=== PATIENT | male | born 1945 | race Caucasian/White ===

== ENCOUNTER → 2016-09-27 | Outpatient (CLI) | payer OTHER ==
[~2016-09-27] MED LIST: AMLO-114 PO; ASPI1TAB83 PO; GLC/500 PO; LOSA100T26 PO; TRAM-10 PO
--- NOTE | 2016-09-27 15:19 | DIAGNOSTIC IMAGING REPORT ---
LEG LENGTH STUDY (WHOLE LEG) CLINICAL HISTORY: LEG LENGTH DISCREPENCY,SACROILIITIS COMPARISON STUDY: No previous studies for comparison. FINDINGS: There are moderately advanced osteoarthritic changes involving both knees with marked narrowing of the medial joint compartments. There is no evidence of leg length discrepancy. Each leg as measured from the femoral head to the tibial plafond measures 934 mm. IMPRESSION: 1. No evidence of leg length discrepancy 2. Moderately advanced osteoarthritic changes involving both knees with marked narrowing of the medial joint compartments Electronically signed by: Rakan Holland M.D. 09/27/2016 3:17 PM Dictated Date/Time: 09/27/2016 3:16 PM
== END | disposition home or self-care (01) ==
LOC: C.RADBC 14:10
PROVIDERS: ATTEND Anesthesiology
DX: M21.70 Unequal limb length (acquired), unspecified site (principal); M46.1 Sacroiliitis, not elsewhere classified

== ENCOUNTER → 2017-04-26 | Outpatient (CLI) | payer OTHER ==
[2017-04-26 09:31] LABS: BASO % 0.4 %; BASO ABS # 0.02 K/uL (0-0.2); COMPLETE YES; EOS % 2.3 %; HEMATOCRIT 46.5 % (42-52); LYMPH % 38.8 %; MEAN CELL VOLUME 94.9 fL (80-100); MEAN CORPUSCULAR HEMOGLOBIN 31.4 pg (25-34); MEAN CORPUSCULAR HGB CONC 33.1 g/dl (32-36); MEAN PLATELET VOLUME 10.4 fL (7.4-10.4); MONO % 13.2 %; NEUT % 45.3 %; PLATELET COUNT 219 K/uL (130-400); WHITE BLOOD COUNT 5.15 K/uL (4.8-10.8)
[2017-04-26 09:50] LABS: ESTIMATED AVERAGE GLUCOSE 123 mg/dl; HA1C FLAG Normal (Normal)
[2017-04-26 10:07] LABS: ALT/SGPT 31 U/L (12-78); AST/SGOT 23 U/L (15-37); BLOOD UREA NITROGEN 18 mg/dl (7-18); BUN/CREATININE RATIO 22.3 (10-20); CALCIUM 8.7 mg/dl (8.5-10.1); CARBON DIOXIDE 28 mmol/L (21-32); CHLORIDE 105 mmol/L (98-107); CREATININE 0.83 mg/dl (0.60-1.40); GLUCOSE 97 mg/dl (70-99); HDL CHOLESTEROL 34 mg/dl; POTASSIUM 3.8 mmol/L (3.5-5.1); SODIUM 139 mmol/L (136-145)
[2017-04-26 10:19] LABS: ALB/GLOB RATIO 1.1 (0.9-2); ALKALINE PHOSPHATASE 105 U/L (45-117); CHOLESTEROL 180 mg/dl (0-200); CHOLESTEROL/HDL RATIO 5.3; LDL CHOLESTEROL CALCULATED 106 mg/dl; TRIGLYCERIDES 199 mg/dl (0-150); VERY LOW DENSITY LIPOPROT CALC 40 mg/dl
--- NOTE | 2017-05-05 06:47 | CODING QUERY MEDICAL NECESSITY ---
CQSUPPORTING DIAGNOSIS NEEDED A supporting diagnosis is required for the test/procedure performed on this patient in order for us to be reimbursed by the patient's insurance. Please provide a supporting diagnosis for the following test/procedure listed below next to the test name along with your signature. *If there is no additional diagnosis for this patient that would support the following test/procedure please document that below next to the test/procedure. Test(s)/Procedure(s) that require a supporting diagnosis: DOS 04/26/17 PROSTATE SPECIFIC TEST THYROID TEST LIPID TEST Provider Signature: Date: Thank you Melanie Galvan Health Information Management Once completed, please kindly fax back to [phone] For questions please call [phone]
== END | disposition home or self-care (01) ==
LOC: C.LAB 08:13
PROVIDERS: ATTEND Internal Medicine
DX: R73.09 Other abnormal glucose (principal)

== ENCOUNTER 2017-10-15 23:03 | Emergency (ER) | payer OTHER ==
[~2017-10-15] VITALS: Ht 175.3 cm; Wt 134.6 kg
[~2017-10-15 23:03] MED LIST changes: -LOSA100T26 PO; +LOSA100T33 PO
[2017-10-15 23:08] VITALS: TEMP 36.6; Ht 175.3 cm; Wt 134.6 kg
[2017-10-15 23:53] LABS: BASO % 0.3 %; BASO ABS # 0.02 K/uL (0-0.2); EOS % 0.9 %; EOS ABS # 0.06 K/uL (0-0.5); HEMATOCRIT 44.5 % (42-52); HEMOGLOBIN 15.4 g/dL (14.0-18.0); IG# 0.01 K/uL (0.00-0.02); LYMPH % 37.5 %; LYMPH ABS # 2.41 K/uL (1.2-3.4); MEAN CELL VOLUME 92.7 fL (80-100); MEAN CORPUSCULAR HEMOGLOBIN 32.1 pg (25-34); MEAN CORPUSCULAR HGB CONC 34.6 g/dl (32-36); MEAN PLATELET VOLUME 9.9 fL (7.4-10.4); MONO % 12.6 %; MONO ABS # 0.81 K/uL (0.11-0.59); NEUT % 48.5 %; NEUT ABS # 3.11 K/uL (1.4-6.5); PLATELET COUNT 198 K/uL (130-400); RED CELL DISTRIBUTION WIDTH CV 12.9 % (11.5-14.5); RED CELL DISTRIBUTION WIDTH SD 43.8 fL (36.4-46.3); WHITE BLOOD COUNT 6.42 K/uL (4.8-10.8)
[2017-10-16 00:14] LABS: ALBUMIN 3.7 gm/dl (3.4-5.0); CALCIUM 8.6 mg/dl (8.5-10.1); CREATININE 0.83 mg/dl (0.60-1.40); POTASSIUM 3.7 mmol/L (3.5-5.1)
[2017-10-16 00:19] LABS: CKMB 1.6 ng/ml (0.5-3.6); TOTAL PROTEIN 7.1 gm/dl (6.4-8.2)
--- NOTE | 2017-10-16 01:30 | EMERGENCY ROOM VISIT NOTE ---
ED Visit Note First contact with patient: 23:19 I saw this patient in conjunction with Ellen Madrid PA-C. I agree with her decision making and treatment plan.
--- NOTE | 2017-10-16 02:17 | EMERGENCY ROOM VISIT NOTE ---
History First contact with patient: 23:19 Chief Complaint: CARDIAC ASSESSMENT Stated Complaint: HIGH BLOOD PRESSURE Nursing Triage Summary: Left side chest discomfort starting at 3pm with high BP at home. No shortness of breath, pain doesn't radiate anywhere. Tender to touch. History of Present Illness The patient is a 71 year old male who presents to the Emergency Room with complaints of high blood pressure. The patient reports that he noticed a discomfort in his left side approximately 6 hours ago. He states it feels like a gas bubble in the left upper abdomen/lower chest. He noticed some nausea when lying down and some slight dizziness when standing up. He checked his blood pressure and states it was elevated at 172/102. He has been urinating more frequently than usual and was concerned about his sugar as he is a diabetic. He does not have anything at home to check his blood sugar. He states his symptoms have been constant. He denies any pain. He denies shortness of breath, vomiting or changes in bowel movements. He denies any cardiac history. He had a stress test several years ago. He does report a family history of heart disease in his father, however this did not occur until he was elderly. Review of Systems A complete 10 point review of systems was reviewed with the patient with pertinent positives and negatives as per history of present illness. All else were negative. Past Medical/Surgical History Medical Problems: (1) Chronic obstructive lung disease (2) Diabetes (3) History of - hypertension (4) Hyperlipidemia (5) Morbid obesity (6) Obstructive sleep apnea syndrome (7) Sepsis secondary to UTI Surgical Problems: (1) Colectomy Family History Cancer Diabetes mellitus Heart disease Hypertension Social History Smoking Status: Never Smoker Alcohol Use: occasionally Drug Use: none Marital Status: Housing Status: lives with significant other Occupation Status: employed Current/Historical Medications Scheduled Amlodipine (Norvasc), 10 MG PO DAILY Aspirin (Aspirin), 81 MG PO DAILY Hctz/Losartan (Hyzaar 12.5MG/100MG), 1 TAB PO DAILY Metformin Hcl (Glucophage), 500 MG PO BID Scheduled PRN Tramadol (Ultram), 100 MG PO QID PRN for Pain Physical Exam Vital Signs Date Time Temp Pulse Resp B/P (MAP) Pulse Ox O2 Delivery O2 Flow Rate FiO2 10/16/17 02:21 70 14 142/94 97 10/16/17 01:08 67 14 10/16/17 01:01 128/78 96 Room Air 10/16/17 00:08 68 22 10/16/17 00:03 65 14 10/16/17 00:01 166/109 10/15/17 23:52 148/84 10/15/17 23:41 63 10/15/17 23:08 36.6 66 18 152/91 95 Room Air Physical Exam VITALS: Vitals are noted on the nurse's note and reviewed by myself. Vital signs stable. GENERAL: This is a 71-year-old male, in no acute distress, nondiaphoretic, well- developed well-nourished. SKIN: The skin was without rashes. HEAD: Normocephalic atraumatic. EARS: External auditory canals clear, tympanic membranes pearly vasquez without erythema or effusion bilaterally. EYES: Pupils equal round and reactive to light and accommodation. MOUTH: Mucous membranes moist. Tonsils are not enlarged. Pharynx without erythema or exudate. NECK: Supple without nuchal rigidity. HEART: Regular rate and rhythm without murmurs gallops or rubs. LUNGS: Clear to auscultation bilaterally without wheezes, rales or rhonchi. No retractions or accessory muscle use. ABDOMEN: Positive bowel sounds x 4. Soft, no overt tenderness to exam although patient does report some reproduction of discomfort with palpation in the left upper quadrant. No guarding or rebound tenderness. NEURO: Patient was alert and oriented to person place and time. Medical Decision & Procedures ER Provider Diagnostic Interpretation: CHEST 1 VIEW: Cardiomegaly. No evidence of failure or pneumonia. Similar to previous Interpreted by myself Laboratory Results 10/15/17 23:41 Red Blood Count 4.80, Mean Corpuscular Volume 92.7, Mean Corpuscular Hemoglobin 32.1, Mean Corpuscular Hemoglobin Concent 34.6, Mean Platelet Volume 9.9, Neutrophils (%) (Auto) 48.5, Lymphocytes (%) (Auto) 37.5, Monocytes (%) (Auto) 12.6, Eosinophils (%) (Auto) 0.9, Basophils (%) (Auto) 0.3, Neutrophils # (Auto ) 3.11, Lymphocytes # (Auto) 2.41, Monocytes # (Auto) 0.81, Eosinophils # (Auto ) 0.06, Basophils # (Auto) 0.02 10/15/17 23:41 Test 10/15/17 23:41 10/16/17 00:41 10/16/17 01:23 White Blood Count 6.42 K/uL (4.8-10.8) Red Blood Count 4.80 M/uL (4.7-6.1) Hemoglobin 15.4 g/dL (14.0-18.0) Hematocrit 44.5 % (42-52) Mean Corpuscular Volume 92.7 fL (80-100) Mean Corpuscular Hemoglobin 32.1 pg (25-34) Mean Corpuscular Hemoglobin Concent 34.6 g/dl (32-36) Platelet Count 198 K/uL (130-400) Mean Platelet Volume 9.9 fL (7.4-10.4) Neutrophils (%) (Auto) 48.5 % Lymphocytes (%) (Auto) 37.5 % Monocytes (%) (Auto) 12.6 % Eosinophils (%) (Auto) 0.9 % Basophils (%) (Auto) 0.3 % Neutrophils # (Auto) 3.11 K/uL (1.4-6.5) Lymphocytes # (Auto) 2.41 K/uL (1.2-3.4) Monocytes # (Auto) 0.81 K/uL (0.11-0.59) Eosinophils # (Auto) 0.06 K/uL (0-0.5) Basophils # (Auto) 0.02 K/uL (0-0.2) RDW Standard Deviation 43.8 fL (36.4-46.3) RDW Coefficient of Variation 12.9 % (11.5-14.5) Immature Granulocyte % (Auto) 0.2 % Immature Granulocyte # (Auto) 0.01 K/uL (0.00-0.02) Anion Gap 7.0 mmol/L (3-11) Est Creatinine Clear Calc Drug Dose 114.4 ml/min Estimated GFR () 104.1 Estimated GFR (Non- 89.8 BUN/Creatinine Ratio 13.7 (10-20) Calcium Level 8.6 mg/dl (8.5-10.1) Total Bilirubin 0.4 mg/dl (0.2-1) Aspartate Amino Transf (AST/SGOT) 21 U/L (15-37) Alanine Aminotransferase (ALT/SGPT) 25 U/L (12-78) Alkaline Phosphatase 115 U/L (45-117) Total Creatine Kinase 147 U/L (39-308) Creatine Kinase MB 1.6 ng/ml (0.5-3.6) Creatine Kinase MB Ratio 1.1 (0-3.0) Total Protein 7.1 gm/dl (6.4-8.2) Albumin 3.7 gm/dl (3.4-5.0) Globulin 3.4 gm/dl (2.5-4.0) Albumin/Globulin Ratio 1.1 (0.9-2) Lipase 120 U/L (73-393) Urine Color YELLOW Urine Appearance CLEAR (CLEAR) Urine pH 7.0 (4.5-7.5) Urine Specific [place] 1.008 (1.000-1.030) Urine Protein NEG (NEG) Urine Glucose (UA) NEG (NEG) Urine Ketones NEG (NEG) Urine Occult Blood NEG (NEG) Urine Nitrite NEG (NEG) Urine Bilirubin NEG (NEG) Urine Urobilinogen NEG (NEG) Urine Leukocyte Esterase NEG (NEG) Bedside Troponin I < 0.030 ng/ml (0-0.045) ECG Per My Interpretation Indication: chest pain Rate (beats per minute): 65 Rhythm: normal sinus Findings: no acute ischemic change, no ectopy Change: no significant change ED Course The patient was evaluated as above. Labs were drawn and IV access was obtained. Patient was reevaluated and findings were discussed. His blood pressure has normalized. Repeat troponin was drawn and was found to be negative. Patient was informed of the results. He will be discharged home. Discharge instructions were reviewed with the patient. The patient verbalized understanding of my assessment and treatment plan and was discharged home in good condition. Medical Decision Differential diagnosis includes acute coronary syndrome, pulmonary embolism, pneumothorax, pericarditis, myocarditis, endocarditis, anxiety, musculoskeletal pain, GERD, costochondritis, pneumonia, among others. The patient is a 71-year-old male who presents today complaining of high blood pressure and left upper abdomen/chest discomfort. Labs revealed no leukocytosis , anemia, or concerning electrolyte abnormality. Urinalysis was not suggestive of infection. Troponin x2 negative. EKG was interpreted by myself and shows no ischemic changes. Chest x-ray shows nothing acute. The patient's blood pressure improved throughout his stay. Pain is likely gastrointestinal in nature. He was advised to follow up closely with his PCP this week for recheck. The patient was independently evaluated by Dr. Pickard, ED attending physician, who agreed with my assessment and treatment plan. Based on the patient's presentation and work up, I feel the patient is stable for outpatient treatment. The patient was educated to return to the emergency department for any worsening of their current condition or new/concerning symptoms. He will follow up with his PCP. Medication Reconcilliation Current Medication List: was personally reviewed by me Blood Pressure Screening Patient's blood pressure: Elevated blood pressure Blood pressure disposition: Referred to PCP Impression Primary Impression: Hypertension Departure Information Dispostion Home / Self-Care Condition GOOD Referrals Adolfo Jarrett M.D. (PCP) Patient Instructions My [facility] Additional Instructions You have been treated in the Emergency Department for high blood pressure/chest discomfort. Laboratory results and Imaging Studies have ruled out any acute cardiac or pulmonary cause of your chest pain. For pain control, you can use the following [id number] medicines (if >12 yo): - Regular strength (325mg/tab) Tylenol (acetaminophen) 2 tabs every 4-6 hours as needed. Do not exceed 12 tablets in a 24 hour period. Avoid taking more than 4 grams (4000 mg) of Tylenol per day. This includes any other sources of acetaminophen you may take on a regular basis. - Regular strength (200 mg/tab) Advil (ibuprofen) 1-2 tabs every 4-6 hours as needed. Do not exceed a dose of 3200 mg per day. You should schedule a follow-up appointment with your Primary Care Provider in 2 -3 days for further evaluation from today's Emergency Department visit. Call them tomorrow to schedule an appointment within this week. Return to the Emergency Department if your current symptoms worsen despite treatment course outlined above, or if you develop any of the following symptoms : worsening chest pain, associated jaw/arm pain, nausea, dizziness, shortness of breath, bloody cough, or fainting. Problem Qualifiers Primary Impression: Hypertension Hypertension type: unspecified Qualified Codes: I10 - Essential (primary) hypertension
[2017-10-16 02:21] VITALS: BP 142/94; PULSE 70; O2SAT 97
--- NOTE | 2017-10-16 07:03 | DIAGNOSTIC IMAGING REPORT ---
SINGLE VIEW CHEST CLINICAL HISTORY: Atypical chest pain. FINDINGS: An AP, portable, upright chest radiograph is compared to chest x-ray and chest CT dated 04/09/2016. The examination is degraded by portable technique, apical lordotic positioning, and patient rotation. The heart is enlarged and there is atherosclerotic calcification of the thoracic aorta. The pulmonary vasculature is noncongested. Chronic interstitial thickening is similar to previous. There is bibasilar atelectasis. No airspace consolidation or large pleural effusion is identified. No pneumothorax is seen. The skeletal structures are osteopenic. The bony thorax is grossly intact. IMPRESSION: Cardiomegaly with no acute cardiopulmonary abnormality. Electronically signed by: Robinson Maya M.D. 10/16/2017 7:02 AM Dictated Date/Time: 10/16/2017 7:01 AM
== END 2017-10-16 02:22 | disposition home or self-care (01) ==
LOC: C.EDB 23:04
DX: I10 Essential (primary) hypertension (principal); E11.9 Type 2 diabetes mellitus without complications; J44.9 Chronic obstructive pulmonary disease, unspecified; E78.5 Hyperlipidemia, unspecified; G47.33 Obstructive sleep apnea (adult) (pediatric); Z79.82 Long term (current) use of aspirin; Z79.84 Long term (current) use of oral hypoglycemic drugs; Z80.9 Family history of malignant neoplasm, unspecified; Z83.3 Family history of diabetes mellitus; Z82.49 Family history of ischemic heart disease and other diseases of the circulatory system

== ENCOUNTER 2022-05-06 15:30 | Inpatient (IN) ==
--- NOTE | 2022-05-06 15:32 | Emergency Department Note ---
Impression & Plan Non-ST elevation IA (NSTEMI), Weakness, Acute electrocardiogram changes, Leukocytosis ED Provider Note NAME: KAYLEE HAGEN AGE: 76 SEX: M : 1945 ARRIVES VIA: Ambulance INFORMANT: Patient, ED PROVIDER(S): Ciro Fiore MD Chief Complaint: Altered mental status HPI: History is obtained from EMS as well as colleague that took the initial medical command call. The patient reportedly had a last known well at 1357 when he fell to the ground and was reportedly unresponsive at that time. EMS did arrive to see the patient and the patient was responsive but still altered. The patient does have remote history of ICH in the past and does not reportedly take any current blood thinning medications. Vital signs were stable at the time that he was seen by EMS with a normal BSG. Upon returning from the CAT scan or the patient had complained of some right- sided chest pressure. The patient denies any shortness of breath or abdominal pain. The patient has had no associated nausea or vomiting. Family states he has not complained of any infectious symptoms. ROS: See HPI for pertinent positives and negatives. A total of 10 systems were reviewed and otherwise negative. Past medical history: See below Surgical history: See below Social history: See below Physical Exam: GENERAL: Mild distress EYE EXAM: Normal conjunctiva. PERRL, no anisocoria and EOM's grossly intact w/o pain. NECK: Supple, no nuchal rigidity, no adenopathy, non-tender. No signs of meningismus. FROM of the neck with good chin to chest and neck extension. No stridor. LUNGS: Clear to auscultation. Normal chest wall mechanics. HEART: NSR, no MRG. ABDOMEN: Abdomen soft, reducible right-sided hernia, normo-active bowel sounds, no masses, no rebound or guarding. BACK: No CVA TTP. SKIN: No rashes and no bruising. UPPER EXTREMITIES: Upper extremities are grossly normal. LOWER EXTREMITIES: Grossly normal, no edema. NEURO EXAM: A&O x3, cranial nerves II-XII grossly intact, normal speech moves all 4 extremities weakly but able to do so, no sensory deficits and no evidence of any facial droop. Differential diagnoses: Cardiac ischemia, aortic dissection, pulmonary embolism, pneumothorax, pneumonia, pericarditis, myocarditis, esophageal rupture, GERD, cholecystitis, pancreatitis, musculoskeletal, as well as other pathologies. Course: Patient was seen and evaluated the bedside. Full history physical exam was performed. EKG interpreted by me Sinus tachycardia, rate 115, normal intervals, normal axis, ST depressions in the lateral and high lateral leads, PVC noted. These are changed from comparison completed October 15, 2017. Imaging Studies: See Below Cardiac monitoring: An order was placed for continuous cardiac monitoring. The monitor shows a rate of 105 with tachycardic and regular rhythm. MDM: Patient was seen due to concern for altered mental status. The patient was made a stroke alert and upon presentation was taken immediately to CAT scan where he had CT of the head and CT angiography of the head and neck. Blood work was obtained. Telestroke consult was initiated once the patient CTs were completed. Patient's blood work shows a white count of 15 with a normal H&H and platelet count. The patient's kidney function is unremarkable with mild hyponatremia and hyponatremia. IV fluids were ordered. The patient does have mild hypomagnesemia and hypokalemia which were ordered for repletion. Troponin is slightly elevated at 28 with the EKG changes. Pending CT angiography if this negative will speak with cardiology and consider starting heparin. COVID- negative. The patient's CT head and CT angiography of the head and neck is negative. Patient CTA of the chest is somewhat motion compromise but no evidence of central PE in the main lobar or proximal segmental pulmonary arteries. Patient does have cardiomegaly. Dependent airspace opacities likely from scarring or atelectasis but could involve pneumonitis. The patient does not complain of any cough. No acute infectious or inflammatory findings in the abdomen or pelvis. The patient does have abdominal hernia but no obstruction. I did speak with the on-call seniour insight manager Dr. Johnson. The patient had already received aspirin. No nitro was ordered. He is in agreement with continuing heparin at this time. I did speak with the on-call hospitalist Dr. Patel and the patient was admitted to the medicine service. Patient was reassessed several times. The patient had been on BiPAP but was able to be transitioned off of this. The patient's VBG does not show any significant hypercarbia. pH VBG is grossly normal. Upon reassessment the patient does look and feel improved. Given the patient's white count with low-grade temperature as well as possible pneumonitis a procalcitonin was added and antibiotics were deferred to the inpatient team. Critical Care: I have personally spent 75 minutes of critical care time in direct management of this patient. This includes bedside care, interpretation of diagnostic studies, and testing, discussion with consultants, patient, and family members, and other require inpatient management activities. This 75 minutes is in excess of all separately billable procedures. Past Med/Surg History Medical History Acute flank pain Acute pyelonephritis Chronic back pain Diabetes Dyslipidemia Encephalopathy Hematuria Hypertension Nocturnal hypoxemia Sepsis secondary to UTI Type 2 diabetes mellitus Unresponsive Surgical History History of appendectomy History of colon surgery History of tonsillectomy Family History Father Myocardial infarction Heart disease Mother Hypertension Other Diabetes Denies family history of Ovarian cancer Prostate cancer Breast cancer Lung cancer Colorectal cancer Stroke Social History Smoking Status: Never smoker Second Hand Exposure: No; Hx Alcohol Use: Yes Alcohol type: hard liquor Alcohol Intake Frequency: 4 or More x per/Week Hx Substance Use: No Preferred Language: Namibian Visual Impairment: Limited Hearing Ability: Hard of Hearing marital status: Current Living Situation: Spouse current occupational status: retired How many Children do You have: 3 Feels Safe at Home: Yes Childhood Exposure to Second-Hand Smoke: No caffeine: Yes Dental Care, Regularly: No Physical Activity Frequency: 5-6 Times per Week Seatbelt Use: always Sunscreen Use: Yes Allergies Allergies Allergy/AdvReac Type Severity Reaction Status Date / Time long Allergy Severe LONG Verified 08/03/21 11:02 TREES "LUNGS TIGHTEN UP" codeine AdvReac Mild NAUSEA Verified 08/03/21 11:02 Home Meds Home Medications Medication Instructions Recorded Confirmed aspirin 81 mg tablet,delayed 81 mg PO DAILY 03/13/19 08/03/21 release (Adult Low Dose Aspirin) Previous Rx's Medication Instructions Recorded cyclobenzaprine 10 mg tablet 10 mg PO TID PRN muscle spasm #20 03/16/19 tabs carvedilol 6.25 mg tablet See Rx Instructions .Route 05/20/21 .COMPLEX #270 tabs hydrochlorothiazide 25 mg tablet See Rx Instructions .Route 05/20/21 .COMPLEX #90 tabs sulindac 200 mg tablet See Rx Instructions .Route 05/20/21 .COMPLEX #180 tabs clotrimazole-betamethasone 1 1 applic topical BID #45 grams 08/18/21 %-0.05 % topical cream metformin 500 mg tablet 500 mg PO BID #180 tabs 03/23/22 rosuvastatin 5 mg tablet 5 mg PO DAILY #90 tabs 03/23/22 amlodipine 10 mg tablet 10 mg PO DAILY #90 tabs 03/24/22 tramadol 50 mg tablet 100 mg PO Q12H PRN pain #120 tabs 03/24/22 Results & Data (ED) Vital Signs Vital Signs - 24 hr 05/06/22 15:30 05/06/22 16:03 05/06/22 16:08 Temperature 38.2 C H Temperature Source Oral Pulse Rate 110 H 118 H Pulse Rate [Left Apical] 110 H Pulse Rhythm Regular Pulse Rhythm [Left Apical] Regular Pulse Strength Normal Pulse Strength [Left Apical] Normal Respiratory Rate 20 22 18 Respiratory Effort / Characteristics Non-Labored Spontaneous Non-Labored Spontaneous Spontaneous Respiratory Depth Normal Normal Normal Respiratory Pattern Regular Blood Pressure 163/78 H Blood Pressure [Left Arm] 160/122 H Blood Pressure Mean 106 Blood Pressure Mean [Left Arm] 134 Blood Pressure Position Lying Blood Pressure Position [Left Arm] Lying Pulse Oximetry 94 95 95 Oxygen Delivery Method Room Air BiPAP Oxygen Flow Rate Fraction of Inspired Oxygen 30 Sepsis Recent Fever Within 48 Hours No Sepsis New/Unexplained Change in Mental Status Yes Sepsis Action Taken by Nursing Physician Notified 05/06/22 16:15 05/06/22 17:11 05/06/22 17:52 Temperature Temperature Source Pulse Rate Pulse Rate [Left Apical] 108 H 106 H Pulse Rhythm Pulse Rhythm [Left Apical] Regular Regular Pulse Strength Pulse Strength [Left Apical] Normal Normal Respiratory Rate 20 20 Respiratory Effort / Characteristics Non-Labored Non-Labored Spontaneous Respiratory Depth Normal Normal Respiratory Pattern Blood Pressure Blood Pressure [Left Arm] 173/104 H 161/115 H Blood Pressure Mean Blood Pressure Mean [Left Arm] 127 130 Blood Pressure Position Blood Pressure Position [Left Arm] Pulse Oximetry 93 91 Oxygen Delivery Method Nasal Cannula Nasal Cannula Oxygen Flow Rate 2 2 Fraction of Inspired Oxygen 25 Sepsis Recent Fever Within 48 Hours Sepsis New/Unexplained Change in Mental Status Sepsis Action Taken by Halfway Medications Current Medication List: was personally reviewed by me Laboratory Data Attestation: I reviewed the patient's lab results. Result diagrams: 05/06/22 15:52 05/06/22 15:52 Lab Results 05/06/22 05/06/22 05/06/22 Range/Units 15:35 15:52 15:52 WBC 15.08 H (4.8-10.8) K/ul RBC 5.17 (4.63-6.08) M/uL Hgb 16.7 (14.0-18.0) g/dl POC Hgb (14.0-18.0) g/dl Hct 48.0 (40.1-51.0) % POC Hct (42-52) % MCV 92.8 (80.0-100.0) fL MCH 32.3 (25.0-34.0) pg MCHC 34.8 (32.0-36.0) g/dL RDW Std Deviation 42.8 (36.4-46.3) fL RDW Coeff of Vipul 12.4 (11.5-14.5) % Plt Count 172 (130-400) K/uL MPV 9.9 (9.4-12.4) fL Immature Gran % (Auto) 0.6 % Neut % (Auto) 87.9 % Lymph % (Auto) 3.6 % [place] % (Auto) 7.6 % Eos % (Auto) 0.0 % Baso % (Auto) 0.3 % Neut # (Auto) 13.25 H (1.4-6.5) K/uL Lymph # (Auto) 0.55 L (1.2-3.4) K/uL [place] # (Auto) 1.14 H (0.24-0.82) K/uL Eos # (Auto) 0.00 (0-0.50) K/uL Baso # (Auto) 0.05 (0-0.2) K/uL Immature Gran # (Auto) 0.09 H (0.00-0.02) K/uL PT (9.0-12.0) Seconds INR (0.9-1.1) APTT (21.0-31.0) Seconds PTT Ratio VBG pH (7.36-7.41) VBG pCO2 (38-50) mmHg VBG pO2 mmHg VBG HCO3 mmol/L VBG O2 Saturation % VBG Base Excess mEq/L POC Sodium (135-144) mmol/L Sodium (136-145) mmol/L POC Potassium (3.3-5.0) mmol/L Potassium (3.5-5.1) mmol/L POC Chloride (101-112) mmol/L Chloride (98-107) mmol/L Carbon Dioxide (21-32) mmol/L POC Total CO2 (24-31) mmol/L Anion Gap (3-11) POC Anion Gap (16-25) mmol/L POC BUN (7-18) mg/dl BUN (6-23) mg/dl Creatinine (0.6-1.4) mg/dl POC Creatinine (0.6-1.3) mg/dl Est Cr Clr Drug Dosing ml/min Est GFR ( Amer) ml/min Est GFR (Non-Af Amer) ml/min BUN/Creatinine Ratio (10-20) Glucose (70-99(Fasting)) mg/dl POC Glucose (other) (70-99) mg/dl Lactate (0.4-2.0) mmol/L Calcium (8.5-10.1) mg/dl POC Ioniz Calcium Zita (1.12-1.32) mmol/l Magnesium (1.7-2.4) mg/dl Total Bilirubin (0.2-1.0) mg/dl AST (13-39) U/L ALT (7-52) U/L Alkaline Phosphatase (34-104) U/L Troponin I High Sens (0-20) pg/ml Total Protein (6.0-8.3) gm/dl Albumin (3.4-5.0) gm/dl Globulin (2.5-4.0) gm/dl Albumin/Globulin Ratio (0.9-2) SARS-CoV-2, RNA, NAAT NEGATIVE (NEGATIVE) Blood Type O Positive Antibody Screen NEGATIVE 05/06/22 05/06/22 05/06/22 Range/Units 15:52 15:52 15:53 WBC (4.8-10.8) K/ul RBC (4.63-6.08) M/uL Hgb (14.0-18.0) g/dl POC Hgb (14.0-18.0) g/dl Hct (40.1-51.0) % POC Hct (42-52) % MCV (80.0-100.0) fL MCH (25.0-34.0) pg MCHC (32.0-36.0) g/dL RDW Std Deviation (36.4-46.3) fL RDW Coeff of Vipul (11.5-14.5) % Plt Count (130-400) K/uL MPV (9.4-12.4) fL Immature Gran % (Auto) % Neut % (Auto) % Lymph % (Auto) % [place] % (Auto) % Eos % (Auto) % Baso % (Auto) % Neut # (Auto) (1.4-6.5) K/uL Lymph # (Auto) (1.2-3.4) K/uL [place] # (Auto) (0.24-0.82) K/uL Eos # (Auto) (0-0.50) K/uL Baso # (Auto) (0-0.2) K/uL Immature Gran # (Auto) (0.00-0.02) K/uL PT 11.5 (9.0-12.0) Seconds INR 1.1 (0.9-1.1) APTT 26.2 (21.0-31.0) Seconds PTT Ratio 1.0 VBG pH 7.46 H (7.36-7.41) VBG pCO2 41 (38-50) mmHg VBG pO2 41 mmHg VBG HCO3 29 mmol/L VBG O2 Saturation 70.4 % VBG Base Excess 4.9 mEq/L POC Sodium (135-144) mmol/L Sodium 131 L (136-145) mmol/L POC Potassium (3.3-5.0) mmol/L Potassium 3.1 L (3.5-5.1) mmol/L POC Chloride (101-112) mmol/L Chloride 97 L (98-107) mmol/L Carbon Dioxide 26 (21-32) mmol/L POC Total CO2 (24-31) mmol/L Anion Gap 8 (3-11) POC Anion Gap (16-25) mmol/L POC BUN (7-18) mg/dl BUN 16 (6-23) mg/dl Creatinine 0.82 (0.6-1.4) mg/dl POC Creatinine (0.6-1.3) mg/dl Est Cr Clr Drug Dosing 120.9 ml/min Est GFR ( Amer) 101.0 ml/min Est GFR (Non-Af Amer) 87.1 ml/min BUN/Creatinine Ratio 19.5 (10-20) Glucose 133 H (70-99(Fasting)) mg/dl POC Glucose (other) (70-99) mg/dl Lactate (0.4-2.0) mmol/L Calcium 8.8 (8.5-10.1) mg/dl POC Ioniz Calcium Zita (1.12-1.32) mmol/l Magnesium 1.3 L (1.7-2.4) mg/dl Total Bilirubin 1.1 H (0.2-1.0) mg/dl AST 23 (13-39) U/L ALT 22 (7-52) U/L Alkaline Phosphatase 84 (34-104) U/L Troponin I High Sens 28.6 H (0-20) pg/ml Total Protein 7.0 (6.0-8.3) gm/dl Albumin 4.1 (3.4-5.0) gm/dl Globulin 2.9 (2.5-4.0) gm/dl Albumin/Globulin Ratio 1.4 (0.9-2) SARS-CoV-2, RNA, NAAT (NEGATIVE) Blood Type Antibody Screen 05/06/22 05/06/22 Range/Units 15:58 16:24 WBC (4.8-10.8) K/ul RBC (4.63-6.08) M/uL Hgb (14.0-18.0) g/dl POC Hgb 17.3 (14.0-18.0) g/dl Hct (40.1-51.0) % POC Hct 51 (42-52) % MCV (80.0-100.0) fL MCH (25.0-34.0) pg MCHC (32.0-36.0) g/dL RDW Std Deviation (36.4-46.3) fL RDW Coeff of Vipul (11.5-14.5) % Plt Count (130-400) K/uL MPV (9.4-12.4) fL Immature Gran % (Auto) % Neut % (Auto) % Lymph % (Auto) % [place] % (Auto) % Eos % (Auto) % Baso % (Auto) % Neut # (Auto) (1.4-6.5) K/uL Lymph # (Auto) (1.2-3.4) K/uL [place] # (Auto) (0.24-0.82) K/uL Eos # (Auto) (0-0.50) K/uL Baso # (Auto) (0-0.2) K/uL Immature Gran # (Auto) (0.00-0.02) K/uL PT (9.0-12.0) Seconds INR (0.9-1.1) APTT (21.0-31.0) Seconds PTT Ratio VBG pH (7.36-7.41) VBG pCO2 (38-50) mmHg VBG pO2 mmHg VBG HCO3 mmol/L VBG O2 Saturation % VBG Base Excess mEq/L POC Sodium 135 (135-144) mmol/L Sodium (136-145) mmol/L POC Potassium 3.0 L (3.3-5.0) mmol/L Potassium (3.5-5.1) mmol/L POC Chloride 95 L (101-112) mmol/L Chloride (98-107) mmol/L Carbon Dioxide (21-32) mmol/L POC Total CO2 25 (24-31) mmol/L Anion Gap (3-11) POC Anion Gap 18.0 (16-25) mmol/L POC BUN 16 (7-18) mg/dl BUN (6-23) mg/dl Creatinine (0.6-1.4) mg/dl POC Creatinine 0.8 (0.6-1.3) mg/dl Est Cr Clr Drug Dosing ml/min Est GFR ( Amer) ml/min Est GFR (Non-Af Amer) ml/min BUN/Creatinine Ratio (10-20) Glucose (70-99(Fasting)) mg/dl POC Glucose (other) 130 H (70-99) mg/dl Lactate 1.7 (0.4-2.0) mmol/L Calcium (8.5-10.1) mg/dl POC Ioniz Calcium Zita 1.13 (1.12-1.32) mmol/l Magnesium (1.7-2.4) mg/dl Total Bilirubin (0.2-1.0) mg/dl AST (13-39) U/L ALT (7-52) U/L Alkaline Phosphatase (34-104) U/L Troponin I High Sens (0-20) pg/ml Total Protein (6.0-8.3) gm/dl Albumin (3.4-5.0) gm/dl Globulin (2.5-4.0) gm/dl Albumin/Globulin Ratio (0.9-2) SARS-CoV-2, RNA, NAAT (NEGATIVE) Blood Type Antibody Screen Administered Medications Magnesium Sulfate/Dextrose (Magnesium Sulfate / D5w) 1 gm in 100 mls @ 100 mls/hr IV Q1H CYNTHIA Stop: 05/06/22 19:08 Last Admin: 05/06/22 17:32 Dose: 100 mls/hr Documented By: TIMMY Potassium Chloride (K Fantasma / Wtr) 10 meq in 100 mls @ 100 mls/hr IV Q1H CYNHTIA; Protocol Stop: 05/06/22 19:14 Last Admin: 05/06/22 17:42 Dose: 100 mls/hr Documented By: TIMMY Discontinued Medications Aspirin (Aspirin Chew 324 Mg) 324 mg PO NOW STA Stop: 05/06/22 16:00 Last Admin: 05/06/22 16:59 Dose: 324 mg Documented By: TIMMY Sodium Chloride (Nss 1000ml) 1,000 mls @ 999 mls/hr IV .Q1H1M ONE Stop: 05/06/22 16:56 Last Admin: 05/06/22 16:40 Dose: 999 mls/hr Documented By: TIMMY Acetaminophen (Ofirmev) 1,000 mg in 100 mls @ 400 mls/hr IV NOW STA Stop: 05/06/22 16:10 Last Infusion: 05/06/22 16:59 Dose: 0 mls/hr Documented By: Admin: 05/06/22 16:40 Dose: 400 mls/hr Documented By: TIMMY Ioversol (Optiray 300 500ml) 110 ml IV ONCE ONE Stop: 05/06/22 15:41 Last Admin: 05/06/22 15:41 Dose: 110 ml Documented By: RASHAD Ioversol (Optiray 300 500ml) 116 ml IV ONCE ONE Stop: 05/06/22 16:40 Last Admin: 05/06/22 16:47 Dose: 116 ml Documented By: [facility] Imaging Data Radiologist's Impression: Head CT 05/06/22 14:[address] OF THE BRAIN; CT ANGIOGRAM OF THE BRAIN; CT ANGIOGRAM OF THE NECK CLINICAL HISTORY: Strokelike symptoms COMPARISON STUDY: CT of the brain dated 08/24/2014. TECHNIQUE: Unenhanced axial CT scan of the brain is performed. Subsequently, following the IV administration of 110 of Optiray 300, CT angiogram of the head and neck was performed from the aortic arch to the vertex. Images are reviewed in the axial, sagittal, and coronal planes. 3-D MIPS images are created and assessed. IV contrast was administered without complication. All measurements were calculated based on NASCET criteria. A dose lowering technique was utilized adhering to the principles of ALARA. The examinations are compromised by motion artifact. CT DOSE: 2514.70 mGy.cm FINDINGS: Brain parenchyma: There is age-related involutional change noting mild subcortical and periventricular microangiopathic disease. There is no hemorrhage, mass effect, or evidence of acute territorial ischemia by CT criteria. There is no evidence of enhancing mass lesion on the angiogram phase images. The ventricles, sulci, and cisterns are prominent secondary to involutional change. Mcdonald-white matter differentiation is preserved. No extra- axial fluid collection is seen. Thoracic aorta: Visualized portions of the thoracic aorta are normal in caliber. The aortic arch demonstrates standard 3-vessel anatomy. Right carotid arterial system: The right common carotid artery is widely patent, as are the right internal and external carotid arteries. Mild calcified plaque is noted in the carotid bulb. Left carotid arterial system: The left common carotid artery is widely patent, as are the left internal and external carotid arteries. Vertebral arteries: The vertebral arteries are widely patent bilaterally and codominant. Subclavian arteries: Widely patent bilaterally. Intracranial vasculature: There is atherosclerotic calcification of the cavernous carotid and vertebral arteries. The internal carotid arteries are patent at the skull base, as are the anterior and middle cerebral arteries bilaterally. There is a left posterior communicating artery. The vertebrobasilar system and posterior cerebral arteries are widely patent. The vertebral arteries are codominant. There is no aneurysm, high-grade stenosis, or focal vessel cut off seen throughout the intracranial circulation. Jugular veins: Patent bilaterally. Dural sinuses: Patent. Lung apices: Partially visualized upper lobe lung parenchyma appears clear. Soft tissues: The visualized pharyngeal soft tissues are normal in appearance noting angiographic phase technique. The oropharyngeal airway appears widely patent. The salivary and thyroid glands are normal in appearance. No cervical lymphadenopathy is seen. Skeletal structures: The skeletal structures are osteopenic. The calvarium appears intact. The cervical spine is maintained noting multilevel spondylosis. No lytic or blastic lesion is seen. Orbits: The bony orbits are intact. Orbital contents are normal as visualized. Sinuses and mastoids: There is moderate mucosal thickening within the maxillary antra and the left sphenoid sinus. Trace mucosal thickening is noted in the frontal and ethmoid sinuses. The mastoid air cells are well pneumatized. IMPRESSION: 1. Motion compromised examinations. 2. There is no hemorrhage, mass effect, or evidence of acute territorial ischemia by CT criteria. 3. Unremarkable CT angiogram of the brain. 4. Unremarkable CT angiogram of the neck. ACT 112: Negative or not required by law. Electronically signed by: Robinson Maya M.D. 05/06/2022 4:02 PM Head CTA 05/06/22 14:[address] OF THE BRAIN; CT ANGIOGRAM OF THE BRAIN; CT ANGIOGRAM OF THE NECK CLINICAL HISTORY: Strokelike symptoms COMPARISON STUDY: CT of the brain dated 08/24/2014. TECHNIQUE: Unenhanced axial CT scan of the brain is performed. Subsequently, following the IV administration of 110 of Optiray 300, CT angiogram of the head and neck was performed from the aortic arch to the vertex. Images are reviewed in the axial, sagittal, and coronal planes. 3-D MIPS images are created and assessed. IV contrast was administered without complication. All measurements were calculated based on NASCET criteria. A dose lowering technique was utiliz ed adhering to the principles of ALARA. The examinations are compromised by motion artifact. CT DOSE: 2514.70 mGy.cm FINDINGS: Brain parenchyma: There is age-related involutional change noting mild subcortical and periventricular microangiopathic disease. There is no hemorrhage, mass effect, or evidence of acute territorial ischemia by CT criteria. There is no evidence of enhancing mass lesion on the angiogram phase images. The ventricles, sulci, and cisterns are prominent secondary to involutional change. Mcdonald-white matter differentiation is preserved. No extra- axial fluid collection is seen. Thoracic aorta: Visualized portions of the thoracic aorta are normal in caliber. The aortic arch demonstrates standard 3-vessel anatomy. Right carotid arterial system: The right common carotid artery is widely patent, as are the right internal and external carotid arteries. Mild calcified plaque is noted in the carotid bulb. Left carotid arterial system: The left common carotid artery is widely patent, as are the left internal and external carotid arteries. Vertebral arteries: The vertebral arteries are widely patent bilaterally and codominant. Subclavian arteries: Widely patent bilaterally. Intracranial vasculature: There is atherosclerotic calcification of the cavernous carotid and vertebral arteries. The internal carotid arteries are patent at the skull base, as are the anterior and middle cerebral arteries bilaterally. There is a left posterior communicating artery. The vertebrobasilar system and posterior cerebral arteries are widely patent. The vertebral arteries are codominant. There is no aneurysm, high-grade stenosis, or focal vessel cut off seen throughout the intracranial circulation. Jugular veins: Patent bilaterally. Dural sinuses: Patent. Lung apices: Partially visualized upper lobe lung parenchyma appears clear. Soft tissues: The visualized pharyngeal soft tissues are normal in appearance noting angiographic phase technique. The oropharyngeal airway appears widely patent. The salivary and thyroid glands are normal in appearance. No cervical lymphadenopathy is seen. Skeletal structures: The skeletal structures are osteopenic. The calvarium appears intact. The cervical spine is maintained noting multilevel spondylosis. No lytic or blastic lesion is seen. Orbits: The bony orbits are intact. Orbital contents are normal as visualized. Sinuses and mastoids: There is moderate mucosal thickening within the maxillary antra and the left sphenoid sinus. Trace mucosal thickening is noted in the frontal and ethmoid sinuses. The mastoid air cells are well pneumatized. IMPRESSION: 1. Motion compromised examinations. 2. There is no hemorrhage, mass effect, or evidence of acute territorial ischemia by CT criteria. 3. Unremarkable CT angiogram of the brain. 4. Unremarkable CT angiogram of the neck. ACT 112: Negative or not required by law. Electronically signed by: Robinsno Maya M.D. 05/06/2022 4:02 PM Neck CTA 05/06/22 14:[address] OF THE BRAIN; CT ANGIOGRAM OF THE BRAIN; CT ANGIOGRAM OF THE NECK CLINICAL HISTORY: Strokelike symptoms COMPARISON STUDY: CT of the brain dated 08/24/2014. TECHNIQUE: Unenhanced axial CT scan of the brain is performed. Subsequently, following the IV administration of 110 of Optiray 300, CT angiogram of the head and neck was performed from the aortic arch to the vertex. Images are reviewed in the axial, sagittal, and coronal planes. 3-D MIPS images are created and assessed. IV contrast was administered without complication. All measurements were calculated based on NASCET criteria. A dose lowering technique was utilized adhering to the principles of ALARA. The examinations are compromised by motion artifact. CT DOSE: 2514.70 mGy.cm FINDINGS: Brain parenchyma: There is age-related involutional change noting mild subcorti abhinav and periventricular microangiopathic disease. There is no hemorrhage, mass effect, or evidence of acute territorial ischemia by CT criteria. There is no evidence of enhancing mass lesion on the angiogram phase images. The ventricles, sulci, and cisterns are prominent secondary to involutional change. Mcdonald-white matter differentiation is preserved. No extra-axial fluid collection is seen. Thoracic aorta: Visualized portions of the thoracic aorta are normal in caliber. The aortic arch demonstrates standard 3-vessel anatomy. Right carotid arterial system: The right common carotid artery is widely patent, as are the right internal and external carotid arteries. Mild calcified plaque is noted in the carotid bulb. Left carotid arterial system: The left common carotid artery is widely patent, as are the left internal and external carotid arteries. Vertebral arteries: The vertebral arteries are widely patent bilaterally and codominant. Subclavian arteries: Widely patent bilaterally. Intracranial vasculature: There is atherosclerotic calcification of the cavernous carotid and vertebral arteries. The internal carotid arteries are pa tent at the skull base, as are the anterior and middle cerebral arteries bilaterally. There is a left posterior communicating artery. The vertebrobasilar system and posterior cerebral arteries are widely patent. The vertebral arteries are codominant. There is no aneurysm, high-grade stenosis, or focal vessel cut off seen throughout the intracranial circulation. Jugular veins: Patent bilaterally. Dural sinuses: Patent. Lung apices: Partially visualized upper lobe lung parenchyma appears clear. Soft tissues: The visualized pharyngeal soft tissues are normal in appearance noting angiographic phase technique. The oropharyngeal airway appears widely patent. The salivary and thyroid glands are normal in appearance. No cervical lymphadenopathy is seen. Skeletal structures: The skeletal structures are osteopenic. The calvarium appears intact. The cervical spine is maintained noting multilevel spondylosis. No lytic or blastic lesion is seen. Orbits: The bony orbits are intact. Orbital contents are normal as visualized. Sinuses and mastoids: There is moderate mucosal thickening within the maxillary antra and the left sphenoid sinus. Trace mucosal thickening is noted in the frontal and ethmoid sinuses. The mastoid air cells are well pneumatized. IMPRESSION: 1. Motion compromised examinations. 2. There is no hemorrhage, mass effect, or evidence of acute territorial ischemia by CT criteria. 3. Unremarkable CT angiogram of the brain. 4. Unremarkable CT angiogram of the neck. ACT 112: Negative or not required by law. Electronically signed by: Robinson Maya M.D. 05/06/2022 4:02 PM Chest X-Ray 05/06/22 15:48 SINGLE VIEW CHEST CLINICAL HISTORY: Atypical chest pain. FINDINGS: An AP, portable, upright chest radiograph is compared to study dated 10/15/2017 and correlated with chest CT dated 05/06/2022. The heart is enlarged. The pulmonary vasculature is noncongested. Chronic interstitial thickening is similar to previous. Scarring/atelectasis is noted at the lung bases. The lungs and pleural spaces are otherwise clear. No pneumothorax is seen. The skeletal structures are osteopenic. The bony thorax is grossly intact. IMPRESSION: Cardiomegaly with no acute cardiopulmonary abnormality identified. ACT 112: Negative or not required by law. Electronically signed by: Robinson Maya M.D. 05/06/2022 5:39 PM Chest CTA 05/06/22 15:55 CT ANGIOGRAM OF THE CHEST; CT SCAN OF THE ABDOMEN AND PELVIS WITH IV CONTRAST CLINICAL HISTORY: Atypical chest pain. Leukocytosis. Fever. Generalized weakness. COMPARISON STUDY: Chest CT dated 04/09/2016. Abdominal CT dated 03/12/2019 TECHNIQUE: Following the IV administration of 116 of Optiray 300, CT angiogram of the chest is performed from the upper abdomen to the thoracic inlet utilizing the pulmonary embolus protocol. Images are reviewed in the axial, sagittal, coronal planes. 3-D MIPS images are created and assessed. Subsequently, CT scan of the abdomen and pelvis was performed from the lung bases to the proximal femora. Images are reviewed in the axial, sagittal, and coronal planes. IV contrast was administered without complication. A dose lowering technique was utilized adhering to the principles of ALARA. The examination are significantly degraded by motion artifact. The examination are also degraded by large body habitus, with streak artifact from the body wall abutting the CT gantry. There is also streak artifact from the arms which could not be elevated above the chest or abdomen. CT DOSE: 3292.26 mGy.cm FINDINGS: CHEST: Thyroid: Imaged portions of the thyroid gland are normal in size and attenuat ion. Thoracic aorta: There is atherosclerotic calcification of the thoracic aorta, which is normal in caliber and demonstrates standard 3-vessel arch anatomy. No dissection is seen. Pulmonary vasculature: The main pulmonary arteries are dilated indicating pulmonary artery hypertension. There is suboptimal contrast opacification of the pulmonary arteries. There are no filling defects identified in the main, lobar, or proximal segmental pulmonary arteries to indicate pulmonary embolus. The segmental and subsegmental branches are suboptimally assessed due to lack of contrast opacification and motion artifact. Heart: The heart is enlarged and without pericardial effusion. The coronary arteries are densely calcified. Lungs and pleural spaces: Evaluation of the lung parenchyma is degraded by motion artifact. The trachea and central airways are clear. Dependent airspace opacities likely represent scarring/atelectasis. No pleural effusion is identified. Mediastinum: There is no mediastinal lymphadenopathy. Ailyn: Clear. Axillae: There is no axillary lymphadenopathy. Bony thorax: The skeletal structures are osteopenic. Degenerative change is noted in the thoracic spine. No lytic or blastic lesions are identified. ABDOMEN AND PELVIS: Liver: The contrast-enhanced liver is enlarged, measuring 21 cm in length. The liver demonstrates diffusely diminished attenuation consistent with metastatic steatosis. There is no intrahepatic biliary ductal dilatation. The hepatic veins and portal veins are patent. Gallbladder: There are numerous calcified gallstones with no CT evidence of acute cholecystitis. Spleen: Normal in size and attenuation. Pancreas: Unremarkable. Adrenal glands: Unremarkable. Kidneys: The contrast enhanced kidneys demonstrate mild cortical atrophy and are without hydronephrosis. The kidneys enhance and excrete symmetrically. The renal collecting systems and ureters are filled with excreted IV contrast. Abdominal vasculature: The abdominal aorta is normal in course and caliber noting mild atherosclerotic calcification. Stomach and bowel: There is a small hiatal hernia. There is postoperative change from sigmoid colon resection with colocolic anastomosis. No bowel obstruction is seen. There is [id number] diverticulosis of the remaining colon without CT evidence of acute diverticulitis. Loops of small bowel contained within a supraumbilical hernia. The appendix is well-visualized and normal. Peritoneum: There is no intraperitoneal free air or abdominal ascites. There is evidence of previous ventral hernia repair. A large fat and bowel containing supraumbilical hernia is noted. Lymphadenopathy: None. Pelvic viscera: The prostate gland is enlarged and heterogeneous noting median lobe hypertrophy. The bladder is mildly distended and filled with excreted IV contrast. There are bilateral fat-containing inguinal hernias. Skeletal structures: The skeletal structures are osteopenic. There is moderate lumbosacral spondylosis. Degenerative change is also seen in the hips and sacroiliac joints. No lytic or blastic lesions are seen. IMPRESSION: 1. Streak and motion compromised examinations. 2. There is no evidence of central pulmonary embolus in the main, lobar, or proximal segmental pulmonary arteries. The segmental and subsegmental branches are not well evaluated. 3. Cardiomegaly with evidence of pulmonary artery hypertension. 4. Dependent airspace opacities likely represent scarring/atelectasis. Correlate clinically from the mild superimposed pneumonitis. 5. No acute infectious or inflammatory findings are identified in the abdomen or pelvis. 6. There is a large fat and bowel containing supraumbilical hernia. No obstruction is seen. 7. Hepatomegaly and hepatic steatosis. 8. Cholelithiasis. 9. Additional findings as above. ACT 112: Negative or not required by law. Electronically signed by: Robinson Maya M.D. 05/06/2022 5:01 PM Abdomen/Pelvis CT 05/06/22 16:25 CT ANGIOGRAM OF THE CHEST; CT SCAN OF THE ABDOMEN AND PELVIS WITH IV CONTRAST CLINICAL HISTORY: Atypical chest pain. Leukocytosis. Fever. Generalized weakness. COMPARISON STUDY: Chest CT dated 04/09/2016. Abdominal CT dated 03/12/2019 TECHNIQUE: Following the IV administration of 116 of Optiray 300, CT angiogram of the chest is performed from the upper abdomen to the thoracic inlet utilizing the pulmonary embolus protocol. Images are reviewed in the axial, sagittal, coronal planes. 3-D MIPS images are created and assessed. Subsequently, CT scan of the abdomen and pelvis was performed from the lung bases to the proximal femora. Images are reviewed in the axial, sagittal, and coronal planes. IV contrast was administered without complication. A dose lowering technique was utilized adhering to the principles of ALARA. The examination are significantly degraded by motion artifact. The examination are also degraded by large body habitus, with streak artifact from the body wall abutting the CT gantry. There is also streak artifact from the arms which could not be elevated above the c hest or abdomen. CT DOSE: 3292.26 mGy.cm FINDINGS: CHEST: Thyroid: Imaged portions of the thyroid gland are normal in size and attenuation. Thoracic aorta: There is atherosclerotic calcification of the thoracic aorta, which is normal in caliber and demonstrates standard 3-vessel arch anatomy. No dissection is seen. Pulmonary vasculature: The main pulmonary arteries are dilated indicating pulmonary artery hypertension. There is suboptimal contrast opacification of the pulmonary arteries. There are no filling defects identified in the main, lobar, or proximal segmental pulmonary arteries to indicate pulmonary embolus. The segmental and subsegmental branches are suboptimally assessed due to lack of contrast opacification and motion artifact. Heart: The heart is enlarged and without pericardial effusion. The coronary arteries are densely calcified. Lungs and pleural spaces: Evaluation of the lung parenchyma is degraded by motion artifact. The trachea and central airways are clear. Dependent airspace opacities likely represent scarring/atelectasis. No pleural effusion is identified. Mediastinum: There is no mediastinal lymphadenopathy. Ailyn: Clear. Axillae: There is no axillary lymphadenopathy. Bony thorax: The skeletal structures are osteopenic. Degenerative change is not ed in the thoracic spine. No lytic or blastic lesions are identified. ABDOMEN AND PELVIS: Liver: The contrast-enhanced liver is enlarged, measuring 21 cm in length. The liver demonstrates diffusely diminished attenuation consistent with metastatic steatosis. There is no intrahepatic biliary ductal dilatation. The hepatic veins and portal veins are patent. Gallbladder: There are numerous calcified gallstones with no CT evidence of acute cholecystitis. Spleen: Normal in size and attenuation. Pancreas: Unremarkable. Adrenal glands: Unremarkable. Kidneys: The contrast enhanced kidneys demonstrate mild cortical atrophy and are without hydronephrosis. The kidneys enhance and excrete symmetrically. The renal collecting systems and ureters are filled with excreted IV contrast. Abdominal vasculature: The abdominal aorta is normal in course and caliber noting mild atherosclerotic calcification. Stomach and bowel: There is a small hiatal hernia. There is postoperative change from sigmoid colon resection with colocolic anastomosis. No bowel obstruction is seen. There is [id number] diverticulosis of the remaining colon without CT evidence of acute diverticulitis. Loops of small bowel contained within a supraumbilical hernia. The appendix is well-visualized and normal. Peritoneum: There is no intraperitoneal free air or abdominal ascites. There is evidence of previous ventral hernia repair. A large fat and bowel containing supraumbilical hernia is noted. Lymphadenopathy: None. Pelvic viscera: The prostate gland is enlarged and heterogeneous noting median lobe hypertrophy. The bladder is mildly distended and filled with excreted IV contrast. There are bilateral fat-containing inguinal hernias. Skeletal structures: The skeletal structures are osteopenic. There is moderate lumbosacral spondylosis. Degenerative change is also seen in the hips and sacroiliac joints. No lytic or blastic lesions are seen. IMPRESSION: 1. Streak and motion compromised examinations. 2. There is no evidence of central pulmonary embolus in the main, lobar, or proximal segmental pulmonary arteries. The segmental and subsegmental branches are not well evaluated. 3. Cardiomegaly with evidence of pulmonary artery hypertension. 4. Dependent airspace opacities likely represent scarring/atelectasis. Correlate clinically from the mild superimposed pneumonitis. 5. No acute infectious or inflammatory findings are identified in the abdomen or pelvis. 6. There is a large fat and bowel containing supraumbilical hernia. No obstruction is seen. 7. Hepatomegaly and hepatic steatosis. 8. Cholelithiasis. 9. Additional findings as above. ACT 112: Negative or not required by law. Electronically signed by: Robinson Maya M.D. 05/06/2022 5:01 PM Discharge Plan Visit Data Chief Complaint: Stroke/CVA Symptoms Stated Complaint: STROKE SX ED Provider: Ciro Fiore Discharge Problem: Non-ST elevation IA (NSTEMI), Weakness, Acute electrocardiogram changes, Leukocytosis Patient Disposition: Admitted As Inpatient Forms Stand Alone Forms: [facility] Prescriptions Prescriptions: No Action carvedilol 6.25 mg tablet See Rx Instructions .ROUTE .COMPLEX Qty: 270 3RF Dose Instruction: TAKE 2 TABLETS BY MOUTH IN THE MORNING AND 1 TABLET AT NIGHT WITH A MEAL/FOOD Rx Instructions: TAKE 2 TABLETS BY MOUTH IN THE MORNING AND 1 TABLET AT NIGHT WITH A MEAL/FOOD hydrochlorothiazide 25 mg tablet See Rx Instructions .ROUTE .COMPLEX Qty: 90 3RF Dose Instruction: Take 1 tablet by mouth once daily Rx Instructions: Take 1 tablet by mouth once daily sulindac 200 mg tablet See Rx Instructions .ROUTE .COMPLEX Qty: 180 2RF Dose Instruction: TAKE 1 TABLET BY MOUTH TWICE DAILY FOR PAIN Rx Instructions: TAKE 1 TABLET BY MOUTH TWICE DAILY FOR PAIN clotrimazole-betamethasone 1-0.05 % cream 1 applic TOP BID Qty: 45 3RF metformin 500 mg tablet 500 mg PO BID Qty: 180 3RF rosuvastatin 5 mg tablet 5 mg PO DAILY Qty: 90 3RF amlodipine 10 mg tablet 10 mg PO DAILY Qty: 90 3RF tramadol 50 mg tablet 100 mg PO Q12H PRN (Reason: pain) Qty: 120 1RF aspirin [Adult Low Dose Aspirin] 81 mg tablet,delayed release (DR/EC) 81 mg PO DAILY cyclobenzaprine 10 mg tablet 10 mg PO TID PRN (Reason: muscle spasm) Qty: 20 0RF Referrals Referrals: Adolfo Jarrett MD [Primary Care Provider] -
[2022-05-06] MEDS ORDERED: OPTIRAY 300 500mL IV ONE ×2 (15:40→16:39)
[2022-05-06] MEDS ORDERED: SODIUM CHLORIDE 0.9% 1000ML 1,000 ML IV ONE (15:56)
[2022-05-06] MEDS ORDERED: ACETAMINOPHEN 1,000 MG/100 ML VIAL IV STA (15:56)
[2022-05-06] MEDS ORDERED: ASPIRIN CHEW 324 MG PO STA (15:59)
[2022-05-06 16:04] LABS: Basophils # (auto) 0.05 K/uL (0-0.2); Basophils % (auto) 0.3 %; Hemoglobin 16.7 g/dl (14.0-18.0); Immature Granulocytes # (auto) 0.09 K/uL (0.00-0.02); Immature Granulocytes % (auto) 0.6 %; Lymphocytes # (auto) 0.55 K/uL (1.2-3.4); Lymphocytes % (auto) 3.6 %; Mean Corpuscular Hemoglobin 32.3 pg (25.0-34.0); Mean Corpuscular Hgb Conc 34.8 g/dL (32.0-36.0); Mean Corpuscular Volume 92.8 fL (80.0-100.0); Mean Platelet Volume 9.9 fL (9.4-12.4); Monocytes # (auto) 1.14 K/uL (0.24-0.82); Monocytes % (auto) 7.6 %; Neutrophils # (auto) 13.25 K/uL (1.4-6.5); Neutrophils % (auto) 87.9 %; Platelet Count 172 K/uL (130-400); RDW Coefficient of Variation 12.4 % (11.5-14.5); RDW Standard Deviation 42.8 fL (36.4-46.3); Red Blood Count 5.17 M/uL (4.63-6.08); White Blood Count 15.08 K/ul (4.8-10.8)
--- NOTE | 2022-05-06 16:04 | CT Scan Report ---
UNENHANCED CT OF THE BRAIN; CT ANGIOGRAM OF THE BRAIN; CT ANGIOGRAM OF THE NECK CLINICAL HISTORY: Strokelike symptoms COMPARISON STUDY: CT of the brain dated 08/24/2014. TECHNIQUE: Unenhanced axial CT scan of the brain is performed. Subsequently, following the IV adminis tration of 110 of Optiray 300, CT angiogram of the head and neck was performed from the aortic arch t o the vertex. Images are reviewed in the axial, sagittal, and coronal planes. 3-D MIPS images are cre ated and assessed. IV contrast was administered without complication. All measurements were calculate d based on NASCET criteria. A dose lowering technique was utilized adhering to the principles of ALA RA. The examinations are compromised by motion artifact. CT DOSE: 2514.70 mGy.cm FINDINGS: Brain parenchyma: There is age-related involutional change noting mild subcortical and periventricula r microangiopathic disease. There is no hemorrhage, mass effect, or evidence of acute territorial isc hemia by CT criteria. There is no evidence of enhancing mass lesion on the angiogram phase images. Th e ventricles, sulci, and cisterns are prominent secondary to involutional change. Mcdonald-white matter d ifferentiation is preserved. No extra-axial fluid collection is seen. Thoracic aorta: Visualized portions of the thoracic aorta are normal in caliber. The aortic arch demo nstrates standard 3-vessel anatomy. Right carotid arterial system: The right common carotid artery is widely patent, as are the right int ernal and external carotid arteries. Mild calcified plaque is noted in the carotid bulb. Left carotid arterial system: The left common carotid artery is widely patent, as are the left corporate development intern al and external carotid arteries. Vertebral arteries: The vertebral arteries are widely patent bilaterally and codominant. Subclavian arteries: Widely patent bilaterally. Intracranial vasculature: There is atherosclerotic calcification of the cavernous carotid and vertebr al arteries. The internal carotid arteries are patent at the skull base, as are the anterior and midd le cerebral arteries bilaterally. There is a left posterior communicating artery. The vertebrobasilar system and posterior cerebral arteries are widely patent. The vertebral arteries are codominant. The re is no aneurysm, high-grade stenosis, or focal vessel cut off seen throughout the intracranial circ ulation. Jugular veins: Patent bilaterally. Dural sinuses: Patent. Lung apices: Partially visualized upper lobe lung parenchyma appears clear. Soft tissues: The visualized pharyngeal soft tissues are normal in appearance noting angiographic pha se technique. The oropharyngeal airway appears widely patent. The salivary and thyroid glands are nor mal in appearance. No cervical lymphadenopathy is seen. Skeletal structures: The skeletal structures are osteopenic. The calvarium appears intact. The cervic al spine is maintained noting multilevel spondylosis. No lytic or blastic lesion is seen. Orbits: The bony orbits are intact. Orbital contents are normal as visualized. Sinuses and mastoids: There is moderate mucosal thickening within the maxillary antra and the left sp henoid sinus. Trace mucosal thickening is noted in the frontal and ethmoid sinuses. The mastoid air c ells are well pneumatized. IMPRESSION: 1. Motion compromised examinations. 2. There is no hemorrhage, mass effect, or evidence of acute territorial ischemia by CT criteria. 3. Unremarkable CT angiogram of the brain. 4. Unremarkable CT angiogram of the neck. ACT 112: Negative or not required by law. Electronically signed by: Robinson Maya M.D. 05/06/2022 4:02 PM
[2022-05-06 16:07] LABS: Base Excess VBG 4.9 mEq/L; HCO3 VBG 29 mmol/L; Oxygen Saturation VBG 70.4 %; PCO2 VBG 41 mmHg (38-50); PO2 VBG 41 mmHg; pH VBG 7.46 (7.36-7.41)
[2022-05-06 16:11] LABS: iSTAT Creatinine 0.8 mg/dl (0.6-1.3); iSTAT Hemoglobin 17.3 g/dl (14.0-18.0); iSTAT Ionized Calcium 1.13 mmol/l (1.12-1.32)
[2022-05-06 16:18] LABS: INR 1.1 (0.9-1.1); Partial Thromboplastin Time 26.2 Seconds (21.0-31.0); Prothrombin Time 11.5 Seconds (9.0-12.0)
[2022-05-06 16:32] LABS: Albumin Globulin Ratio 1.4 (0.9-2); Albumin Level 4.1 gm/dl (3.4-5.0); BUN Creatinine Ratio 19.5 (10-20); Bilirubin,Total 1.1 mg/dl (0.2-1.0); Calcium 8.8 mg/dl (8.5-10.1); Creatinine Clr Calc Pharmacy 120.9 ml/min; Est GFR (Non-African American) 87.1 ml/min; Globulin 2.9 gm/dl (2.5-4.0); Magnesium 1.3 mg/dl (1.7-2.4); Potassium 3.1 mmol/L (3.5-5.1)
[2022-05-06 16:37] LABS: Troponin I High Sensitivity 28.6 pg/ml (0-20)
--- NOTE | 2022-05-06 17:03 | CT Scan Report ---
CT ANGIOGRAM OF THE CHEST; CT SCAN OF THE ABDOMEN AND PELVIS WITH IV CONTRAST CLINICAL HISTORY: Atypical chest pain. Leukocytosis. Fever. Generalized weakness. COMPARISON STUDY: Chest CT dated 04/09/2016. Abdominal CT dated 03/12/2019 TECHNIQUE: Following the IV administration of 116 of Optiray 300, CT angiogram of the chest is perfor med from the upper abdomen to the thoracic inlet utilizing the pulmonary embolus protocol. Images are reviewed in the axial, sagittal, coronal planes. 3-D MIPS images are created and assessed. Subsequen tly, CT scan of the abdomen and pelvis was performed from the lung bases to the proximal femora. Imag es are reviewed in the axial, sagittal, and coronal planes. IV contrast was administered without comp lication. A dose lowering technique was utilized adhering to the principles of ALARA. The examination are significantly degraded by motion artifact. The examination are also degraded by large body habit us, with streak artifact from the body wall abutting the CT gantry. There is also streak artifact fro m the arms which could not be elevated above the chest or abdomen. CT DOSE: 3292.26 mGy.cm FINDINGS: CHEST: Thyroid: Imaged portions of the thyroid gland are normal in size and attenuation. Thoracic aorta: There is atherosclerotic calcification of the thoracic aorta, which is normal in sandro kemal and demonstrates standard 3-vessel arch anatomy. No dissection is seen. Pulmonary vasculature: The main pulmonary arteries are dilated indicating pulmonary artery hypertensi on. There is suboptimal contrast opacification of the pulmonary arteries. There are no filling defect s identified in the main, lobar, or proximal segmental pulmonary arteries to indicate pulmonary embol us. The segmental and subsegmental branches are suboptimally assessed due to lack of contrast opacifi cation and motion artifact. Heart: The heart is enlarged and without pericardial effusion. The coronary arteries are densely calc ified. Lungs and pleural spaces: Evaluation of the lung parenchyma is degraded by motion artifact. The trach ea and central airways are clear. Dependent airspace opacities likely represent scarring/atelectasis. No pleural effusion is identified. Mediastinum: There is no mediastinal lymphadenopathy. Ailyn: Clear. Axillae: There is no axillary lymphadenopathy. Bony thorax: The skeletal structures are osteopenic. Degenerative change is noted in the thoracic spi ne. No lytic or blastic lesions are identified. ABDOMEN AND PELVIS: Liver: The contrast-enhanced liver is enlarged, measuring 21 cm in length. The liver demonstrates dif fusely diminished attenuation consistent with metastatic steatosis. There is no intrahepatic biliary ductal dilatation. The hepatic veins and portal veins are patent. Gallbladder: There are numerous calcified gallstones with no CT evidence of acute cholecystitis. Spleen: Normal in size and attenuation. Pancreas: Unremarkable. Adrenal glands: Unremarkable. Kidneys: The contrast enhanced kidneys demonstrate mild cortical atrophy and are without hydronephros is. The kidneys enhance and excrete symmetrically. The renal collecting systems and ureters are fille d with excreted IV contrast. Abdominal vasculature: The abdominal aorta is normal in course and caliber noting mild atheroscleroti c calcification. Stomach and bowel: There is a small hiatal hernia. There is postoperative change from sigmoid colon r esection with colocolic anastomosis. No bowel obstruction is seen. There is [id number] divertic ulosis of the remaining colon without CT evidence of acute diverticulitis. Loops of small bowel conta ined within a supraumbilical hernia. The appendix is well-visualized and normal. Peritoneum: There is no intraperitoneal free air or abdominal ascites. There is evidence of previous ventral hernia repair. A large fat and bowel containing supraumbilical hernia is noted. Lymphadenopathy: None. Pelvic viscera: The prostate gland is enlarged and heterogeneous noting median lobe hypertrophy. The bladder is mildly distended and filled with excreted IV contrast. There are bilateral fat-containing inguinal hernias. Skeletal structures: The skeletal structures are osteopenic. There is moderate lumbosacral spondylosi s. Degenerative change is also seen in the hips and sacroiliac joints. No lytic or blastic lesions ar e seen. IMPRESSION: 1. Streak and motion compromised examinations. 2. There is no evidence of central pulmonary embolus in the main, lobar, or proximal segmental pulmon tanvir arteries. The segmental and subsegmental branches are not well evaluated. 3. Cardiomegaly with evidence of pulmonary artery hypertension. 4. Dependent airspace opacities likely represent scarring/atelectasis. Correlate clinically from the mild superimposed pneumonitis. 5. No acute infectious or inflammatory findings are identified in the abdomen or pelvis. 6. There is a large fat and bowel containing supraumbilical hernia. No obstruction is seen. 7. Hepatomegaly and hepatic steatosis. 8. Cholelithiasis. 9. Additional findings as above. ACT 112: Negative or not required by law. Electronically signed by: Robinson Maya M.D. 05/06/2022 5:01 PM
[2022-05-06] MEDS ORDERED: HEPARIN SOD (PORCINE) 1000 UNIT/ML IV ONE (17:26)
--- NOTE | 2022-05-06 17:27 | History & Physical Report ---
Date of Service May 06, 2022 Assessment & Plan (1) Cellulitis: Plan: Fever and WBC suggestive of infection Erythema, warmth and swelling of right lower extremity - US venous doppler to assess for DVT Suspect this is his underlying cause of syncopal episodes and will treat with ceftriaxone 2g IV daily Follow up blood cultures (2) Chest pain, rule out acute myocardial infarction: Plan: Possible concern for NSTEMI given chest pain and EKG changes however low suspicion of this causing his syncopal event given he had a similar episode on Monday and high sensitivity troponin is only minimally elevated Will continue to trend troponin. If significant delta change then will start on IV heparin. Give nitroglycerin 0.4mg SL now then nitro paste 1 inch, if ongoing chest pain and significant troponin increase will need increase in this vs. nitroglycerin IV ASA 324mg PO given in ER Already on carvedilol - will continue this Already on rosuvastatin - will continue this TTE if significant troponin rise Consult cardiology (3) Syncope: Plan: Main reason for admission. Monitor on telemetry for cardiac arrhythmia Treat cellulitis and workup for ACS as above (4) Type 2 diabetes mellitus: Plan: Hemoglobin A1C 6.1 in July 2021, will repeat with AM labs Hold metformin Novolog: --Goal BSG Range: Low 110 mg/dL, High 140 mg/dL --Correction Factor: 45 mg/dL/unit --Carbohydrate ratio = 15 g/unit --BSGs ACHS if eating, q6h if npo (5) Obstructive sleep apnea syndrome: Plan: CPAP HS (6) Chronic obstructive lung disease: Plan: On no maintenance medications for this. Not suspected to be having an exacerbation (7) Hypertension: Plan: Continue carvedilol and nitroglycerin as above Hold his usual HCTZ and amlodipine depending on BP trend overnight (8) Psoriasis: Plan: Steroid cream PRN Plan VTE Prophylaxis - pending troponin trend Diet - heart healthy, T2DM, NPO after midnight Disposition - admit to PCU Admission and Anticipated Discharge Date Admission Date: May 06, 2022 History of Present Illness Chief Complaint: Altered mental state, chest pain Primary Care Provider: Adolfo Jarrett MD Kosta Amezcua is a 76 year old male who presents to the ER with altered mental state and syncope. The patient is unable to provide any history and history is taken from his at bedside who was not present at the event. Reportedly he was trying to get up out of bed and he was so weak the he couldn't get up and then had a full syncopal event and ended up on the floor unresponsive. The patient does not remember how he felt prior to the episode. Reportedly acting normal earlier that morning. He arrived via EMS as a stroke alert due to concerns for possible facial droop although unclear which side this occurred. He had a similar episode on Monday night at the [facility] where he possibly lost consciousness after eating food but became responsive again and was able to make it back to his house. He has not been feeling quite the same since. Family reports he has recently been complaining of dizziness since this event and Monday states he lost consciousness during dinner. In the ER he had no focal neurological deficits and history more consistent with a syncopal event therefore no tKA was administered as stroke felt to be unlikely. His main complaint was chest pain, EKG showed lateral ST depressions and initial troponin was mildly elevated therefore he was given aspirin 324mg PO for acute coronary syndrome. The chest pain resolved with nitroglycerin 0.4mg SL given in the ER. He was discussed with cardiology by the ER physician and heparin IV low dose bolus and drip was ordered. He was referred to medicine for admission and ongoing management of NSTEMI. Allergies Allergy/AdvReac Type Severity Reaction Status Date / Time long Allergy Severe LONG Verified 08/03/21 11:02 TREES "LUNGS TIGHTEN UP" codeine AdvReac Mild NAUSEA Verified 08/03/21 11:02 Home Medications Medication Instructions Recorded Confirmed Type aspirin 81 mg tablet,delayed 81 mg PO DAILY 03/13/19 05/06/22 History release (Adult Low Dose Aspirin) carvedilol 6.25 mg tablet See Rx Instructions .Route 05/20/21 05/06/22 Rx .COMPLEX #270 tabs sulindac 200 mg tablet See Rx Instructions .Route 05/20/21 05/06/22 Rx .COMPLEX #180 tabs metformin 500 mg tablet 500 mg PO BID #180 tabs 03/23/22 05/06/22 Rx rosuvastatin 5 mg tablet 5 mg PO DAILY #90 tabs 03/23/22 05/06/22 Rx amlodipine 10 mg tablet 10 mg PO DAILY #90 tabs 03/24/22 05/06/22 Rx tramadol 50 mg tablet 100 mg PO Q12H PRN pain #120 tabs 03/24/22 05/06/22 Rx clotrimazole-betamethasone 1 1 applic topical BID PRN Psoriasis 05/06/22 05/06/22 History %-0.05 % topical cream hydrochlorothiazide 25 mg tablet 25 mg PO DAILY 05/06/22 05/06/22 History Past Med/Surg History Medical History (Updated 05/07/22 @ 07:52 by Dustin Patel MD) Acute flank pain Acute pyelonephritis Chronic back pain Diabetes Dyslipidemia Encephalopathy Hematuria Hypertension Nocturnal hypoxemia Psoriasis Sepsis secondary to UTI Type 2 diabetes mellitus Unresponsive Surgical History History of appendectomy History of colon surgery History of tonsillectomy Family History Father Myocardial infarction Heart disease Mother Hypertension Other Diabetes Denies family history of Ovarian cancer Prostate cancer Breast cancer Lung cancer Colorectal cancer Stroke Social History Smoking Status: Never smoker Second Hand Exposure: No; Hx Alcohol Use: Yes Alcohol type: hard liquor Alcohol Intake Frequency: 4 or More x per/Week Hx Substance Use: No Preferred Language: Danish Visual Impairment: Limited Hearing Ability: Hard of Hearing Telephone Order Clerk Required: No Beliefs That Will Affect Care: None marital status: Current Living Situation: Spouse current occupational status: retired How many Children do You have: 3 Feels Safe at Home: Yes Safety Concerns: Feels Safe At This Time Childhood Exposure to Second-Hand Smoke: No caffeine: Yes Dental Care, Regularly: No Physical Activity Frequency: 5-6 Times per Week Seatbelt Use: always Sunscreen Use: Yes Assistive Devices: None Review of Systems Review of Systems: All systems reviewed & are unremarkable except as noted in HPI & below Physical Exam Constitutional: WD/WN, vitals as above + morbidly obese Eyes: PERRL, conjunctivae normal, anicteric sclerae ENMT: external ear and nose normal, oropharynx normal Neck: trachea midline, no thyromegaly Respiratory: normal respiratory effort; no respiratory distress Aus cultation: + crackles (bibasal); no rales, no rhonchi and no wheezes Cardiovascular: Rate/Rhythm: regular rate and regular rhythm Heart Sounds: no murmur Vessels: no JVD Extremities: normal capillary refill, + calf tenderness (right) and + pedal edema (1+ pre-tibial pitting) Gastrointestinal (Abdomen): normal bowel sounds, soft, nontender, no hepatosplenomegaly Musculoskeletal: no cyanosis or clubbing, extremities motor strength 5/5 Skin: + erythema (warmth and swelling from right knee to mid foot) Neurologic: moves all extremities, awake and + confused; no focal motor deficits Speech / Cognition: normal speech Motor/Sensory: no tremor and no pronator drift Cranial Nerves: PERRL, normal accommodation, EOM intact bilaterally, normal facial strength, tongue midline, able to rotate head bilaterally, able to elevate shoulders bilaterally, no nystagmus and symmetric palate elevation Coordination: normal [id number] test Psychiatric: A+Ox3, euthymic affect Genitourinary: no CVA tenderness Results & Data Results & Data ([facility]) Vital Signs (Past 12 Hours) Vital Signs Temp Pulse Pulse Resp BP BP Pulse Ox 05/06/22 17:11 108 H 20 173/104 H 93 05/06/22 16:15 05/06/22 16:08 118 H 18 95 05/06/22 16:03 110 H 22 160/122 H 95 05/06/22 15:30 38.2 C H 110 H 20 163/78 H 94 O2 Del Method O2 Flow Rate FiO2 05/06/22 17:11 Nasal Cannula 2 05/06/22 16:15 25 05/06/22 16:08 30 05/06/22 16:03 BiPAP 05/06/22 15:30 Room Air Laboratory Results Abnormal lab results 05/06/22 05/06/22 05/06/22 Range/Units 15:52 15:52 15:53 WBC 15.08 H (4.8-10.8) K/ul Neut # (Auto) 13.25 H (1.4-6.5) K/uL Lymph # (Auto) 0.55 L (1.2-3.4) K/uL Carroll # (Auto) 1.14 H (0.24-0.82) K/uL Immature Gran # (Auto) 0.09 H (0.00-0.02) K/uL VBG pH 7.46 H (7.36-7.41) Sodium 131 L (136-145) mmol/L POC Potassium (3.3-5.0) mmol/L Potassium 3.1 L (3.5-5.1) mmol/L POC Chloride (101-112) mmol/L Chloride 97 L (98-107) mmol/L Glucose 133 H (70-99(Fasting)) mg/dl POC Glucose (other) (70-99) mg/dl Magnesium 1.3 L (1.7-2.4) mg/dl Total Bilirubin 1.1 H (0.2-1.0) mg/dl Troponin I High Sens 28.6 H (0-20) pg/ml 05/06/22 Range/Units 15:58 WBC (4.8-10.8) K/ul Neut # (Auto) (1.4-6.5) K/uL Lymph # (Auto) (1.2-3.4) K/uL Carroll # (Auto) (0.24-0.82) K/uL Immature Gran # (Auto) (0.00-0.02) K/uL VBG pH (7.36-7.41) Sodium (136-145) mmol/L POC Potassium 3.0 L (3.3-5.0) mmol/L Potassium (3.5-5.1) mmol/L POC Chloride 95 L (101-112) mmol/L Chloride (98-107) mmol/L Glucose (70-99(Fasting)) mg/dl POC Glucose (other) 130 H (70-99) mg/dl Magnesium (1.7-2.4) mg/dl Total Bilirubin (0.2-1.0) mg/dl Troponin I High Sens (0-20) pg/ml Diagnostic Findings UNENHANCED CT OF THE BRAIN; CT ANGIOGRAM OF THE BRAIN; CT ANGIOGRAM OF THE NECK CLINICAL HISTORY: Strokelike symptoms COMPARISON STUDY: CT of the brain dated 08/24/2014. TECHNIQUE: Unenhanced axial CT scan of the brain is performed. Subsequently, following the IV administration of 110 of Optiray 300, CT angiogram of the head and neck was performed from the aortic arch to the vertex. Images are reviewed in the axial, sagittal, and coronal planes. 3-D MIPS images are created and assessed. IV contrast was administered without complication. All measurements were calculated based on NASCET criteria. A dose lowering technique was utilized adhering to the principles of ALARA. The examinations are compromised by motion artifact. CT DOSE: 2514.70 mGy.cm FINDINGS: Brain parenchyma: There is age-related involutional change noting mild subcortical and periventricular microangiopathic disease. There is no hemorrhage, mass effect, or evidence of acute territorial ischemia by CT criteria. There is no evidence of enhancing mass lesion on the angiogram phase images. The ventricles, sulci, and cisterns are prominent secondary to involutional change. Mcdonald-white matter differentiation is preserved. No extra- axial fluid collection is seen. Thoracic aorta: Visualized portions of the thoracic aorta are normal in caliber. The aortic arch demonstrates standard 3-vessel anatomy. Right carotid arterial system: The right common carotid artery is widely patent, as are the right internal and external carotid arteries. Mild calcified plaque is noted in the carotid bulb. Left carotid arterial system: The left common carotid artery is widely patent, as are the left internal and external carotid arteries. Vertebral arteries: The vertebral arteries are widely patent bilaterally and codominant. Subclavian arteries: Widely patent bilaterally. Intracranial vasculature: There is atherosclerotic calcification of the cavernous carotid and vertebral arteries. The internal carotid arteries are patent at the skull base, as are the anterior and middle cerebral arteries bilaterally. There is a left posterior communicating artery. The vertebrobasilar system and posterior cerebral arteries are widely patent. The vertebral arteries are codominant. There is no aneurysm, high-grade stenosis, or focal vessel cut off seen throughout the intracranial circulation. Jugular veins: Patent bilaterally. Dural sinuses: Patent. Lung apices: Partially visualized upper lobe lung parenchyma appears clear. Soft tissues: The visualized pharyngeal soft tissues are normal in appearance noting angiographic phase technique. The oropharyngeal airway appears widely patent. The salivary and thyroid glands are normal in appearance. No cervical lymphadenopathy is seen. Skeletal structures: The skeletal structures are osteopenic. The calvarium appears intact. The cervical spine is maintained noting multilevel spondylosis. No lytic or blastic lesion is seen. Orbits: The bony orbits are intact. Orbital contents are normal as visualized. Sinuses and mastoids: There is moderate mucosal thickening within the maxillary antra and the left sphenoid sinus. Trace mucosal thickening is noted in the frontal and ethmoid sinuses. The mastoid air cells are well pneumatized. IMPRESSION: 1. Motion compromised examinations. 2. There is no hemorrhage, mass effect, or evidence of acute territorial ischemia by CT criteria. 3. Unremarkable CT angiogram of the brain. 4. Unremarkable CT angiogram of the neck. CT ANGIOGRAM OF THE CHEST; CT SCAN OF THE ABDOMEN AND PELVIS WITH IV CONTRAST CLINICAL HISTORY: Atypical chest pain. Leukocytosis. Fever. Generalized weakness. COMPARISON STUDY: Chest CT dated 04/09/2016. Abdominal CT dated 03/12/2019 TECHNIQUE: Following the IV administration of 116 of Optiray 300, CT angiogram of the chest is performed from the upper abdomen to the thoracic inlet utilizing the pulmonary embolus protocol. Images are reviewed in the axial, sagittal, coronal planes. 3-D MIPS images are created and assessed. Subsequently, CT scan of the abdomen and pelvis was performed from the lung bases to the proximal femora. Images are reviewed in the axial, sagittal, and coronal planes. IV contrast was administered without complication. A dose lowering technique was utilized adhering to the principles of ALARA. The examination are significantly degraded by motion artifact. The examination are also degraded by large body habitus, with streak artifact from the body wall abutting the CT gantry. There is also streak artifact from the arms which could not be elevated above the ches t or abdomen. CT DOSE: 3292.26 mGy.cm FINDINGS: CHEST: Thyroid: Imaged portions of the thyroid gland are normal in size and attenuation. Thoracic aorta: There is atherosclerotic calcification of the thoracic aorta, which is normal in caliber and demonstrates standard 3-vessel arch anatomy. No dissection is seen. Pulmonary vasculature: The main pulmonary arteries are dilated indicating pulmon tanvir artery hypertension. There is suboptimal contrast opacification of the pulmonary arteries. There are no filling defects identified in the main, lobar, or proximal segmental pulmonary arteries to indicate pulmonary embolus. The segmental and subsegmental branches are suboptimally assessed due to lack of contrast opacification and motion artifact. Heart: The heart is enlarged and without pericardial effusion. The coronary arteries are densely calcified. Lungs and pleural spaces: Evaluation of the lung parenchyma is degraded by motion artifact. The trachea and central airways are clear. Dependent airspace opacities likely represent scarring/atelectasis. No pleural effusion is identified. Mediastinum: There is no mediastinal lymphadenopathy. Ailyn: Clear. Axillae: There is no axillary lymphadenopathy. Bony thorax: The skeletal structures are osteopenic. Degenerative change is noted in the thoracic spine. No lytic or blastic lesions are identified. ABDOMEN AND PELVIS: Liver: The contrast-enhanced liver is enlarged, measuring 21 cm in length. The liver demonstrates diffusely diminished attenuation consistent with metastatic steatosis. There is no intrahepatic biliary ductal dilatation. The hepatic veins and portal veins are patent. Gallbladder: There are numerous calcified gallstones with no CT evidence of acute cholecystitis. Spleen: Normal in size and attenuation. Pancreas: Unremarkable. Adrenal glands: Unremarkable. Kidneys: The contrast enhanced kidneys demonstrate mild cortical atrophy and are without hydronephrosis. The kidneys enhance and excrete symmetrically. The renal collecting systems and ureters are filled with excreted IV contrast. Abdominal vasculature: The abdominal aorta is normal in course and caliber noting mild atherosclerotic calcification. Stomach and bowel: There is a small hiatal hernia. There is postoperative change from sigmoid colon resection with colocolic anastomosis. No bowel obstruction is seen. There is [id number] diverticulosis of the remaining colon without CT evidence of acute diverticulitis. Loops of small bowel contained within a supraumbilical hernia. The appendix is well-visualized and normal. Peritoneum: There is no intraperitoneal free air or abdominal ascites. There is evidence of previous ventral hernia repair. A large fat and bowel containing supraumbilical hernia is noted. Lymphadenopathy: None. Pelvic viscera: The prostate gland is enlarged and heterogeneous noting median lobe hypertrophy. The bladder is mildly distended and filled with excreted IV contrast. There are bilateral fat-containing inguinal hernias. Skeletal structures: The skeletal structures are osteopenic. There is moderate lumbosacral spondylosis. Degenerative change is also seen in the hips and sacroiliac joints. No lytic or blastic lesions are seen. IMPRESSION: 1. Streak and motion compromised examinations. 2. There is no evidence of central pulmonary embolus in the main, lobar, or proximal segmental pulmonary arteries. The segmental and subsegmental branches are not well evaluated. 3. Cardiomegaly with evidence of pulmonary artery hypertension. 4. Dependent airspace opacities likely represent scarring/atelectasis. Correlate clinically from the mild superimposed pneumonitis. 5. No acute infectious or inflammatory findings are identified in the abdomen or pelvis. 6. There is a large fat and bowel containing supraumbilical hernia. No obstruction is seen. 7. Hepatomegaly and hepatic steatosis. 8. Cholelithiasis. 9. Additional findings as above. Medications Administered ER Medications Given: NSS 1L bolus Acetaminophen 1g IV Aspirin 324mg PO Potassium chloride 10 meq IV x2 Magnesium sulfate 1g IV x2 Heparin IV low dose bolus and drip ECG Rate (beats per minute): 115 Rhythm: sinus tachycardia Findings: + PVC and + acute ischemic change (lateral/anterior ST depression) Comparison ECG Date: from (October 15, 2017) Change: the following changes noted (acute ischemic changes above are new) Code Status & VTE Plan Code Status Full VTE Prophylaxis Plan VTE Prophylaxis will be ordered: Yes PG Care Time/CCT Total # of Minutes Spent Total Time Spent with Patient: Total time spent is greater than 50% in coordination of care (as documented) at patient's floor/unit and/or counseling patient: Coding Level of Care Code 37093 Initial Inpt Care Lvl 3 Diagnoses Cellulitis L03.90 Chest pain, rule out acute myocardial infarction R07.9 Syncope R55 Type 2 diabetes mellitus E11.9 Diabetes mellitus complication status: without complication Diabetes mellitus machine long goods helper insulin use: without mcfp use Obstructive sleep apnea syndrome G47.33 Chronic obstructive lung disease J44.9 Hypertension I10 Hypertension type: essential hypertension Psoriasis L40.9 (1) Type 2 diabetes mellitus Diabetes mellitus complication status: without complication Diabetes mellitus mcfp insulin use: without machine long goods helper use Qualified Code(s): E11.9 - Type 2 diabetes mellitus without complications (2) Hypertension Hypertension type: essential hypertension Qualified Code(s): I10 - Essential (primary) hypertension
[2022-05-06] MEDS: MAGNESIUM SULFATE / D5W 1 GM/100 ML BAG IV SCH ×2 (17:32→18:42)
[2022-05-06] MEDS ORDERED: NITROGLYCERIN SL 0.4 MG/TAB TAB SL STA (17:33)
--- NOTE | 2022-05-06 17:40 | XRay Report ---
SINGLE VIEW CHEST CLINICAL HISTORY: Atypical chest pain. FINDINGS: An AP, portable, upright chest radiograph is compared to study dated 10/15/2017 and correlat ed with chest CT dated 05/06/2022. The heart is enlarged. The pulmonary vasculature is noncongested. C hronic interstitial thickening is similar to previous. Scarring/atelectasis is noted at the lung base s. The lungs and pleural spaces are otherwise clear. No pneumothorax is seen. The skeletal structures are osteopenic. The bony thorax is grossly intact. IMPRESSION: Cardiomegaly with no acute cardiopulmonary abnormality identified. ACT 112: Negative or not required by law. Electronically signed by: Robinson Maya M.D. 05/06/2022 5:39 PM
[2022-05-06] MEDS: POTASSIUM CHLORIDE / WTR 10 MEQ/100 ML PLCT IV SCH ×2 (17:42→18:50)
[2022-05-06] MEDS ORDERED: cefTRIAXone SODIUM 2,000 MG/70 ML BAG IV STA (17:50)
[2022-05-06] MEDS ORDERED: NITROGLYCERIN 2% OINTMENT 30GM TUBE EXT STA (18:03)
[2022-05-06] MEDS: HEPARIN SODIUM/DEXTROSE 25,000 UNITS/500 ML BAG IV SCH ×2 (18:09→22:22)
[2022-05-06] MEDS: Heparin IV Adult Wt-Based Low-Dose WITH Bolus Protocol IV SCH ×3 (18:10→19:52)
[2022-05-06] MEDS ORDERED: HEPARIN SOD (PORCINE) 1000 UNIT/ML IV STA (18:58)
[2022-05-06] MEDS ORDERED: NITROGLYCERIN SL 0.4 MG/TAB TAB SL PRN (19:50)
[2022-05-06] MEDS ORDERED: ONDANSETRON INJ 2 MG/ML 2 ML VIAL IV PRN (19:50)
[2022-05-06] MEDS ORDERED: ACETAMINOPHEN 325 MG TAB PO PRN (19:50)
[2022-05-06] MEDS ORDERED: CLOTRIMAZOLE/BETAMETHASONE CR 15 GM TUBE EXT PRN (19:54)
[2022-05-06] MEDS ORDERED: GLUCAGON FOR INJ 1 MG VIAL SQ PRN (19:56)
[2022-05-06] MEDS ORDERED: DEXTROSE 50% 50 ML SYRINGE IV PRN (19:56)
[2022-05-06] MEDS ORDERED: GLUCOSE 10 TAB/TUBE PO PRN (19:56)
[2022-05-06] MEDS ORDERED: CARBOHYDRATES FOR HYPOGLYCEMIA PO PRN (19:56)
[2022-05-06] MEDS ORDERED: GLUCOSE 40% GEL 15 GM TUBE PO PRN (19:56)
[2022-05-06] MEDS ORDERED: MAGNESIUM SULFATE / D5W 1 GM/100 ML BAG IV ONE (19:58)
[2022-05-06] MEDS: NITROGLYCERIN 2% OINTMENT 30GM TUBE EXT SCH (20:32)
--- NOTE | 2022-05-06 21:03 | Ultrasound Report ---
US venous doppler LE RT CLINICAL HISTORY: r/o DVT, swollen, tender calf TECHNIQUE: Right lower extremity real-time compression venous ultrasound with Color Doppler imaging. Utilizing real-time ultrasonic imaging multiple real time high-resolution ultrasonic images with comp ression and noncompression maneuvers of the deep venous system in addition to color doppler imaging w ere performed from the common femoral vein through the proximal calf veins. COMPARISON: Comparison is made to a venous Doppler ultrasound 03/14/2010 FINDINGS: Currently there is normal compressibility of the deep venous system from the common femoral vein thro ugh the proximal calf veins. No superficial venous thrombosis is identified. Impression: No evidence of deep venous thrombus. ACT 112: Negative or not required by law. Electronically signed by: Ming Peerz M.D. 05/06/2022 9:01 PM
[2022-05-06] MEDS: INSULIN ASPART PER UNIT SC SCH (21:14)
[2022-05-06] MEDS: carvediloL 6.25 MG TAB PO SCH (22:06)
[2022-05-07] MEDS: NITROGLYCERIN 2% OINTMENT 30GM TUBE EXT SCH ×4 (00:54→17:14)
[2022-05-07 05:48] LABS: Basophils # (auto) 0.04 K/uL (0-0.2); Basophils % (auto) 0.2 %; Eosinophils # (auto) 0.02 K/uL (0-0.50); Eosinophils % (auto) 0.1 %; Hematocrit (blood only) 43.8 % (40.1-51.0); Hemoglobin 15.1 g/dl (14.0-18.0); Immature Granulocytes # (auto) 0.18 K/uL (0.00-0.02); Lymphocytes # (auto) 0.69 K/uL (1.2-3.4); Lymphocytes % (auto) 3.9 %; Mean Corpuscular Hemoglobin 31.9 pg (25.0-34.0); Mean Corpuscular Hgb Conc 34.5 g/dL (32.0-36.0); Mean Corpuscular Volume 92.4 fL (80.0-100.0); Mean Platelet Volume 10.4 fL (9.4-12.4); Monocytes # (auto) 1.34 K/uL (0.24-0.82); Monocytes % (auto) 7.6 %; Neutrophils # (auto) 15.34 K/uL (1.4-6.5); Neutrophils % (auto) 87.2 %; Platelet Count 169 K/uL (130-400); RDW Coefficient of Variation 12.6 % (11.5-14.5); RDW Standard Deviation 43.3 fL (36.4-46.3); Red Blood Count 4.74 M/uL (4.63-6.08); White Blood Count 17.61 K/ul (4.8-10.8)
[2022-05-07 06:02] LABS: Partial Thromboplastin Ratio 1.2; Partial Thromboplastin Time 33.9 Seconds (21.0-31.0)
[2022-05-07 06:23] LABS: BUN Creatinine Ratio 20.7 (10-20); Calcium 8.2 mg/dl (8.5-10.1); Creatinine Clr Calc Pharmacy 106.8 ml/min; Est GFR (African American) 94.6 ml/min; Est GFR (Non-African American) 81.6 ml/min; Potassium 3.5 mmol/L (3.5-5.1)
[2022-05-07] MEDS ORDERED: HEPARIN IV BOLUS 4,000 UNITS in SYRINGE 0 ML IV ONE (06:30)
--- NOTE | 2022-05-07 07:15 | Electrocardiogram Report ---
Test Reason : Blood Pressure : / mmHG Vent. Rate : 115 BPM Atrial Rate : 115 BPM P-R Int : 162 ms QRS Dur : 104 ms QT Int : 348 ms P-R-T Axes : 046 080 059 degrees QTc Int : 481 ms Poor data quality, interpretation may be adversely affected Sinus tachycardia with occasional Premature ventricular complexes Possible Left atrial enlargement ST segement changes consistent with ischemia Abnormal ECG Confirmed by Tony Johnson ([id number]) on 05/07/2022 7:15:06 AM Referred By: REFERRED SELF Confirmed By:Balaji Johnson
--- NOTE | 2022-05-07 07:20 | Electrocardiogram Report ---
Test Reason : Blood Pressure : / mmHG Vent. Rate : 094 BPM Atrial Rate : 094 BPM P-R Int : 158 ms QRS Dur : 108 ms QT Int : 384 ms P-R-T Axes : 052 076 057 degrees QTc Int : 480 ms Sinus rhythm with Premature atrial complexes Prolonged QT Abnormal ECG When compared with ECG of 06-MAY-2022 15:43, (unconfirmed) Premature ventricular complexes are no longer Present Premature atrial complexes are now Present ST no longer depressed in Inferior leads ST no longer depressed in Lateral leads Confirmed by Tony Johnson ([id number] on 05/07/2022 7:19:51 AM Referred By: REFERRED SELF Confirmed By:Balaji Johnson
[2022-05-07 08:05] LABS: Estimated Average Glucose 131 mg/dl; Hemoglobin A1C 6.2 % (4.5-5.6)
[2022-05-07] MEDS: carvediloL 12.5 MG TAB PO SCH (08:22)
[2022-05-07] MEDS: ASPIRIN 81 MG ECTAB PO SCH (08:22)
[2022-05-07] MEDS: INSULIN ASPART PER UNIT SC SCH ×4 (08:22→20:40)
[2022-05-07] MEDS: POTASSIUM CHLORIDE / WTR 10 MEQ/100 ML PLCT IV SCH ×2 (08:36→10:15)
[2022-05-07] MEDS ORDERED: ROSUVASTATIN CALCIUM 5 MG TAB PO SCH (09:00)
--- NOTE | 2022-05-07 09:52 | Cardiology Consultation ---
Date of Consultation May 07, 2022 Assessment & Plan (1) Non-ST elevation FL (NSTEMI): (2) Syncope: (3) Dyslipidemia: Plan 1. NSTEMI: He has elevated biomarkers consistent with an ischemic event. The mechanism is not clear. He certainly had EKG changes and described chest pain at the time of his admission. I suspect he was ischemic at that time. Unfortunately, he can provide little history. Hemodynamics appeared to be adequate around the time of his evaluation suggesting the possibility of an acute coronary syndrome. He reportedly had an NSTEMI previously. He has multiple risk factors for coronary artery disease and based on his presentation I did recommend coronary angiography. At this point he seems amenable. Will continue a daily aspirin and heparin infusion. Continue carvedilol. Will monitor him for recurrent symptoms and plan angiography electively on Monday provided there are no changes and he is still willing. 2. Syncope: Difficult to evaluate as the patient has no recollection of these events. Will continue monitoring on telemetry. Will obtain echocardiogram today. 3. Hyperlipidemia: Given his presentation I think intensifying his anti-lipid regimen will be worthwhile. We can increase his rosuvastatin 10 mg daily. History of Present Illness Reason for Consultation: NSTEMI Requesting Physician: Amanda Attending Physician: Dustin Patel MD History of Present Illness The patient is a 76-year-old gentleman with a prior history of NSTEMI who was brought to the emergency room with some mental status changes. Originally he was thought to have some focal neurologic deficits, but later was seen to have m ore generalized weakness and confusion. Unfortunately, the patient recalls very little of what occurred yesterday. Most of the history was obtained through the chart. He specifically denied symptoms of fevers or chills until after he arrived at the hospital. He did not recall feeling poorly over the past week despite reports that he passed out twice. 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 This has a physical component to it. He has not noticed any worsening exercise tolerance recently. He is limited mostly by knee discomfort and fatigue. He categorically denied exertional chest discomfort or limiting dyspnea. He denies dizziness or lightheadedness and cannot recall passing out. He did report chest pain to the emergency room physicians last evening although he does not remember this. He states that he does have some pain on occasion. This generally involves left lower quadrant pain. Also some pain around his umbilical hernia. This is often associated with some nausea. He had some of this since he was admitted. He did not report other forms of chest pain such as chest pressure or tightness. He does have untreated sleep apnea. Allergies Allergy/AdvReac Type Severity Reaction Status Date / Time duran Allergy Severe DURAN Verified 08/03/21 11:02 TREES "LUNGS TIGHTEN UP" codeine AdvReac Mild NAUSEA Verified 08/03/21 11:02 Home Medications Medication Instructions Recorded Confirmed Type aspirin 81 mg tablet,delayed 81 mg PO DAILY 03/13/19 05/06/22 History release (Adult Low Dose Aspirin) carvedilol 6.25 mg tablet See Rx Instructions .Route 05/20/21 05/06/22 Rx .COMPLEX #270 tabs sulindac 200 mg tablet See Rx Instructions .Route 05/20/21 05/06/22 Rx .COMPLEX #180 tabs metformin 500 mg tablet 500 mg PO BID #180 tabs 03/23/22 05/06/22 Rx rosuvastatin 5 mg tablet 5 mg PO DAILY #90 tabs 03/23/22 05/06/22 Rx amlodipine 10 mg tablet 10 mg PO DAILY #90 tabs 03/24/22 05/06/22 Rx tramadol 50 mg tablet 100 mg PO Q12H PRN pain #120 tabs 03/24/22 05/06/22 Rx clotrimazole-betamethasone 1 1 applic topical BID PRN Psoriasis 05/06/22 05/06/22 History %-0.05 % topical cream hydrochlorothiazide 25 mg tablet 25 mg PO DAILY 05/06/22 05/06/22 History Patient History Medical History (Updated 05/07/22 @ 07:52 by Dustin Patel MD) Acute flank pain Acute pyelonephritis Chronic back pain Diabetes Dyslipidemia Encephalopathy Hematuria Hypertension Nocturnal hypoxemia Psoriasis Sepsis secondary to UTI Type 2 diabetes mellitus Unresponsive Surgical History History of appendectomy History of colon surgery History of tonsillectomy Family History Father Myocardial infarction Heart disease Mother Hypertension Other Diabetes Denies family history of Ovarian cancer Prostate cancer Breast cancer Lung cancer Colorectal cancer Stroke Social History Smoking Status: Never smoker Second Hand Exposure: No; Hx Alcohol Use: Yes Alcohol type: hard liquor Alcohol Intake Frequency: 4 or More x per/Week Hx Substance Use: No Preferred Language: Haitian Visual Impairment: Limited Hearing Ability: Hard of Hearing [employer]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 He states that he has noticed some swelling of the right lower extremity. He has been applying a lotion and picking at scabs. Physical Exam Physical Exam: The patient is alert and oriented. Mood and affect appeared normal. He answered all questions appropriately. Obese. Lying flat HEENT: Pupils are equal and reactive to light and accommodation. Extraocular movements are intact. The sclerae are anicteric. Neuro: Cranial nerves intact Neck: Redundant neck tissue. Lungs: Clear to auscultation bilaterally. He has good air movement without use of accessory muscles. No rales wheezes or rhonchi. Cardiac: Heart demonstrates a regular rate and rhythm. Normal S1 and S2. No murmurs on examination. Abdomen: Obese. Nontender to palpation. Pulses: The patient has palpable radial pulses bilaterally that are equal in intensity Extremities: There was no evidence of hypoperfusion. There is no cyanosis or clubbing. Mild edema involving the right lower extremity. Skin: Erythema and scabs on the right lower extremity. Results & Data ([facility]) Vital Signs (Past 12 Hours) Vital Signs Temp Pulse Pulse Resp BP Pulse Ox O2 Del Method 05/07/22 08:04 37.9 C H 75 20 121/72 93 Nasal Cannula 05/07/22 07:05 77 05/07/22 03:46 38.1 C H 82 18 112/65 92 Nasal Cannula 05/06/22 23:11 36.9 C 66 18 135/80 95 Nasal Cannula 05/06/22 23:11 90 O2 Flow Rate 05/07/22 08:04 4 05/07/22 07:05 05/07/22 03:46 4 05/06/22 23:11 4 05/06/22 23:11 Laboratory Results Abnormal Lab Results 05/06/22 05/06/22 05/06/22 15:35 15:44 15:52 WBC RBC Hgb POC Hgb Hct POC Hct MCV MCH MCHC RDW Std Deviation RDW Coeff of Vipul Plt Count MPV Immature Gran % (Auto) Neut % (Auto) Lymph % (Auto) [place] % (Auto) Eos % (Auto) Baso % (Auto) Neut # (Auto) Lymph # (Auto) [place] # (Auto) Eos # (Auto) Baso # (Auto) Immature Gran # (Auto) PT INR APTT PTT Ratio VBG pH VBG pCO2 VBG pO2 VBG HCO3 VBG O2 Saturation VBG Base Excess POC Sodium Sodium POC Potassium Potassium POC Chloride Chloride Carbon Dioxide POC Total CO2 Anion Gap POC Anion Gap POC BUN BUN Creatinine POC Creatinine Est Cr Clr Drug Dosing Est GFR ( Amer) Est GFR (Non-Af Amer) BUN/Creatinine Ratio Glucose POC Glucose POC Glucose (other) Estimat Average Glucose Hemoglobin A1c Lactate Calcium POC Ioniz Calcium Zita Magnesium Total Bilirubin AST ALT Alkaline Phosphatase Troponin I High Sens Total Protein Albumin Globulin Albumin/Globulin Ratio Procalcitonin 1.29 H SARS-CoV-2, RNA, NAAT NEGATIVE Blood Type O Positive Antibody Screen NEGATIVE 05/06/22 05/06/22 05/06/22 15:52 15:52 15:52 WBC 15.08 H RBC 5.17 Hgb 16.7 POC Hgb Hct 48.0 POC Hct MCV 92.8 MCH 32.3 MCHC 34.8 RDW Std Deviation 42.8 RDW Coeff of Vipul 12.4 Plt Count 172 MPV 9.9 Immature Gran % (Auto) 0.6 Neut % (Auto) 87.9 Lymph % (Auto) 3.6 [place] % (Auto) 7.6 Eos % (Auto) 0.0 Baso % (Auto) 0.3 Neut # (Auto) 13.25 H Lymph # (Auto) 0.55 L [place] # (Auto) 1.14 H Eos # (Auto) 0.00 Baso # (Auto) 0.05 Immature Gran # (Auto) 0.09 H PT 11.5 INR 1.1 APTT 26.2 PTT Ratio 1.0 VBG pH VBG pCO2 VBG pO2 VBG HCO3 VBG O2 Saturation VBG Base Excess POC Sodium Sodium 131 L POC Potassium Potassium 3.1 L POC Chloride Chloride 97 L Carbon Dioxide 26 POC Total CO2 Anion Gap 8 POC Anion Gap POC BUN BUN 16 Creatinine 0.82 POC Creatinine Est Cr Clr Drug Dosing 120.9 Est GFR ( Amer) 101.0 Est GFR (Non-Af Amer) 87.1 BUN/Creatinine Ratio 19.5 Glucose 133 H POC Glucose POC Glucose (other) Estimat Average Glucose Hemoglobin A1c Lactate Calcium 8.8 POC Ioniz Calcium Zita Magnesium 1.3 L Total Bilirubin 1.1 H AST 23 ALT 22 Alkaline Phosphatase 84 Troponin I High Sens 28.6 H Total Protein 7.0 Albumin 4.1 Globulin 2.9 Albumin/Globulin Ratio 1.4 Procalcitonin SARS-CoV-2, RNA, NAAT Blood Type Antibody Screen 05/06/22 05/06/22 05/06/22 15:53 15:58 16:24 WBC RBC Hgb POC Hgb 17.3 Hct POC Hct 51 MCV MCH MCHC RDW Std Deviation RDW Coeff of Vipul Plt Count MPV Immature Gran % (Auto) Neut % (Auto) Lymph % (Auto) [place] % (Auto) Eos % (Auto) Baso % (Auto) Neut # (Auto) Lymph # (Auto) [place] # (Auto) Eos # (Auto) Baso # (Auto) Immature Gran # (Auto) PT INR APTT PTT Ratio VBG pH 7.46 H VBG pCO2 41 VBG pO2 41 VBG HCO3 29 VBG O2 Saturation 70.4 VBG Base Excess 4.9 POC Sodium 135 Sodium POC Potassium 3.0 L Potassium POC Chloride 95 L Chloride Carbon Dioxide POC Total CO2 25 Anion Gap POC Anion Gap 18.0 POC BUN 16 BUN Creatinine POC Creatinine 0.8 Est Cr Clr Drug Dosing Est GFR ( Amer) Est GFR (Non-Af Amer) BUN/Creatinine Ratio Glucose POC Glucose POC Glucose (other) 130 H Estimat Average Glucose Hemoglobin A1c Lactate 1.7 Calcium POC Ioniz Calcium Zita 1.13 Magnesium Total Bilirubin AST ALT Alkaline Phosphatase Troponin I High Sens Total Protein Albumin Globulin Albumin/Globulin Ratio Procalcitonin SARS-CoV-2, RNA, NAAT Blood Type Antibody Screen 05/06/22 05/06/22 05/07/22 18:20 20:19 00:11 WBC RBC Hgb POC Hgb Hct POC Hct MCV MCH MCHC RDW Std Deviation RDW Coeff of Vipul Plt Count MPV Immature Gran % (Auto) Neut % (Auto) Lymph % (Auto) [place] % (Auto) Eos % (Auto) Baso % (Auto) Neut # (Auto) Lymph # (Auto) [place] # (Auto) Eos # (Auto) Baso # (Auto) Immature Gran # (Auto) PT INR APTT PTT Ratio VBG pH VBG pCO2 VBG pO2 VBG HCO3 VBG O2 Saturation VBG Base Excess POC Sodium Sodium POC Potassium Potassium POC Chloride Chloride Carbon Dioxide POC Total CO2 Anion Gap POC Anion Gap POC BUN BUN Creatinine POC Creatinine Est Cr Clr Drug Dosing Est GFR ( Amer) Est GFR (Non-Af Amer) BUN/Creatinine Ratio Glucose POC Glucose 126 H POC Glucose (other) Estimat Average Glucose Hemoglobin A1c Lactate Calcium POC Ioniz Calcium Zita Magnesium Total Bilirubin AST ALT Alkaline Phosphatase Troponin I High Sens 67.6 H* D 1300.1 H* D Total Protein Albumin Globulin Albumin/Globulin Ratio Procalcitonin SARS-CoV-2, RNA, NAAT Blood Type Antibody Screen 05/07/22 05/07/22 05/07/22 05:13 05:13 05:13 WBC 17.61 H RBC 4.74 Hgb 15.1 POC Hgb Hct 43.8 POC Hct MCV 92.4 MCH 31.9 MCHC 34.5 RDW Std Deviation 43.3 RDW Coeff of Vipul 12.6 Plt Count 169 MPV 10.4 Immature Gran % (Auto) 1.0 Neut % (Auto) 87.2 Lymph % (Auto) 3.9 [place] % (Auto) 7.6 Eos % (Auto) 0.1 Baso % (Auto) 0.2 Neut # (Auto) 15.34 H Lymph # (Auto) 0.69 L [place] # (Auto) 1.34 H Eos # (Auto) 0.02 Baso # (Auto) 0.04 Immature Gran # (Auto) 0.18 H PT INR APTT 33.9 H PTT Ratio 1.2 VBG pH VBG pCO2 VBG pO2 VBG HCO3 VBG O2 Saturation VBG Base Excess POC Sodium Sodium 131 L POC Potassium Potassium 3.5 POC Chloride Chloride 97 L Carbon Dioxide 26 POC Total CO2 Anion Gap 8 POC Anion Gap POC BUN BUN 19 Creatinine 0.92 POC Creatinine Est Cr Clr Drug Dosing 106.8 Est GFR ( Amer) 94.6 Est GFR (Non-Af Amer) 81.6 BUN/Creatinine Ratio 20.7 H Glucose 134 H POC Glucose POC Glucose (other) Estimat Average Glucose Hemoglobin A1c Lactate Calcium 8.2 L POC Ioniz Calcium Zita Magnesium Total Bilirubin AST ALT Alkaline Phosphatase Troponin I High Sens Total Protein Albumin Globulin Albumin/Globulin Ratio Procalcitonin SARS-CoV-2, RNA, NAAT Blood Type Antibody Screen 05/07/22 05/07/22 05/07/22 05:13 05:13 07:45 WBC RBC Hgb POC Hgb Hct POC Hct MCV MCH MCHC RDW Std Deviation RDW Coeff of Vipul Plt Count MPV Immature Gran % (Auto) Neut % (Auto) Lymph % (Auto) [place] % (Auto) Eos % (Auto) Baso % (Auto) Neut # (Auto) Lymph # (Auto) [place] # (Auto) Eos # (Auto) Baso # (Auto) Immature Gran # (Auto) PT INR APTT PTT Ratio VBG pH VBG pCO2 VBG pO2 VBG HCO3 VBG O2 Saturation VBG Base Excess POC Sodium Sodium POC Potassium Potassium POC Chloride Chloride Carbon Dioxide POC Total CO2 Anion Gap POC Anion Gap POC BUN BUN Creatinine POC Creatinine Est Cr Clr Drug Dosing Est GFR ( Amer) Est GFR (Non-Af Amer) BUN/Creatinine Ratio Glucose POC Glucose 131 H POC Glucose (other) Estimat Average Glucose 131 Hemoglobin A1c 6.2 H Lactate Calcium POC Ioniz Calcium Zita Magnesium 1.8 Total Bilirubin AST ALT Alkaline Phosphatase Troponin I High Sens Total Protein Albumin Globulin Albumin/Globulin Ratio Procalcitonin SARS-CoV-2, RNA, NAAT Blood Type Antibody Screen Diagnostic Findings Chest CTA did not reveal any evidence of pulmonary embolus. Notable periumbilical hernia. No other acute findings. Chest x-ray revealed cardiomegaly without other acute cardiopulmonary findings Lower extremity ultrasound did not reveal any evidence of DVT ECG Additional Comments: Time admission revealed sinus rhythm with PVCs and ST segment changes concerning for ischemia. Repeat evaluation revealed resolution of the ST segment changes. PG Care Time/CCT Total # of Minutes Spent Total Time Spent with Patient: Total time spent is greater than 50% in coordination of care (as documented) at patient's floor/unit and/or counseling patient: Coding Level of Care Code 97392 Initial Inpt Care Lvl 3 Diagnoses Non-ST elevation FL (NSTEMI) I21.4 Syncope R55 Dyslipidemia E78.5
[2022-05-07] MEDS ORDERED: MAGNESIUM SULFATE / D5W 1 GM/100 ML BAG IV ONE (10:07)
[2022-05-07 11:14] LABS: Partial Thromboplastin Ratio 1.3; Partial Thromboplastin Time 35.9 Seconds (21.0-31.0)
[2022-05-07] MEDS ORDERED: HEPARIN SOD (PORCINE) 1000 UNIT/ML IV ONE (12:30)
--- NOTE | 2022-05-07 12:53 | Hospitalist Progress Note ---
Date of Service May 07, 2022 Assessment & Plan (1) Cellulitis: Plan: Fever and WBC suggestive of infection Erythema, warmth and swelling of right lower extremity - US venous doppler negative for DVT. Findings not definitive of cellulitis but no infection found elsewhere on CT C/A/P. UA pending Continue ceftriaxone 2g IV daily Follow up blood cultures (2) Non-ST elevation [place] (NSTEMI): Plan: Concern for NSTEMI-ACS, although also possible just demand-ischemia. Troponin not yet peaked however, will continue to trend will peak. ASA 324mg PO given in ER, continue 81mg PO daily Already on carvedilol - will continue this Already on rosuvastatin - increased to 10mg by cardiology, lipid panel with AM labs Continue IV heparin low dose bolus and drip until cardiac cath HbA1C 6.2 - will consider metformin on discharge pending on cardiac cath finsing TTE unremarkable Consult cardiology - planning on cardiac cath on Monday. (3) Syncope: Plan: Main reason for admission. Monitor on telemetry for cardiac arrhythmia. Treat cellulitis and workup for ACS as above (4) Type 2 diabetes mellitus: Plan: Hemoglobin A1C 6.2 Hold metformin Novolog: --Goal BSG Range: Low 110 mg/dL, High 140 mg/dL --Correction Factor: 45 mg/dL/unit --Carbohydrate ratio = 15 g/unit --BSGs ACHS if eating, q6h if npo (5) Obstructive sleep apnea syndrome: Plan: CPAP HS (6) Chronic obstructive lung disease: Plan: On no maintenance medications for this. Not suspected to be having an exacerbation (7) Hypertension: Plan: Continue carvedilol and nitroglycerin as above Continue to hold HCTZ and amlodipine (8) Psoriasis: Plan: Steroid cream PRN Plan VTE Prophylaxis - IV heparin Diet - heart healthy, T2DM, NPO after midnight on Monday Disposition - continued admission to PCU Admission and Anticipated Discharge Date Admission Date: May 06, 2022 Subjective Patient not particularly communicative. He feels he is more alert today than yesterday. He denies any chest pain. No change in erythema of his right leg. The patient is unsure about this but thinks it may be chronic however his has never noticed this before. Ongoing fever with 38.1 degrees celsius overnight. No urinary or upper respiratory symptoms. No change in erythema of right leg. Review of Systems Review of Systems: All systems reviewed & are unremarkable except as noted in Subjective Physical Exam Constitutional: WD/WN, vitals as above + morbidly obese ENMT: external ear and nose normal, oropharynx normal Neck: trachea midline, no thyromegaly Respiratory: normal respiratory effort; no respiratory distress Auscultation: + crackles (bibasal); no rales, no rhonchi and no wheezes Cardiovascular: Rate/Rhythm: regular rate and regular rhythm Heart Sounds: no murmur Vessels: no JVD Extremities: normal capillary refill, + calf tenderness (right) and + pedal edema (1+ pre-tibial pitting) Gastrointestinal (Abdomen): normal bowel sounds, soft, nontender, no hepatosplenomegaly Musculoskeletal: no cyanosis or clubbing, extremities motor strength 5/5 Skin: + erythema (mild erythema, warmth and swelling from right knee to mid foot) Neurologic: moves all extremities and awake; no focal motor deficits and not confused Speech / Cognition: normal speech Motor/Sensory: no tremor and no pronator drift Psychiatric: A+Ox3, euthymic affect Genitourinary: no CVA tenderness Results & Data Results & Data ([facility]) Vital Signs (Past 12 Hours) Vital Signs Temp Pulse Pulse Resp BP BP Pulse Ox 05/07/22 11:15 37.3 C 71 16 124/69 93 05/07/22 10:16 05/07/22 08:04 37.9 C H 75 20 121/72 93 05/07/22 07:05 77 05/07/22 03:46 38.1 C H 82 18 112/65 92 O2 Del Method O2 Flow Rate 05/07/22 11:15 Nasal Cannula 4 05/07/22 10:16 Nasal Cannula 4 05/07/22 08:04 Nasal Cannula 4 05/07/22 07:05 05/07/22 03:46 Nasal Cannula 4 PG Care Time/CCT Total # of Minutes Spent Total Time Spent with Patient: Total time spent is greater than 50% in coordination of care (as documented) at patient's floor/unit and/or counseling patient: Coding Level of Care Code 94338 Subseq Hosp Care Lvl 3 Diagnoses Cellulitis L03.90 Non-ST elevation [place] (NSTEMI) I21.4 Syncope R55 Type 2 diabetes mellitus E11.9 Diabetes mellitus complication status: without complication Diabetes mellitus senior living insulin use: without press tender long goods use Obstructive sleep apnea syndrome G47.33 Chronic obstructive lung disease J44.9 Hypertension I10 Hypertension type: essential hypertension Psoriasis L40.9 (1) Type 2 diabetes mellitus Diabetes mellitus complication status: without complication Diabetes mellitus senior living insulin use: without press tender long goods use Qualified Code(s): E11.9 - Type 2 diabetes mellitus without complications (2) Hypertension Hypertension type: essential hypertension Qualified Code(s): I10 - Essential (primary) hypertension
--- NOTE | 2022-05-07 12:55 | XCELERA ---
[id number]
--- NOTE | 2022-05-07 13:04 | Electrocardiogram Report ---
Test Reason : Blood Pressure : / mmHG Vent. Rate : 077 BPM Atrial Rate : 077 BPM P-R Int : 158 ms QRS Dur : 110 ms QT Int : 408 ms P-R-T Axes : 008 083 064 degrees QTc Int : 461 ms Normal sinus rhythm Normal ECG When compared with ECG of 06-MAY-2022 21:36, Premature atrial complexes are no longer Present Confirmed by Tony Johnson ([id number] on 05/07/2022 1:03:54 PM Referred By: REFERRED SELF Confirmed By:Balaji Johnson
[2022-05-07 16:28] LABS: Appearance Urine Clear (Clear); Blood Urine Negative (Negative); Color Urine Dark Yellow; Epithelial Cell Urine Auto 20-30 /lpf (0-5); Glucose Urine UA Negative (Negative); Ketones Urine Trace (Negative); Leukocyte Esterase Urine Negative (Negative); Nitrite Urine Negative (Negative); Protein Urine 1+ (Negative); RBC Urine Automated 0-4 /hpf (0-4); Specific Gravity Urine 1.043 (1.000-1.030); Urobilinogen Urine Negative (Negative); pH Urine 5.5 (4.5-7.5)
[2022-05-07 16:47] LABS: Bilirubin Urine 1+ (Negative)
[2022-05-07 17:01] LABS: Bacteria Urine Automated 2+ (Negative); Mucus Urine Present (None Prsent)
[2022-05-07] MEDS: cefTRIAXone SODIUM 2,000 MG in DEXTROSE 5% 50 ML IV SCH (17:13)
[2022-05-07] MEDS: HEPARIN SODIUM/DEXTROSE 25,000 UNITS/500 ML BAG IV SCH (17:19)
[2022-05-07] MEDS: carvediloL 6.25 MG TAB PO SCH (20:52)
[2022-05-08] MEDS: NITROGLYCERIN 2% OINTMENT 30GM TUBE EXT SCH ×4 (00:25→21:27)
[2022-05-08 05:49] LABS: Hematocrit (blood only) 41.8 % (40.1-51.0); Hemoglobin 14.2 g/dl (14.0-18.0); Mean Corpuscular Hemoglobin 32.1 pg (25.0-34.0); Mean Corpuscular Volume 94.4 fL (80.0-100.0); Mean Platelet Volume 10.1 fL (9.4-12.4); Platelet Count 133 K/uL (130-400); RDW Standard Deviation 45.1 fL (36.4-46.3); Red Blood Count 4.43 M/uL (4.63-6.08)
[2022-05-08 05:58] LABS: Basophils # (auto) 0.03 K/uL (0-0.2); Basophils % (auto) 0.3 %; Eosinophils # (auto) 0.02 K/uL (0-0.50); Eosinophils % (auto) 0.2 %; Immature Granulocytes # (auto) 0.06 K/uL (0.00-0.02); Immature Granulocytes % (auto) 0.5 %; Lymphocytes # (auto) 1.13 K/uL (1.2-3.4); Lymphocytes % (auto) 9.4 %; Monocytes # (auto) 1.74 K/uL (0.24-0.82); Monocytes % (auto) 14.5 %; Neutrophils # (auto) 9.02 K/uL (1.4-6.5); Neutrophils % (auto) 75.1 %
[2022-05-08 06:01] LABS: BUN Creatinine Ratio 23.2 (10-20); Calcium 8.3 mg/dl (8.5-10.1); Chol HDL Ratio 4.3 (0-5); Creatinine Clr Calc Pharmacy 93.7 ml/min; Est GFR (African American) 86.6 ml/min; Est GFR (Non-African American) 74.7 ml/min; Potassium 3.4 mmol/L (3.5-5.1)
[2022-05-08 06:41] LABS: Partial Thromboplastin Time 55.6 Seconds (21.0-31.0)
[2022-05-08] MEDS: ASPIRIN 81 MG ECTAB PO SCH (07:35)
[2022-05-08] MEDS: ROSUVASTATIN CALCIUM 10 MG TAB PO SCH (07:35)
[2022-05-08] MEDS: INSULIN ASPART PER UNIT SC SCH ×4 (08:11→21:28)
[2022-05-08] MEDS: carvediloL 12.5 MG TAB PO SCH (08:17)
[2022-05-08] MEDS ORDERED: POTASSIUM CHLORIDE CRTAB 20 MEQ TABCR PO STA (08:34)
[2022-05-08 09:21] LABS: C Reactive Protein 26.13 mg/dl (0-0.5); Magnesium 2.2 mg/dl (1.7-2.4)
--- NOTE | 2022-05-08 10:06 | Cardiology Progress Note ---
Date of Service May 08, 2022 Assessment & Plan (1) Non-ST elevation IL (NSTEMI): (2) Syncope: (3) Dyslipidemia: Plan 1. NSTEMI: Possibly ACS. He has a history of prior NSTEMI. Echocardiogram normal. Will continue heparin for a total of 48 hours. Continue aspirin and carvedilol. I discussed a cardiac cath with the patient including the indications and risks. Will plan on proceeding tomorrow. 2. Syncope: Difficult to evaluate as the patient has no recollection of these events. No arrhythmias on telemetry. Will continue monitoring on telemetry. Will obtain echocardiogram today. 3. Hyperlipidemia: Rosuvastatin increased to 10mg daily Admission and Anticipated Discharge Date Admission Date: May 06, 2022 Subjective This morning he was worried about his memory. He reports having difficulty remembering numbers and recent events. No recurrent chest pain. No dyspnea. No abdominal pain. Minimal ambulation Review of Systems Review of Systems: Per HPI Physical Exam Physical Exam: The patient is alert and oriented. Mood and affect appeared normal. He answered all questions appropriately. Obese. Lying flat HEENT: Pupils are equal and reactive to light and accommodation. Extraocular movements are intact. The sclerae are anicteric. Neuro: Cranial nerves intact Neck: Redundant neck tissue. Lungs: Clear to auscultation bilaterally. He has good air movement without use of accessory muscles. No rales wheezes or rhonchi. Cardiac: Heart demonstrates a regular rate and rhythm. Normal S1 and S2. No murmurs on examination. Abdomen: Obese. Nontender to palpation. Pulses: The patient has palpable radial pulses bilaterally that are equal in intensity Extremities: There was no evidence of hypoperfusion. There is no cyanosis or clubbing. Mild edema involving the right lower extremity. Skin: Erythema and scabs on the right lower extremity. Results & Data ([facility]) Vital Signs (Past 12 Hours) Vital Signs Temp Pulse Pulse Resp BP BP Pulse Ox 05/08/22 09:30 05/08/22 08:04 59 L 05/08/22 07:59 37.0 C 74 16 143/80 H 96 05/08/22 02:52 36.9 C 59 L 18 114/61 97 05/08/22 00:24 113/63 05/07/22 23:53 36.7 C 57 L 18 90/55 L 97 05/07/22 22:49 61 O2 Del Method O2 Flow Rate 05/08/22 09:30 Nasal Cannula 2 05/08/22 08:04 05/08/22 07:59 Nasal Cannula 2 05/08/22 02:52 Nasal Cannula 4 05/08/22 00:24 05/07/22 23:53 Nasal Cannula 4 05/07/22 22:49 Laboratory Results Abnormal Lab Results 05/07/22 05/07/22 05/07/22 05:13 10:48 11:10 WBC RBC Hgb Hct MCV MCH MCHC RDW Std Deviation RDW Coeff of Vipul Plt Count MPV Immature Gran % (Auto) Neut % (Auto) Lymph % (Auto) Banks % (Auto) Eos % (Auto) Baso % (Auto) Neut # (Auto) Lymph # (Auto) Banks # (Auto) Eos # (Auto) Baso # (Auto) Immature Gran # (Auto) ESR APTT 35.9 H PTT Ratio 1.3 Sodium Potassium Chloride Carbon Dioxide Anion Gap BUN Creatinine Est Cr Clr Drug Dosing Est GFR ( Amer) Est GFR (Non-Af Amer) BUN/Creatinine Ratio Glucose POC Glucose 112 H Calcium Magnesium Troponin I High Sens 2065.5 H* D C-Reactive Protein Triglycerides Cholesterol LDL Cholesterol, Calc VLDL Cholesterol, Calc HDL Cholesterol Cholesterol/HDL Ratio Prostate Specific Ag Procalcitonin Urine Color Urine Appearance Urine pH Ur Specific [place] Urine Protein Urine Glucose (UA) Urine Ketones Urine Blood Urine Nitrite Urine Bilirubin Urine Urobilinogen Ur Leukocyte Esterase Urine WBC (Auto) Urine RBC (Auto) U Hyaline Cast (Auto) U Epithel Cells (Auto) Urine Bacteria (Auto) Urine Mucus 05/07/22 05/07/22 05/07/22 12:16 15:52 16:44 WBC RBC Hgb Hct MCV MCH MCHC RDW Std Deviation RDW Coeff of Vipul Plt Count MPV Immature Gran % (Auto) Neut % (Auto) Lymph % (Auto) Banks % (Auto) Eos % (Auto) Baso % (Auto) Neut # (Auto) Lymph # (Auto) Banks # (Auto) Eos # (Auto) Baso # (Auto) Immature Gran # (Auto) ESR APTT PTT Ratio Sodium Potassium Chloride Carbon Dioxide Anion Gap BUN Creatinine Est Cr Clr Drug Dosing Est GFR ( Amer) Est GFR (Non-Af Amer) BUN/Creatinine Ratio Glucose POC Glucose 189 H Calcium Magnesium Troponin I High Sens 3108.0 H* D C-Reactive Protein Triglycerides Cholesterol LDL Cholesterol, Calc VLDL Cholesterol, Calc HDL Cholesterol Cholesterol/HDL Ratio Prostate Specific Ag Procalcitonin Urine Color Dark Yellow Urine Appearance Clear Urine pH 5.5 Ur Specific [place] 1.043 H Urine Protein 1+ H Urine Glucose (UA) Negative Urine Ketones Trace H Urine Blood Negative Urine Nitrite Negative Urine Bilirubin 1+ H Urine Urobilinogen Negative Ur Leukocyte Esterase Negative Urine WBC (Auto) 1-5 Urine RBC (Auto) 0-4 U Hyaline Cast (Auto) 5-10 H U Epithel Cells (Auto) 20-30 H Urine Bacteria (Auto) 2+ H Urine Mucus Present A 05/07/22 05/07/22 05/07/22 18:04 18:31 20:13 WBC RBC Hgb Hct MCV MCH MCHC RDW Std Deviation RDW Coeff of Vipul Plt Count MPV Immature Gran % (Auto) Neut % (Auto) Lymph % (Auto) Banks % (Auto) Eos % (Auto) Baso % (Auto) Neut # (Auto) Lymph # (Auto) Banks # (Auto) Eos # (Auto) Baso # (Auto) Immature Gran # (Auto) ESR APTT 55.0 H* PTT Ratio 2.0 Sodium Potassium Chloride Carbon Dioxide Anion Gap BUN Creatinine Est Cr Clr Drug Dosing Est GFR ( Amer) Est GFR (Non-Af Amer) BUN/Creatinine Ratio Glucose POC Glucose 174 H Calcium Magnesium Troponin I High Sens 2452.7 H* D C-Reactive Protein Triglycerides Cholesterol LDL Cholesterol, Calc VLDL Cholesterol, Calc HDL Cholesterol Cholesterol/HDL Ratio Prostate Specific Ag Procalcitonin Urine Color Urine Appearance Urine pH Ur Specific [place] Urine Protein Urine Glucose (UA) Urine Ketones Urine Blood Urine Nitrite Urine Bilirubin Urine Urobilinogen Ur Leukocyte Esterase Urine WBC (Auto) Urine RBC (Auto) U Hyaline Cast (Auto) U Epithel Cells (Auto) Urine Bacteria (Auto) Urine Mucus 05/08/22 05/08/22 05/08/22 05:19 05:19 05:19 WBC 12.00 H RBC 4.43 L Hgb 14.2 Hct 41.8 MCV 94.4 MCH 32.1 MCHC 34.0 RDW Std Deviation 45.1 RDW Coeff of Vipul 13.0 Plt Count 133 MPV 10.1 Immature Gran % (Auto) 0.5 Neut % (Auto) 75.1 Lymph % (Auto) 9.4 Banks % (Auto) 14.5 Eos % (Auto) 0.2 Baso % (Auto) 0.3 Neut # (Auto) 9.02 H Lymph # (Auto) 1.13 L Banks # (Auto) 1.74 H Eos # (Auto) 0.02 Baso # (Auto) 0.03 Immature Gran # (Auto) 0.06 H ESR APTT 55.6 H* PTT Ratio 2.0 Sodium 133 L Potassium 3.4 L Chloride 99 Carbon Dioxide 27 Anion Gap 7 BUN 23 Creatinine 0.99 Est Cr Clr Drug Dosing 93.7 Est GFR ( Amer) 86.6 Est GFR (Non-Af Amer) 74.7 BUN/Creatinine Ratio 23.2 H Glucose 125 H POC Glucose Calcium 8.3 L Magnesium Troponin I High Sens 1264.0 H* D C-Reactive Protein Triglycerides 171 H Cholesterol 139 LDL Cholesterol, Calc 73 VLDL Cholesterol, Calc 34 H HDL Cholesterol 32 Cholesterol/HDL Ratio 4.3 Prostate Specific Ag Procalcitonin Urine Color Urine Appearance Urine pH Ur Specific [place] Urine Protein Urine Glucose (UA) Urine Ketones Urine Blood Urine Nitrite Urine Bilirubin Urine Urobilinogen Ur Leukocyte Esterase Urine WBC (Auto) Urine RBC (Auto) U Hyaline Cast (Auto) U Epithel Cells (Auto) Urine Bacteria (Auto) Urine Mucus 05/08/22 05/08/22 05/08/22 05:19 05:19 05:19 WBC RBC Hgb Hct MCV MCH MCHC RDW Std Deviation RDW Coeff of Vipul Plt Count MPV Immature Gran % (Auto) Neut % (Auto) Lymph % (Auto) Banks % (Auto) Eos % (Auto) Baso % (Auto) Neut # (Auto) Lymph # (Auto) Banks # (Auto) Eos # (Auto) Baso # (Auto) Immature Gran # (Auto) ESR 39 H APTT PTT Ratio Sodium Potassium Chloride Carbon Dioxide Anion Gap BUN Creatinine Est Cr Clr Drug Dosing Est GFR ( Amer) Est GFR (Non-Af Amer) BUN/Creatinine Ratio Glucose POC Glucose Calcium Magnesium 2.2 Troponin I High Sens C-Reactive Protein 26.13 H Triglycerides Cholesterol LDL Cholesterol, Calc VLDL Cholesterol, Calc HDL Cholesterol Cholesterol/HDL Ratio Prostate Specific Ag Procalcitonin 8.71 H Urine Color Urine Appearance Urine pH Ur Specific [place] Urine Protein Urine Glucose (UA) Urine Ketones Urine Blood Urine Nitrite Urine Bilirubin Urine Urobilinogen Ur Leukocyte Esterase Urine WBC (Auto) Urine RBC (Auto) U Hyaline Cast (Auto) U Epithel Cells (Auto) Urine Bacteria (Auto) Urine Mucus 05/08/22 05/08/22 05:19 07:49 WBC RBC Hgb Hct MCV MCH MCHC RDW Std Deviation RDW Coeff of Vipul Plt Count MPV Immature Gran % (Auto) Neut % (Auto) Lymph % (Auto) Banks % (Auto) Eos % (Auto) Baso % (Auto) Neut # (Auto) Lymph # (Auto) Banks # (Auto) Eos # (Auto) Baso # (Auto) Immature Gran # (Auto) ESR APTT PTT Ratio Sodium Potassium Chloride Carbon Dioxide Anion Gap BUN Creatinine Est Cr Clr Drug Dosing Est GFR ( Amer) Est GFR (Non-Af Amer) BUN/Creatinine Ratio Glucose POC Glucose 127 H Calcium Magnesium Troponin I High Sens C-Reactive Protein Triglycerides Cholesterol LDL Cholesterol, Calc VLDL Cholesterol, Calc HDL Cholesterol Cholesterol/HDL Ratio Prostate Specific Ag 1.587 Procalcitonin Urine Color Urine Appearance Urine pH Ur Specific [place] Urine Protein Urine Glucose (UA) Urine Ketones Urine Blood Urine Nitrite Urine Bilirubin Urine Urobilinogen Ur Leukocyte Esterase Urine WBC (Auto) Urine RBC (Auto) U Hyaline Cast (Auto) U Epithel Cells (Auto) Urine Bacteria (Auto) Urine Mucus Diagnostic Findings Echocardiogram 05/07/2022: Normal LV systolic function and wall motion. Mild LAE. aortic valve sclerosis. PG Care Time/CCT Total # of Minutes Spent Total Time Spent with Patient: Total time spent is greater than 50% in coordination of care (as documented) at patient's floor/unit and/or counseling patient: Coding Level of Care Code 76988 Subseq Hosp Care Lvl 2 Diagnoses Non-ST elevation IL (NSTEMI) I21.4 Syncope R55 Dyslipidemia E78.5
[2022-05-08] MEDS: LANTUS PER UNIT CHARGE SQ SCH (10:58)
[2022-05-08] MEDS: HEPARIN SODIUM/DEXTROSE 25,000 UNITS/500 ML BAG IV SCH (11:12)
[2022-05-08] MEDS: cefTRIAXone SODIUM 2,000 MG in DEXTROSE 5% 50 ML IV SCH (17:41)
--- NOTE | 2022-05-08 19:29 | Hospitalist Progress Note ---
Date of Service May 08, 2022 Assessment & Plan (1) Cellulitis: Plan: Fever and WBC suggestive of infection. WBC now improving and patient less confused with ceftriaxone although procalcitonin increased this is the only marker going the wrong direction but not an indication to broaden antibiotics. No significant change to erythema of right leg. Will continue to trend inflammatory markers and procalcitonin. Prostatitis was considered however given negative urine culture and normal PSA essentially rules this out. US venous doppler negative for DVT. Exam not definitive of cellulitis but no infection found elsewhere on CT C/A/P. Continue ceftriaxone 2g IV daily Blood cultures negative at 48 hours (2) Non-ST elevation ID (NSTEMI): Plan: Concern for NSTEMI-ACS, although also possible just demand-ischemia. Troponin peaked 3108 pg/ml [05/07] ASA 324mg PO given in ER, continue 81mg PO daily Already on carvedilol - will continue this Already on rosuvastatin - increased to 10mg by cardiology, LDL 73 Continue IV heparin low dose bolus and drip until cardiac cath HbA1C 6.2 TTE unremarkable Consult cardiology - planning on cardiac cath on tomorrow NPO after midnight (3) Syncope: Plan: Main reason for admission. Monitor on telemetry for cardiac arrhythmia. Treat cellulitis and workup for ACS as above. (4) Type 2 diabetes mellitus: Plan: Hemoglobin A1C 6.2 Hold metformin Add Lantus 10 units daily Novolog: --Goal BSG Range: Low 110 mg/dL, High 140 mg/dL --Correction Factor: 45 mg/dL/unit --Carbohydrate ratio = 15 g/unit --BSGs ACHS if eating, q6h if npo (5) Obstructive sleep apnea syndrome: Plan: CPAP HS (6) Chronic obstructive lung disease: Plan: On no maintenance medications for this. Not suspected to be having an exacerbation (7) Hypertension: Plan: Continue carvedilol and nitroglycerin as above Continue to hold HCTZ and amlodipine (8) Psoriasis: Plan: Steroid cream PRN Plan VTE Prophylaxis - IV heparin Diet - heart healthy, T2DM, NPO after midnight Disposition - continued admission to PCU Admission and Anticipated Discharge Date Admission Date: May 06, 2022 Subjective Patient appears cognitively much better. His feels his erythema on his right leg has improved. Many questions regarding cardiac cath answered and communicated with Dr Johnson regarding timing of procedure tomorrow. No fever or chills. He reports less pain in his right calf. Troponin peaked 3108 pg/ml 05/07 Review of Systems Review of Systems: All systems reviewed & are unremarkable except as noted in Subjective Physical Exam Constitutional: WD/WN, vitals as above + morbidly obese; no acute distress Eyes: + anicteric sclerae; normal pupil size ENMT: external ear and nose normal, oropharynx normal Neck: trachea midline, no thyromegaly Respiratory: normal respiratory effort, lungs clear to auscultation Cardiovascular: Rate/Rhythm: regular rate and regular rhythm Extremities: normal capillary refill, + calf tenderness (right) and + pedal edema (1+ b/l pre-tibial) Gastrointestinal (Abdomen): normal bowel sounds, soft, nontender, no hepatosplenomegaly Skin: + erythema (no significant change to warmth and swelling) Neurologic: moves all extremities and awake; not confused Psychiatric: A+Ox3, euthymic affect Results & Data Results & Data ([facility]) Vital Signs (Past 12 Hours) Vital Signs Temp Pulse Pulse Resp BP BP Pulse Ox 05/08/22 19:00 36.7 C 72 20 158/69 H 91 05/08/22 17:55 65 05/08/22 15:24 37.1 C 68 16 129/65 93 05/08/22 11:06 36.7 C 62 16 158/73 H 97 05/08/22 09:30 05/08/22 08:04 59 L 05/08/22 07:59 37.0 C 74 16 143/80 H 96 O2 Del Method O2 Flow Rate 05/08/22 19:00 Room Air 05/08/22 17:55 05/08/22 15:24 Room Air 05/08/22 11:06 Nasal Cannula 2 05/08/22 09:30 Nasal Cannula 2 05/08/22 08:04 05/08/22 07:59 Nasal Cannula 2 PG Care Time/CCT Total # of Minutes Spent Total Time Spent with Patient: Total time spent is greater than 50% in coordination of care (as documented) at patient's floor/unit and/or counseling patient: Prolonged Care Time Prolonged Care Time: Yes Total Prolonged Care Time: 40 Coding Level of Care Code 00343 Subseq Hosp Care Lvl 3 Diagnoses Cellulitis L03.90 Non-ST elevation ID (NSTEMI) I21.4 Syncope R55 Type 2 diabetes mellitus E11.9 Diabetes mellitus mcc insulin use: without terminal carman use Diabetes mellitus complication status: without complication Obstructive sleep apnea syndrome G47.33 Chronic obstructive lung disease J44.9 Hypertension I10 Hypertension type: essential hypertension Psoriasis L40.9 Additional Codes Prolonged Care Time - Prolonged Care Time: Yes ([id number]) (1) Type 2 diabetes mellitus Diabetes mellitus mcc insulin use: without mcc use Diabetes mellitus complication status: without complication Qualified Code(s): E11.9 - Type 2 diabetes mellitus without complications (2) Hypertension Hypertension type: essential hypertension Qualified Code(s): I10 - Essential (primary) hypertension
[2022-05-08] MEDS: CLOTRIMAZOLE/BETAMETHASONE CR 15 GM TUBE EXT SCH (21:28)
[2022-05-08] MEDS: carvediloL 6.25 MG TAB PO SCH (21:28)
[2022-05-09] MEDS: NITROGLYCERIN 2% OINTMENT 30GM TUBE EXT SCH ×4 (01:56→19:57)
[2022-05-09] MEDS: HEPARIN SODIUM/DEXTROSE 25,000 UNITS/500 ML BAG IV SCH (04:26)
[2022-05-09 06:45] LABS: Basophils # (auto) 0.02 K/uL (0-0.2); Basophils % (auto) 0.2 %; Eosinophils # (auto) 0.06 K/uL (0-0.50); Eosinophils % (auto) 0.7 %; Hematocrit (blood only) 41.4 % (40.1-51.0); Hemoglobin 13.9 g/dl (14.0-18.0); Immature Granulocytes # (auto) 0.02 K/uL (0.00-0.02); Immature Granulocytes % (auto) 0.2 %; Lymphocytes # (auto) 1.23 K/uL (1.2-3.4); Lymphocytes % (auto) 14.9 %; Mean Corpuscular Hemoglobin 31.7 pg (25.0-34.0); Mean Corpuscular Hgb Conc 33.6 g/dL (32.0-36.0); Mean Corpuscular Volume 94.3 fL (80.0-100.0); Mean Platelet Volume 10.8 fL (9.4-12.4); Monocytes # (auto) 1.67 K/uL (0.24-0.82); Monocytes % (auto) 20.2 %; Neutrophils # (auto) 5.26 K/uL (1.4-6.5); Neutrophils % (auto) 63.8 %; Platelet Count 145 K/uL (130-400); RDW Coefficient of Variation 12.8 % (11.5-14.5); RDW Standard Deviation 44.5 fL (36.4-46.3); Red Blood Count 4.39 M/uL (4.63-6.08); White Blood Count 8.26 K/ul (4.8-10.8)
[2022-05-09 07:19] LABS: BUN Creatinine Ratio 20.8 (10-20); Calcium 8.3 mg/dl (8.5-10.1); Creatinine Clr Calc Pharmacy 120.9 ml/min; Est GFR (African American) 103.6 ml/min; Est GFR (Non-African American) 89.4 ml/min; Potassium 3.5 mmol/L (3.5-5.1)
[2022-05-09 07:26] LABS: Partial Thromboplastin Ratio 1.4; Partial Thromboplastin Time 39.6 Seconds (21.0-31.0)
[2022-05-09] MEDS: INSULIN ASPART PER UNIT SC SCH ×3 (08:04→17:19)
[2022-05-09] MEDS: ASPIRIN 81 MG ECTAB PO SCH (08:12)
[2022-05-09] MEDS: carvediloL 12.5 MG TAB PO SCH (08:12)
[2022-05-09] MEDS: ROSUVASTATIN CALCIUM 10 MG TAB PO SCH (08:12)
[2022-05-09] MEDS: CLOTRIMAZOLE/BETAMETHASONE CR 15 GM TUBE EXT SCH (08:13)
[2022-05-09] MEDS: LANTUS PER UNIT CHARGE SQ SCH (08:20)
[2022-05-09] MEDS ORDERED: niCARdipine HCL INJ 2.5 MG/ML 10 ML AMP ONE (10:27)
[2022-05-09] MEDS ORDERED: MIDAZOLAM HCL 1 MG/ML 2ML VIAL ONE (10:27)
[2022-05-09] MEDS ORDERED: fentaNYL citrate 100 MCG/2 ML VIAL ONE (10:27)
[2022-05-09] MEDS ORDERED: HEPARIN (PORCINE) 1000 UNIT/ML 10 ML (CATH LAB USE ONLY) ONE (10:27)
[2022-05-09] MEDS ORDERED: NITROGLYCERIN/D5W 100MCG/ML 20ML SYR ONE (10:28)
--- NOTE | 2022-05-09 10:31 | Pre Anesthesia Assessment ---
Date of Service May 09, 2022 Pre Sedation Assessment Vital Signs Temp Pulse Pulse Resp BP BP Pulse Ox 05/09/22 09:43 05/09/22 07:58 36.8 C 57 L 20 162/85 H 92 05/09/22 08:12 67 05/09/22 07:17 80 05/09/22 03:00 36.7 C 93 H 18 130/85 96 05/08/22 23:08 67 05/08/22 23:00 36.9 C 70 20 142/75 H 93 05/08/22 19:00 36.7 C 72 20 158/69 H 91 05/08/22 17:55 65 05/08/22 15:24 37.1 C 68 16 129/65 93 05/08/22 11:06 36.7 C 62 16 158/73 H 97 O2 Del Method O2 Flow Rate 05/09/22 09:43 Room Air 05/09/22 07:58 Room Air 05/09/22 08:12 05/09/22 07:17 05/09/22 03:00 Room Air 05/08/22 23:08 05/08/22 23:00 Room Air 05/08/22 19:00 Room Air 05/08/22 17:55 05/08/22 15:24 Room Air 05/08/22 11:06 Nasal Cannula 2 Cardiovascular + regular rate and + regular rhythm Respiratory + respiratory effort normal Pre-Sedation Airway Assessment Smoking Status: Never smoker Hx Sleep Apnea: No Hx Difficult Intubation: No Short, Thick Neck: No Thyromental Distance: > or= 3.5 Finger Breadths Oral Cavity: + WNL Mallampati Class: IV ASA: ASA3 NPO Status Date of Last Intake of Fluids: 05/09/22 Time of Last Intake of Fluids: 08:00 Date of Last Intake of Solid Food: 05/08/22 Time of Last Intake of Solid Foods: 18:00 Procedure Planning Contraindications for Sedation: none Current Medications Reviewed: Yes Notes The planned sedation has been discussed with the patient. Informed Consent was obtained. I have identified the patient, determined the appropriateness of sedation and have assessed the patient immediately prior to the procedure. All medicine(s) and interventions are by my order.
--- NOTE | 2022-05-09 11:50 | Cardiac Catheterization ---
[facility] Data: Color Paste Mixer Cardiac Status Clinical evaluation leading to the procedure CAD Presenation: Non STEMI Diagnostic Physicians Name: Tony Johnson MD Closure Device Recommendations: CABG Cardiac Cath Procedure Full Procedure Date May 09, 2022 Pre-Procedure Diagnosis Pre-Procedure Diagnosis: Non STEMI AUC Score AUC Score: 8 Post-Procedure Diagnosis Post-Procedure Diagnosis: Severe CAD and Normal Intracardiac Pressures Procedure(s) Performed Procedure(s) Performed: Coronary Angiography and Left Heart Cath Heavy Equipment Diesel Mechanic Tony Johnson MD Excavating Supervisor(s) none Estimated Blood Loss Estimated Blood Loss: 5cc Medication(s) Medication(s): Fentanyl, Heparin, Lidocaine 1%, Nicardipine, Nitroglycerin and Versed Summary of Findings Procedure performed: Coronary angiography, left heart catheterization Staff pricing analyst: Tony Johnson MD Indication: The patient is a 76-year-old gentleman who presented to the emergency room after suffering a syncopal episode. During his emergency room evaluation he noted the onset of chest discomfort which was associated with some EKG changes and elevated cardiac biomarkers. He was admitted and treated for NSTEMI. He was advised to undergo coronary angiography for additional evaluation. Procedure in detail: The patient was informed of the risks benefits and alternatives to the intended procedure, he understood such and wished to proceed. He was taken to the cardiac catheterization suite in a fasting state. Conscious sedation was administered per protocol and the patient was monitored electrocardiographically throughout today's procedure. The right wrist area was prepped and draped in usual sterile fashion. This area was anesthetized using subcutaneous administration of a lidocaine solution. The right radial artery was then accessed using Seldinger technique, and a arterial sheath was placed at this site over a guidewire. The sheath was used to facilitate passage of the cardiac catheter for coronary angiography and left heart catheterization. Coronary angiogram was then obtained in multiple orthogonal views prior to removal of the catheter. At the conclusion of the procedure the sheath was removed and hemostasis was achieved at the access site using manual pressure. The patient tolerated procedure well, there were no immediate complications. Equipment used: 5 Belgian tiger 4, 5 Belgian JL4 Findings: Coronary angiography Left main: Left main was normal in size and caliber. It was calcified and had luminal regularities but that did not appear to be any discrete stenosis. Left anterior descending: Left anterior descending appeared to be occluded in its proximal portion and filled via [id number] collaterals in a retrograde fashion. There was involvement of a high 1st diagonal branch as well. The left anterior descending appear to produce another small 2nd diagonal branch. Left circumflex: Left circumflex was a nondominant vessel. It had approximately a 50-60% ostial stenosis at the takeoff from the left main. It produced a large branching 1st OM system and a medium-sized ongoing AV groove vessel. There were no additional obstructive lesions in this distribution. Left to left collaterals were noted filling the distal portion of the LAD. Right coronary: The right coronary was a large dominant vessel. There were luminal regularities in its proximal portion leading up to a near-total 99% mid RCA occlusion. There is a large acute marginal branch in the remainder of the vessel bifurcated normally into a PDA and PLB branch. The remainder of the vessel was free of significant obstructive disease. Impression: Chronic occlusion of the proximal LAD which fills via left to left collaterals Severe stenosis involving the mid RCA Normal left ventricular filling pressures Hemodynamics Rest Ao:: 140/81 mm of mercury Final Ao: 169/96 mm of mercury LV: 158/10 mm of mercury Left ventricular end-diastolic pressure 14 mm of mercury Recommendations Recommendations: CABG Specimens Specimens: None Radiation Exposure (mGy) n Contrast (mls) 40 Procedural Complication(s) None Disposition Color Paste Mixer Holding/Recovery I attest to the content of the Intraoperative Record and any orders documented therein. Any exceptions are noted below. [facility] Card Cath Procedure Codes Cardiac Catheterization Procedure 1: Cardiovascular Cath Procedures: 03742 Coronaries and LHC (+/-LV) Moderate Sedation Procedure 1: Sedation/Anesthesia: 04771 Mod Sedation by the same physician;Init15 Min Betsey fisher Age 5 & Up Procedure 2: Sedation/Anesthesia: 97763 Mod Sedation by the same physician; Ea [id number] Minutes PG Care Time/CCT Total # of Minutes Spent Total Time Spent with Patient: Total time spent is greater than 50% in coordination of care (as documented) at patient's floor/unit and/or counseling patient:
--- NOTE | 2022-05-09 11:50 | Post Anesthesia Assessment ---
Date of Service May 09, 2022 Post Sedation Assessment Vital Signs Temp Pulse Pulse Resp BP BP Pulse Ox 05/09/22 11:35 63 18 158/89 H 96 05/09/22 09:43 05/09/22 07:58 36.8 C 57 L 20 162/85 H 92 05/09/22 08:12 67 05/09/22 07:17 80 05/09/22 03:00 36.7 C 93 H 18 130/85 96 05/08/22 23:08 67 05/08/22 23:00 36.9 C 70 20 142/75 H 93 05/08/22 19:00 36.7 C 72 20 158/69 H 91 05/08/22 17:55 65 05/08/22 15:24 37.1 C 68 16 129/65 93 O2 Del Method 05/09/22 11:35 Room Air 05/09/22 09:43 Room Air 05/09/22 07:58 Room Air 05/09/22 08:12 05/09/22 07:17 05/09/22 03:00 Room Air 05/08/22 23:08 05/08/22 23:00 Room Air 05/08/22 19:00 Room Air 05/08/22 17:55 05/08/22 15:24 Room Air Recovery Score Activity: Moves 4 extremities Respiration: Deep Breath/Cough Circulation: +/-20% PreAnes Value Consciousness: Fully Awake Oxygen Saturation: > 92% On Room Air Post Anesthesia Score: 10 Discharge Sedation Level of Care: Fast Track Phase II Post Sedation Plan On clinical assessment, the patient appears to have tolerated the sedation without complications. Patient is recovering as anticipated. Patient will continue to be monitored by nursing and may be discharged when sedation discharge criteria are met per below protocol. Upon Completions of procedure up to 15 minutes continue every 5 minute vital signs and the P.A.R. score; then discharge to a Phase I or Fast Track to Phase II per the following guidelines: * Discharge Patient to appropriate Phase II area if PAR is 8 or greater or return to pre- procedure baseline. The post - procedure orders will be as directed. * If PAR score is less than 8 or not return to pre-procedure baseline then patient will follow Phase I monitoring till PAR is reached for Phase II. The Phase I may be done in procedure room or may call to secure a Phase I area. * If naloxone or flumazenil are used for reversal, hold in Phase I for continued monitoring from when last reversal dose was given for a minimum of 60 minutes or longer pending the nurse and/or physician discretion of patient condition before discharge to Phase II. Please call the Sedation Physician to re-evaluate and complete post-note for discharge to Phase II area. Do NOT discharge from procedure sedation or Phase 1 until post- sedation evaluation note is complete by procedure /sedation MD Sedation Discharge Instructions to be given to the patient at discharge to home.
--- NOTE | 2022-05-09 17:37 | Cardiology Progress Note ---
Date of Service May 09, 2022 Assessment & Plan (1) Non-ST elevation TN (NSTEMI): (2) Syncope: (3) Dyslipidemia: Plan 1. NSTEMI: Angiography revealed significant multivessel disease. This included a chronic total occlusion of the proximal LAD and diagonal with retrograde filling via [id number] collaterals. Also what appears to have been a culprit lesion involving the mid right coronary. He was felt to be best served by surgical revascularization. Will continue aspirin, rosuvastatin and carvedilol. 2. Syncope: Unclear this was related to any ischemia. Overall LV systolic function appears normal. Possibly related to his presenting infection. Unfortunately patient has no significant recollection of these events. 3. Hyperlipidemia: Rosuvastatin increased to 10mg daily 4. Cellulitis: Improving Plan is for transfer to [facility] in [place] to be evaluated for surgical revascularization. Admission and Anticipated Discharge Date Admission Date: May 06, 2022 Subjective This afternoon the patient claims to be feeling well. He reports feeling back to my usual self. No recurrent chest pain. No breathing difficulty. No symptoms at the right radial access site. Review of Systems Review of Systems: Per HPI Physical Exam Physical Exam: The patient is alert and oriented. Mood and affect appeared normal. He answered all questions appropriately. Obese. Lying flat HEENT: Pupils are equal and reactive to light and accommodation. Extraocular movements are intact. The sclerae are anicteric. Neuro: Cranial nerves intact Lungs: Clear to auscultation bilaterally. He has good air movement without use of accessory muscles. No rales wheezes or rhonchi. Cardiac: Heart demonstrates a regular rate and rhythm. Normal S1 and S2. No murmurs on examination. Pulses: Right hand well perfused. No hematoma the right radial access site. Skin: Erythema and scabs on the right lower extremity. Erythema improved. ENMT: Mallampati Class: IV Respiratory: normal respiratory effort Cardiovascular: Rate/Rhythm: regular rate and regular rhythm Results & Data ([facility]) Vital Signs (Past 12 Hours) Vital Signs Temp Pulse Pulse Resp BP BP Pulse Ox 05/09/22 17:03 69 20 159/97 H 91 05/09/22 16:03 70 20 131/72 92 05/09/22 15:33 36.8 C 70 20 131/72 92 05/09/22 15:03 71 20 130/72 91 05/09/22 14:57 65 05/09/22 14:03 65 20 165/93 H 93 05/09/22 13:06 61 05/09/22 12:55 36.8 C 62 22 153/93 H 92 05/09/22 12:33 62 166/90 H 92 05/09/22 12:03 62 166/82 H 92 05/09/22 11:48 63 20 183/94 H 92 05/09/22 11:50 66 18 155/94 H 96 05/09/22 11:35 63 18 158/89 H 96 05/09/22 09:43 05/09/22 07:58 36.8 C 57 L 20 162/85 H 92 05/09/22 08:12 67 05/09/22 07:17 80 O2 Del Method 05/09/22 17:03 Room Air 05/09/22 16:03 Room Air 05/09/22 15:33 Room Air 05/09/22 15:03 Room Air 05/09/22 14:57 05/09/22 14:03 Room Air 05/09/22 13:06 05/09/22 12:55 Room Air 05/09/22 12:33 05/09/22 12:03 05/09/22 11:48 Room Air 05/09/22 11:50 Room Air 05/09/22 11:35 Room Air 05/09/22 09:43 Room Air 05/09/22 07:58 Room Air 05/09/22 08:12 05/09/22 07:17 Laboratory Results Abnormal Lab Results 05/08/22 05/09/22 05/09/22 20:05 05:52 05:52 WBC RBC Hgb Hct MCV MCH MCHC RDW Std Deviation RDW Coeff of Vipul Plt Count MPV Immature Gran % (Auto) Neut % (Auto) Lymph % (Auto) Larue % (Auto) Eos % (Auto) Baso % (Auto) Neut # (Auto) Lymph # (Auto) Larue # (Auto) Eos # (Auto) Baso # (Auto) Immature Gran # (Auto) APTT 39.6 H PTT Ratio 1.4 Sodium 135 L Potassium 3.5 Chloride 101 Carbon Dioxide 28 Anion Gap 6 BUN 16 Creatinine 0.77 Est Cr Clr Drug Dosing 120.9 Est GFR ( Amer) 103.6 Est GFR (Non-Af Amer) 89.4 BUN/Creatinine Ratio 20.8 H Glucose 116 H POC Glucose 123 H Calcium 8.3 L Magnesium 2.0 Procalcitonin 05/09/22 05/09/22 05/09/22 05:52 05:54 12:11 WBC 8.26 RBC 4.39 L Hgb 13.9 L Hct 41.4 MCV 94.3 MCH 31.7 MCHC 33.6 RDW Std Deviation 44.5 RDW Coeff of Vipul 12.8 Plt Count 145 MPV 10.8 Immature Gran % (Auto) 0.2 Neut % (Auto) 63.8 Lymph % (Auto) 14.9 Larue % (Auto) 20.2 Eos % (Auto) 0.7 Baso % (Auto) 0.2 Neut # (Auto) 5.26 Lymph # (Auto) 1.23 Larue # (Auto) 1.67 H Eos # (Auto) 0.06 Baso # (Auto) 0.02 Immature Gran # (Auto) 0.02 APTT PTT Ratio Sodium Potassium Chloride Carbon Dioxide Anion Gap BUN Creatinine Est Cr Clr Drug Dosing Est GFR ( Amer) Est GFR (Non-Af Amer) BUN/Creatinine Ratio Glucose POC Glucose 108 H 105 H Calcium Magnesium Procalcitonin 05/09/22 05/09/22 14:19 16:23 WBC RBC Hgb Hct MCV MCH MCHC RDW Std Deviation RDW Coeff of Vipul Plt Count MPV Immature Gran % (Auto) Neut % (Auto) Lymph % (Auto) Larue % (Auto) Eos % (Auto) Baso % (Auto) Neut # (Auto) Lymph # (Auto) Larue # (Auto) Eos # (Auto) Baso # (Auto) Immature Gran # (Auto) APTT PTT Ratio Sodium Potassium Chloride Carbon Dioxide Anion Gap BUN Creatinine Est Cr Clr Drug Dosing Est GFR ( Amer) Est GFR (Non-Af Amer) BUN/Creatinine Ratio Glucose POC Glucose 97 Calcium Magnesium Procalcitonin 3.78 H PG Care Time/CCT Total # of Minutes Spent Total Time Spent with Patient: Total time spent is greater than 50% in coordination of care (as documented) at patient's floor/unit and/or counseling patient: Coding Level of Care Code 35219 Subseq Hosp Care Lvl 2 Diagnoses Non-ST elevation TN (NSTEMI) I21.4 Syncope R55 Dyslipidemia E78.5
[2022-05-09] MEDS: cefTRIAXone SODIUM 2,000 MG in DEXTROSE 5% 50 ML IV SCH (18:00)
--- NOTE | 2022-05-09 18:13 | Discharge Summary ---
Date of Service May 09, 2022 Admission HPI Per Admitting Provider Kosta Amezcua is a 76 year old male who presents to the ER with altered mental state and syncope. The patient is unable to provide any history and history is taken from his at bedside who was not present at the event. Reportedly he was trying to get up out of bed and he was so weak the he couldn't get up and then had a full syncopal event and ended up on the floor unresponsive. The patient does not remember how he felt prior to the episode. Reportedly acting normal earlier that morning. He arrived via EMS as a stroke alert due to concerns for possible facial droop although unclear which side this occurred. He had a similar episode on Monday night at the [employer] where he possibly lost consciousness after eating food but became responsive again and was able to make it back to his house. He has not been feeling quite the same since. Family reports he has recently been complaining of dizziness since this event and Monday states he lost consciousness during dinner. In the ER he had no focal neurological deficits and history more consistent with a syncopal event therefore no tKA was administered as stroke felt to be unlikely. His main complaint was chest pain, EKG showed lateral ST depressions and initial troponin was mildly elevated therefore he was given aspirin 324mg PO for acute coronary syndrome. The chest pain resolved with nitroglycerin 0.4mg SL given in the ER. He was discussed with cardiology by the ER physician and heparin IV low dose bolus and drip was ordered. He was referred to medicine for admission and ongoing management of NSTEMI. Principal Diagnosis Non-ST elevation myocardial infarction (severe coronary artery disease) Right lower extremity cellulitis Syncope due to above Discharge Exam Constitutional WD/WN, vitals as above + morbidly obese; no acute distress Eyes + anicteric sclerae; normal pupil size Respiratory normal respiratory effort, lungs clear to auscultation Auscultation: no crackles, no rales, no rhonchi and no wheezes Cardiovascular Rate/Rhythm: regular rate and regular rhythm Heart Sounds: no murmur Vessels: no JVD Extremities: normal capillary refill, + calf tenderness (right) and + pedal edema (1+ b/l pre-tibial) Gastrointestinal (Abdomen) normal bowel sounds, soft, nontender, no hepatosplenomegaly Musculoskeletal no cyanosis or clubbing, extremities motor strength 5/5 Skin + erythema (improving warmth and swelling) Neurologic moves all extremities and awake; no focal motor deficits and not confused Speech / Cognition: normal speech Psychiatric A+Ox3, euthymic affect Genitourinary no CVA tenderness Discharge Data Allergies Allergy/AdvReac Type Severity Reaction Status Date / Time long Allergy Severe LONG Verified 08/03/21 11:02 TREES "LUNGS TIGHTEN UP" codeine AdvReac Mild NAUSEA Verified 08/03/21 11:02 Consultations 05/06/22 17:14 ED Decision to Admit Stat 05/06/22 19:52 Consult Cardiology Routine Procedures Performed Operation Date: 05/09/22 09:30 Actual Procedures p Cineradiography w/Routine Exam - Tony Johnson MD p Cath, Left with Cors and Vent - Tony Johnson MD Chronic occlusion of the proximal LAD which fills via left to left collaterals Severe stenosis involving the mid RCA Normal left ventricular filling pressures Ordered Studies 05/06/22 14:46 CT angio head w con Stat CT angio neck with con Stat CT head/brain wo con Stat IMPRESSION: 1. Motion compromised examinations. 2. There is no hemorrhage, mass effect, or evidence of acute territorial ischemia by CT criteria. 3. Unremarkable CT angiogram of the brain. 4. Unremarkable CT angiogram of the neck. 05/06/22 15:55 CT angio chest PE protocol Stat CT abd pelvis IV con only Stat IMPRESSION: 1. Streak and motion compromised examinations. 2. There is no evidence of central pulmonary embolus in the main, lobar, or proximal segmental pulmonary arteries. The segmental and subsegmental branches are not well evaluated. 3. Cardiomegaly with evidence of pulmonary artery hypertension. 4. Dependent airspace opacities likely represent scarring/atelectasis. Correlate clinically from the mild superimposed pneumonitis. 5. No acute infectious or inflammatory findings are identified in the abdomen or pelvis. 6. There is a large fat and bowel containing supraumbilical hernia. No obstruction is seen. 7. Hepatomegaly and hepatic steatosis. 8. Cholelithiasis. 9. Additional findings as above. 05/06/22 18:01 US venous doppler LE RT Urgent Impression: No evidence of deep venous thrombus. 05/09/22 06:42 CL Cath Imgs for PACS use only Stat Hospital Course (1) Cellulitis: Kosta Amezcua is a 76 year old male admitted to [facility] from May 06 to May 09, 2022 due to altered mental state and syncope. He was also complaining of chest pain on admission with high sensitivity troponin peak to 3108 pg/ml and anterior lateral ST depressions on initial EKG. He was treated as an NSTEMI with aspirin, intravenous heparin, topical nitroglycerin 2% 1 inch and increasing his rosuvastatin to 10mg. He was continued on his usual carvedilol. He underwent non-emergent cardiac catheterization on May 09 showing chronic occlusion of the proximal LAD which fills via left to left collaterals and severe stenosis involving the mid RCA. His case was discussed with Dr Vigil at [facility] in [place] and he is accepted for transfer for coronary artery bypass. He was also diagnosed with cellulitis of his right leg which likely lead to his syncopal event and altered mental state in the setting of NSTEMI. Blood cultures negative at 48 hours. Clinically his mentation improved, erythema on right lower extremity, WBC and procalcitonin improving on ceftriaxone 2g IV daily. Suspect he will need 10 days total of antibiotics for this (initial day of antibiotics May 06). Likely caused by break in skin from his psoriasis. No DVT was seen on US venous doppler of the right lower extremity. His usual hydrochlorothiazide and amlodipine were discontinued in favor of nitroglycerin. Of note medication list below is his outpatient medications. Please see inpatient scanned list or his inpatient medications. (2) Non-ST elevation AL (NSTEMI): Stop heparin IV drip HbA1C 6.2 TTE unremarkable (3) Syncope: (4) Type 2 diabetes mellitus: Hemoglobin A1C 6.2 Hold metformin Add Lantus 10 units daily Novolog: --Goal BSG Range: Low 110 mg/dL, High 140 mg/dL --Correction Factor: 45 mg/dL/unit --Carbohydrate ratio = 15 g/unit --BSGs ACHS if eating, q6h if npo (5) Obstructive sleep apnea syndrome: CPAP HS (6) Chronic obstructive lung disease: On no maintenance medications for this. Not suspected to be having an exacerbation (7) Hypertension: Continue carvedilol and nitroglycerin as above Continue to hold HCTZ and amlodipine (8) Psoriasis: Continue his usual steroid cream BID Plan VTE Prophylaxis - IV heparin Diet - heart healthy, T2DM Disposition - transfer to [facility] Total Time Total Time Spent Total Time Spent (In Minutes): 65 Discharge Plan Discharge Items Patient Disposition: Transfer Acute Care Hospital Reason For Visit: SYNCOPE, CELLULITIS, CHEST PAIN RULE OUT NSTEMI Discharge Diagnosis: Syncope, cellulitis, NSTEMI Activity: Per Instructions section Non-emergency contact: Primary Care Provider Call non-emergency contact if: you have any medication questions and your symptoms worsen Follow-up/Referrals: Adolfo Jarrett MD [Primary Care Provider] - Diet: Heart Healthy Addtl Attending Provider Instructions: You were admitted to [facility] from May 06 to May 09, 2022 due to altered mental state and syncope. You were also complaining of chest pain on admission with high sensitivity troponin peak to 3108 pg/ml with anterior lateral ST depressions on initial EKG. He was treated with aspirin, intravenous heparin, topical nitroglycerin and increasing his rosuvastatin. He underwent non-emergent cardiac catheterization on May 09 chronic occlusion of the proximal LAD which fills via left to left collaterals and severe stenosis involving the mid RCA. His case was discussed with Dr Vigil at [facility] in [place] and he is accepted for transfer for coronary artery bypass. He was also diagnosed with cellulitis of his right leg which likely lead to his syncopal event and altered mental state. Blood cultures negative at 48 hours. Clinically mentation improved, cellulitis improving, WBC and procalcitonin improving on ceftriaxone 2g IV daily. Suspect he will need 10 days total of antibiotics for this. Likely came from break in skin from his psoriasis. No DVT was seen on US venous doppler of the right lower extremity. His usual hydrochlorothiazide and amlodipine were discontinued in favor of nitroglycerin. Of note medication list below is his outpatient medications. Please see inpatient scanned list or his inpatient medications. Pending Studies at Discharge: No Stand-Alone Forms: [facility] Skilled Items Patient informed of condition?: Yes DNR: No Discharge Level of Care: Other Communicable Disease: No Discharge Prognosis: Stable Lines: Peripheral IV Urinary Catheter: No Medications and DC Order Prescriptions: Continued carvedilol 6.25 mg tablet See Rx Instructions .ROUTE .COMPLEX Qty: 270 3RF Dose Instruction: TAKE 2 TABLETS BY MOUTH IN THE MORNING AND 1 TABLET AT NIGHT WITH A MEAL/FOOD Rx Instructions: TAKE 2 TABLETS BY MOUTH IN THE MORNING AND 1 TABLET AT NIGHT WITH A MEAL/FOOD sulindac 200 mg tablet See Rx Instructions .ROUTE .COMPLEX Qty: 180 2RF Dose Instruction: TAKE 1 TABLET BY MOUTH TWICE DAILY FOR PAIN Rx Instructions: TAKE 1 TABLET BY MOUTH TWICE DAILY FOR PAIN metformin 500 mg tablet 500 mg PO BID Qty: 180 3RF rosuvastatin 5 mg tablet 5 mg PO DAILY Qty: 90 3RF amlodipine 10 mg tablet 10 mg PO DAILY Qty: 90 3RF tramadol 50 mg tablet 100 mg PO Q12H PRN (Reason: pain) Qty: 120 1RF aspirin [Adult Low Dose Aspirin] 81 mg tablet,delayed release (DR/EC) 81 mg PO DAILY clotrimazole-betamethasone 1-0.05 % cream 1 applic TOP BID PRN (Reason: Psoriasis) hydrochlorothiazide 25 mg tablet 25 mg PO DAILY Discharge Orders: Discharge Order (Routine); Ordered 05/09/22 Ordered By: Dustin Aleman/Other Patient Handouts: Managing Type 2 Diabetes Admission Data Admit Date/Time: 05/06/22 18:04 Attending Provider: Dustin Patel Admit Provider: Dustin Patel Primary Care Provider: Adolfo Jarrett Other Providers: Dustin Patel ; Tony Johnson Other Interventions: Discharge Summary Assessment (RN) Last Done: 05/09/22 18:58 Coding Level of Care Code D/C DAY MANAGEMENT >30 MINS Diagnoses Cellulitis L03.90 Non-ST elevation AL (NSTEMI) I21.4 Syncope R55 Type 2 diabetes mellitus E11.9 Diabetes mellitus complication status: without complication Diabetes mellitus supervisor intermediates insulin use: without fci use Obstructive sleep apnea syndrome G47.33 Chronic obstructive lung disease J44.9 Hypertension I10 Hypertension type: essential hypertension Psoriasis L40.9
== END 2022-05-09 20:07 | disposition short-term general hospital (02) | DRG 281 ==
LOC: ED 15:30 → 2S 18:04

== ENCOUNTER 2022-05-21 14:14 | Inpatient (IN) ==
--- NOTE | 2022-05-21 14:43 | Emergency Department Note ---
Impression & Plan Dyspnea on exertion, Congestive heart failure, Fluid overload ED Provider Note Name: KAYLEE HAGEN Age: 76 Sex: M Arrives Via: Walk-In Informant: Patient, Family ED Provider: Kevin Santillan MD Chief Complaint: Shortness of breath and weakness Impression: As per impressions above Medical Decision Makin-year-old gentleman with a history of hypertension, MARICEL, CAD, diabetes, dyslipidemia who 1 month ago was admitted for an NSTEMI and then transferred to [place] where he had double bypass a week ago. Discharged from [facility] yesterday. Worsening shortness of breath on exertion all dyspnea over the last 24 hours. Essentially unable to sleep due to the shortness of breath with lying flat. Patient arrives dyspneic with diffuse crackles and distant lung sounds. He is not significantly hypoxic but is breathless. Chest x-ray reveals some congestive findings bilaterally though no overt pulmonary edema. EKG with some subtle st elevation findings not consistent with STEMI and in setting of ongoing SOB, no current chest pain and normal trop, i do not feel this is consistent with acute coronary syndrome, though may require repeat troponin and EKGs. I discussed the case with on-call cardiac surgery at [place] who agree with diuresis and advise hobs for monitoring as well as obtaining echo or CT of the chest. Patient is comfortable with this plan. In the setting of his symptoms I do think it is reasonable to bring him in for observation and further work- up/management. Patient is anticoagulated on Coumadin and thus we will hold off on CT angio of the chest at this time. Prior Medical Record and Triage/Nursing Notes reviewed by Me Additional history obtained from chart Differentials:Reactive airway disease, pneumonia, pneumothorax, COPD, CHF, infections, cardiac ischemia, pulmonary embolism, musculoskeletal, gastrointestinal, as well as other pathologies. Vital Signs: reviewed and remarkable for no significant abnormalities Interventions: lasix 40mg iv Labs:Reviewed and remarkable for no significant abnormalities Imaging:Moderate congestive findings on chest x-ray no pulmonary edema or effusions appreciated. EKG: Per My Interpretation: Indication shortness of breath. Normal sinus rhythm at 69 bpm and a QTC of 469. There are very mild inferior/lateral ST elevations without reciprocal changes. When compared to EKG of May 07, 2022 these are slightly new. There is no ectopy. Cardiac/Tele Monitoring: Cardiac Monitoring: An Order was placed for continuous cardiac monitoring. The monitor shows a rate of 700 with a normal sinus rhythm. Consults:Cardiac [place] [facility] [place] Oz[place]ART[place] Hospitalist Plan: Disposition:Hospitalization. Condition: Good History of Present Illness:76-year-old male arrives for evaluation of shortness of breath. Patient with STEMI 1 month ago which resulted in him having double bypass 1 week ago. He was discharged from the hospital yesterday. He notes he is feeling very short of breath. Its worse with lying flat. Notes some swelling in his right leg which is chronic due to cellulitis. He states any exertion makes worse any laying down makes worse but sitting up and not moving he feels fine. He denies any chest pain, syncope, nausea, vomiting, fevers, chills, abdominal pain or any other signs or symptoms. He states he was having some issues with his oxygen while he was in the hospital and it was felt better on oxygen. His oxygen was good though so they discharged him yesterday without oxygen. He has been on Lasix and Coumadin since the surgery. He denies any history of blood clots or DVTs. Medication prior to arrival other than his prescribed meds. He used some tramadol for some chest discomfort at the site of the surgery but denies needing anything right now and did not take any medicine this morning for it. ROS: See above HPI for pertinent positives & negatives. A total of 10 systems reviewed and were otherwise negative. Past Medical History:See Below Past Surgical History:See Below Family History:See Below Social History:See Below Home Medications:See Below Allergies:codeine Vitals:Blood Pressure: 110/75, Pulse 69, RR 18, T 36.8C, O2 94% on RA Physical Exam: GENERAL: Patient is tired appearing and in minimal distress. EYES: No scleral icterus, unremarkable pupils. ENT: Mucous membranes moist, no nasal congestion. NECK: No masses appreciated, nomeningismus, trachea is midline. RESPIRATORY: Mild dyspnea with decreased breath sounds throughout. Some crackles noted anterior upper airway but difficult to auscultate posterior. CHEST: Large healing sternotomy scar no evidence of infection nor fluctuance. CARDIOVASCULAR: Regular rate and rhythm.No murmurs, rubs, gallops appreciated. GASTROINTESTINAL: Large abdomen without TTP, distant bowel sounds and no masses. No peritonitis. BACK: pitting edema low back, no TTP EXTREMITIES: Normal motion all extremities, no cyanosis, bilateral leg edema right worse than left. NEUROLOGIC: Alert and oriented, no acute motor or sensory deficits, no focal weakness, cranial nerves grossly intact. SKIN: Bruising over abdomen, healing incision and tube/port scars. No rash, no jaundice, no diaphoresis. PSYCH: Appropriate GCS: 15 ED Course: Times/Reassessments: Stable does feel better when he is just sitting without moving around Kevin Santillan MD Past Med/Surg History Medical History (Updated 05/21/22 @ 16:33 by Kevin Santillan MD) Acute flank pain Acute pyelonephritis Chronic back pain Diabetes Dyslipidemia Encephalopathy Hematuria Hypertension Nocturnal hypoxemia Psoriasis Sepsis secondary to UTI Type 2 diabetes mellitus Unresponsive Surgical History History of appendectomy History of colon surgery History of tonsillectomy Family History Father Myocardial infarction Heart disease Mother Hypertension Other Diabetes Denies family history of Ovarian cancer Prostate cancer Breast cancer Lung cancer Colorectal cancer Stroke Social History Smoking Status: Never smoker Second Hand Exposure: No; Hx Alcohol Use: Yes Alcohol type: hard liquor Alcohol Intake Frequency: 4 or More x per/Week Hx Substance Use: No Preferred Language: Czech Communication Ability: Effective Visual Impairment: Limited Hearing Ability: Hard of Hearing Compliance Paralegal Required: No Beliefs That Will Affect Care: None marital status: Current Living Situation: Spouse current occupational status: retired How many Children do You have: 3 Feels Safe at Home: Yes Childhood Exposure to Second-Hand Smoke: No caffeine: Yes Dental Care, Regularly: No Physical Activity Frequency: 5-6 Times per Week Seatbelt Use: always Sunscreen Use: Yes Assistive Devices: Cane Allergies Allergies Allergy/AdvReac Type Severity Reaction Status Date / Time long Allergy Severe LONG Verified 08/03/21 11:02 TREES "LUNGS TIGHTEN UP" codeine AdvReac Mild NAUSEA Verified 08/03/21 11:02 Home Meds Home Medications Medication Instructions Recorded Confirmed aspirin 81 mg tablet,delayed 81 mg PO DAILY 03/13/19 05/06/22 release (Adult Low Dose Aspirin) clotrimazole-betamethasone 1 1 applic topical BID PRN Psoriasis 05/06/22 05/06/22 %-0.05 % topical cream hydrochlorothiazide 25 mg tablet 25 mg PO DAILY 05/06/22 05/06/22 Previous Rx's Medication Instructions Recorded carvedilol 6.25 mg tablet See Rx Instructions .Route 05/20/21 .COMPLEX #270 tabs sulindac 200 mg tablet See Rx Instructions .Route 05/20/21 .COMPLEX #180 tabs metformin 500 mg tablet 500 mg PO BID #180 tabs 03/23/22 rosuvastatin 5 mg tablet 5 mg PO DAILY #90 tabs 03/23/22 amlodipine 10 mg tablet 10 mg PO DAILY #90 tabs 03/24/22 tramadol 50 mg tablet 100 mg PO Q12H PRN pain #120 tabs 03/24/22 Results & Data (ED) Vital Signs Vital Signs - 24 hr 05/21/22 14:26 05/21/22 14:26 05/21/22 14:26 Temperature 36.8 C Temperature Source Temporal Artery Scan Pulse Rate 69 Pulse Rate [Apical] Pulse Rate from SpO2 Sensor Respiratory Rate 18 Respiratory Effort / Characteristics Non-Labored SOB on Exertion Non-Labored Spontaneous Respiratory Depth Normal Respiratory Pattern Regular Blood Pressure 110/75 Blood Pressure [Right Arm] Blood Pressure Mean 86 Blood Pressure Mean [Right Arm] Pulse Oximetry 94 Oxygen Delivery Method Room Air Room Air Room Air Sepsis Recent Fever Within 48 Hours No Sepsis New/Unexplained Change in Mental Status No Sepsis Action Taken by Nursing No Action Required 05/21/22 14:40 05/21/22 15:02 05/21/22 15:30 Temperature Temperature Source Pulse Rate 69 Pulse Rate [Apical] 62 Pulse Rate from SpO2 Sensor 69 Respiratory Rate 20 17 Respiratory Effort / Characteristics Non-Labored Respiratory Depth Normal Respiratory Pattern Blood Pressure 116/78 133/83 Blood Pressure [Right Arm] 100/71 Blood Pressure Mean 90 99 Blood Pressure Mean [Right Arm] 80 Pulse Oximetry 96 95 Oxygen Delivery Method Room Air Room Air Sepsis Recent Fever Within 48 Hours Sepsis New/Unexplained Change in Mental Status Sepsis Action Taken by Nursing 05/21/22 15:30 05/21/22 16:00 05/21/22 16:00 Temperature Temperature Source Pulse Rate 66 68 Pulse Rate [Apical] Pulse Rate from SpO2 Sensor 67 67 Respiratory Rate 16 18 Respiratory Effort / Characteristics Respiratory Depth Respiratory Pattern Blood Pressure 127/84 Blood Pressure [Right Arm] Blood Pressure Mean 98 Blood Pressure Mean [Right Arm] Pulse Oximetry 99 96 Oxygen Delivery Method Room Air Room Air Sepsis Recent Fever Within 48 Hours Sepsis New/Unexplained Change in Mental Status Sepsis Action Taken by Nursing 05/21/22 16:30 05/21/22 16:30 Temperature Temperature Source Pulse Rate 68 Pulse Rate [Apical] Pulse Rate from SpO2 Sensor 67 Respiratory Rate 19 Respiratory Effort / Characteristics Respiratory Depth Respiratory Pattern Blood Pressure 130/79 Blood Pressure [Right Arm] Blood Pressure Mean 96 Blood Pressure Mean [Right Arm] Pulse Oximetry 100 Oxygen Delivery Method Room Air Sepsis Recent Fever Within 48 Hours Sepsis New/Unexplained Change in Mental Status Sepsis Action Taken by Nursing Laboratory Data Result diagrams: 05/21/22 14:40 05/21/22 14:40 Lab Results 05/21/22 05/21/22 05/21/22 Range/Units 14:40 14:40 14:40 WBC 7.78 (4.8-10.8) K/ul RBC 4.42 L (4.63-6.08) M/uL Hgb 13.9 L (14.0-18.0) g/dl Hct 41.6 (40.1-51.0) % MCV 94.1 (80.0-100.0) fL MCH 31.4 (25.0-34.0) pg MCHC 33.4 (32.0-36.0) g/dL RDW Std Deviation 44.4 (36.4-46.3) fL RDW Coeff of Vipul 12.8 (11.5-14.5) % Plt Count 395 (130-400) K/uL MPV 10.1 (9.4-12.4) fL Immature Gran % (Auto) 0.8 % Neut % (Auto) 53.0 % Lymph % (Auto) 23.1 % [place] % (Auto) 17.1 % Eos % (Auto) 4.8 % Baso % (Auto) 1.2 % Neut # (Auto) 4.13 (1.4-6.5) K/uL Lymph # (Auto) 1.80 (1.2-3.4) K/uL [place] # (Auto) 1.33 H (0.24-0.82) K/uL Eos # (Auto) 0.37 (0-0.50) K/uL Baso # (Auto) 0.09 (0-0.2) K/uL Immature Gran # (Auto) 0.06 H (0.00-0.02) K/uL PT 23.0 H (9.0-12.0) Seconds INR 2.3 H (0.9-1.1) Sodium (136-145) mmol/L Potassium (3.5-5.1) mmol/L Chloride (98-107) mmol/L Carbon Dioxide (21-32) mmol/L Anion Gap (3-11) BUN (6-23) mg/dl Creatinine (0.6-1.4) mg/dl Est Cr Clr Drug Dosing Est GFR ( Amer) ml/min Est GFR (Non-Af Amer) ml/min BUN/Creatinine Ratio (10-20) Glucose (70-99(Fasting)) mg/dl Calcium (8.5-10.1) mg/dl Magnesium (1.7-2.4) mg/dl Total Bilirubin (0.2-1.0) mg/dl Direct Bilirubin (0-0.2) mg/dl AST (13-39) U/L ALT (7-52) U/L Alkaline Phosphatase (34-104) U/L Troponin I High Sens (0-20) pg/ml B-Natriuretic Peptide 186 H (0-100) pg/ml Total Protein (6.0-8.3) gm/dl Albumin (3.4-5.0) gm/dl 05/21/22 Range/Units 14:40 WBC (4.8-10.8) K/ul RBC (4.63-6.08) M/uL Hgb (14.0-18.0) g/dl Hct (40.1-51.0) % MCV (80.0-100.0) fL MCH (25.0-34.0) pg MCHC (32.0-36.0) g/dL RDW Std Deviation (36.4-46.3) fL RDW Coeff of Vipul (11.5-14.5) % Plt Count (130-400) K/uL MPV (9.4-12.4) fL Immature Gran % (Auto) % Neut % (Auto) % Lymph % (Auto) % [place] % (Auto) % Eos % (Auto) % Baso % (Auto) % Neut # (Auto) (1.4-6.5) K/uL Lymph # (Auto) (1.2-3.4) K/uL [place] # (Auto) (0.24-0.82) K/uL Eos # (Auto) (0-0.50) K/uL Baso # (Auto) (0-0.2) K/uL Immature Gran # (Auto) (0.00-0.02) K/uL PT (9.0-12.0) Seconds INR (0.9-1.1) Sodium 134 L (136-145) mmol/L Potassium 4.1 (3.5-5.1) mmol/L Chloride 97 L (98-107) mmol/L Carbon Dioxide 31 (21-32) mmol/L Anion Gap 6 (3-11) BUN 30 H (6-23) mg/dl Creatinine 1.24 (0.6-1.4) mg/dl Est Cr Clr Drug Dosing Not Reportable Est GFR ( Amer) 66.0 ml/min Est GFR (Non-Af Amer) 56.9 ml/min BUN/Creatinine Ratio 24.2 H (10-20) Glucose 104 H (70-99(Fasting)) mg/dl Calcium 9.1 (8.5-10.1) mg/dl Magnesium 1.8 (1.7-2.4) mg/dl Total Bilirubin 0.7 (0.2-1.0) mg/dl Direct Bilirubin 0.2 (0-0.2) mg/dl AST 31 (13-39) U/L ALT 27 (7-52) U/L Alkaline Phosphatase 92 (34-104) U/L Troponin I High Sens 12.3 D (0-20) pg/ml B-Natriuretic Peptide (0-100) pg/ml Total Protein 7.4 (6.0-8.3) gm/dl Albumin 3.6 (3.4-5.0) gm/dl Administered Medications Discontinued Medications Furosemide (Furosemide 40 Mg/4 Ml Vial) 40 mg IV ONE ONE Stop: 05/21/22 16:30 Last Admin: 05/21/22 16:37 Dose: 40 mg Documented By: CLIFF Imaging Data Radiologist's Impression: Chest X-Ray 05/21/22 14:39 XR chest 1V portable HISTORY: Shortness of breath. COMPARISON: Chest 05/06/2022. FINDINGS: No pneumothorax. No pleural effusions. The cardiac silhouette is mildly enlarged. There is perihilar interstitial/vascular thickening consistent with mild congestive change. There is a left basilar density noted. IMPRESSION: 1. Cardiomegaly with mild central pulmonary vascular congestion without overt edema. 2. Left basilar density. This may represent atelectasis or a developing pneumonia. ACT 112: Negative or not required by law. Electronically signed by: José Caldwell M.D. 05/21/2022 3:51 PM Discharge Plan Visit Data Chief Complaint: Shortness of Breath/Dyspnea Stated Complaint: OPEN HEART SURGERY FRI, SHORTNESS OF BREATH ED Provider: Kevin Santillan Discharge Problem: Dyspnea on exertion, Congestive heart failure, Fluid overload Forms Stand Alone Forms: My [facility] Prescriptions Prescriptions: No Action carvedilol 6.25 mg tablet See Rx Instructions .ROUTE .COMPLEX Qty: 270 3RF Dose Instruction: TAKE 2 TABLETS BY MOUTH IN THE MORNING AND 1 TABLET AT NIGHT WITH A MEAL/FOOD Rx Instructions: TAKE 2 TABLETS BY MOUTH IN THE MORNING AND 1 TABLET AT NIGHT WITH A MEAL/FOOD sulindac 200 mg tablet See Rx Instructions .ROUTE .COMPLEX Qty: 180 2RF Dose Instruction: TAKE 1 TABLET BY MOUTH TWICE DAILY FOR PAIN Rx Instructions: TAKE 1 TABLET BY MOUTH TWICE DAILY FOR PAIN metformin 500 mg tablet 500 mg PO BID Qty: 180 3RF rosuvastatin 5 mg tablet 5 mg PO DAILY Qty: 90 3RF amlodipine 10 mg tablet 10 mg PO DAILY Qty: 90 3RF tramadol 50 mg tablet 100 mg PO Q12H PRN (Reason: pain) Qty: 120 1RF aspirin [Adult Low Dose Aspirin] 81 mg tablet,delayed release (DR/EC) 81 mg PO DAILY clotrimazole-betamethasone 1-0.05 % cream 1 applic TOP BID PRN (Reason: Psoriasis) hydrochlorothiazide 25 mg tablet 25 mg PO DAILY Referrals Referrals: Adolfo Jarrett MD [Primary Care Provider] - : Congestive heart failure Qualifiers: Heart failure type: other Qualified Code(s): I50.9 - Heart failure, unspecified Fluid overload Qualifiers: Hypervolemia type: other Qualified Code(s): E87.79 - Other fluid overload
[2022-05-21 14:59] LABS: Basophils # (auto) 0.09 K/uL (0-0.2); Basophils % (auto) 1.2 %; Eosinophils # (auto) 0.37 K/uL (0-0.50); Eosinophils % (auto) 4.8 %; Hematocrit (blood only) 41.6 % (40.1-51.0); Hemoglobin 13.9 g/dl (14.0-18.0); Immature Granulocytes # (auto) 0.06 K/uL (0.00-0.02); Immature Granulocytes % (auto) 0.8 %; Lymphocytes % (auto) 23.1 %; Mean Corpuscular Hemoglobin 31.4 pg (25.0-34.0); Mean Corpuscular Hgb Conc 33.4 g/dL (32.0-36.0); Mean Corpuscular Volume 94.1 fL (80.0-100.0); Mean Platelet Volume 10.1 fL (9.4-12.4); Monocytes # (auto) 1.33 K/uL (0.24-0.82); Monocytes % (auto) 17.1 %; Neutrophils # (auto) 4.13 K/uL (1.4-6.5); Platelet Count 395 K/uL (130-400); RDW Coefficient of Variation 12.8 % (11.5-14.5); RDW Standard Deviation 44.4 fL (36.4-46.3); Red Blood Count 4.42 M/uL (4.63-6.08); White Blood Count 7.78 K/ul (4.8-10.8)
[2022-05-21 15:11] LABS: INR 2.3 (0.9-1.1)
--- NOTE | 2022-05-21 15:16 | Electrocardiogram Report ---
Test Reason : Blood Pressure : / mmHG Vent. Rate : 069 BPM Atrial Rate : 069 BPM P-R Int : 172 ms QRS Dur : 102 ms QT Int : 438 ms P-R-T Axes : 027 066 060 degrees QTc Int : 469 ms Normal sinus rhythm Minor ST elevation, consider early repolarization, pericarditis, or injury Abnormal ECG When compared with ECG of 07-MAY-2022 08:16, Minor ST elevation in inferior and anterolateral leads now present Confirmed by Jose Manuel Ahumada ([id number]) on 05/21/2022 3:16:30 PM Referred By: Confirmed By:Jose Manuel Ahumada
[2022-05-21 15:23] LABS: Alanine Aminotransferase 27 U/L (7-52); Albumin Level 3.6 gm/dl (3.4-5.0); Alkaline Phosphatase 92 U/L (34-104); Anion Gap 6 (3-11); Aspartate Aminotransferase 31 U/L (13-39); BUN Creatinine Ratio 24.2 (10-20); Bilirubin Direct 0.2 mg/dl (0-0.2); Bilirubin,Total 0.7 mg/dl (0.2-1.0); Blood Urea Nitrogen 30 mg/dl (6-23); Calcium 9.1 mg/dl (8.5-10.1); Carbon Dioxide 31 mmol/L (21-32); Chloride 97 mmol/L (98-107); Est GFR (Non-African American) 56.9 ml/min; Glucose 104 mg/dl (70-99(Fasting)); Magnesium 1.8 mg/dl (1.7-2.4); Potassium 4.1 mmol/L (3.5-5.1); Sodium 134 mmol/L (136-145); Total Protein 7.4 gm/dl (6.0-8.3)
[2022-05-21 15:26] LABS: Troponin I High Sensitivity 12.3 pg/ml (0-20)
--- NOTE | 2022-05-21 15:53 | XRay Report ---
XR chest 1V portable HISTORY: Shortness of breath. COMPARISON: Chest 05/06/2022. FINDINGS: No pneumothorax. No pleural effusions. The cardiac silhouette is mildly enlarged. There is perihilar interstitial/vascular thickening consistent with mild congestive change. There is a left ba silar density noted. IMPRESSION: 1. Cardiomegaly with mild central pulmonary vascular congestion without overt edema. 2. Left basilar density. This may represent atelectasis or a developing pneumonia. ACT 112: Negative or not required by law. Electronically signed by: José Caldwell M.D. 05/21/2022 3:51 PM
[2022-05-21] MEDS ORDERED: FUROSEMIDE 40 MG/4 ML VIAL IV ONE (16:29)
--- NOTE | 2022-05-21 16:39 | History & Physical Report ---
Date of Service May 21, 2022 Assessment & Plan (1) Non-ST elevation [place] (NSTEMI): Plan: Shortness of breath/orthopnea with history of CAD, NSTEMI s/p double bypass 1 week prior to admission. Suspect acute CHF, echo pending On 05/13/2022 [place] [facility] [place], LIMALAD and reverse saphenous to right coronary artery. Was with postop A. fib which was converted and patient was placed on amiodarone and warfarin Medication list reviewed: Amiodarone 200 mg twice daily, Lasix 40 mg 2 tablets in the morning for 80 mg total, metformin 500 mg twice daily, metoprolol 100 mg tartrate twice daily, potassium 20 M EQ daily, rosuvastatin 5 mg daily, tramadol 100 mg twice daily as needed for severe pain, warfarin 2.5 mg daily. 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 Asa dropped 2/2 anticoagulation, attempting to clarify JEFFERSON/ARB deferrence. No longer on amlodipine/hydrochlorothiazide Continue metoprolol, rosuvastatin, amiodarone. Lasix converted to IV High-sensitivity troponin 12.3, trended BNP mildly elevated CXR: Pulmonary vascular congestion without overt edema, left basilar density? Atelectasis versus developing pneumonia Procalcitonin pending On warfarin, levels therapeutic EKG: Borderline ST elevation in 2/3/aVF. 05/14/2022 EKG from [facility] obtained and compared, ST borderline elevations are unchanged from EKG at that time. High sensitive troponin normal as above Echo pending Lasix 40 mg IV daily Right lower extremity cellulitis Treated with 4 days of Rocephin at [facility]. Improving, but still asymmetrically red On review of DC summary was recommended for 10-day course of antibiotics, appears to only have completed 4 days We will complete 7d course of cellulitis treatment with 3 additional days of Rocephin, may convert to cefdinir at discharge Clinically improving Type 2 diabetes mellitus Lantus 10 units twice daily, SSI goal [id number], CF 45, ratio 15 Glucose checks AC at bedtime Hold home metformin MARICEL CPAP nightly COPD No maintenance medications at home No wheezing, will treat volume above and follow Hypertension Continue carvedilol Continue nitro HCTZ/amlodipine? 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 Symptoms do improve with rest. He has not had any chest pain, lightheadedness, dizziness, presyncope, syncope, nausea, vomiting, fever, chills, sweats. Patient called his outpatient stone repairer who recommended he go to the ER for additional eval uation and repeat echo. Came home from [facility] [place] after bip[place]. [place] like he was having to urinate more frequently, but laying back was making him more short of breath. Ate oatmeal and toast. Had some salted eggs, but no large salty foods or soup. No chest pain, no exertional chest pain. Feels somewhat short of breath at baseline, but reprots exertion does not change this or make him worse. Laying flat seems to be the worst thing for his breathing. Sitting up and rest helps. Reports since arriving home yesterday he did take his morning medications as prescribed including metoprolol, Lasix, and amiodarone. Reports he had right lower extremity cellulitis which was treated with an antibiotic, remains chronically slightly darker in color but currently is not warm, tender. He has not had any fever/chills/sweats. No lightheadedness/dizziness Medication list reviewed: Amiodarone 200 mg twice daily, Lasix 40 mg 2 tablets in the morning for 80 mg total, metformin 500 mg twice daily, metoprolol 100 mg tartrate twice daily, potassium 20 M EQ daily, rosuvastatin 5 mg daily, tramadol 100 mg twice daily as needed for severe pain, warfarin 2.5 mg daily. Patient is not on an aspirin, JEFFERSON, or ARB. No longer on amlodipine/hydrochlorothiazide or Sulnac. DC summary: Treated for right leg cellulitis with AMS and a syncopal event. Blood cultures were negative. Received Rocephin 2 g IV daily for 4 days. Was recommended for 10-day course, on review does not appear antibiotics were prescribed on discharge. Notes that patient was found to have a cath on May 09, chronic occlusion of proximal LAD filling via left to left collaterals, severe stenosis of mid RCA. Underwent coronary bypass with DAY to LAD and reverse saphenous to RCA on 05/13. Had postop A. fib, was cardioverted and put on warfarin and amiodarone. Medical History: Reviewed Medications: Reviewed Surgical History: Reviewed Allergies: Reviewed Social History: No tobacco use. Rare social alcohol use, none recently. Code Status: Surrogate DM [phone] Allergies Allergy/AdvReac Type Severity Reaction Status Date / Time long Allergy Severe LONG Verified 08/03/21 11:02 TREES "LUNGS TIGHTEN UP" codeine AdvReac Mild NAUSEA Verified 08/03/21 11:02 Home Medications Medication Instructions Recorded Confirmed Type aspirin 81 mg tablet,delayed 81 mg PO DAILY 03/13/19 05/06/22 History release (Adult Low Dose Aspirin) carvedilol 6.25 mg tablet See Rx Instructions .Route 05/20/21 05/06/22 Rx .COMPLEX #270 tabs sulindac 200 mg tablet See Rx Instructions .Route 05/20/21 05/06/22 Rx .COMPLEX #180 tabs metformin 500 mg tablet 500 mg PO BID #180 tabs 03/23/22 05/06/22 Rx rosuvastatin 5 mg tablet 5 mg PO DAILY #90 tabs 03/23/22 05/06/22 Rx amlodipine 10 mg tablet 10 mg PO DAILY #90 tabs 03/24/22 05/06/22 Rx tramadol 50 mg tablet 100 mg PO Q12H PRN pain #120 tabs 03/24/22 05/06/22 Rx clotrimazole-betamethasone 1 1 applic topical BID PRN Psoriasis 05/06/22 05/06/22 History %-0.05 % topical cream hydrochlorothiazide 25 mg tablet 25 mg PO DAILY 05/06/22 05/06/22 History Past Med/Surg History Medical History Acute flank pain Acute pyelonephritis Chronic back pain Diabetes Dyslipidemia Encephalopathy Hematuria Hypertension Nocturnal hypoxemia Psoriasis Sepsis secondary to UTI Type 2 diabetes mellitus Unresponsive Surgical History History of appendectomy History of colon surgery History of tonsillectomy Family History Father Myocardial infarction Heart disease Mother Hypertension Other Diabetes Denies family history of Ovarian cancer Prostate cancer Breast cancer Lung cancer Colorectal cancer Stroke Social History Smoking Status: Never smoker Second Hand Exposure: No; Hx Alcohol Use: Yes Alcohol type: hard liquor Alcohol Intake Frequency: 4 or More x per/Week Hx Substance Use: No Preferred Language: Romanian Communication Ability: Effective Visual Impairment: Limited Hearing Ability: Hard of Hearing Block Mason Required: No Beliefs That Will Affect Care: None marital status: Current Living Situation: Spouse current occupational status: retired How many Children do You have: 3 Feels Safe at Home: Yes Childhood Exposure to Second-Hand Smoke: No caffeine: Yes Dental Care, Regularly: No Physical Activity Frequency: 5-6 Times per Week Seatbelt Use: always Sunscreen Use: Yes Assistive Devices: Cane Review of Systems Review of Systems: All systems reviewed & are unremarkable except as noted in Subjective Physical Exam Physical Exam: General: A&Ox3. NAD. Cooperative. HEENT: Atraumatic, normocephalic. Pulm: Bibasilar crackles. No wheezes. Symmetrical chest rise. No increase in work of breathing. No respiratory distress. Cardiac: RRR, -mrg. Radial pulses intact and symmetrical. Midline sternotomy incision is present, well-healing without discharge. To lower port sites healing to secondary intention but without purulence/discharge or dehiscence. Abdominal: Nontender, nondistended, soft. BS present. Extremities: Bilateral lower extremity pitting edema. Right leg is asymmetrically red and slightly warm but nontender. Results & Data Results & Data ([facility]) Vital Signs (Past 12 Hours) Vital Signs Temp Pulse Pulse Resp BP BP Pulse Ox 05/21/22 16:00 68 18 96 05/21/22 16:00 127/84 05/21/22 15:30 66 16 99 05/21/22 15:30 133/83 05/21/22 15:02 69 17 116/78 95 05/21/22 14:40 62 20 100/71 96 05/21/22 14:26 05/21/22 14:26 36.8 C 69 18 110/75 94 05/21/22 14:26 O2 Del Method 05/21/22 16:00 Room Air 05/21/22 16:00 05/21/22 15:30 Room Air 05/21/22 15:30 05/21/22 15:02 Room Air 05/21/22 14:40 Room Air 05/21/22 14:26 Room Air 05/21/22 14:26 Room Air 05/21/22 14:26 Room Air PG Care Time/CCT Total # of Minutes Spent Total Time Spent with Patient: Total time spent is greater than 50% in coordination of care (as documented) at patient's floor/unit and/or counseling patient: Coding Level of Care Code 16270 Initial Inpt Care Lvl 3 Diagnoses Non-ST elevation MS (NSTEMI) I21.4 CAD (coronary artery disease) I25.10 Coronary Disease-Associated Artery/Lesion type: [place] artery [place] vs. transplanted heart: [place] heart Associated angina: without angina Obstructive sleep apnea syndrome G47.33 Dyslipidemia E78.5 Type 2 diabetes mellitus E11.9 Diabetes mellitus halfway insulin use: without medical terminologist use Diabetes mellitus complication status: without complication Congestive heart failure I50.9 Heart failure type: other Fluid overload E87.79 Hypervolemia type: other (1) CAD (coronary artery disease) Coronary Disease-Associated Artery/Lesion type: [place] artery [place] vs. transplanted heart: [place] heart Associated angina: without angina Qualified Code(s): I25.10 - Atherosclerotic heart disease of [place] coronary artery without angina pectoris (2) Type 2 diabetes mellitus Diabetes mellitus halfway insulin use: without medical terminologist use Diabetes mellitus complication status: without complication Qualified Code(s): E11.9 - Type 2 diabetes mellitus without complications (3) Congestive heart failure Heart failure type: other Qualified Code(s): I50.9 - Heart failure, unspecified (4) Fluid overload Hypervolemia type: other Qualified Code(s): E87.79 - Other fluid overload
[2022-05-21 17:23] LABS: Appearance Urine Clear (Clear); Bilirubin Urine Negative (Negative); Blood Urine Negative (Negative); Color Urine Yellow; Glucose Urine UA Negative (Negative); Ketones Urine Negative (Negative); Leukocyte Esterase Urine Negative (Negative); Nitrite Urine Negative (Negative); Protein Urine Negative (Negative); Specific Gravity Urine 1.012 (1.000-1.030); Urobilinogen Urine Negative (Negative); pH Urine 5.5 (4.5-7.5)
[2022-05-21] MEDS ORDERED: CARBOHYDRATES FOR HYPOGLYCEMIA PO PRN (18:39)
[2022-05-21] MEDS ORDERED: GLUCOSE 40% GEL 15 GM TUBE PO PRN (18:39)
[2022-05-21] MEDS ORDERED: DEXTROSE 50% 50 ML SYRINGE IV PRN (18:39)
[2022-05-21] MEDS ORDERED: GLUCOSE 10 TAB/TUBE PO PRN (18:39)
[2022-05-21] MEDS ORDERED: ACETAMINOPHEN 325 MG TAB PO PRN (18:39)
[2022-05-21] MEDS ORDERED: traMADol HCL 50 MG TABLET PO PRN (18:39)
[2022-05-21] MEDS ORDERED: GLUCAGON FOR INJ 1 MG VIAL SQ PRN (18:39)
[2022-05-21] MEDS: METOPROLOL TARTRATE 100 MG TAB PO SCH (19:19)
[2022-05-21] MEDS: cefTRIAXone SODIUM 2,000 MG in DEXTROSE 5% 50 ML IV SCH (19:19)
[2022-05-21] MEDS: LANTUS PER UNIT CHARGE SQ SCH (21:02)
[2022-05-21] MEDS: INSULIN ASPART PER UNIT SC SCH (21:02)
[2022-05-22 07:37] LABS: Basophils # (auto) 0.09 K/uL (0-0.2); Basophils % (auto) 1.2 %; Eosinophils # (auto) 0.43 K/uL (0-0.50); Eosinophils % (auto) 5.6 %; Hematocrit (blood only) 39.9 % (40.1-51.0); Hemoglobin 13.2 g/dl (14.0-18.0); Immature Granulocytes # (auto) 0.06 K/uL (0.00-0.02); Immature Granulocytes % (auto) 0.8 %; Lymphocytes # (auto) 1.35 K/uL (1.2-3.4); Lymphocytes % (auto) 17.6 %; Mean Corpuscular Hemoglobin 31.3 pg (25.0-34.0); Mean Corpuscular Hgb Conc 33.1 g/dL (32.0-36.0); Mean Corpuscular Volume 94.5 fL (80.0-100.0); Mean Platelet Volume 10.2 fL (9.4-12.4); Monocytes # (auto) 1.17 K/uL (0.24-0.82); Monocytes % (auto) 15.3 %; Neutrophils # (auto) 4.56 K/uL (1.4-6.5); Neutrophils % (auto) 59.5 %; Platelet Count 376 K/uL (130-400); RDW Coefficient of Variation 12.9 % (11.5-14.5); RDW Standard Deviation 44.3 fL (36.4-46.3); Red Blood Count 4.22 M/uL (4.63-6.08); White Blood Count 7.66 K/ul (4.8-10.8)
[2022-05-22 07:53] LABS: INR 2.5 (0.9-1.1); Prothrombin Time 25.7 Seconds (9.0-12.0)
[2022-05-22 07:55] LABS: BUN Creatinine Ratio 25.2 (10-20); C Reactive Protein 5.87 mg/dl (0-0.5); Calcium 8.9 mg/dl (8.5-10.1); Creatinine Clr Calc Pharmacy 83.5 ml/min; Est GFR (African American) 72.3 ml/min; Est GFR (Non-African American) 62.3 ml/min; Potassium 4.3 mmol/L (3.5-5.1)
[2022-05-22] MEDS: FUROSEMIDE 40 MG/4 ML VIAL IV SCH (08:28)
[2022-05-22] MEDS: ROSUVASTATIN CALCIUM 5 MG TAB PO SCH (08:28)
[2022-05-22] MEDS: AMIODARONE 200 MG TAB PO SCH ×2 (08:28→17:24)
[2022-05-22] MEDS: cefTRIAXone SODIUM 2,000 MG in DEXTROSE 5% 50 ML IV SCH (08:28)
[2022-05-22] MEDS: METOPROLOL TARTRATE 100 MG TAB PO SCH ×2 (08:28→20:42)
[2022-05-22] MEDS: INSULIN ASPART PER UNIT SC SCH ×4 (08:30→20:29)
[2022-05-22] MEDS: LANTUS PER UNIT CHARGE SQ SCH ×2 (08:32→21:02)
--- NOTE | 2022-05-22 11:26 | XCELERA ---
[id number]
--- NOTE | 2022-05-22 11:49 | Hospitalist Progress Note ---
Date of Service May 22, 2022 Assessment & Plan (1) Acute systolic CHF (congestive heart failure): Plan: repeat echo today with low-normal EF of 50-55% and mild right-sided CHF as well. decompensated, but improved symptoms overnight with lasix yesterday and lasix t his am. will give another dose of lasix at 5pm this evening. appreciate cardiology consult by Dr Ahumada. cont metoprolol. ideally should be on low-dose JEFFERSON or ARB given his CHF and DM. salt restriction, fluid restriction, daily weights. wean O2 as tolerated. (2) Fatigue: Plan: deconditioning from [id number] hospital stays (here for NSTEMI, followed by transfer to [facility] for CABG), possible hypoxia, #1, etc. check TSH in am check ammonia and VBG now check COVID/Flu/RSV PCR likely has severe MARICEL -- not on CPAP chronically; would benefit highly from such (3) S/P CABG x 2: Plan: [facility] [place] just d/c from [facility] yesterday am (4) CAD (coronary artery disease): Plan: severe, s/p 2-vessel CABG cont BB cont statin is not on aspirin due to coumadin use?? (5) Obstructive sleep apnea syndrome: Plan: not on CPAP would perform an overnight oximetry study prior to d/c to at least qualify him for nocturnal O2 (6) Dyslipidemia: Plan: cont statin LDL 73 earlier this month (7) Type 2 diabetes mellitus: Plan: Hba1c 6.2% on 05/07/22 cont lantus BID cont novolog (8) Cellulitis: Plan: right leg - by report the leg had been Rx for cellulitis last admission at [facility] uncertain if he received abx at [facility] at this point the leg looks more so due to venous insufficiency with chronic stasis changes he was placed on rocephin yesterday continue rocephin today; re-examine tomorrow for downgrade to po abx (9) Non-ST elevation [place] (NSTEMI): Plan: during previous hospitalization at [facility] which led to heart cath showing severe CAD and ultimate Tx to [facility] for CABG no evidence of ACS here no evidence of post-op pericarditis (10) Hypertension: Plan: controlled cont BB (11) Chronic obstructive lung disease: Plan: no flare at this time (12) Morbid obesity: Plan: BMI about 40 (13) Postoperative atrial fibrillation: Plan: by report had post-op jhonatan at [facility] following his CABG cardioverted back to NSR remains on amiodarone, coumadin, and metoprolol tartrate BID tele - NSR since admission (14) DVT prophylaxis: Plan: coumadin daily INR INR today therapeutic Plan updated by phone today PT/OT tim requested Admission and Anticipated Discharge Date Admission Date: May 21, 2022 Subjective patient feeling better today he attributes his improvement to "getting this oxygen" he states that when he left [facility] yesterday he was on O2 up until discharge, then it was removed interestingly he initially said he was NOT dyspneic at any point during his hospital stay for CABG, but then changed his story and said he was short of breath when he left [facility] denies cough has a "nagging pain" over his sternal incision mild pleuritic pain over the central chest/sternal incision he reports when he got home he was "falling asleep" - again he attributes this to "not having oxygen" he has a known dx of MARICEL but states he has never used CPAP - I "can't wear that mask" he was not on CPAP at any time at [facility] patient reports he "hurts all over and is achy" but he had this following his surgery at [facility] denies fevers ate fair breakfast this am tele overnight wnl / NSR Review of Systems Review of Systems: gen - no fevers/chills, severe fatigue cv - orthopnea, incisional chest pain pulm - dyspnea; no cough GI - no abd pain, no nausea or emesis Physical Exam Physical Exam: gen - sitting in chair, obese, NAD mouth - MMM neck - no JVD sitting at 90 degrees chest - central vertical sternal incision clean/dry - no drainage or erythema heart - RRR, s1 s2, no murmur lungs - b/l basilar rales, no wheeze, no increased work of breathing abd - soft NT BS+; mildly distended ext - 2+ pitting edema on right, 1-2+ edema on left, pulses 2+ b/l in feet skin - mild pink erythema right carballo and right foot - scantly warm; looks more like chronic stasis changes Results & Data Results & Data ([facility]) Vital Signs (Past 12 Hours) Vital Signs Temp Pulse Resp BP BP Pulse Ox O2 Del Method 05/22/22 08:00 Nasal Cannula 05/22/22 08:25 36.6 C 67 16 133/80 98 Nasal Cannula 05/22/22 03:00 36.8 C 69 16 144/77 H 90 Nasal Cannula O2 Flow Rate 05/22/22 08:00 2 05/22/22 08:25 2 05/22/22 03:00 2 Laboratory Results Laboratory Results - last 24 hr 05/21/22 05/21/22 05/21/22 14:40 14:40 14:40 WBC 7.78 RBC 4.42 L Hgb 13.9 L Hct 41.6 MCV 94.1 MCH 31.4 MCHC 33.4 RDW Std Deviation 44.4 RDW Coeff of Vipul 12.8 Plt Count 395 MPV 10.1 Immature Gran % (Auto) 0.8 Neut % (Auto) 53.0 Lymph % (Auto) 23.1 [place] % (Auto) 17.1 Eos % (Auto) 4.8 Baso % (Auto) 1.2 Neut # (Auto) 4.13 Lymph # (Auto) 1.80 [place] # (Auto) 1.33 H Eos # (Auto) 0.37 Baso # (Auto) 0.09 Immature Gran # (Auto) 0.06 H PT 23.0 H INR 2.3 H Sodium Potassium Chloride Carbon Dioxide Anion Gap BUN Creatinine Est Cr Clr Drug Dosing Est GFR ( Amer) Est GFR (Non-Af Amer) BUN/Creatinine Ratio Glucose POC Glucose Calcium Magnesium Total Bilirubin Direct Bilirubin AST ALT Alkaline Phosphatase Troponin I High Sens C-Reactive Protein B-Natriuretic Peptide 186 H Total Protein Albumin Procalcitonin Urine Color Urine Appearance Urine pH Ur Specific [place] Urine Protein Urine Glucose (UA) Urine Ketones Urine Blood Urine Nitrite Urine Bilirubin Urine Urobilinogen Ur Leukocyte Esterase SARS-CoV-2, RNA, NAAT 05/21/22 05/21/22 05/21/22 14:40 14:40 16:29 WBC RBC Hgb Hct MCV MCH MCHC RDW Std Deviation RDW Coeff of Vipul Plt Count MPV Immature Gran % (Auto) Neut % (Auto) Lymph % (Auto) [place] % (Auto) Eos % (Auto) Baso % (Auto) Neut # (Auto) Lymph # (Auto) [place] # (Auto) Eos # (Auto) Baso # (Auto) Immature Gran # (Auto) PT INR Sodium 134 L Potassium 4.1 Chloride 97 L Carbon Dioxide 31 Anion Gap 6 BUN 30 H Creatinine 1.24 Est Cr Clr Drug Dosing Not Reportable Est GFR ( Amer) 66.0 Est GFR (Non-Af Amer) 56.9 BUN/Creatinine Ratio 24.2 H Glucose 104 H POC Glucose Calcium 9.1 Magnesium 1.8 Total Bilirubin 0.7 Direct Bilirubin 0.2 AST 31 ALT 27 Alkaline Phosphatase 92 Troponin I High Sens 12.3 D C-Reactive Protein 6.78 H B-Natriuretic Peptide Total Protein 7.4 Albumin 3.6 Procalcitonin Urine Color Urine Appearance Urine pH Ur Specific [place] Urine Protein Urine Glucose (UA) Urine Ketones Urine Blood Urine Nitrite Urine Bilirubin Urine Urobilinogen Ur Leukocyte Esterase SARS-CoV-2, RNA, NAAT NEGATIVE 05/21/22 05/21/22 05/21/22 17:13 19:41 20:47 WBC RBC Hgb Hct MCV MCH MCHC RDW Std Deviation RDW Coeff of Vipul Plt Count MPV Immature Gran % (Auto) Neut % (Auto) Lymph % (Auto) [place] % (Auto) Eos % (Auto) Baso % (Auto) Neut # (Auto) Lymph # (Auto) [place] # (Auto) Eos # (Auto) Baso # (Auto) Immature Gran # (Auto) PT INR Sodium Potassium Chloride Carbon Dioxide Anion Gap BUN Creatinine Est Cr Clr Drug Dosing Est GFR ( Amer) Est GFR (Non-Af Amer) BUN/Creatinine Ratio Glucose POC Glucose 93 Calcium Magnesium Total Bilirubin Direct Bilirubin AST ALT Alkaline Phosphatase Troponin I High Sens 14.0 C-Reactive Protein B-Natriuretic Peptide Total Protein Albumin Procalcitonin Urine Color Yellow Urine Appearance Clear Urine pH 5.5 Ur Specific [place] 1.012 Urine Protein Negative Urine Glucose (UA) Negative Urine Ketones Negative Urine Blood Negative Urine Nitrite Negative Urine Bilirubin Negative Urine Urobilinogen Negative Ur Leukocyte Esterase Negative SARS-CoV-2, RNA, NAAT 05/22/22 05/22/22 05/22/22 01:21 07:09 07:19 WBC 7.66 RBC 4.22 L Hgb 13.2 L Hct 39.9 L MCV 94.5 MCH 31.3 MCHC 33.1 RDW Std Deviation 44.3 RDW Coeff of Vipul 12.9 Plt Count 376 MPV 10.2 Immature Gran % (Auto) 0.8 Neut % (Auto) 59.5 Lymph % (Auto) 17.6 [place] % (Auto) 15.3 Eos % (Auto) 5.6 Baso % (Auto) 1.2 Neut # (Auto) 4.56 Lymph # (Auto) 1.35 [place] # (Auto) 1.17 H Eos # (Auto) 0.43 Baso # (Auto) 0.09 Immature Gran # (Auto) 0.06 H PT INR Sodium Potassium Chloride Carbon Dioxide Anion Gap BUN Creatinine Est Cr Clr Drug Dosing Est GFR ( Amer) Est GFR (Non-Af Amer) BUN/Creatinine Ratio Glucose POC Glucose 100 H Calcium Magnesium Total Bilirubin Direct Bilirubin AST ALT Alkaline Phosphatase Troponin I High Sens 9.7 D C-Reactive Protein B-Natriuretic Peptide Total Protein Albumin Procalcitonin Urine Color Urine Appearance Urine pH Ur Specific [place] Urine Protein Urine Glucose (UA) Urine Ketones Urine Blood Urine Nitrite Urine Bilirubin Urine Urobilinogen Ur Leukocyte Esterase SARS-CoV-2, RNA, NAAT 05/22/22 05/22/22 05/22/22 07:19 07:19 07:19 WBC RBC Hgb Hct MCV MCH MCHC RDW Std Deviation RDW Coeff of Vipul Plt Count MPV Immature Gran % (Auto) Neut % (Auto) Lymph % (Auto) [place] % (Auto) Eos % (Auto) Baso % (Auto) Neut # (Auto) Lymph # (Auto) [place] # (Auto) Eos # (Auto) Baso # (Auto) Immature Gran # (Auto) PT 25.7 H INR 2.5 H Sodium 135 L Potassium 4.3 Chloride 98 Carbon Dioxide 31 Anion Gap 6 BUN 29 H Creatinine 1.15 Est Cr Clr Drug Dosing 83.5 Est GFR ( Amer) 72.3 Est GFR (Non-Af Amer) 62.3 BUN/Creatinine Ratio 25.2 H Glucose 97 POC Glucose Calcium 8.9 Magnesium Total Bilirubin Direct Bilirubin AST ALT Alkaline Phosphatase Troponin I High Sens C-Reactive Protein 5.87 H B-Natriuretic Peptide Total Protein Albumin Procalcitonin < 0.05 Urine Color Urine Appearance Urine pH Ur Specific [place] Urine Protein Urine Glucose (UA) Urine Ketones Urine Blood Urine Nitrite Urine Bilirubin Urine Urobilinogen Ur Leukocyte Esterase SARS-CoV-2, RNA, NAAT 05/22/22 05/22/22 07:19 11:35 WBC RBC Hgb Hct MCV MCH MCHC RDW Std Deviation RDW Coeff of Vipul Plt Count MPV Immature Gran % (Auto) Neut % (Auto) Lymph % (Auto) [place] % (Auto) Eos % (Auto) Baso % (Auto) Neut # (Auto) Lymph # (Auto) [place] # (Auto) Eos # (Auto) Baso # (Auto) Immature Gran # (Auto) PT INR Sodium Potassium Chloride Carbon Dioxide Anion Gap BUN Creatinine Est Cr Clr Drug Dosing Est GFR ( Amer) Est GFR (Non-Af Amer) BUN/Creatinine Ratio Glucose POC Glucose 102 H Calcium Magnesium Total Bilirubin Direct Bilirubin AST ALT Alkaline Phosphatase Troponin I High Sens 8.3 C-Reactive Protein B-Natriuretic Peptide Total Protein Albumin Procalcitonin Urine Color Urine Appearance Urine pH Ur Specific [place] Urine Protein Urine Glucose (UA) Urine Ketones Urine Blood Urine Nitrite Urine Bilirubin Urine Urobilinogen Ur Leukocyte Esterase SARS-CoV-2, RNA, NAAT PG Care Time/CCT Total # of Minutes Spent Total Time Spent with Patient: Total time spent is greater than 50% in coordination of care (as documented) at patient's floor/unit and/or counseling patient: Coding Level of Care Code 31797 Subseq Hosp Care Lvl 3 Diagnoses Acute systolic CHF (congestive heart failure) I50.21 Fatigue R53.83 S/P CABG x 2 Z95.1 CAD (coronary artery disease) I25.10 Associated angina: without angina Coronary Disease-Associated Artery/Lesion type: [place] artery [place] vs. 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 transplanted heart: [place] heart Qualified Code(s): I25.10 - Atherosclerotic heart disease of [place] coronary artery without angina pectoris (3) Hypertension Hypertension type: essential hypertension Qualified Code(s): I10 - Essential (primary) hypertension
[2022-05-22 12:45] LABS: Base Excess VBG 5.9 mEq/L; HCO3 VBG 30 mmol/L; PCO2 VBG 39 mmHg (38-50); PO2 VBG 58 mmHg; pH VBG 7.49 (7.36-7.41)
[2022-05-22 12:47] LABS: Influenza A virus by PCR Negative (Neg); Influenza B virus by PCR Negative (Neg); RSV by PCR Negative (Neg); SARS CoV2 RNA(COVID-19) InHosp NEGATIVE (Negative)
--- NOTE | 2022-05-22 14:27 | Cardiology Consultation ---
Date of Consultation May 22, 2022 Assessment & Plan (1) Dyspnea on exertion: (2) Heart failure with mid-range ejection fraction: (3) S/P CABG x 2: (4) CAD (coronary artery disease): (5) Chronic obstructive lung disease: (6) Obstructive sleep apnea syndrome: (7) Hypertension: (8) Type 2 diabetes mellitus: Plan 76 old man with recent cardiac catheterization by Dr. Johnson showing occluded/collateralized LAD and severe RCA stenosis for which he underwent DAY to LAD and SVG to RCA CABG x2 at [facility] last week. He was home for only 1 day and noted dyspnea on exertion, chest x-ray and exam suggested volume overload, therefore he received furosemide 40 mg IV with good d iuresis and marked improvement in symptoms. He denies any anginal type chest pain and his cardiac enzymes were unremarkable, suspect his mild ST elevation in multiple leads is a mild post CABG pericar ditis. He is on amiodarone for post CABG A. fib, his rhythm is sinus and he is therapeutic on warfarin (INR 2.5). Suspect mild volume overload post major cardiac surgery, he is responding well to IV diuresis, would continue with furosemide 40 mg IV while monitoring weight, clinical status, and renal function. Echocardiogram shows low normal systolic function with no new wall motion normalities and no pericardial effusion. He does have a history of sleep apnea and should be on CPAP, but apparently he is resistant to this. Overall, he seems to be improving but given his readmission status after major surgery would continue to observe for another day or so. He is followed by Dr. Johnson, I will inform him of the patient's current hospital status. History of Present Illness Reason for Consultation: Dyspnea/CHF post recent CABG Requesting Physician: Dustin Rojas Attending Physician: Dustin Rojas History of Present Illness 76-year-old man with recently diagnosed coronary artery disease for which he underwent CABG at [facility] on 05/13/2022 (DAY to LAD and SVG to RCA), postoperative atrial fibrillation (amiodarone/warfarin), right leg cellulitis (on antibiotics), who was admitted 05/20/2016 a day after returning home from his CABG hospitalization, complaining of progressive dyspnea and orthopnea. Aside from his incisional discomfort he denied any chest pain and he noted no palpitations, presyncope, or syncope. No GI symptoms or diaphoresis. After receiving IV diuretic upon admission he had a good diuresis and his breathing feels much better today. No complaints at rest. Allergies Allergy/AdvReac Type Severity Reaction Status Date / Time long Allergy Severe LONG Verified 05/21/22 17:35 TREES "LUNGS TIGHTEN UP" codeine AdvReac Mild NAUSEA Verified 05/21/22 17:35 Home Medications Medication Instructions Recorded Confirmed Type metformin 500 mg tablet 500 mg PO BID #180 tabs 03/23/22 05/21/22 Rx rosuvastatin 5 mg tablet 5 mg PO DAILY #90 tabs 03/23/22 05/21/22 Rx tramadol 50 mg tablet 100 mg PO Q12H PRN pain #120 tabs 03/24/22 05/21/22 Rx clotrimazole-betamethasone 1 1 applic topical BID PRN Psoriasis 05/06/22 05/21/22 History %-0.05 % topical cream acetaminophen 325 mg tablet 650 mg PO TID PRN Pain 05/21/22 05/21/22 History (Tylenol) amiodarone 200 mg tablet 200 mg PO BID 05/21/22 05/21/22 History furosemide 40 mg tablet 80 mg PO QAM 05/21/22 05/21/22 History metoprolol tartrate 100 mg tablet 100 mg PO BID 05/21/22 05/21/22 History potassium chloride 20 mEq 20 meq PO QAM 05/21/22 05/21/22 History tablet,extended release(part/cryst) sulindac 200 mg tablet 200 mg PO BID 05/21/22 05/21/22 History warfarin 2.5 mg tablet 2.5 mg PO DAILY 05/21/22 05/21/22 History Patient History Medical History (Updated 05/22/22 @ 14:17 by Jose Manuel Ahumada MD) Acute flank pain Acute pyelonephritis Chronic back pain Diabetes Dyslipidemia Encephalopathy Hematuria Hypertension Morbid obesity Nocturnal hypoxemia Psoriasis Sepsis secondary to UTI Type 2 diabetes mellitus Unresponsive Surgical History (Updated 05/22/22 @ 14:17 by Jose Manuel Ahumada MD) History of appendectomy History of colon surgery History of tonsillectomy Family History Father Myocardial infarction Heart disease Mother Hypertension Other Diabetes Denies family history of Ovarian cancer Prostate cancer Breast cancer Lung cancer Colorectal cancer Stroke Social History Smoking Status: Never smoker Second Hand Exposure: No; Hx Alcohol Use: No Hx Substance Use: No Preferred Language: Uzbek Communication Ability: Effective Visual Impairment: Limited Hearing Ability: Hard of Hearing Unloading Checker Required: No Beliefs That Will Affect Care: None marital status: Current Living Situation: Spouse current occupational status: retired How many Children do You have: 3 Other Information That Helps Us Care for You: No Feels Safe at Home: Yes Safety Concerns: Feels Safe At This Time Childhood Exposure to Second-Hand Smoke: No caffeine: Yes Dental Care, Regularly: No Physical Activity Frequency: 5-6 Times per Week Seatbelt Use: always Sunscreen Use: Yes Assistive Devices: Cane and CPAP Physical Exam Physical Exam: Morbidly obese elderly white male in no distress. Afebrile. Normotensive. Pulse 68 bpm and regular. Skin: no ecchymoses or generalized lesions. HEENT: unremarkable. Neck: Jugular venous pulse just above the clavicle at 90 degrees, no carotid bruits. Lungs: Mildly decreased breath sounds with decreased excursion but generally clear. No obvious wheezing, crackles, and no accessory muscle use. Cardiac: regular rhythm, pain but audible heart tones, no obvious murmur or gallop. Abdomen: benign. Extremities: Marked rubor and chronic stasis changes with 2+ edema right leg, left leg with 1+ edema without discoloration. Neurologic: Mildly somnolent affect but appropriate conversation, nonfocal. Results & Data ([facility]) Vital Signs (Past 12 Hours) Vital Signs Temp Pulse Resp BP BP Pulse Ox O2 Del Method 05/22/22 12:00 98.2 F 68 125/82 96 Nasal Cannula 05/22/22 08:00 Nasal Cannula 05/22/22 08:25 97.9 F 67 16 133/80 98 Nasal Cannula 05/22/22 03:00 98.2 F 69 16 144/77 H 90 Nasal Cannula O2 Flow Rate 05/22/22 12:00 2 05/22/22 08:00 2 05/22/22 08:25 2 05/22/22 03:00 2 Laboratory Results INR 2.5. BNP 186. Hemoglobin 13.2. Sodium 135, potassium 4.3, BUN 29, creatinine 1.15. High-sensitivity troponin 12, 14, 9, 8, and 7. Diagnostic Findings ECG showed sinus rhythm at [address] elevation in the inferior and anterolateral leads, possible mild pericarditis. Minor ST elevation is new compared with 05/07/2022 ECG. Echocardiogram today showed EF 50 to 55% with borderline global hypokinesis, mildly dilated RV with mildly reduced systolic function, mildly dilated inferior vena cava, no pericardial effusion. Compared with 05/07/2022 study (done prior to CABG), current study shows minimal decline in LV systolic function right ventricle is slightly more dilated with mildly reduced systolic function, also IVC now dilated. Chest x-ray showed cardiomegaly with mild central pulmonary vascular congestion and left basilar density. PG Care Time/CCT Total # of Minutes Spent Total Time Spent with Patient: Total time spent is greater than 50% in coordination of care (as documented) at patient's floor/unit and/or counseling patient: Coding Level of Care Code 50485 Inpt Consult Level 4 Diagnoses Dyspnea on exertion R06.09 Heart failure with mid-range ejection fraction I50.22 S/P CABG x 2 Z95.1 CAD (coronary artery disease) I25.10 Coronary Disease-Associated Artery/Lesion type: [place] artery [place] vs. 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
[2022-05-22] MEDS: WARFARIN SOD 2.5 MG TAB PO SCH (17:24)
[2022-05-22] MEDS ORDERED: FUROSEMIDE INJ 20 MG/2 ML VIAL IV ONE (17:26)
[2022-05-23 07:00] LABS: INR 2.6 (0.9-1.1); Prothrombin Time 26.2 Seconds (9.0-12.0)
[2022-05-23 07:12] LABS: BUN Creatinine Ratio 23.3 (10-20); Creatinine Clr Calc Pharmacy 80.1 ml/min; Est GFR (African American) 68.6 ml/min; Est GFR (Non-African American) 59.2 ml/min; Magnesium 1.8 mg/dl (1.7-2.4); Potassium 4.3 mmol/L (3.5-5.1)
[2022-05-23] MEDS: METOPROLOL TARTRATE 100 MG TAB PO SCH (08:11)
[2022-05-23] MEDS: ROSUVASTATIN CALCIUM 5 MG TAB PO SCH (08:11)
[2022-05-23] MEDS: cefTRIAXone SODIUM 2,000 MG in DEXTROSE 5% 50 ML IV SCH (08:11)
[2022-05-23] MEDS: AMIODARONE 200 MG TAB PO SCH ×2 (08:11→17:08)
[2022-05-23] MEDS: INSULIN ASPART PER UNIT SC SCH ×3 (08:11→17:07)
[2022-05-23] MEDS: FUROSEMIDE 40 MG/4 ML VIAL IV SCH (08:11)
[2022-05-23] MEDS: LANTUS PER UNIT CHARGE SQ SCH (08:13)
--- NOTE | 2022-05-23 11:10 | Cardiology Progress Note ---
Date of Service May 23, 2022 Assessment & Plan (1) Heart failure with mid-range ejection fraction: (2) Paroxysmal A-fib: (3) S/P CABG x 2: (4) Hypertension: Plan 76-year-old man 1 week status post CABG who was admitted with transient congestive heart failure. Echo showed low normal systolic function. Good diuresis with Lasix, he appears euvolemic currently. BP normotensive. Okay for discharge from a cardiac standpoint, ideally he would be on sliding scale diuretic regimen, but he does not have a scale at home to monitor his weight. Would discharge on furosemide 40 mg every other day to help prevent fluid retention but decrease risk of overdiuresis. Recommend follow-up in heart failure clinic, did recommend that he obtain a scale for longer-term management of his volume status. Recommend low-sodium/salt intake. Telemetry shows sinus rhythm (he had postoperative A. fib and is on amiodarone). Blunted heart rate response, his amiodarone could be reduced from 200 mg twice daily to 200 mg daily to allow more physiologic heart rate response to activity. Admission and Anticipated Discharge Date Admission Date: May 21, 2022 Subjective He is doing well, ambulated hallways with a walker on supplemental oxygen and had no difficulties. Hemodynamics and oxygenation remained favorable. He denies any dyspnea at rest or with activity. Denies any chest pain at any time. Telemetry showed sinus rhythm in the 65-70 bpm range. No dysrhythmias. Physical Exam Physical Exam: No distress. BP normotensive. Pulse 64 bpm and regular. Skin: no ecchymoses or generalized lesions. HEENT: unremarkable. Neck: Jugular venous pulse at the clavicle at 90 degrees, no carotid bruits. Lungs: Mildly decreased breath sounds with decreased excursion but generally clear. No obvious wheezing, crackles, and no accessory muscle use. Cardiac: regular rhythm, pain but audible heart tones, no obvious murmur or gallop. Abdomen: benign. Extremities: Marked rubor and chronic stasis changes with 2+ edema right leg, left leg with 1+ edema without discoloration. Neurologic: Normal affect and appropriate conversation, nonfocal. Results & Data ([facility]) Vital Signs (Past 12 Hours) Vital Signs Temp Pulse Resp BP BP Pulse Ox O2 Del Method 05/23/22 08:00 Room Air 05/23/22 07:28 97.9 F 65 19 132/83 98 Nasal Cannula 05/23/22 02:58 97.7 F 65 18 129/83 96 Room Air O2 Flow Rate 05/23/22 08:00 2 05/23/22 07:28 2 05/23/22 02:58 Laboratory Results Normal electrolytes, BUN 28, creatinine 1.2. PG Care Time/CCT Total # of Minutes Spent Total Time Spent with Patient: Total time spent is greater than 50% in coordination of care (as documented) at patient's floor/unit and/or counseling patient: Coding Level of Care Code 09862 Subseq Hosp Care Lvl 3 Diagnoses Heart failure with mid-range ejection fraction I50.22 Paroxysmal A-fib I48.0 S/P CABG x 2 Z95.1 Hypertension I10 Hypertension type: essential hypertension (1) Hypertension Hypertension type: essential hypertension Qualified Code(s): I10 - Essential (primary) hypertension
--- NOTE | 2022-05-23 16:03 | Discharge Summary ---
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 Symptoms do improve with rest. He has not had any chest pain, lightheadedness, dizziness, presyncope, syncope, nausea, vomiting, fever, chills, sweats. 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 Came home from [facility] yesterday after CABG. [place]ell like he was having to urinate more frequently, but laying back was making him more short of breath. Ate oatmeal and toast. Had some salted eggs, but no large salty foods or soup. No chest pain, no exertional chest pain. Feels somewhat short of breath at baseline, but reprots exertion does not change this or make him worse. Laying flat seems to be the worst thing for his breathing. Sitting up and rest helps. Reports since arriving home yesterday he did take his morning medications as prescribed including metoprolol, Lasix, and amiodarone. Reports he had right lower extremity cellulitis which was treated with an antibiotic, remains chronically slightly darker in color but currently is not warm, tender. He has not had any fever/chills/sweats. No lightheadedness/dizziness Medication list reviewed: Amiodarone 200 mg twice daily, Lasix 40 mg 2 tablets in the morning for 80 mg total, metformin 500 mg twice daily, metoprolol 100 mg tartrate twice daily, potassium 20 M EQ daily, rosuvastatin 5 mg daily, tramadol 100 mg twice daily as needed for severe pain, warfarin 2.5 mg daily. Patient is not on an aspirin, JEFFERSON, or ARB. No longer on amlodipine/hydrochlorothiazide or Sulnac. DC summary: Treated for right leg cellulitis with AMS and a syncopal event. Blood cultures were negative. Received Rocephin 2 g IV daily for 4 days. Was recommended for 10-day course, on review does not appear antibiotics were prescribed on discharge. Notes that patient was found to have a cath on May 09, chronic occlusion of proximal LAD filling via left to left collaterals, severe stenosis of mid RCA. Underwent coronary bypass with DAY to LAD and reverse saphenous to RCA on 05/13. Had postop A. fib, was cardioverted and put on warfarin and amiodarone. Principal Diagnosis acute systolic CHF CAD s/p recent 2-vessel CABG fatigue Discharge Exam gen - sitting in chair, obese, NAD mouth - MMM neck - no JVD sitting at 90 degrees chest - central vertical sternal incision clean/dry - no drainage or erythema heart - RRR, s1 s2, no murmur lungs - CTA b/l; no wheeze, no increased work of breathing abd - soft NT BS+ ND ext - <1+ edema b/l; pulses 2+ b/l in feet skin - mild pink erythema right carballo and right foot - chronic stasis changes Discharge Data Allergies Allergy/AdvReac Type Severity Reaction Status Date / Time long Allergy Severe LONG Verified 05/30/22 11:26 TREES "LUNGS TIGHTEN UP" codeine AdvReac Mild NAUSEA Verified 05/30/22 11:26 Consultations [facility] Card[facility] PT, OT Procedures Performed Echocardiogram: * EF 50-55% * mild global hypokinesis of LV * mild RV dysfunction * dilated IVC Ordered Studies Chest X-Ray 05/21/22 14:39 XR chest 1V portable HISTORY: Shortness of breath. COMPARISON: Chest 05/06/2022. FINDINGS: No pneumothorax. No pleural effusions. The cardiac silhouette is mildly enlarged. There is perihilar interstitial/vascular thickening consistent with mild congestive change. There is a left basilar density noted. IMPRESSION: 1. Cardiomegaly with mild central pulmonary vascular congestion without overt edema. 2. Left basilar density. This may represent atelectasis or a developing pneumonia. ACT 112: Negative or not required by law. Electronically signed by: José Caldwell M.D. 05/21/2022 3:51 PM Hospital Course (1) Acute systolic CHF (congestive heart failure): Patient presented with evidence of pulmonary edema/volume overload in the setting of his recent NSTEMI followed by CABG at [facility]. He received IV diuresis with excellent response. Repeat echo this admission with low-normal EF of 50-55% and mild right-sided CHF as well. The echo was largely unchanged from his prior echo done earlier this month. He was seen by [facility] cardiology Dr Julian Ahumada who provided moran recommendations for his cardiac care. Dr Ahumada recommended every other day usage of lasix 40mg along with K supplementation. He will continue metoprolol 100mg BID. Ideally should be on low-dose JEFFERSON or ARB given his CHF and DM but defer this to the outpatient setting. He was counseled on the importance of salt restriction, fluid restriction, and checking daily weights at home. Prior to discharge O2 was weaned off and his O2 sats with walking were well over 90%. (2) Fatigue: Deconditioning from [id number] hospital stays (here for NSTEMI at [facility], followed by transfer to [facility] for CABG), decompensated CHF, etc all to blame. He was cleared, however, to return home with his . He will receive home PT/OT services. TSH, ammonia level, VBG, and COVID/Flu/RSV PCR were all negative or normal. The patient was diagnosed with severe MARICEL in the past but is NOT on CPAP chronically; would benefit highly from such. I recommended that he speak with his PCP about obtaining a repeat sleep study in the future. (3) S/P CABG x 2: performed at [facility] (4) CAD (coronary artery disease): severe, s/p 2-vessel CABG at [facility] cont BB cont statin is not on aspirin due to coumadin use?? (5) Obstructive sleep apnea syndrome: not on CPAP see above (6) Dyslipidemia: cont statin LDL 73 earlier this month (7) Type 2 diabetes mellitus: Hba1c 6.2% on 05/07/22 received insulin during the stay but this was not continued upon transition home he can HOLD his metformin for now (8) Cellulitis: right leg - by report the leg had been treated for cellulitis last admission at [facility] uncertain if he received abx at [facility] at this point the leg skin changes look more so due to venous insufficiency with chronic stasis changes rather than infection no antibiotics were prescribed at discharge (9) Non-ST elevation NH (NSTEMI): during previous hospitalization at [facility] which led to heart cath showing severe CAD and ultimate Tx to [facility] for CABG no evidence of ACS here no evidence of post-op pericarditis either (10) Hypertension: controlled cont BB (11) Chronic obstructive lung disease: no flare at this time (12) Morbid obesity: BMI about 40 (13) Postoperative atrial fibrillation: by report had post-op jhonatan at [facility] following his CABG cardioverted back to NSR was started on amiodarone, coumadin, and metoprolol tartrate BID while at [facility] tele - NSR since admission he can reduce his amiodarone to 200mg once daily upon return home discharge INR was 2.6 he will need f/u INR within a few days of discharge to ensure stability his PCP apparently will be following his INRs Plan cleared by PT/OT for home he will f/u with [facility] Cardiology within 1 week of discharge for recheck Home Health Attestation I certify that this patient is under my care and that I, or a physicians certified registered dental assistant working with me, had a face to-face encounter that meets the home health [id number] encounter requirements with this patient. The encounter with the patient was in whole, or in part, for the following medical condition, which is the primary reason for home health care (list medical condition): CHF I certify that, based on my findings, the following services are medically necessary home health services: My clinical findings support the need for the above services because: OT Assess ADL Status and Restore Function w ADLs PT Assessment for Endurance / Balance / Strength PT Eval for Safety and Mobility PT Eval for Safety, Gait Training, Assistive Devices PT Gait and Balance Training, Strengthening and Safety Skilled Nsg Assessment Skilled Nsg Assessment Surgical Incision / Wound Skilled Nsg Assess Pt Illness, Disease and Sx Monitoring Further, I certify that my clinical findings support that this patient is homebound (i.e. absences from home require considerable and taxing effort and are for medical reasons or presybeterian services or infrequently or of short duration when for other reasons) because: Supportive Aid - Walker Transportation Assistance/Unable to Leave Home Unassisted Certification for Home Health Services: Based on the above findings, I certify that this patient is confined to the home and needs intermittent shelter care, physical therapy and/or speech therapy or continues to need occupational therapy. The patient is under my care, and I have initiated the establishment of the plan of care. This patient will be followed by a physician who will periodically review the plan of care. Total Time Total Time Spent Total Time Spent (In Minutes): 45 Discharge Plan Discharge Items Patient Disposition: Home - Home Health Services Reason For Visit: Difficulty breathing, fatigue Discharge Diagnosis: 1. Difficulty breathing - due to fluid build-up in the lungs, also known as Congestive Heart Failure - fluid resolved 2. Recent CABG (open heart) surgery at [facility] Activity: As commented below Activity Comment: Please follow any instructions given by your surgeon at [facility] Driving/Machine Use: Please follow any driving restrictions laid out by your surgeon @ [facility] Non-emergency contact: Primary Care Provider, Surgeon and Quail Farmer Call non-emergency contact if: you have any medication questions, your symptoms worsen, you have a fever, your wound has increased redness, your wound has increased drainage and your wound pain has increased Follow-up/Referrals: Adolfo Jarrett MD [Primary Care Provider] - (1-2 weeks ) Minh Rivera MD, PhD [Physician] - 05/30/22 1:00 pm (You will see Dr Rivera on May 30 @ 1pm. We have also cancelled your appt on Jun 14 since you will be seeing Dr Rivera on the .) Tony Johnson MD [Family Provider] - (1 week ) Diet: Carb Consistent or DM2 and Heart Healthy Fluids: 1800ml (7 cups) Addtl Attending Provider Instructions: Mr Amezcua, You were hospitalized due to difficulty breathing and fatigue. Your chest x-ray showed fluid build-up/water build-up in the lungs as a result of your recent heart troubles. Technically speaking fluid in the lungs is due to congestive heart failure. We remove the fluid in the lungs by using medications called "diuretics." You received several doses of IV furosemide and your breathing was much better. We were able to wean you off your oxygen as the fluid build-up exited the lungs. We performed 2 COVID tests and these were both negative. Flu test was negative. We did not see evidence of pneumonia or urinary infection. We did not see evidence of heart attack during this stay. The [facility] Cardiology team saw you during the stay. They will continue to see you in the cardiology clinic after discharge. Recommendations: 1. water pill - FUROSEMIDE - take 40mg EVERY OTHER DAY starting tomorrow. This is to keep fluid out of your lungs. 2. take potassium pill ONLY ON THE DAYS WHEN YOU TAKE FUROSEMIDE. Thus, you will take this tomorrow since it will be a furosemide day. Of note - the doctors at [facility] already prescribed for you the FUROSEMIDE water pill and POTASSIUM supplement. I can see by your pharmacy records that these have already been sent in to [facility]. 3. LOWER your amiodarone dose to 200mg once daily. Again - your surgeon at [facility] already sent this in to your pharmacy for you. 4. Your blood thinner number for your coumadin/warfarin medication is 2.6 today. Please have home health draw your INR in 3-4 days to ensure it is stable (the number should be between 2 and 3). 5. OK to stop the metformin diabetes medication. 6. Please STOP sulindac which is a pill for arthritis. 7. Sleep apnea - please talk to Dr Jarrett about going back to see the sleep doctor for your sleep apnea. You might be a candidate for "nasal pillows" which is a CPAP device that ONLY goes in your nose. Untreated sleep apnea can cause congestive heart failure, fatigue, and a host of other problems. Follow-up: see separate section Return to [facility] if - * you have fevers over 100 degrees * you have worsening shortness of breath * you have chest pains * you are concerned about your incision over your breastbone * you are concerned about fluid retention and you feel short of breath * any other concerns Please continue to feel better! Dr Crystal Emerytl Dog Warden Provider Instructions: CONGESTIVE HEART FAILURE INSTRUCTIONS: Call 911 and go to the Emergency Room if: * You have tightness or pain in your chest that does not go away with rest or Nitroglycerin * You are very short of breath even with rest Call your doctor if any of the following symptoms or problems start or get worse: * Shortness of breath or difficulty breathing * Wake up at night short of breath * Chest pain * Cough * Swelling of your hands, fee, or legs * More fatigued or tired with your normal activity * Palpitations - sudden fast heart beats WEIGHT * Weigh yourself every morning after using the bathroom. * Use the same scale. * Wear the same amount of clothing. * Write your weight down on your chart. * Call your heart doctor right away if you gain more than 2-3 pounds in 1-2 days. This is typically one of the first signs of fluid retention from heart problems. MEDICATIONS * Use this discharge instruction sheet for instructions. * Take your medications at the time your doctor ordered. * Do not skip a dose of your medicines. * If you miss a dose of medicine, take as soon as possible, but DO NOT DOUBLE A DOSE. * Read your medicine information when you get home. * Know all of the side effects of your medicine. * Call your doctor's office if you have any side effects. * Be sure all of your doctors know what medicine and herbs you take (including cold, flu, and herbal medicine). * Pain Medicine: If you do not get relief from your pain, please call your doctor for help. Take the following with you to your follow-up doctor appointments: * Weight Chart * Medication List * List of questions Do not drink excessive alcohol, beer or wine. Pending Studies at Discharge: No Stand-Alone Forms: My [facility] [place], Smoking Cessation Medications and DC Order Prescriptions: Continued rosuvastatin 5 mg tablet 5 mg PO DAILY Qty: 90 3RF tramadol 50 mg tablet 100 mg PO Q12H PRN (Reason: pain) Qty: 120 1RF clotrimazole-betamethasone 1-0.05 % cream 1 applic TOP BID PRN (Reason: Psoriasis) metoprolol tartrate 100 mg tablet 100 mg PO BID warfarin 2.5 mg tablet 2.5 mg PO DAILY acetaminophen [Tylenol] 325 mg Tablet 650 mg PO TID PRN (Reason: Pain) Changed amiodarone 200 mg tablet 200 mg PO DAILY Qty: 30 0RF Discontinued metformin 500 mg tablet 500 mg PO BID Qty: 180 3RF potassium chloride 20 mEq tablet,ER particles/crystals 20 meq PO QAM furosemide 40 mg tablet 80 mg PO QAM sulindac 200 mg tablet 200 mg PO BID Rx Instructions: TAKE ONE TAB TWICE DAILY FOR PAIN No Action furosemide 40 mg tablet 60 mg PO DAILY Qty: 30 2RF potassium chloride 20 mEq tablet,ER particles/crystals 20 meq PO UD Rx Instructions: take only on the days when you take furosemide water pills Discharge Orders: Discharge Order (Routine); Ordered 05/23/22 Ordered By: Dustin Aleman/Other Patient Handouts: DASH Plan Eat Heart Healthy Food, CAD, Eating Heart-Healthy Foods Admission Data Admit Date/Time: 05/21/22 17:13 Attending Provider: Dustin Rojas Admit Provider: Adolfo Preciado Primary Care Provider: Adolfo Jarrett Other Providers: Adolfo Preciado ; Jose Manuel Ahumada ; [place] Other Interventions: Discharge Summary Assessment (RN) Last Done: 05/23/22 16:12 Coding Level of Care Code D/C DAY MANAGEMENT >30 MINS Diagnoses Acute systolic CHF (congestive heart failure) I50.21 Fatigue R53.83 S/P CABG x 2 Z95.1 CAD (coronary artery disease) I25.10 Associated angina: without angina Coronary Disease-Associated Artery/Lesion type: [place] artery [place] vs. 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
[2022-05-23] MEDS: WARFARIN SOD 2.5 MG TAB PO SCH (17:07)
== END 2022-05-23 18:31 | disposition home health service (06) | DRG 280 ==
LOC: ED 14:14 → SUATTDRO 17:13 → 2S 17:13
DX: I87.8 Other specified disorders of veins; I48.0 Paroxysmal atrial fibrillation; Z88.5 Allergy status to narcotic agent; E11.9 Type 2 diabetes mellitus without complications; E66.01 Morbid (severe) obesity due to excess calories; Z91.018 Allergy to other foods; E78.5 Hyperlipidemia, unspecified; Z95.1 Presence of aortocoronary bypass graft; R53.83 Other fatigue; L03.115 Cellulitis of right lower limb; I25.10 Atherosclerotic heart disease of native coronary artery without angina pectoris; Z68.41 Body mass index [BMI] 40.0-44.9, adult; G47.33 Obstructive sleep apnea (adult) (pediatric); Z79.01 Long term (current) use of anticoagulants; J44.9 Chronic obstructive pulmonary disease, unspecified; Z79.899 Other long term (current) drug therapy; I21.4 Non-ST elevation (NSTEMI) myocardial infarction; Z79.84 Long term (current) use of oral hypoglycemic drugs; I11.0 Hypertensive heart disease with heart failure; I50.21 Acute systolic (congestive) heart failure; I25.2 Old myocardial infarction

== ENCOUNTER 2024-01-22 01:20 | Inpatient (IN) ==
[2024-01-22 02:00] LABS: Basophils # (auto) 0.04 K/uL (0.00-0.20); Basophils % (auto) 0.4 %; Eosinophils # (auto) 0.04 K/uL (0.00-0.50); Eosinophils % (auto) 0.4 %; Hemoglobin 17.1 g/dl (14.0-18.0); Immature Granulocytes # (auto) 0.04 K/uL (0.01-0.20); Immature Granulocytes % (auto) 0.4 %; Lymphocytes # (auto) 1.58 K/uL (1.20-3.40); Lymphocytes % (auto) 16.4 %; Mean Corpuscular Hemoglobin 31.4 pg (25.0-34.0); Mean Corpuscular Hgb Conc 33.5 g/dL (32.0-36.0); Mean Corpuscular Volume 93.6 fL (80.0-100.0); Mean Platelet Volume 9.7 fL (9.4-12.4); Monocytes # (auto) 0.96 K/uL (0.11-0.59); Neutrophils # (auto) 6.97 K/uL (1.40-6.50); Neutrophils % (auto) 72.4 %; Platelet Count 213 K/uL (130-400); RDW Coefficient of Variation 13.2 % (11.5-14.5); RDW Standard Deviation 44.2 fL (36.4-46.3); Red Blood Count 5.45 M/uL (4.70-6.10); White Blood Count 9.63 K/ul (4.8-10.8)
[2024-01-22 02:16] LABS: Albumin Globulin Ratio 1.3 (0.9-2); Albumin Level 4.3 gm/dl (3.4-5.0); BUN Creatinine Ratio 12.8 (10-20); Bilirubin,Total 1.2 mg/dl (0.2-1.0); Calcium 10.2 mg/dl (8.6-10.3); Creatinine Clr Calc Pharmacy 76.5 ml/min; Est GFR (African American) 69.8 ml/min; Est GFR (Non-African American) 60.2 ml/min; Globulin 3.4 gm/dl (2.5-4.0); Total Protein 7.7 gm/dl (6.0-8.3)
[2024-01-22 02:21] LABS: Troponin I High Sensitivity 6.4 pg/ml (0-20)
[2024-01-22 02:41] LABS: Adenovirus PCR Not Detected (NotDetected); Bordetella parapertussis PCR Not Detected (NotDetected); Bordetella pertussis PCR Not Detected (NotDetected); Chlamydia pneumoniae PCR Not Detected (NotDetected); Coronavirus 229E PCR Not Detected (NotDetected); Coronavirus CoV-2 (COVID19)PCR Not Detected (NotDetected); Coronavirus HKU1 PCR Not Detected (NotDetected); Coronavirus NL63 PCR Not Detected (NotDetected); Coronavirus OC43PCR Not Detected (NotDetected); Human Metapneumovirus PCR Not Detected (NotDetected); Influenza A PCR Not Detected (NotDetected); Influenza B PCR Not Detected (NotDetected); Mycoplasma pneumoniae PCR Not Detected (NotDetected); Parainfluenza Virus 1 PCR Not Detected (NotDetected); Parainfluenza Virus 2 PCR Not Detected (NotDetected); Parainfluenza Virus 3 PCR Not Detected (NotDetected); Parainfluenza Virus 4 PCR Not Detected (NotDetected); Respiratory Syncytial VirusPCR Not Detected (NotDetected); Rhinovirus/Enterovirus PCR Not Detected (NotDetected)
[2024-01-22] MEDS: OPTIRAY 320 125ml IV ONE (03:10)
[2024-01-22] MEDS: FAMOTIDINE 20MG IV PUSH 20 MG/5 ML SYR IV STA (03:41)
[2024-01-22] MEDS: PROCHLORPERAZINE 1 ML IV ONE (03:41)
--- NOTE | 2024-01-22 04:40 | CT Scan Report ---
Exam(s): CT ABDOMEN + PELVIS With Contrast IV Amt: 116ml optiray 320 EXAM: CT Abdomen and Pelvis With Intravenous Contrast CLINICAL HISTORY: Reason for exam: abdominal pain; N/V. TECHNIQUE: Axial computed tomography images of the abdomen and pelvis with intravenous contrast. CTDI is 34.91 mGy and DLP is 1790.48 mGy-cm. Automated exposure control was utilized for the study. A dose lowering technique was utilized adhering to the principles of ALARA. CONTRAST: Patient received 116ml optiray 320 of IV contrast COMPARISON: No relevant prior studies available. FINDINGS: Lung bases: Unremarkable. No mass. No consolidation. ABDOMEN: Liver: Unremarkable. No mass. Gallbladder and bile ducts: Cholelithiasis. No ductal dilation. Pancreas: Unremarkable. No mass. No ductal dilation. Spleen: Unremarkable. No splenomegaly. Adrenals: Unremarkable. No mass. Kidneys and ureters: Unremarkable. No hydronephrosis or delayed nephrogram. Stomach and bowel: Ventral abdominal wall hernia which contains multiple small bowel loops, contributing to small bowel obstruction. The dilated bowel measures up to 3.6 cm. Surgical evaluation recommended. No mucosal thickening. PELVIS: Appendix: No findings to suggest acute appendicitis. Bladder: Unremarkable. No mass. Reproductive: Unremarkable as visualized. ABDOMEN and PELVIS: Intraperitoneal space: Unremarkable. No free air. No significant fluid collection. Bones/joints: Degenerative changes of the spine. No acute fracture. No dislocation. Soft tissues: Failed hernia mesh in the anterior abdomen. Vasculature: Atherosclerotic changes of the aorta. No abdominal aortic aneurysm. Lymph nodes: Unremarkable. No enlarged lymph nodes. IMPRESSION: Small bowel obstruction secondary to ventral abdominal wall hernia, which has occurred in the setting of failed anterior hernia mesh. Surgical evaluation recommended. Electronically signed by: Jason Dubose MD 01/22/24 04:39 AM
--- NOTE | 2024-01-22 04:56 | Emergency Department Note ---
Impression & Plan Abdominal pain, Nausea & vomiting, Small bowel obstruction, Ventral hernia ED Provider Note ED Provider Note NAME: KAYLEE HAGEN AGE:78 SEX: Male : 1945 ARRIVES VIA: Private vehicle INFORMANT: Patient ED PROVIDER(s): Bessy Becker DO CHIEF COMPLAINT: Nausea and vomiting, abdominal pain HPI: This is a 78-year-old male presents emerged from due to concern for nausea, vomiting, and abdominal pain that began yesterday evening around 5 PM after he ate watermelon. Patient concern for possible food poisoning however no one else in the family who ate the watermelon had any symptoms additionally. at bedside concerned that the watermelon interacted with some of his medications. He states no recent change in medication or new medications. He states he vomited approximately 10 times, he did not note any hematemesis. No diarrhea or any recent change in stools. Patient states he has central generalized abdominal pain. He states he has had prior significant abdominal surgery, and does have a chronic hernia. He has not noticed any change in the size of this hernia recently. He denies any fevers or chills. PAST MEDICAL HISTORY:See Below PAST SURGICAL HISTORY:See Below FAMILY HISTORY:See Below SOCIAL HISTORY:See Below HOME MEDICATIONS:See Below ALLERGIES:See Below VITALS:See Below PHYSICAL EXAMINATION: GENERAL: alert, uncomfortable appearing, well nourished, no distress, non-toxic EYE EXAM: normal conjunctiva, PERRL and EOM's grossly intact OROPHARYNX: no exudate, no erythema, lips, buccal mucosa, and tongue normal and mucous membranes are moist NECK: supple, no nuchal rigidity, no adenopathy, non-tender LUNGS: Clear to auscultation. Normal chest wall mechanics, no w/r/r HEART: no murmurs, S1 normal and S2 normal ABDOMEN: abdomen soft, well-healed incision noted to midline with ventral hernia additionally that is soft and easily reduced, patient wears abdominal binder chronically, decreased bowel sounds, no masses, no rebound or guarding. Dull to percussion. SKIN: no rashes, petechiae, orbruising UPPER EXTREMITIES: upper extremities are grossly normal. FROM, nml pulses b/l. LOWER EXTREMITIES: 1+ b/l pitting edema. FROM, nml pulses b/l. NEURO EXAM: Normal sensorium, cranial nerves II-XII grossly intact, normal speech, no facial droop,nogross weakness of arms, no gross weakness of legs. Gross sensation intact. No ataxia. Vital Signs: reviewed and remarkable Differential Diagnosis: Foodborne illness, viral syndrome, perforation, GI bleed, bowel obstruction, mesenteric ischemia, diverticulitis, AAA, dissection, as well as others were considered MEDICAL DECISION MAKING: This is a 78-year-old male presents emergency department with abrupt onset of abdominal pain, nausea and vomiting that began around 5 PM after eating watermelon. Patient was afebrile vital signs stable. Labs drawn and sent, IV established, EKG performed at bedside interpreted by me and patient monitored on telemetry. He was given IV fluids, IV Pepcid, and IV Compazine with improvement. He was sent for CT of the abdomen and pelvis additionally. CT revealed small bowel obstruction. Lactic acid initially elevated however downtrending. Patient did report feeling markedly improved following medications here. He and at bedside updated on results and need for additional evaluation and management. Case discussed with KRISTA covering for general surgery as well as with [facility] team for additional evaluation and management. Consultation(s): 0502: Discussed with Don Krishnamurthy PA-C, with gen surg. 0530: Discussed with Dr. Villegas, [facility] team, for additional evaluation and management. ER Treatment Provided: See below Diagnostics Interpreted By Me: -ECG: Sinus bradycardia at 53, normal axis, normal QRS, prolonged QT, nonspecific ST/T wave changes -Cardiac Monitoring: An order was placed for continuous cardiac monitoring. The monitor shows a rate of 57 with sinus bradycardia rhythm. -Laboratory studies: As stated above and show below. -Imaging studies: ct a/p: sbo, no perf Triage Nursing Note Reviewed Prior/Outside Records Reviewed -prior discharge summary from May 2022 reviewed Past Med/Surg History Problem List Ventral hernia (Acute) Small bowel obstruction (Acute) Nausea & vomiting (Acute) Abdominal pain (Acute) On amiodarone therapy MARICEL (obstructive sleep apnea) DJD (degenerative joint disease) of knee Knee pain Lightheadedness Diabetes (Unknown) Acute on chronic diastolic heart failure Syncope Chronic diastolic heart failure Lower extremity edema Paroxysmal A-fib DVT prophylaxis Postoperative atrial fibrillation Morbid obesity Fatigue Acute systolic CHF (congestive heart failure) 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) Dyspnea on exertion (Acute) Congestive heart failure (Acute) Fluid overload (Acute) Psoriasis Syncope Cellulitis Non-ST elevation ND (NSTEMI) (Acute) Weakness (Acute) Acute electrocardiogram changes (Acute) Leukocytosis (Acute) Colon polyps Nocturnal hypoxemia Dyslipidemia Type 2 diabetes mellitus (Chronic) Chronic back pain (Chronic) CAD (coronary artery disease) (Chronic) Chronic obstructive lung disease (Chronic) Obstructive sleep apnea syndrome (Chronic) Hypertension (Chronic) Medical History Warfarin anticoagulation Unresponsive Sepsis secondary to UTI Hematuria Encephalopathy Surgical History History of tonsillectomy History of appendectomy History of colon surgery Family History Father Myocardial infarction Heart disease Mother Hypertension Other Diabetes Denies family history of Ovarian cancer Prostate cancer Breast cancer Lung cancer Colorectal cancer Stroke Social History Smoking Status: Never smoker Second Hand Exposure: No; Do You Dip or Chew Tobacco: No; Tobacco Cessation Education Requested by Patient: No Hx Alcohol Use: Yes Alcohol type: hard liquor Alcohol Intake Frequency: 2-4 x/Month Hx Substance Use: No Preferred Language: Lebanese Communication Ability: Effective Visual Impairment: Limited Hearing Ability: Hard of Hearing [employer] Required: No Beliefs That Will Affect Care: None marital status: Current Living Situation: Family current occupational status: retired current occupation: Retired How many Children do You have: 3 Other Information That Helps Us Care for You: No Feels Safe at Home: Yes Safety Concerns: Feels Safe At This Time Childhood Exposure to Second-Hand Smoke: No Diet: regular caffeine: Yes Dental Care, Regularly: No Physical Activity Frequency: 5-6 Times per Week Seatbelt Use: always Sunscreen Use: No Assistive Devices: Cane and Glasses Allergies Allergies Allergy/AdvReac Type Severity Reaction Status Date / Time long Allergy Severe LONG Verified 12/26/23 07:45 TREES "LUNGS TIGHTEN UP" codeine AdvReac Mild NAUSEA Verified 12/26/23 07:45 Home Meds Home Medications Medication Instructions Recorded Confirmed metoprolol tartrate 100 mg tablet 50 mg PO BID 06/07/23 12/26/23 diclofenac sodium 1 % topical gel 4 g topical QID PRN 12/26/23 12/26/23 (Voltaren Arthritis Pain) Previous Rx's Medication Instructions Recorded aspirin 81 mg tablet,delayed 81 mg PO DAILY #90 tabs 07/15/22 release losartan 100 mg tablet 100 mg PO DAILY #90 tabs 05/23/23 clotrimazole-betamethasone 1 1 applic topical BID PRN Psoriasis 10/02/23 %-0.05 % topical cream #45 grams amiodarone 200 mg tablet 200 mg PO DAILY #90 tabs 10/13/23 atorvastatin 10 mg tablet 10 mg PO Q OTHER DAY #30 tabs 12/26/23 apixaban 5 mg tablet (Eliquis) 5 mg PO BID #180 tabs 01/09/24 tramadol 50 mg tablet 100 mg (2 x 50 mg) PO Q12H PRN 01/10/24 pain #120 tabs furosemide 20 mg tablet 20 mg PO BID #180 tabs 01/12/24 Results & Data (ED) Vital Signs Vital Signs - 24 hr 01/22/24 01:21 01/22/24 01:30 01/22/24 01:35 Temperature 37 C Temperature Source Temporal Artery Scan Pulse Rate 57 L 59 L Pulse Rate [Apical] Pulse Rate from SpO2 Sensor Pulse Rhythm Regular Pulse Rhythm [Apical] Pulse Strength Normal Pulse Strength [Apical] Respiratory Rate 20 Respiratory Effort / Characteristics Non-Labored Spontaneous Respiratory Depth Normal Respiratory Pattern Regular Blood Pressure 197/97 H Blood Pressure [Right Arm] Blood Pressure Mean 130 Blood Pressure Mean [Right Arm] Blood Pressure Position Sitting Blood Pressure Position [Right Arm] Pulse Oximetry 95 95 Oxygen Delivery Method Room Air Room Air Sepsis Recent Fever Within 48 Hours No Sepsis New/Unexplained Change in Mental Status N/A Sepsis Action Taken by Nursing No Action Required 01/22/24 03:30 01/22/24 03:33 01/22/24 05:00 Temperature Temperature Source Pulse Rate 60 58 L Pulse Rate [Apical] 54 L Pulse Rate from SpO2 Sensor 57 L Pulse Rhythm Pulse Rhythm [Apical] Regular Pulse Strength Pulse Strength [Apical] Normal Respiratory Rate 20 17 13 Respiratory Effort / Characteristics Non-Labored Spontaneous Respiratory Depth Normal Respiratory Pattern Regular Blood Pressure 186/113 H 213/111 H Blood Pressure [Right Arm] 186/113 H Blood Pressure Mean 137 145 Blood Pressure Mean [Right Arm] 137 Blood Pressure Position Blood Pressure Position [Right Arm] Sitting Pulse Oximetry 90 98 99 Oxygen Delivery Method Room Air Sepsis Recent Fever Within 48 Hours Sepsis New/Unexplained Change in Mental Status Sepsis Action Taken by Nursing 01/22/24 05:24 01/22/24 06:00 01/22/24 06:00 Temperature Temperature Source Pulse Rate 58 L 56 L Pulse Rate [Apical] 56 L Pulse Rate from SpO2 Sensor Pulse Rhythm Pulse Rhythm [Apical] Regular Pulse Strength Pulse Strength [Apical] Normal Respiratory Rate 22 13 Respiratory Effort / Characteristics Non-Labored Spontaneous Respiratory Depth Normal Respiratory Pattern Regular Blood Pressure 187/101 H Blood Pressure [Right Arm] 187/101 H Blood Pressure Mean 129 Blood Pressure Mean [Right Arm] 129 Blood Pressure Position Blood Pressure Position [Right Arm] Sitting Pulse Oximetry 96 97 Oxygen Delivery Method Room Air Sepsis Recent Fever Within 48 Hours Sepsis New/Unexplained Change in Mental Status Sepsis Action Taken by Nursing Laboratory Data 01/22/24 01:35 01/22/24 01:35 Lab Results 01/22/24 01/22/24 Range/Units 01:25 01:35 WBC 9.63 (4.8-10.8) K/ul RBC 5.45 (4.70-6.10) M/uL Hgb 17.1 (14.0-18.0) g/dl Hct 51.0 (42.0-52.0) % MCV 93.6 (80.0-100.0) fL MCH 31.4 (25.0-34.0) pg MCHC 33.5 (32.0-36.0) g/dL RDW Std Deviation 44.2 (36.4-46.3) fL RDW Coeff of Vipul 13.2 (11.5-14.5) % Plt Count 213 (130-400) K/uL MPV 9.7 (9.4-12.4) fL Immature Gran % (Auto) 0.4 % Neut % (Auto) 72.4 % Lymph % (Auto) 16.4 % Briscoe % (Auto) 10.0 % Eos % (Auto) 0.4 % Baso % (Auto) 0.4 % Neut # (Auto) 6.97 H (1.40-6.50) K/uL Lymph # (Auto) 1.58 (1.20-3.40) K/uL [place]iscoe # (Auto) 0.96 H (0.11-0.59) K/uL Eos # (Auto) 0.04 (0.00-0.50) K/uL Baso # (Auto) 0.04 (0.00-0.20) K/uL Immature Gran # (Auto) 0.04 (0.01-0.20) K/uL PT 11.0 (9.0-12.0) Seconds INR 1.0 (0.9-1.1) APTT 28 (21-31) Seconds PTT Ratio 1.0 Sodium 140 (136-145) mmol/L Potassium 4.0 (3.5-5.1) mmol/L Chloride 102 (98-107) mmol/L Carbon Dioxide 27 (21-32) mmol/L Anion Gap 11 (3-11) BUN 15 (6-23) mg/dl Creatinine 1.17 (0.6-1.4) mg/dl Est Cr Clr Drug Dosing 76.5 ml/min Est GFR ( Amer) 69.8 ml/min Est GFR (Non-Af Amer) 60.2 ml/min BUN/Creatinine Ratio 12.8 (10-20) Glucose 175 H (70-99(Fasting)) mg/dl Lactate 2.9 H* (0.4-2.0) mmol/L Calcium 10.2 (8.6-10.3) mg/dl Magnesium 2.0 (1.7-2.4) mg/dl Total Bilirubin 1.2 H (0.2-1.0) mg/dl AST 31 (13-39) U/L ALT 26 (7-52) U/L Alkaline Phosphatase 128 H (34-104) U/L Troponin I High Sens 6.4 (0-20) pg/ml Total Protein 7.7 (6.0-8.3) gm/dl Albumin 4.3 (3.4-5.0) gm/dl Globulin 3.4 (2.5-4.0) gm/dl Albumin/Globulin Ratio 1.3 (0.9-2) Lipase 8 L (11-82) U/L Nasal Influ A H1 2009 PCR FOREPART RASPER Adenovirus (PCR) Not Detected (NotDetected) B. pertussis DNA (PCR) Not Detected (NotDetected) B.parapertussis DNA PCR Not Detected (NotDetected) C. pneumoniae DNA (PCR) Not Detected (NotDetected) Coronavirus OC43 (PCR) Not Detected (NotDetected) Coronavirus HKU1 (PCR) Not Detected (NotDetected) Coronavirus 229E (PCR) Not Detected (NotDetected) SARS-CoV-2 (PCR) Not Detected (NotDetected) Coronavirus NL63 (PCR) Not Detected (NotDetected) Human Metapneumovir PCR Not Detected (NotDetected) Influenza A (H1) PCR FOREPART RASPER Influenza A (H3) PCR FOREPART [facility] Influenza Type A (PCR) Not Detected (NotDetected) Influenza A Untype (PCR) FOREPART RASPER Influenza Type B (PCR) Not Detected (NotDetected) M. pneumoniae (PCR) Not Detected (NotDetected) Parainfluenza 1 (PCR) Not Detected (NotDetected) Parainfluenza 2 (PCR) Not Detected (NotDetected) Parainfluenza 3 (PCR) Not Detected (NotDetected) Parainfluenza 4 (PCR) Not Detected (NotDetected) RSV (PCR) Not Detected (NotDetected) Entero/Rhino (PCR) Not Detected (NotDetected) Administered Medications Potassium Chloride/Sodium Chloride (Normal Saline W/20 Meq Kcl) 20 meq in 1,000 mls @ 100 mls/hr IV .Q10H CYNTHIA; Protocol Stop: 02/21/24 06:29 Last Admin: 01/22/24 07:33 Dose: 100 mls/hr Documented By: ASHISH Insulin Aspart (Insulin Aspart Per Unit Charge) 0 units SC Q6 CYNTHIA Stop: 02/21/24 05:59 Last Admin: 01/22/24 07:16 Dose: Not Given Documented By: ASHISH Co-signed By: CLEVE Discontinued Medications Heparin Sodium/Dextrose (Heparin 37548 Unit/500 Ml D5w) Confirm Administered Dose 25,000 units IV .STK-MED ONE Stop: 01/22/24 07:31 Last Admin: 01/22/24 07:35 Dose: Not Given Documented By: ASHISH Hydralazine HCl (Hydralazine Hcl 20 Mg/Ml Vial) 5 mg IV NOW ONE Stop: 01/22/24 04:56 Last Admin: 01/22/24 05:18 Dose: 5 mg Documented By: JAYJAY Hydralazine HCl (Hydralazine Hcl 20 Mg/Ml Vial) 10 mg IV NOW STA Stop: 01/22/24 06:06 Last Admin: 01/22/24 06:10 Dose: 10 mg Documented By: JAYJAY Famotidine (Pepcid 20mg Iv Push) 20 mg in 5 mls @ 2.5 mls/min IV NOW STA Stop: 01/22/24 03:31 Last Admin: 01/22/24 03:41 Dose: 2.5 mls/min Documented By: JAYJAY Prochlorperazine (Compazine) 1 mls @ 1 mls/min IV ONE ONE Stop: 01/22/24 03:31 Last Admin: 01/22/24 03:41 Dose: 1 mls/min Documented By: JAYJAY Sodium Chloride (Nss) 500 mls @ 80 mls/hr IV .Q6H15M CYNTHIA Stop: 02/21/24 04:59 Last Infusion: 01/22/24 06:29 Dose: Infused Documented By: Admin: 01/22/24 05:19 Dose: 80 mls/hr Documented By: JAYJAY Piperacillin Sod/Tazobactam Sod (Zosyn) 4.5 gm in 100 mls @ 200 mls/hr IV NOW ONE Stop: 01/22/24 06:02 Last Infusion: 01/22/24 06:45 Dose: Infused Documented By: Admin: 01/22/24 06:10 Dose: 200 mls/hr Documented By: JAYJAY Ioversol (Optiray 320 125ml) 125 ml IV ONCE ONE Stop: 01/22/24 03:11 Last Admin: 01/22/24 03:10 Dose: 116 ml Documented By: JESSI Imaging Data Radiologist's Impression: Abdomen/Pelvis CT 01/22/24 01:26 Exam(s): CT ABDOMEN + PELVIS With Contrast IV Amt: 116ml optiray 320 EXAM: CT Abdomen and Pelvis With Intravenous Contrast CLINICAL HISTORY: Reason for exam: abdominal pain; N/V. TECHNIQUE: Axial computed tomography images of the abdomen and pelvis with intravenous contrast. CTDI is 34.91 mGy and DLP is 1790.48 mGy-cm. Automated exposure control was utilized for the study. A dose lowering technique was utilized adhering to the principles of ALARA. CONTRAST: Patient received 116ml optiray 320 of IV contrast COMPARISON: No relevant prior studies available. FINDINGS: Lung bases: Unremarkable. No mass. No consolidation. ABDOMEN: Liver: Unremarkable. No mass. Gallbladder and bile ducts: Cholelithiasis. No ductal dilation. Pancreas: Unremarkable. No mass. No ductal dilation. Spleen: Unremarkable. No splenomegaly. Adrenals: Unremarkable. No mass. Kidneys and ureters: Unremarkable. No hydronephrosis or delayed nephrogram. Stomach and bowel: Ventral abdominal wall hernia which contains multiple small bowel loops, contributing to small bowel obstruction. The dilated bowel measures up to 3.6 cm. Surgical evaluation recommended. No mucosal thickening. PELVIS: Appendix: No findings to suggest acute appendicitis. Bladder: Unremarkable. No mass. Reproductive: Unremarkable as visualized. ABDOMEN and PELVIS: Intraperitoneal space: Unremarkable. No free air. No significant fluid collection. Bones/joints: Degenerative changes of the spine. No acute fracture. No dislocation. Soft tissues: Failed hernia mesh in the anterior abdomen. Vasculature: Atherosclerotic changes of the aorta. No abdominal aortic aneurysm. Lymph nodes: Unremarkable. No enlarged lymph nodes. IMPRESSION: Small bowel obstruction secondary to ventral abdominal wall hernia, which has occurred in the setting of failed anterior hernia mesh. Surgical evaluation recommended. Electronically signed by: Jason Dubose MD 01/22/24 04:39 AM Discharge Plan Visit Data Chief Complaint: Illness ED Provider: Bessy Becker Discharge Problem: Abdominal pain, Nausea & vomiting, Small bowel obstruction, Ventral hernia Patient Disposition: Admitted As Inpatient Discharge Instructions Interventions: ED Discharge Assessment Last Done: 01/22/24 06:20
[2024-01-22] MEDS: hydrALAZINE HCL 20 MG/ML VIAL IV ONE (05:18)
[2024-01-22] MEDS: SODIUM CHLORIDE 0.9% 500 ML IV SCH (05:19)
--- NOTE | 2024-01-22 05:21 | Surgery Consultation ---
Date of Consultation January 22, 2024 Assessment & Plan (1) Small bowel obstruction: I discussed with the treating emergency room physician and the patient is being admitted on the hospitalist service. From surgery perspective we recommend proceeding as follows: Implement n.p.o. status Provide IV fluid for hydration It appears that the patient's small bowel obstruction is secondary to a ventral hernia. I was unable to reduce this at bedside. Will place an NG tube to low continuous suction. Once the patient's stomach is decompressed we will see if this will help facilitate additional attempts at reduction of the hernia Would recommend holding the patient's Eliquis until it is ascertained whether or not the patient will require any procedural or surgical intervention Will repeat a lactic acid level in approximate 2 hours from the time his initial lactic acid level was performed to see if hydration measures have helped improve this parameter Additional recommendations be forthcoming based on his clinical course above and the plan as outlined above as above. already feeling somewhat better. no pain while at rest. mild discomfort to palpation of hernia. he / both say hernia appears unchanged from baseline. will keep ngt. ok to start heparin. repeat KUB tomorrow. History of Present Illness Reason for Consultation: Small bowel obstruction History of Present Illness This is a 78-year-old male who presented to the emergency department secondary to nausea and vomiting that occurred after eating watermelon at approximate 5:00 PM on 01/21/2024. The patient says he has a known ventral hernia and because of his nausea and vomiting presented to the emergency department. He also notes some pain over the hernia site which is nonradiating without modifying factors. He notes his most recent bowel movement was yesterday. Since his nausea and vomiting began he has not had any further bowel movements and is not passing any flatus. He also notes that he takes Eliquis for history of atrial fibrillation and he took his most recent dose the evening of 01/21/2024. Patient notes that he has had prior abdominal surgeries. Patient says he has had an appendectomy. He also notes that he had a history of diverticulitis requiring a partial colectomy in 1989. Following his diverticulitis surgery he did develop a ventral hernia and he did have this repaired utilizing mesh also approximately 20 years ago. Patient notes that he has a significant cardiac history of atrial fibrillation as well as coronary artery disease. He said he had coronary artery bypass surgery approximately 2 years ago and since he has had the surgery he does not have any chest pain or shortness of breath Since arrival to the hospital the patient has had labs and imaging which I independent reviewed. CT scan of the abdomen pelvis showed the patient had a ventral abdominal wall hernia. There appeared to be some failed anterior hernia mesh. This hernia appears to contain small bowel resulting in small bowel obstruction. Labs included CBC were white blood cell count, hemoglobin, hematocrit, platelet count were normal. Coagulation studies were normal. Chemistry profile showed sodium and potassium along with the BUN and creatinine were normal. Lactic acid was noted to be elevated at 2.9. There is no elevation of patient's lipase. The patient did have a respiratory bio fire and all substances tested for were negative. An EKG showed sinus bradycardia without changes indicative of acute ischemia. At the time of my interview the patient was resting comfortably in bed he was no distress Allergies Allergy/AdvReac Type Severity Reaction Status Date / Time duran Allergy Severe DURAN Verified 12/26/23 07:45 TREES "LUNGS TIGHTEN UP" codeine AdvReac Mild NAUSEA Verified 12/26/23 07:45 Home Medications Medication Instructions Recorded Confirmed Type aspirin 81 mg tablet,delayed 81 mg PO DAILY #90 tabs 07/15/22 12/26/23 Rx release losartan 100 mg tablet 100 mg PO DAILY #90 tabs 05/23/23 12/26/23 Rx metoprolol tartrate 100 mg tablet 50 mg PO BID 06/07/23 12/26/23 History clotrimazole-betamethasone 1 1 applic topical BID PRN Psoriasis 10/02/23 12/26/23 Rx %-0.05 % topical cream #45 grams amiodarone 200 mg tablet 200 mg PO DAILY #90 tabs 10/13/23 12/26/23 Rx atorvastatin 10 mg tablet 10 mg PO Q OTHER DAY #30 tabs 12/26/23 12/26/23 Rx diclofenac sodium 1 % topical gel 4 g topical QID PRN 12/26/23 12/26/23 History (Voltaren Arthritis Pain) apixaban 5 mg tablet (Eliquis) 5 mg PO BID #180 tabs 01/09/24 Rx tramadol 50 mg tablet 100 mg (2 x 50 mg) PO Q12H PRN 01/10/24 Rx pain #120 tabs furosemide 20 mg tablet 20 mg PO BID #180 tabs 01/12/24 Rx Patient History Medical History Warfarin anticoagulation Unresponsive Sepsis secondary to UTI Hematuria Encephalopathy Surgical History History of tonsillectomy History of appendectomy History of colon surgery Family History Father Myocardial infarction Heart disease Mother Hypertension Other Diabetes Denies family history of Ovarian cancer Prostate cancer Breast cancer Lung cancer Colorectal cancer Stroke Social History Smoking Status: Never smoker Second Hand Exposure: No; Do You Dip or Chew Tobacco: No; Tobacco Cessation Education Requested by Patient: No Hx Alcohol Use: Yes Alcohol type: hard liquor Alcohol Intake Frequency: 2-4 x/Month Hx Substance Use: No Preferred Language: Niuean Communication Ability: Effective Visual Impairment: Limited Hearing Ability: Hard of Hearing Rail Bender Required: No Beliefs That Will Affect Care: None marital status: Current Living Situation: Family current occupational status: retired current occupation: Retired How many Children do You have: 3 Other Information That Helps Us Care for You: No Feels Safe at Home: Yes Safety Concerns: Feels Safe At This Time Childhood Exposure to Second-Hand Smoke: No Diet: regular caffeine: Yes Dental Care, Regularly: No Physical Activity Frequency: 5-6 Times per Week Seatbelt Use: always Sunscreen Use: No Assistive Devices: Cane and Glasses Review of Systems Constitutional: no fever and no chills Ear, Nose, Mouth, Throat: no hearing loss Respiratory: no cough and no dyspnea Cardiovascular: no chest pain Gastrointestinal: as per Subjective / HPI Genitourinary: no dysuria Musculoskeletal: no back pain Integumentary: no rash Neurologic: no localized weakness Physical Exam Constitutional: WD/WN, vitals as above Eyes: no conjunctival abnormality ENMT: Ears: no hearing impairment and no external ear abnormality Mouth: no oropharynx abnormality Neck: trachea midline Respiratory: normal respiratory effort; no respiratory distress and no labored breathing Cardiovascular: Rate/Rhythm: regular rate and regular rhythm Gastrointestinal (Abdomen): Abdomen is rotund with slight distention. It is nonrigid. The patient did have a noted ventral hernia which is nonreducible. There is no overlying skin changes. The area is slightly tender to palpation Musculoskeletal: No calf tenderness Skin: no rashes Neurologic: moves all extremities Psychiatric: A+Ox3, euthymic affect Results & Data Vital Signs (Past 12 Hours) Vital Signs Temp Pulse Pulse Resp BP BP Pulse Ox 01/22/24 03:30 54 L 20 186/113 H 90 01/22/24 01:35 95 01/22/24 01:30 59 L 01/22/24 01:21 37 C 57 L 20 197/97 H 95 O2 Del Method 01/22/24 03:30 Room Air 01/22/24 01:35 Room Air 01/22/24 01:30 01/22/24 01:21 Room Air PG Care Time/CCT Total # of Minutes Spent Total Time Spent with Patient: Total time spent is greater than 50% in coordination of care (as documented) at patient's floor/unit and/or counseling patient: Coding Level of Care Code 90223 OFFICE CONSULT LVL M Diagnoses Small bowel obstruction K56.609
[2024-01-22] MEDS ORDERED: METOPROLOL TARTRATE 1 MG/ML VIAL IV PRN ×2 (06:06→13:06)
[2024-01-22] MEDS: PIPERACILLIN/TAZOBACTAM 4.5 GM/100 ML BAG IV ONE (06:10)
[2024-01-22] MEDS: hydrALAZINE HCL 20 MG/ML VIAL IV STA (06:10)
--- NOTE | 2024-01-22 06:10 | History & Physical Report ---
Date of Service January 22, 2024 Assessment & Plan (1) Small bowel obstruction: (2) Ventral hernia: (3) Nausea & vomiting: (4) Abdominal pain: (5) On amiodarone therapy: (6) MARICEL (obstructive sleep apnea): (7) Diabetes: (8) Chronic diastolic heart failure: (9) Lower extremity edema: (10) Paroxysmal A-fib: (11) Type 2 diabetes mellitus: (12) CAD (coronary artery disease): (13) Chronic obstructive lung disease: (14) Obstructive sleep apnea syndrome: Plan Small bowel obstruction secondary to ventral abdominal hernia/in setting of failed anterior hernia mesh- NPO NG tube to low intermittent suction Status post 500 mL normal saline in the ED NSS at 80 mL/h Pantoprazole 40 mg IV daily Zosyn 4.5 g IV every 8 hours Zofran 4 mg IV every 6 hours as needed Acetaminophen 1 g IV every 8 hours as needed for mild pain or fever PAF/chronic diastolic CHF/hypertension- NPO Holding amiodarone, apixaban, aspirin furosemide, losartan, and metoprolol tartrate Heparin drip low-dose without bolus Giving hydralazine 10 mg IV now Lopressor 5 mg IV every 4 hours as needed for heart rate greater than 110 As amiodarone and metoprolol tartrate are held, if his heart rate is consistently 70 or above, should change Lopressor to standing order History of Present Illness Chief Complaint: The patient presents to the emergency department with nausea, vomiting and abdominal pain that began around 5:00 yesterday afternoon, after he ate watermelon. 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 Patient underwent hernia repair surgery with mesh in 1970s, however, reports he has had intermittent mild symptoms over the past 10 years. He has had problems with watermelon in the past, but symptoms have resolved relatively quickly and not nearly as intense as on. Patient underwent a CT scan abdomen and pelvis in the emergency department showed a small bowel obstruction secondary to a ventral abdominal wall hernia in the setting of failed anterior hernia mesh. Allergies Allergy/AdvReac Type Severity Reaction Status Date / Time long Allergy Severe LONG Verified 12/26/23 07:45 TREES "LUNGS TIGHTEN UP" codeine AdvReac Mild NAUSEA Verified 12/26/23 07:45 Home Medications Medication Instructions Recorded Confirmed Type aspirin 81 mg tablet,delayed 81 mg PO DAILY #90 tabs 07/15/22 12/26/23 Rx release losartan 100 mg tablet 100 mg PO DAILY #90 tabs 05/23/23 12/26/23 Rx metoprolol tartrate 100 mg tablet 50 mg PO BID 06/07/23 12/26/23 History clotrimazole-betamethasone 1 1 applic topical BID PRN Psoriasis 10/02/23 12/26/23 Rx %-0.05 % topical cream #45 grams amiodarone 200 mg tablet 200 mg PO DAILY #90 tabs 10/13/23 12/26/23 Rx atorvastatin 10 mg tablet 10 mg PO Q OTHER DAY #30 tabs 12/26/23 12/26/23 Rx diclofenac sodium 1 % topical gel 4 g topical QID PRN 12/26/23 12/26/23 History (Voltaren Arthritis Pain) apixaban 5 mg tablet (Eliquis) 5 mg PO BID #180 tabs 01/09/24 Rx tramadol 50 mg tablet 100 mg (2 x 50 mg) PO Q12H PRN 01/10/24 Rx pain #120 tabs furosemide 20 mg tablet 20 mg PO BID #180 tabs 01/12/24 Rx Past Med/Surg History Problem List Ventral hernia (Acute) Small bowel obstruction (Acute) Nausea & vomiting (Acute) Abdominal pain (Acute) On amiodarone therapy MARICEL (obstructive sleep apnea) DJD (degenerative joint disease) of knee Knee pain Lightheadedness Diabetes (Unknown) Acute on chronic diastolic heart failure Syncope Chronic diastolic heart failure Lower extremity edema Paroxysmal A-fib DVT prophylaxis Postoperative atrial fibrillation Morbid obesity Fatigue Acute systolic CHF (congestive heart failure) 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) Dyspnea on exertion (Acute) Congestive heart failure (Acute) Fluid overload (Acute) Psoriasis Syncope Cellulitis Non-ST elevation VA (NSTEMI) (Acute) Weakness (Acute) Acute electrocardiogram changes (Acute) Leukocytosis (Acute) Colon polyps Nocturnal hypoxemia Dyslipidemia Type 2 diabetes mellitus (Chronic) Chronic back pain (Chronic) CAD (coronary artery disease) (Chronic) Chronic obstructive lung disease (Chronic) Obstructive sleep apnea syndrome (Chronic) Hypertension (Chronic) Medical History Warfarin anticoagulation Unresponsive Sepsis secondary to UTI Hematuria Encephalopathy Surgical History History of tonsillectomy History of appendectomy History of colon surgery Family History Father Myocardial infarction Heart disease Mother Hypertension Other Diabetes Denies family history of Ovarian cancer Prostate cancer Breast cancer Lung cancer Colorectal cancer Stroke Social History Smoking Status: Never smoker Second Hand Exposure: No; Do You Dip or Chew Tobacco: No; Hx Alcohol Use: Yes Alcohol type: hard liquor Alcohol Intake Frequency: 2-4 x/Month Hx Substance Use: No Preferred Language: Upper Sorbian Communication Ability: Effective Visual Impairment: Limited Hearing Ability: Hard of Hearing Direct Marketing Specialist Required: No Beliefs That Will Affect Care: None marital status: Current Living Situation: Family current occupational status: retired current occupation: Retired How many Children do You have: 3 Feels Safe at Home: Yes Childhood Exposure to Second-Hand Smoke: No Diet: regular caffeine: Yes Dental Care, Regularly: No Physical Activity Frequency: 5-6 Times per Week Seatbelt Use: always Sunscreen Use: No Assistive Devices: Glasses Review of Systems Review of Systems: The patient denies chest pain, palpitations, shortness of breath, dyspnea on exertion, cough, sore throat, fevers, chills, sweats, nausea, vomiting, diarrhea , constipation, abdominal pain, pelvic pain, blood in urine or stool, dysuria, urinary frequency or urgency, lightheadedness, dizziness, headache, memory loss, loss of consciousness, rash, abnormal bruising or bleeding, imbalance, focal or generalized weakness, numbness or tingling in arms or legs, generalized arthralgias or myalgias, back or neck pain, or night sweats. The review of systems is otherwise negative other than for that already noted above, and at least 10 systems have been reviewed. Physical Exam Physical Exam: The patient is awake, alert and oriented 3, well developed and well nourished, normocephalic and atraumatic, sitting upright in bed after just having had NG tube placed HEENT--PERRL, EOMI, mucous membranes and oropharynx dry. Neck--supple. No JVD. No bruits. Thyroid normal, trachea midline, no adenopathy. Heart--normal S1 and S2. No murmurs, rubs or gallops. Lungs--clear bilaterally, no respiratory distress, no accessory muscle use. Abdomen--decreased bowel sounds. Obese. Distended. Generalized tenderness. Extremities--1+ bilateral pretibial pitting edema, left greater than right Dermatologic--normal skin turgor, normal color, no abnormal lymph nodes, no rash. Neurologic--cranial nerves II through XII grossly intact. Rheumatologic--limited exam due to body habitus Psychiatric--normal affect. Results & Data Results & Data Vital Signs (Past 12 Hours) Vital Signs Temp Pulse Pulse Resp BP BP Pulse Ox 01/22/24 05:24 58 L 01/22/24 03:30 54 L 20 186/113 H 90 01/22/24 01:35 95 01/22/24 01:30 59 L 01/22/24 01:21 37 C 57 L 20 197/97 H 95 O2 Del Method 01/22/24 05:24 01/22/24 03:30 Room Air 01/22/24 01:35 Room Air 01/22/24 01:30 01/22/24 01:21 Room Air Laboratory Results Laboratory Results WBC 9.63 K/ul (4.8-10.8) 01/22/24 01:35 RBC 5.45 M/uL (4.70-6.10) 01/22/24 01:35 Hgb 17.1 g/dl (14.0-18.0) 01/22/24 01:35 Hct 51.0 % (42.0-52.0) 01/22/24 01:35 MCV 93.6 fL (80.0-100.0) 01/22/24 01:35 MCH 31.4 pg (25.0-34.0) 01/22/24 01:35 MCHC 33.5 g/dL (32.0-36.0) 01/22/24 01:35 RDW Std Deviation 44.2 fL (36.4-46.3) 01/22/24 01:35 RDW Coeff of Vipul 13.2 % (11.5-14.5) 01/22/24 01:35 Plt Count 213 K/uL (130-400) 01/22/24 01:35 MPV 9.7 fL (9.4-12.4) 01/22/24 01:35 Immature Gran % (Auto) 0.4 % 01/22/24 01:35 Neut % (Auto) 72.4 % 01/22/24 01:35 Lymph % (Auto) 16.4 % 01/22/24 01:35 Slope % (Auto) 10.0 % 01/22/24 01:35 Eos % (Auto) 0.4 % 01/22/24 01:35 Baso % (Auto) 0.4 % 01/22/24 01:35 Neut # (Auto) 6.97 K/uL (1.40-6.50) H 01/22/24 01:35 Lymph # (Auto) 1.58 K/uL (1.20-3.40) 01/22/24 01:35 Slope # (Auto) 0.96 K/uL (0.11-0.59) H 01/22/24 01:35 Eos # (Auto) 0.04 K/uL (0.00-0.50) 01/22/24 01:35 Baso # (Auto) 0.04 K/uL (0.00-0.20) 01/22/24 01:35 Immature Gran # (Auto) 0.04 K/uL (0.01-0.20) 01/22/24 01:35 PT 11.0 Seconds (9.0-12.0) 01/22/24 01:35 INR 1.0 (0.9-1.1) 01/22/24 01:35 Sodium 140 mmol/L (136-145) 01/22/24 01:35 Potassium 4.0 mmol/L (3.5-5.1) 01/22/24 01:35 Chloride 102 mmol/L (98-107) 01/22/24 01:35 Carbon Dioxide 27 mmol/L (21-32) 01/22/24 01:35 Anion Gap 11 (3-11) 01/22/24 01:35 BUN 15 mg/dl (6-23) 01/22/24 01:35 Creatinine 1.17 mg/dl (0.6-1.4) 01/22/24 01:35 Est Cr Clr Drug Dosing 76.5 ml/min 01/22/24 01:35 Est GFR ( Amer) 69.8 ml/min 01/22/24 01:35 Est GFR (Non-Af Amer) 60.2 ml/min 01/22/24 01:35 BUN/Creatinine Ratio 12.8 (10-20) 01/22/24 01:35 Glucose 175 mg/dl (70-99(Fasting)) H 01/22/24 01:35 Lactate 2.9 mmol/L (0.4-2.0) H* 01/22/24 01:35 Calcium 10.2 mg/dl (8.6-10.3) 01/22/24 01:35 Magnesium 2.0 mg/dl (1.7-2.4) 01/22/24 01:35 Total Bilirubin 1.2 mg/dl (0.2-1.0) H 01/22/24 01:35 AST 31 U/L (13-39) 01/22/24 01:35 ALT 26 U/L (7-52) 01/22/24 01:35 Alkaline Phosphatase 128 U/L (34-104) H 01/22/24 01:35 Troponin I High Sens 6.4 pg/ml (0-20) 01/22/24 01:35 Total Protein 7.7 gm/dl (6.0-8.3) 01/22/24 01:35 Albumin 4.3 gm/dl (3.4-5.0) 01/22/24 01:35 Globulin 3.4 gm/dl (2.5-4.0) 01/22/24 01:35 Albumin/Globulin Ratio 1.3 (0.9-2) 01/22/24 01:35 Lipase 8 U/L (11-82) L 01/22/24 01:35 Nasal Influ A H1 2009 PCR TEAROOM HOSTESS 01/22/24 01:35 Adenovirus (PCR) Not Detected (NotDetected) 01/22/24 01:25 B. pertussis DNA (PCR) Not Detected (NotDetected) 01/22/24 01:25 B.parapertussis DNA PCR Not Detected (NotDetected) 01/22/24 01:25 C. pneumoniae DNA (PCR) Not Detected (NotDetected) 01/22/24 01:25 Coronavirus OC43 (PCR) Not Detected (NotDetected) 01/22/24 01:25 Coronavirus HKU1 (PCR) Not Detected (NotDetected) 01/22/24 01:25 Coronavirus 229E (PCR) Not Detected (NotDetected) 01/22/24 01:25 SARS-CoV-2 (PCR) Not Detected (NotDetected) 01/22/24 01:25 Coronavirus NL63 (PCR) Not Detected (NotDetected) 01/22/24 01:25 Human Metapneumovir PCR Not Detected (NotDetected) 01/22/24 01:25 Influenza A (H1) PCR TEAROOM HOSTESS 01/22/24 01:35 Influenza A (H3) PCR TEAROOM HOSTESS 01/22/24 01:35 Influenza Type A (PCR) Not Detected (NotDetected) 01/22/24 01:25 Influenza A Untype (PCR) TEAROOM HOSTESS 01/22/24 01:35 Influenza Type B (PCR) Not Detected (NotDetected) 01/22/24 01:25 M. pneumoniae (PCR) Not Detected (NotDetected) 01/22/24 01:25 Parainfluenza 1 (PCR) Not Detected (NotDetected) 01/22/24 01:25 Parainfluenza 2 (PCR) Not Detected (NotDetected) 01/22/24 01:25 Parainfluenza 3 (PCR) Not Detected (NotDetected) 01/22/24 01:25 Parainfluenza 4 (PCR) Not Detected (NotDetected) 01/22/24 01:25 RSV (PCR) Not Detected (NotDetected) 01/22/24 01:25 Entero/Rhino (PCR) Not Detected (NotDetected) 01/22/24 01:25 Impressions Abdomen/Pelvis CT 01/22/24 01:26 Exam(s): CT ABDOMEN + PELVIS With Contrast IV Amt: 116ml optiray 320 EXAM: CT Abdomen and Pelvis With Intravenous Contrast CLINICAL HISTORY: Reason for exam: abdominal pain; N/V. TECHNIQUE: Axial computed tomography images of the abdomen and pelvis with intravenous contrast. CTDI is 34.91 mGy and DLP is 1790.48 mGy-cm. Automated exposure control was utilized for the study. A dose lowering technique was utilized adhering to the principles of ALARA. CONTRAST: Patient received 116ml optiray 320 of IV contrast COMPARISON: No relevant prior studies available. FINDINGS: Lung bases: Unremarkable. No mass. No consolidation. ABDOMEN: Liver: Unremarkable. No mass. Gallbladder and bile ducts: Cholelithiasis. No ductal dilation. Pancreas: Unremarkable. No mass. No ductal dilation. Spleen: Unremarkable. No splenomegaly. Adrenals: Unremarkable. No mass. Kidneys and ureters: Unremarkable. No hydronephrosis or delayed nephrogram. Stomach and bowel: Ventral abdominal wall hernia which contains multiple small bowel loops, contributing to small bowel obstruction. The dilated bowel measures up to 3.6 cm. Surgical evaluation recommended. No mucosal thickening. PELVIS: Appendix: No findings to suggest acute appendicitis. Bladder: Unremarkable. No mass. Reproductive: Unremarkable as visualized. ABDOMEN and PELVIS: Intraperitoneal space: Unremarkable. No free air. No significant fluid collection. Bones/joints: Degenerative changes of the spine. No acute fracture. No dislocation. Soft tissues: Failed hernia mesh in the anterior abdomen. Vasculature: Atherosclerotic changes of the aorta. No abdominal aortic aneurysm. Lymph nodes: Unremarkable. No enlarged lymph nodes. IMPRESSION: Small bowel obstruction secondary to ventral abdominal wall hernia, which has occurred in the setting of failed anterior hernia mesh. Surgical evaluation recommended. Electronically signed by: Jason Dubose MD 01/22/24 04:39 AM Code Status & VTE Plan Code Status Full code VTE Prophylaxis Plan VTE Prophylaxis will be ordered: Yes PG Care Time/CCT Total # of Minutes Spent Total Time Spent with Patient: Total time spent is greater than 50% in coordination of care (as documented) at patient's floor/unit and/or counseling patient: Coding Level of Care Code 53915 INT INP/OBS CARE 3/75MIN Diagnoses Small bowel obstruction K56.609 Ventral hernia K43.9 Nausea & vomiting R11.2 Abdominal pain R10.9 On amiodarone therapy Z79.899 MARICEL (obstructive sleep apnea) G47.33 Diabetes E11.9 Chronic diastolic heart failure I50.32 Lower extremity edema R60.0 Paroxysmal A-fib I48.0 Type 2 diabetes mellitus without complication, without long-term current use of insulin E11.9 Diabetes mellitus intermediate card tender insulin use: without [facility] use Diabetes mellitus complication status: without complication Coronary artery disease involving huslia coronary artery of [place] heart without angina pectoris I25.10 Coronary Disease-Associated Artery/Lesion type: huslia artery [place] vs. transplanted heart: hus[place] heart Associated angina: without angina Chronic obstructive lung disease J44.9 (11) Type 2 diabetes mellitus Diabetes mellitus [facility] insulin use: without [facility] use Diabetes mellitus complication status: without complication Qualified Code(s): E11.9 - Type 2 diabetes mellitus without complications (12) CAD (coronary artery disease) Coronary Disease-Associated Artery/Lesion type: [place] artery [place] vs. transplanted heart: hus[place] heart Associated angina: without angina Qualified Code(s): I25.10 - Atherosclerotic heart disease of [place] coronary artery without angina pectoris
[2024-01-22] MEDS ORDERED: GLUCOSE 10 TAB/TUBE PO PRN (06:19)
[2024-01-22] MEDS ORDERED: ALBUT/IPRATROP 3MG/0.5MG NEB 3 ML VIAL NEB PRN (06:19)
[2024-01-22] MEDS ORDERED: DEXTROSE 50% 50 ML SYRINGE IV PRN (06:19)
[2024-01-22] MEDS ORDERED: ACETAMINOPHEN 1000 MG/100 ML IV IV PRN (06:19)
[2024-01-22] MEDS ORDERED: GLUCAGON FOR INJ 1 MG VIAL SQ PRN (06:19)
[2024-01-22] MEDS ORDERED: CARBOHYDRATES FOR HYPOGLYCEMIA PO PRN (06:19)
[2024-01-22] MEDS ORDERED: GLUCOSE 40% GEL 15 GM TUBE PO PRN (06:19)
[2024-01-22] MEDS: INSULIN ASPART PER UNIT CHARGE SC SCH (07:16)
[2024-01-22] MEDS: NSS + 20MEQ KCL 20 MEQ/1,000 ML BAG IV SCH (07:33)
[2024-01-22] MEDS: HEPARIN 25000 UNIT/500 ML D5W IV ONE (07:35)
[2024-01-22 07:51] LABS: Partial Thromboplastin Time 28 Seconds (21-31)
[2024-01-22 08:20] LABS: Appearance Urine Clear (Clear); Bacteria Urine Automated None Seen (None Seen); Bilirubin Urine Negative (Negative); Blood Urine Negative (Negative); Cast Urine Automated 0-2 /lpf (0-2); Color Urine Yellow; Epithelial Cell Urine Auto 0-2 /hpf (0-2); Glucose Urine UA Negative (Negative); Ketones Urine 1+ (Negative); Leukocyte Esterase Urine Negative (Negative); Mucus Urine Present (None Prsent); Nitrite Urine Negative (Negative); Protein Urine 1+ (Negative); RBC Urine Automated 0-2 /hpf (0-2); Specific Gravity Urine > 1.045 (1.000-1.030); Urobilinogen Urine Negative (Negative); WBC Urine Automated 0-5 /hpf (0-5); pH Urine 7.5 (4.5-7.5)
[2024-01-22] MEDS: HEPARIN SODIUM/DEXTROSE 25,000 UNITS/500 ML BAG IV SCH (09:05)
[2024-01-22] MEDS: Heparin IV Adult Wt-Based Low-Dose *NO* INITIAL Bolus Protocol IV STA (09:05)
[2024-01-22] MEDS: ONDANSETRON INJ 2 MG/ML 2 ML VIAL IV PRN (09:06)
[2024-01-22] MEDS: PANTOprazole 40 MG in SYRINGE 0 ML IV SCH (11:54)
[2024-01-22] MEDS: CHLORASEPTIC (PHENOL) 1.4% SOLN 180 ML BTL MT PRN (11:54)
[2024-01-22] MEDS: PIPERACILLIN/TAZOBACTAM 4.5 GM in DEXTROSE 5% MINI-B 100 ML IV SCH (12:57)
--- NOTE | 2024-01-22 13:19 | History & Physical Bridge Note ---
Date of Service January 22, 2024 History & Physical Bridge Note I have examined the patient, reviewed the History & Physical and in the interval since the performance of the History & Physical I have noted the following changes of clinical significance: no changes noted Seen in ER, C3 Since NGT placed, significant improvement in abdominal pain. Plan to continue NGT at present time and plan for KUB in AM with outpatient follow up with surgery for hernia repair however will monitor for any worsening. Discussed lactic added by surgery MARTINE this morning when initially trending down but up to 3.1. Patient again, feeling better, and discussed will plan to repeat for eval/also notified surgery. Initially planned to make lopressor scheduled for HR controlled but was 54bpm when I was in room and will continue q4h prn as needed and monitor for need to increase to scheduled if HR>70 consistently Resume home meds as able but remains NPO at present time, IVF as outlined and Zosyn IV Repeat labs for this afternoon. Abdomen soft/no significant tenderness. Prior scar noted from CABG. No CP reported. Remains on heparin gtt for now/resume home eliquis in AM if KUB w/resolution in symptoms. Monitor f/u labs/electrolyte replacement as needed and consider small IVF bolus if needed/lactic further elevated on repeat but holding off for now given hx CHF but remains 96% on RA at present time. Of note, TB 1.2/ALp elevation, imaging noting GB filled w/ stones but no acute tucker and no RUQ discomfort on exam but will need to monitor. Again, on Zosyn IV at present time. Questions/concerns addressed at this time, to alert nursing of any worsened abdominal pain/fever/CP/SOB.
[2024-01-22] MEDS: METOPROLOL TARTRATE 1 MG/ML VIAL IV SCH (13:38)
--- NOTE | 2024-01-22 13:59 | XRay Report ---
SINGLE VIEW CHEST CLINICAL HISTORY: Enteric tube placement FINDINGS: 2 AP, portable, upright chest radiographs are compared to study dated 01/04/2024. The patien t is status post midline sternotomy. The enteric tube has been placed. The tip projects below the flakita phragm over the proximal stomach. The heart is enlarged noting atherosclerotic calcification of the t horacic aorta. The pulmonary vasculature is noncongested. Chronic interstitial thickening similar to previous. Scarring/atelectasis is noted at the lung bases. No airspace consolidation or large pleural effusion is identified. No pneumothorax is seen. The skeletal structures are osteopenic. The bony th orax is grossly intact. Arthritic change is seen in the shoulders. IMPRESSION: 1. Cardiomegaly with no acute cardiopulmonary abnormality identified. 2. An enteric tube has been placed as above. ACT 112: Negative or not required by law. Electronically signed by: Robinson Maya M.D. 01/22/2024 1:57 PM
[2024-01-22 15:33] LABS: Albumin Level 3.7 gm/dl (3.4-5.0); Bilirubin,Total 1.1 mg/dl (0.2-1.0); Potassium 3.8 mmol/L (3.5-5.1)
[2024-01-22 15:36] LABS: Basophils # (auto) 0.03 K/uL (0.00-0.20); Basophils % (auto) 0.3 %; Eosinophils # (auto) 0.02 K/uL (0.00-0.50); Eosinophils % (auto) 0.2 %; Hematocrit (blood only) 48.1 % (42.0-52.0); Hemoglobin 15.6 g/dl (14.0-18.0); Immature Granulocytes # (auto) 0.03 K/uL (0.01-0.20); Immature Granulocytes % (auto) 0.3 %; Lymphocytes # (auto) 1.31 K/uL (1.20-3.40); Mean Corpuscular Hgb Conc 32.4 g/dL (32.0-36.0); Mean Corpuscular Volume 95.6 fL (80.0-100.0); Mean Platelet Volume 10.1 fL (9.4-12.4); Monocytes # (auto) 1.48 K/uL (0.11-0.59); Monocytes % (auto) 16.9 %; Neutrophils # (auto) 5.88 K/uL (1.40-6.50); Neutrophils % (auto) 67.3 %; Platelet Count 183 K/uL (130-400); RDW Coefficient of Variation 13.3 % (11.5-14.5); RDW Standard Deviation 46.9 fL (36.4-46.3); Red Blood Count 5.03 M/uL (4.70-6.10); White Blood Count 8.75 K/ul (4.8-10.8)
[2024-01-22 15:39] LABS: Albumin Globulin Ratio 1.3 (0.9-2); BUN Creatinine Ratio 15.3 (10-20); Creatinine Clr Calc Pharmacy 91.3 ml/min; Est GFR (African American) 86.5 ml/min; Est GFR (Non-African American) 74.6 ml/min; Globulin 2.9 gm/dl (2.5-4.0); Total Protein 6.6 gm/dl (6.0-8.3)
[2024-01-22 16:01] LABS: ANTI-Xa, UFH(UnfractionatedHep 0.77 IU/ml (0.3-0.7)
--- NOTE | 2024-01-22 17:09 | Electrocardiogram Report ---
Test Reason : Blood Pressure : / mmHG Vent. Rate : 053 BPM Atrial Rate : 053 BPM P-R Int : 168 ms QRS Dur : 104 ms QT Int : 532 ms P-R-T Axes : 024 071 073 degrees QTc Int : 499 ms Sinus bradycardia Prolonged QT Abnormal ECG When compared with ECG of 04-JAN-2024 04:46, No significant change was found Confirmed by Guevara Mabry ([id number]) on 01/22/2024 5:09:19 PM Referred By: REFERRED SELF Confirmed By:Guevara Mabry
[2024-01-22] MEDS: METOPROLOL TARTRATE 50 MG TAB PO STA (17:59)
[2024-01-22 23:39] LABS: ANTI-Xa, UFH(UnfractionatedHep 0.64 IU/ml (0.3-0.7)
[2024-01-23 06:08] LABS: Basophils # (auto) 0.04 K/uL (0.00-0.20); Basophils % (auto) 0.6 %; Eosinophils # (auto) 0.05 K/uL (0.00-0.50); Eosinophils % (auto) 0.8 %; Hematocrit (blood only) 44.8 % (42.0-52.0); Hemoglobin 14.5 g/dl (14.0-18.0); Immature Granulocytes # (auto) 0.02 K/uL (0.01-0.20); Immature Granulocytes % (auto) 0.3 %; Lymphocytes % (auto) 14.1 %; Mean Corpuscular Hemoglobin 31.4 pg (25.0-34.0); Mean Corpuscular Hgb Conc 32.4 g/dL (32.0-36.0); Mean Platelet Volume 9.8 fL (9.4-12.4); Monocytes # (auto) 1.13 K/uL (0.11-0.59); Monocytes % (auto) 17.7 %; Neutrophils # (auto) 4.26 K/uL (1.40-6.50); Neutrophils % (auto) 66.5 %; Platelet Count 166 K/uL (130-400); RDW Coefficient of Variation 13.4 % (11.5-14.5); RDW Standard Deviation 47.6 fL (36.4-46.3); Red Blood Count 4.62 M/uL (4.70-6.10)
[2024-01-23 06:16] LABS: Albumin Globulin Ratio 1.3 (0.9-2); Albumin Level 3.5 gm/dl (3.4-5.0); BUN Creatinine Ratio 14.7 (10-20); Bilirubin,Total 1.1 mg/dl (0.2-1.0); Calcium 8.6 mg/dl (8.6-10.3); Creatinine Clr Calc Pharmacy 86.5 ml/min; Est GFR (African American) 82.4 ml/min; Est GFR (Non-African American) 71.1 ml/min; Globulin 2.6 gm/dl (2.5-4.0); Potassium 3.9 mmol/L (3.5-5.1); Total Protein 6.1 gm/dl (6.0-8.3)
[2024-01-23 06:23] LABS: ANTI-Xa, UFH(UnfractionatedHep 0.53 IU/ml (0.3-0.7)
[2024-01-23] MEDS: hydrALAZINE HCL 20 MG/ML VIAL IV PRN (06:29)
[2024-01-23 07:11] LABS: Estimated Average Glucose 126 mg/dl
--- NOTE | 2024-01-23 07:43 | Surgery Progress Note ---
Date of Service January 23, 2024 Assessment & Plan (1) Ventral hernia: (2) Small bowel obstruction: Plan: ventral hernia TTP, large defect felt within abd wall, no erythema noted Since NGT displacement no n/v , abd pain, tolerating sips and chips, Denies CP, SOB Has had 5-6 BMs since admission Pt wears abd binder at home, will get one for here VSS bradycardiac 58 no wbc elevation, lactate repeat yesterday 1.4 Will poss. start clears after KUB this AM Admission and Anticipated Discharge Date Admission Date: January 22, 2024 Supervising Physician Co-Signing Physician Notes Patient states no N/V, is passing flatus. Hernia itself is sore to palpation but has no abdominal pain otherwise. May start on clears, no carbonated beverages Had a long discussion with the patient regarding his weight and the implications of this on a formal hernia repair. He states his hernia recurred very shortly after it was repaired and admits he will not stop lifting heavy things. He is encouraged t0 loose weight in order to achieve a BMI of under 40 as close to 35 as possible. He will need to come down to 260-270 pounds at least to be a better candidate for hernia repair. He will use the abdominal binder he has been given and not perform activities that will cause him to tighten his abdominal muscles. He is also educated on how to reduce his hernia should he develop pain while intra-abdominal contents are protruding. We will follow up in the am Subjective Patient resting in bed denies abd pain, SOB, CP NGT was accidently removed last night, No n/v since displacement has had 5-6 BM's since yesterday Tolerating sips and chips Review of Systems Constitutional: no fever and no chills Respiratory: no dyspnea Cardiovascular: no chest pain Gastrointestinal: no abdominal pain, no nausea and no vomiting Physical Exam Physical Exam: alert oriented Constitutional: cooperative and comfortable; no acute distress Respiratory: normal respiratory effort and able to speak in complete sentences; no respiratory distress Cardiovascular: Rate/Rhythm: + bradycardic (58) Gastrointestinal (Abdomen): Inspection/Auscultation: + abdominal surgical scar Percussion/Palpation: + abdomen tender (ventral hernia TTP, large defect felt within abd wall, no erythema noted ) and abdomen soft Results & Data Vital Signs (Past 12 Hours) Vital Signs Temp Pulse Pulse Resp BP Pulse Ox O2 Del Method 06/18/24 07:36 99.0 F 58 L 18 170/82 H 91 Room Air 01/23/24 06:48 57 L 171/80 H 01/23/24 06:23 54 L 190/97 H 01/23/24 02:10 97.3 F L 60 18 173/89 H 94 Room Air 01/23/24 00:11 57 L 18 184/84 H 01/22/24 23:28 175/79 H 01/22/24 22:53 97.9 F 65 18 95 Room Air 01/22/24 22:05 63 63 18 159/83 H 94 Room Air 01/22/24 21:40 Room Air Results CBC w Diff Results: RBC 4.62 M/uL (4.70-6.10) L 01/23/24 WBC 6.40 K/ul (4.8-10.8) 01/23/24 Hgb 14.5 g/dl (14.0-18.0) 01/23/24 Hct 44.8 % (42.0-52.0) 01/23/24 MCV 97.0 fL (80.0-100.0) 01/23/24 MCH 31.4 pg (25.0-34.0) 01/23/24 MCHC 32.4 g/dL (32.0-36.0) 01/23/24 RDW Standard Deviation 47.6 fL (36.4-46.3) H 01/23/24 RDW Coefficient of Variation 13.4 % (11.5-14.5) 01/23/24 Plt Count 166 K/uL (130-400) 01/23/24 MPV 9.8 fL (9.4-12.4) 01/23/24 Neutrophils (%) (Auto) 66.5 % 01/23/24 Lymphocytes (%) (Auto) 14.1 % 01/23/24 Monocytes # (Auto) 1.13 K/uL (0.11-0.59) H 01/23/24 Eosinophils # (Auto) 0.05 K/uL (0.00-0.50) 01/23/24 Immature Granulocyte % (Auto) 0.3 % 01/23/24 Neutrophils # (Auto) 4.26 K/uL (1.40-6.50) 01/23/24 Lymphocytes # (Auto) 0.90 K/uL (1.20-3.40) L 01/23/24 Monocytes # (Auto) 1.13 K/uL (0.11-0.59) H 01/23/24 Eosinophils # (Auto) 0.05 K/uL (0.00-0.50) 01/23/24 Basophils # (Auto) 0.04 K/uL (0.00-0.20) 01/23/24 Immature Granulocyte # (Auto) 0.02 K/uL (0.01-0.20) 4 Results CMP Results: Na 142 mmol/L (136-145) 01/23/24 K 3.9 mmol/L (3.5-5.1) 01/23/24 Cl 108 mmol/L (98-107) H 01/23/24 CO2 29 mmol/L (21-32) 01/23/24 Anion Gap 5 (3-11) 01/23/24 BUN 15 mg/dl (6-23) 01/23/24 Creatinine 1.02 mg/dl (0.6-1.4) 01/23/24 Estimated GFR ( Amer) 82.4 ml/min 01/23/24 Estimated GFR (Non-Af Amer) 71.1 ml/min 01/23/24 BUN/Creatinine Ratio 14.7 (10-20) 01/23/24 Glu 124 mg/dl (70-99(Fasting)) H 01/23/24 Ca 8.6 mg/dl (8.6-10.3) 01/23/24 Total Bilirubin 1.1 mg/dl (0.2-1.0) H 01/23/24 Direct Bilirubin 0.2 mg/dl (0-0.2) 05/21/22 AST 19 U/L (13-39) 01/23/24 ALT 16 U/L (7-52) 01/23/24 Alkaline Phosphatase 90 U/L (34-104) 01/23/24 TP 6.1 gm/dl (6.0-8.3) 01/23/24 Albumin 3.5 gm/dl (3.4-5.0) 01/23/24 Globulin 2.6 gm/dl (2.5-4.0) 01/23/24 Albumin/Globulin Ratio 1.3 (0.9-2) 01/23/24 PG Care Time/CCT Total # of Minutes Spent Total Time Spent with Patient: Total time spent is greater than 50% in coordination of care (as documented) at patient's floor/unit and/or counseling patient: Coding Level of Care Code 70199 SUB INP/OBS CARE 08/31MIN Diagnoses Ventral hernia K43.9 Small bowel obstruction K56.609
[2024-01-23] MEDS: ACETAMINOPHEN 1,000 MG/100 ML VIAL IV PRN (08:36)
--- NOTE | 2024-01-23 08:48 | XRay Report ---
KUB HISTORY: Acute abdominal pain with reported obstruction SBO COMPARISON: 01/22/2024 FINDINGS: Progressive small bowel dilation compatible with obstruction. Dilated air-filled loops left abdomen measure up to 5.3 cm transversely. Numerous scattered surgical clips with herniorrhaphy coil s. Air is also noted within the large bowel. Contrast in the urinary bladder lumen. No renal calculi . No ureteral calculi. No pneumoperitoneum or pneumatosis. Changes of the spine, pelvis and hips. No fracture. IMPRESSION: Persistent obstruction with progressive small bowel dilation. ACT 112: Negative or not required by law. The above report was generated using voice recognition software. It may contain grammatical, syntax o r spelling errors. Electronically signed by: Collin Cook M.D. 01/23/2024 8:45 AM
--- NOTE | 2024-01-23 12:51 | Electrocardiogram Report ---
Test Reason : Blood Pressure : / mmHG Vent. Rate : 054 BPM Atrial Rate : 054 BPM P-R Int : 170 ms QRS Dur : 110 ms QT Int : 482 ms P-R-T Axes : 017 072 067 degrees QTc Int : 457 ms Sinus bradycardia Otherwise normal ECG When compared with ECG of 22-JAN-2024 01:30, No significant change was found Confirmed by Guevara Mabry ([id number]) on 01/23/2024 12:50:58 PM Referred By: REFERRED SELF Confirmed By:Guevara Mabry
[2024-01-23] MEDS: LOSARTAN POTASSIUM 50 MG TAB PO SCH (16:08)
--- NOTE | 2024-01-23 18:01 | Hospitalist Progress Note ---
Date of Service January 23, 2024 Assessment & Plan (1) Small bowel obstruction: Plan: secondary to ventral abdominal hernia/failed anterior hernia mesh (had hernia surgery many years ago) SBO clinically improving; passing flatus/stool, no N/V since NG tube removal appreciate gen surg assistance no plans for surgical intervention at this time diet advancement per surgery (2) Ventral hernia: Plan: reading surgical note today no plans for re-do of his ventral hernia repair unless he has significant weight loss in the future see #1 above (3) Abdominal pain: Plan: 2nd to #1 - resolved (4) On amiodarone therapy: Plan: can resume 200mg daily starting tomorrow am (5) MARICEL (obstructive sleep apnea): (6) Diabetes: Plan: a1c 6% loose sliding scale with novolog (7) Chronic diastolic heart failure: Plan: likely resume lasix tomorrow resume metoprolol albeit at lower dose today (8) Paroxysmal A-fib: Plan: Eliquis on hold cont heparin drip - but can likely transition back to Eliquis if #1 continue to improve over next 1-2 days resume amiodarone tomorrow resume metoprolol today (9) CAD (coronary artery disease): (10) Chronic obstructive lung disease: Plan: no exacerbation at this time (11) Chills (without fever): Plan: Resp BioFire neg at admission u/a not suspicious for UTI CXR w/o pneumonia check anaplasmosis and babesia smears; check Lyme screen start empiric doxy he is already on zosyn - for #1/#2?? 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: (15) Hypertension: Plan: resume losartan 100mg daily due to low-normal HRs will resume metoprolol albeit at lower dose; titrate back up as tolerated hydralazine IV prn Plan son/ updated at bedside needs PT/OT tim Admission and Anticipated Discharge Date Admission Date: January 22, 2024 Subjective had NG tube in place until last pm - was inadvertently removed passing flatus, multiple BMs no N/V tolerating clears, but has little appetite /son at bedside they express concern he has been having shaking chills since hospital admission he has been very tired since admission 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 [place] - perform numerous tasks and outdoor work no obvious tick bites no recent travel Review of Systems Review of Systems: gen - fatigue, weak, shaking chills/cold sweats, no appetite cv - no cp HENT - no URI symptoms muscular - positive for myalgias skin - no rash although scrotal region has been red pulm - no cough Physical Exam Physical Exam: gen - morbidly obese, lying flat in bed, looks sickly, darkly tanned/flushed in face mouth - MMM neck - no JVD heart - RRR, s1 s2 lungs - CTA b/l abd - distended, midline scar, BS+, NT, abd binder in place - scrotal erythema but no cellulitis; malodor present; no rash in skin folds; testicles not tender ext - no edema, pulses 2+ b/l musculo - no synovitis skin - no generalized rash (just mild erythema of scrotal region) Results & Data Results & Data Vital Signs (Past 12 Hours) Vital Signs Temp Pulse Resp BP Pulse Ox O2 Del Method 01/23/24 17:58 161/81 H 01/23/24 15:58 176/82 H 01/23/24 15:14 36.7 C 55 L 18 202/111 H 95 Room Air 01/23/24 11:50 36.5 C 61 18 198/79 H 94 Room Air 01/23/24 07:36 37.2 C 58 L 18 170/82 H 91 Room Air 01/23/24 06:48 57 L 171/80 H 01/23/24 06:23 54 L 190/97 H Laboratory Results Laboratory Results - last 24 hr 01/22/24 01/23/24 01/23/24 22:38 00:07 05:35 WBC 6.40 RBC 4.62 L Hgb 14.5 Hct 44.8 MCV 97.0 MCH 31.4 MCHC 32.4 RDW Std Deviation 47.6 H RDW Coeff of Vipul 13.4 Plt Count 166 MPV 9.8 Immature Gran % (Auto) 0.3 Neut % (Auto) 66.5 Lymph % (Auto) 14.1 [place] % (Auto) 17.7 Eos % (Auto) 0.8 Baso % (Auto) 0.6 Neut # (Auto) 4.26 Lymph # (Auto) 0.90 L [place] # (Auto) 1.13 H Eos # (Auto) 0.05 Baso # (Auto) 0.04 Immature Gran # (Auto) 0.02 Heparin Anti-Xa, Unfract 0.64 0.53 Sodium 142 Potassium 3.9 Chloride 108 H Carbon Dioxide 29 Anion Gap 5 BUN 15 Creatinine 1.02 Est Cr Clr Drug Dosing 86.5 Est GFR ( Amer) 82.4 Est GFR (Non-Af Amer) 71.1 BUN/Creatinine Ratio 14.7 Glucose 124 H POC Glucose 114 H Estimat Average Glucose 126 Hemoglobin A1c 6.0 H Calcium 8.6 Magnesium 2.0 Total Bilirubin 1.1 H AST 19 ALT 16 Alkaline Phosphatase 90 Total Protein 6.1 Albumin 3.5 Globulin 2.6 Albumin/Globulin Ratio 1.3 01/23/24 01/23/24 01/23/24 06:04 11:58 16:18 WBC RBC Hgb Hct MCV MCH MCHC RDW Std Deviation RDW Coeff of Vipul Plt Count MPV Immature Gran % (Auto) Neut % (Auto) Lymph % (Auto) [place] % (Auto) Eos % (Auto) Baso % (Auto) Neut # (Auto) Lymph # (Auto) [place] # (Auto) Eos # (Auto) Baso # (Auto) Immature Gran # (Auto) Heparin Anti-Xa, Unfract Sodium Potassium Chloride Carbon Dioxide Anion Gap BUN Creatinine Est Cr Clr Drug Dosing Est GFR ( Amer) Est GFR (Non-Af Amer) BUN/Creatinine Ratio Glucose POC Glucose 95 95 98 Estimat Average Glucose Hemoglobin A1c Calcium Magnesium Total Bilirubin AST ALT Alkaline Phosphatase Total Protein Albumin Globulin Albumin/Globulin Ratio PG Care Time/CCT Total # of Minutes Spent Total Time Spent with Patient: Total time spent is greater than 50% in coordination of care (as documented) at patient's floor/unit and/or counseling patient: Coding Level of Care Code 91173 SUB INP/OBS CARE 3/50MIN Diagnoses Small bowel obstruction K56.609 Ventral hernia K43.9 Abdominal pain R10.9 On amiodarone therapy Z79.899 MARICEL (obstructive sleep apnea) G47.33 Diabetes E11.9 Chronic diastolic heart failure I50.32 Paroxysmal A-fib I48.0 Coronary artery disease involving [place] coronary artery of [place] heart without angina pectoris I25.10 Associated angina: without angina Coronary Disease-Associated Artery/Lesion type: [place] artery Hoh vs. transplanted heart: [place] heart Chronic obstructive lung disease J44.9 Chills (without fever) R68.83 Chronic narcotic dependence F11.20 Morbid obesity E66.01 S/P CABG x 2 Z95.1 Essential hypertension I10 Hypertension type: essential hypertension (9) CAD (coronary artery disease) Associated angina: without angina Coronary Disease-Associated Artery/Lesion type: [place] artery Hoh vs. transplanted heart: [place] heart Qualified Code(s): I25.10 - Atherosclerotic heart disease of [place] coronary artery without angina pectoris (15) Hypertension Hypertension type: essential hypertension Qualified Code(s): I10 - Essential (primary) hypertension
[2024-01-23] MEDS: DOXYCYCLINE HYCLATE 100 MG CAP PO STA (18:40)
[2024-01-23] MEDS: traMADol HCL 50 MG TABLET PO STA (18:43)
[2024-01-23 19:49] LABS: Procalcitonin 0.06 ng/ml (0-0.5)
[2024-01-23 20:14] LABS: Lyme Screen Rflx Confirmation Negative (Negative)
[2024-01-23] MEDS: METOPROLOL TARTRATE 25 MG TAB PO SCH (21:56)
[2024-01-23] MEDS: NYSTATIN POWDER 15GM BTL EXT SCH (21:57)
[2024-01-24] MEDS: PROCHLORPERAZINE 10 MG in SYRINGE 8 ML IV ONE (00:09)
[2024-01-24] MEDS ORDERED: Nursing to Pharmacy Communication SCH ×2 (00:15)
[2024-01-24 06:39] LABS: BUN Creatinine Ratio 13.6 (10-20); Calcium 8.5 mg/dl (8.6-10.3); Creatinine Clr Calc Pharmacy 101.1 ml/min; Est GFR (African American) 96.7 ml/min; Est GFR (Non-African American) 83.4 ml/min
[2024-01-24 07:16] LABS: ANTI-Xa, UFH(UnfractionatedHep 0.26 IU/ml (0.3-0.7)
--- NOTE | 2024-01-24 07:59 | Surgery Progress Note ---
<Statement entered by Edward Barrett DO - 01/24/24 17:36> I have seen and examined this patient this a.m. He is not currently obstructed at the area of the ventral hernia which is readily reducible. Believes this episode of nausea vomiting was from taking in too much too quickly. Of note KUB revealed the appearance of slightly more distended small bowel loops today. The patient has absolutely no abdominal pain and is not tender to palpation. He continues to pass flatus. May continue with clear liquids at this time. Follow-up KUB in the a.m. Date of Service January 24, 2024 Assessment & Plan (1) Ventral hernia: Plan: Pt reports feeling nauseated and asking nurse for medication States he threw up his lunch yesterday still passing flatus Denies CP, SOB , abd pain made NPO ventral hernia feels reduced at present time with patient supine, kerlix ball placed over defect and abd binder securely around abdomen Will order KUB for this AM VSS (2) Small bowel obstruction: Admission and Anticipated Discharge Date Admission Date: January 22, 2024 Subjective Pt reports feeling nauseated and asking nurse for medication States he threw up his lunch yesterday still passing flatus Denies CP, SOB , abd pain Review of Systems Constitutional: no fever and no chills Respiratory: no dyspnea Cardiovascular: no chest pain Gastrointestinal: + nausea; no abdominal pain Physical Exam Physical Exam: resting in bed Constitutional: cooperative and comfortable; no acute distress Respiratory: normal respiratory effort and able to speak in complete sentences; no respiratory distress Cardiovascular: Rate/Rhythm: regular rate Gastrointestinal (Abdomen): Inspection/Auscultation: + visible herniation (feels reduced and able to feel large defect ) Percussion/Palpation: + abdomen tender (at hernia ), abdomen soft and + hernia Results & Data Vital Signs (Past 12 Hours) Vital Signs Temp Pulse Pulse Resp BP Pulse Ox O2 Del Method 01/24/24 07:47 97.9 F 64 20 175/86 H 90 Room Air 01/24/24 03:19 98.1 F 60 19 175/75 H 92 Room Air 01/24/24 00:00 67 01/23/24 23:19 99.0 F 61 20 153/74 H 94 Room Air 01/23/24 21:55 66 158/77 H 06/18/24 20:38 61 165/71 H 06/18/24 20:04 Room Air PG Care Time/CCT Total # of Minutes Spent Total Time Spent with Patient: Total time spent is greater than 50% in coordination of care (as documented) at patient's floor/unit and/or counseling patient: Coding Level of Care Code 73440 SUB INP/OBS CARE 08/31MIN Diagnoses Ventral hernia K43.9 Small bowel obstruction K56.609
[2024-01-24] MEDS: INSULIN ASPART PER UNIT CHARGE SC SCH (08:11)
--- NOTE | 2024-01-24 08:44 | XRay Report ---
KUB CLINICAL HISTORY: Small bowel obstruction. FINDINGS: 4 AP, portable, supine abdominal radiographs are compared to study dated 01/23/2024 and heide elated with abdominal CT dated 01/22/2024. Mesh material projects over the abdomen. There is evidence of persistent small bowel obstruction. Distended and gas-filled loops of small bowel measure up to 5. 7 cm. No evidence of intraperitoneal free air is seen on these supine images. There are no abnormal a bdominal calcifications. Small phleboliths are seen in the pelvis. The skeletal structures are osteop enic and appear intact. There is moderate lumbosacral spondylosis. IMPRESSION: Persistent small bowel obstruction. Electronically signed by: Robinson Maya M.D. 01/24/2024 8:43 AM
[2024-01-24] MEDS: DOXYCYCLINE HYCLATE 100 MG CAP PO SCH (08:48)
[2024-01-24] MEDS: traMADol HCL 50 MG TABLET PO SCH (08:53)
[2024-01-24] MEDS: AMIODARONE 200 MG TAB PO ONE (11:50)
[2024-01-24] MEDS: METOPROLOL TARTRATE 25 MG TAB PO ONE (11:50)
[2024-01-24 15:17] LABS: ANTI-Xa, UFH(UnfractionatedHep 0.38 IU/ml (0.3-0.7)
--- NOTE | 2024-01-24 16:12 | Electrocardiogram Report ---
Test Reason : Blood Pressure : / mmHG Vent. Rate : 059 BPM Atrial Rate : 059 BPM P-R Int : 172 ms QRS Dur : 114 ms QT Int : 488 ms P-R-T Axes : 055 074 061 degrees QTc Int : 483 ms Sinus bradycardia Prolonged QT Abnormal ECG When compared with ECG of 23-JAN-2024 06:11, No significant change was found Confirmed by Guevara Mabry ([id number]) on 01/24/2024 4:12:26 PM Referred By: REFERRED SELF Confirmed By:Guevara Mabry
[2024-01-24] MEDS: METOPROLOL TARTRATE 50 MG TAB PO SCH (20:08)
--- NOTE | 2024-01-24 21:26 | Hospitalist Progress Note ---
Date of Service January 24, 2024 Assessment & Plan (1) Small bowel obstruction: Plan: secondary to ventral abdominal hernia/failed anterior hernia mesh (had hernia surgery many years ago) passing flatus but no stools today and KUB x-ray with persistent SBO findings fortunately still no N/V despite absence of NG tube appreciate gen surg assistance no plans for surgical intervention at this time remains on clears; no advancement today KUB xray ordered for tomorrow am cont gentle IV fluids recheck labs am (2) Ventral hernia: Plan: with resulting SBO no plans for re-do of his ventral hernia repair unless he has significant weight loss in the future see #1 above (3) Abdominal pain: Plan: 2nd to #1 - resolved just has bloating at this time (4) MARICEL (obstructive sleep apnea): (5) Diabetes: Plan: a1c 6% loose sliding scale with novolog controlled (6) Chronic diastolic heart failure: Plan: compensated cont metoprolol - try to titrate back to usual home doses lowered the "hold" HR threshold to 55 lasix is still on hold - resume in near-future (7) Paroxysmal A-fib: Plan: Eliquis on hold cont heparin drip - but can likely transition back to Eliquis if #1 continue to improve over next 1-2 days resumed amiodarone cont metoprolol (8) CAD (coronary artery disease): Plan: no ischemic sx's at this time (9) Chronic obstructive lung disease: Plan: no exacerbation at this time (10) Chills (without fever): Plan: Resp BioFire neg at admission u/a not suspicious for UTI CXR w/o pneumonia checked anaplasmosis and babesia smears & Lyme screen -- all negative sent anaplasmosis DNA cont empiric doxy - day #2 of such blood cx's remain negative chills resolved no fevers cont to monitor carefully (11) Chronic narcotic dependence: Plan: on tramadol 100mg BID prn, but per family he takes it regularly every am and pm resumed (12) Morbid obesity: Plan: BMI 49 (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 (14) Hypertension: Plan: still uncontrolled despite adding back losartan & metoprolol if he needs additional BP control add amlodipine 5mg daily Plan son/ updated at bedside once again today PT/OT Admission and Anticipated Discharge Date Admission Date: January 22, 2024 Subjective overall feels better today the cold chills he had been having are resolved denies "shakes" no fevers no nausea/emesis tolerating clears passing flatus but no stools today still distended/bloated /son at bedside Review of Systems Review of Systems: gen - no fevers cv - no orthopnea, no chest pain pulm - no dyspnea GI - no pain, just bloated; using abd binder and he likes the feel of this Physical Exam Physical Exam: gen - morbidly obese, lying flat in bed, looks better today mouth - MMM neck - no JVD heart - RRR, s1 s2, no murmur lungs - CTA b/l abd - distension unchanged; abd binder in place; BS+; NT - scrotal erythema much improved; no cellulitis; malodor improved ext - no edema, pulses 2+ b/l psych - awake/alert/oriented Results & Data Results & Data Vital Signs (Past 12 Hours) Vital Signs Temp Pulse Pulse Pulse Resp BP BP 01/24/24 19:10 36.8 C 51 L 20 180/91 H 01/24/24 15:36 36.7 C 52 L 18 125/67 01/24/24 11:44 66 01/24/24 11:27 36.7 C 52 L 20 180/79 H Pulse Ox O2 Del Method 01/24/24 19:10 96 Room Air 01/24/24 15:36 93 Room Air 01/24/24 11:44 01/24/24 11:27 90 Room Air Laboratory Results Laboratory Results - last 24 hr 01/24/24 01/24/24 01/24/24 00:03 05:57 07:14 Heparin Anti-Xa, Unfract 0.26 L Sodium 140 Potassium 4.0 Chloride 108 H Carbon Dioxide 27 Anion Gap 5 BUN 12 Creatinine 0.88 Est Cr Clr Drug Dosing 101.1 Est GFR ( Amer) 96.7 Est GFR (Non-Af Amer) 83.4 BUN/Creatinine Ratio 13.6 Glucose 118 H POC Glucose 93 108 H Calcium 8.5 L A. phagocytophilum DNA Pending 01/24/24 01/24/24 01/24/24 11:23 14:33 16:20 Heparin Anti-Xa, Unfract 0.38 Sodium Potassium Chloride Carbon Dioxide Anion Gap BUN Creatinine Est Cr Clr Drug Dosing Est GFR ( Amer) Est GFR (Non-Af Amer) BUN/Creatinine Ratio Glucose POC Glucose 96 98 Calcium A. phagocytophilum DNA 01/24/24 19:58 Heparin Anti-Xa, Unfract Sodium Potassium Chloride Carbon Dioxide Anion Gap BUN Creatinine Est Cr Clr Drug Dosing Est GFR ( Amer) Est GFR (Non-Af Amer) BUN/Creatinine Ratio Glucose POC Glucose 89 Calcium A. phagocytophilum DNA PG Care Time/CCT Total # of Minutes Spent Total Time Spent with Patient: Total time spent is greater than 50% in coordination of care (as documented) at patient's floor/unit and/or counseling patient: Coding Level of Care Code 78804 SUB INP/OBS CARE 2/35MIN Diagnoses Small bowel obstruction K56.609 Ventral hernia K43.9 Abdominal pain R10.9 MARICEL (obstructive sleep apnea) G47.33 Diabetes E11.9 Chronic diastolic heart failure I50.32 Paroxysmal A-fib I48.0 Coronary artery disease involving [place] coronary artery of [place] heart without angina pectoris I25.10 Associated angina: without angina Coronary Disease-Associated Artery/Lesion type: [place] artery [place] vs. transplanted heart: [place] heart Chronic obstructive lung disease J44.9 Chills (without fever) R68.83 Chronic narcotic dependence F11.20 Morbid obesity E66.01 S/P CABG x 2 Z95.1 Essential hypertension I10 Hypertension type: essential hypertension (8) CAD (coronary artery disease) Associated angina: without angina Coronary Disease-Associated Artery/Lesion type: [place] artery [place] vs. transplanted heart: [place] heart Qualified Code(s): I25.10 - Atherosclerotic heart disease of [place] coronary artery without angina pectoris (14) Hypertension Hypertension type: essential hypertension Qualified Code(s): I10 - Essential (primary) hypertension
[2024-01-25 07:42] LABS: BUN Creatinine Ratio 11.7 (10-20); Calcium 8.4 mg/dl (8.6-10.3); Creatinine Clr Calc Pharmacy 115.7 ml/min; Est GFR (African American) 102.2 ml/min; Est GFR (Non-African American) 88.1 ml/min; Magnesium 1.7 mg/dl (1.7-2.4)
[2024-01-25 07:48] LABS: ANTI-Xa, UFH(UnfractionatedHep 0.24 IU/ml (0.3-0.7)
--- NOTE | 2024-01-25 07:56 | Surgery Progress Note ---
<Statement entered by Edward Barrett DO - 01/25/24 10:48> I have seen and examined this patient with the surgical team this a.m. Will advance the patient to a low fiber diet. The patient must remember to eat small and frequent meals if he continues to tolerate will prepare for discharge. Date of Service January 25, 2024 Assessment & Plan (1) Small bowel obstruction: Plan: Pt here with concern for SBO He is tolerating clears currently without further n/v or worsening pain + flatus and BM's documented He is sitting up in bed eating his bfast, will return to exam abdomen KUB this AM is pending, if improvement can likely continue to adv diet as tolerates Admission and Anticipated Discharge Date Admission Date: January 22, 2024 Subjective Patient reports feeling well. Denies abdominal pain, nausea/vomiting. States he is passing some gas and had another BM overnight. Is staying away from the soup broth as it is too salty. Physical Exam Physical Exam: awake/alert, no distress. sitting up eating bfast Gastrointestinal (Abdomen): abdominal binder in place Results & Data Vital Signs (Past 12 Hours) Vital Signs Temp Pulse Pulse Resp BP Pulse Ox O2 Del Method 01/25/24 07:50 98.1 F 51 L 16 175/78 H 92 Room Air 01/25/24 03:09 98.1 F 54 L 18 177/84 H 94 Room Air 01/24/24 23:00 98.6 F 53 L 20 179/82 H 94 Room Air 01/24/24 22:00 61 01/24/24 20:15 Room Air PG Care Time/CCT Total # of Minutes Spent Total Time Spent with Patient: Total time spent is greater than 50% in coordination of care (as documented) at patient's floor/unit and/or counseling patient: Coding Level of Care Code 63483 SUB INP/OBS CARE 08/31MIN Diagnoses Small bowel obstruction K56.609
[2024-01-25] MEDS: amLODIPine BESYLATE 5 MG TAB PO SCH (08:58)
[2024-01-25] MEDS: AMIODARONE 200 MG TAB PO SCH (08:58)
[2024-01-25] MEDS: METOPROLOL TARTRATE 25 MG TAB PO SCH (08:59)
--- NOTE | 2024-01-25 10:46 | XRay Report ---
XR KUB/Abdomen 1 view CLINICAL HISTORY: eval bowel/gas pattern TECHNIQUE: 1 view of the abdomen was obtained. Comparison: Comparison is made to abdomen radiograph 01/24/2024 FINDINGS: Lung bases are unremarkable. Degenerative changes are seen in the visualized skeleton. Multiple gas-d istended loops of small bowel are seen. Small stool burden is seen. IMPRESSION: Redemonstration of multiple gas-distended loops of small bowel compatible with small bowel obstructio n. ACT 112: Negative or not required by law. Electronically signed by: Ming Perez M.D. 01/25/2024 10:44 AM
[2024-01-25] MEDS: hydrALAZINE HCL 20 MG/ML VIAL IV PRN (15:38)
[2024-01-25 15:48] LABS: ANTI-Xa, UFH(UnfractionatedHep 0.21 IU/ml (0.3-0.7)
--- NOTE | 2024-01-25 20:10 | Hospitalist Progress Note ---
Date of Service January 25, 2024 Assessment & Plan (1) Small bowel obstruction: Plan: secondary to ventral abdominal hernia/failed anterior hernia mesh (had hernia surgery many years ago) passing flatus but no stools today last stool PM of 01/23 KUB x-ray today with persistent SBO findings diet was advanced today but had significant nausea following dinner this evening I downgraded him back to clear liquids appreciate gen surg assistance no plans for surgical intervention at this time cont gentle IV fluids but lower the rate to 50cc/hr recheck labs am (2) Ventral hernia: Plan: with resulting SBO no plans for re-do of his ventral hernia repair unless he has significant weight loss in the future see #1 above (3) Abdominal pain: Plan: 2nd to #1 - resolved just has bloating/distension at this time (4) MARICEL (obstructive sleep apnea): (5) Diabetes: Plan: a1c 6% loose sliding scale with novolog controlled (6) Chronic diastolic heart failure: Plan: compensated cont metoprolol - increase to 75mg BID lasix is still on hold (7) Paroxysmal A-fib: Plan: Eliquis on hold cont heparin drip cont amiodarone daily cont metoprolol BID (8) CAD (coronary artery disease): Plan: no ischemic sx's at this time (9) Chronic obstructive lung disease: Plan: no exacerbation at this time (10) Chills (without fever): Plan: Resp BioFire neg at admission u/a not suspicious for UTI CXR w/o pneumonia checked anaplasmosis and babesia smears & Lyme screen -- all negative sent anaplasmosis DNA cont empiric doxy - day #3 of such blood cx's remain negative chills resolved no fevers cont to monitor carefully (11) Chronic narcotic dependence: Plan: on tramadol 100mg BID prn, but per family he takes it regularly every am and pm resumed at BID dosing (12) Morbid obesity: Plan: BMI 49 (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 (14) Hypertension: Plan: still uncontrolled despite adding back losartan & metoprolol add amlodipine 5mg daily hydralazine prn IV Plan son/ updated at bedside yesterday cont PT/OT Admission and Anticipated Discharge Date Admission Date: January 22, 2024 Subjective tele overnight wnl today was going ok passing flatus no abd pain diet was advanced to low fiber since eating dinner this evening he has had severe nausea in fact when I entered his room he was holding an emesis bag he did not have any stools today last stool was yesterday pm - "2 small logs" he described it as abdomen continues to be very bloated denies dyspnea or chest pain Review of Systems Review of Systems: gen - no further chills; no fevers cv - no chest pain pulm - no cough GI - no vomiting but severe nausea Physical Exam Physical Exam: gen - morbidly obese, lying flat in bed, looks uncomfortable, holding an emesis bag mouth - MMM neck - no JVD heart - RRR, s1 s2, no murmur lungs - CTA b/l abd - distension unchanged; abd binder in place; BS+; NT - scrotal erythema - mild; no cellulitis; malodor improved; hydroceles b/l? ext - no edema, pulses 2+ b/l psych - awake/alert/oriented Results & Data Results & Data Vital Signs (Past 12 Hours) Vital Signs Temp Pulse Resp BP BP Pulse Ox O2 Del Method 01/25/24 19:03 36.9 C 53 L 18 146/77 H 91 Room Air 01/25/24 15:00 55 L 185/83 H 01/25/24 15:00 54 L 194/80 H 01/25/24 15:00 55 L 197/89 H 01/25/24 14:44 36.5 C 56 L 18 183/101 H 97 Room Air 01/25/24 11:35 36.7 C 57 L 16 154/80 H 92 Room Air 01/25/24 08:54 52 L Laboratory Results Laboratory Results - last 24 hr 01/24/24 01/25/24 01/25/24 19:58 06:31 07:21 Heparin Anti-Xa, Unfract 0.24 L Sodium 136 Potassium 4.0 Chloride 106 Carbon Dioxide 26 Anion Gap 4 BUN 9 Creatinine 0.77 Est Cr Clr Drug Dosing 115.7 Est GFR ( Amer) 102.2 Est GFR (Non-Af Amer) 88.1 BUN/Creatinine Ratio 11.7 Glucose 103 H POC Glucose 89 104 H Calcium 8.4 L Magnesium 1.7 01/25/24 01/25/24 01/25/24 11:13 14:59 16:13 Heparin Anti-Xa, Unfract 0.21 L Sodium Potassium Chloride Carbon Dioxide Anion Gap BUN Creatinine Est Cr Clr Drug Dosing Est GFR ( Amer) Est GFR (Non-Af Amer) BUN/Creatinine Ratio Glucose POC Glucose 91 77 Calcium Magnesium Diagnostic Findings KUB X-Ray 01/25/24 06:00 XR KUB/Abdomen 1 view CLINICAL HISTORY: eval bowel/gas pattern TECHNIQUE: 1 view of the abdomen was obtained. Comparison: Comparison is made to abdomen radiograph 01/24/2024 FINDINGS: Lung bases are unremarkable. Degenerative changes are seen in the visualized skeleton. Multiple gas-distended loops of small bowel are seen. Small stool burden is seen. IMPRESSION: Redemonstration of multiple gas-distended loops of small bowel compatible with small bowel obstruction. ACT 112: Negative or not required by law. Electronically signed by: Ming Perez M.D. 01/25/2024 10:44 AM PG Care Time/CCT Total # of Minutes Spent Total Time Spent with Patient: Total time spent is greater than 50% in coordination of care (as documented) at patient's floor/unit and/or counseling patient: Coding Level of Care Code 71882 SUB INP/OBS CARE 2/35MIN Diagnoses Small bowel obstruction K56.609 Ventral hernia K43.9 Abdominal pain R10.9 MARICEL (obstructive sleep apnea) G47.33 Diabetes E11.9 Chronic diastolic heart failure I50.32 Paroxysmal A-fib I48.0 Coronary artery disease involving [place] coronary artery of [place] heart without angina pectoris I25.10 Associated angina: without angina Coronary Disease-Associated Artery/Lesion type: [place] artery [place] vs. transplanted heart: [place] heart Chronic obstructive lung disease J44.9 Chills (without fever) R68.83 Chronic narcotic dependence F11.20 Morbid obesity E66.01 S/P CABG x 2 Z95.1 Essential hypertension I10 Hypertension type: essential hypertension (8) CAD (coronary artery disease) Associated angina: without angina Coronary Disease-Associated Artery/Lesion type: [place] artery [place] vs. transplanted heart: [place] heart Qualified Code(s): I25.10 - Atherosclerotic heart disease of [place] coronary artery without angina pectoris (14) Hypertension Hypertension type: essential hypertension Qualified Code(s): I10 - Essential (primary) hypertension
[2024-01-25 23:58] LABS: ANTI-Xa, UFH(UnfractionatedHep 0.51 IU/ml (0.3-0.7)
[2024-01-26 07:16] LABS: ANTI-Xa, UFH(UnfractionatedHep 0.23 IU/ml (0.3-0.7)
[2024-01-26 08:20] LABS: Hematocrit (blood only) 43.7 % (42.0-52.0); Mean Corpuscular Volume 96.7 fL (80.0-100.0); Mean Platelet Volume 10.2 fL (9.4-12.4); Platelet Count 161 K/uL (130-400); RDW Standard Deviation 46.3 fL (36.4-46.3); Red Blood Count 4.52 M/uL (4.70-6.10); White Blood Count 5.76 K/ul (4.8-10.8)
[2024-01-26 08:41] LABS: BUN Creatinine Ratio 10.9 (10-20); Calcium 8.7 mg/dl (8.6-10.3); Creatinine Clr Calc Pharmacy 141.7 ml/min; Est GFR (African American) 110.2 ml/min; Est GFR (Non-African American) 95.1 ml/min; Potassium 4.1 mmol/L (3.5-5.1)
[2024-01-26] MEDS: FUROSEMIDE 20 MG TAB PO SCH (09:25)
--- NOTE | 2024-01-26 12:21 | Surgery Progress Note ---
Date of Service January 26, 2024 Assessment & Plan (1) Ventral hernia: (2) Small bowel obstruction: Plan From an abdominal standpoint, the patient is ready for discharge. He is to resume and attempt to lose weight. His target weight is 250lbs which would bring him to a BMI of 38. Less than that would be even more ideal. Until he reaches this weight range, he is not a candidate for hernia repair unless he develops a non-reducible obstructing hernia and requires urgent surge ry. K[place] has had this hernia repaired twice so far. A mesh was used at his last repair which recurred shortly after the procedure as per the patient. He may follow up in the office once his goal weight is reached. Admission and Anticipated Discharge Date Admission Date: January 22, 2024 Subjective I have seen and examined this patient this a.m. He is sitting up on the edge of the bed stating he feels as though he has been run over by a truck secondary to the development of SOB overnight and noting swelling of his upper and lower extremities. Patient states he had not been on his diuretic pill and has developed excess fluid. He states he has no abdominal complaints and continues to tolerate oral intake with bowel function Physical Exam Constitutional: + morbidly obese; not in distress and no t diaphoretic Respiratory: normal respiratory effort (NC in place 2L); no respiratory distress, no labored breathing and does not use accessory muscles Gastrointestinal (Abdomen): abdomen benign, unchanged. Binder in place Results & Data Vital Signs (Past 12 Hours) Vital Signs Temp Pulse Pulse Resp BP BP Pulse Ox 01/26/24 10:47 36.7 C 57 L 18 184/91 H 96 01/26/24 08:53 189/94 H 01/26/24 08:50 52 L 01/26/24 08:11 160/89 H 01/26/24 07:38 36.8 C 53 L 18 202/97 H 97 01/26/24 07:00 01/26/24 07:00 57 L 01/26/24 03:59 36.7 C 58 L 20 190/94 H 93 O2 Del Method O2 Flow Rate 01/26/24 10:47 Nasal Cannula 2 01/26/24 08:53 01/26/24 08:50 01/26/24 08:11 01/26/24 07:38 Nasal Cannula 2 01/26/24 07:00 Nasal Cannula 2 01/26/24 07:00 01/26/24 03:59 Room Air PG Care Time/CCT Total # of Minutes Spent Total Time Spent with Patient: Total time spent is greater than 50% in coordination of care (as documented) at patient's floor/unit and/or counseling patient: Coding Level of Care Code 03048 SUB INP/OBS CARE 25MIN Diagnoses Ventral hernia K43.9 Small bowel obstruction K56.609
[2024-01-26] MEDS: hydrALAZINE HCL 20 MG/ML VIAL IV SCH (15:37)
[2024-01-26 16:12] LABS: ANTI-Xa, UFH(UnfractionatedHep 0.48 IU/ml (0.3-0.7)
--- NOTE | 2024-01-26 18:46 | Hospitalist Progress Note ---
Date of Service January 26, 2024 Assessment & Plan (1) Small bowel obstruction: Plan: resolving secondary to ventral abdominal hernia/failed anterior hernia mesh (had hernia surgery many years ago) passing flatus +stools tolerating full liquids IV fluids stopped IV heparin to be stopped appreciate gen surg assistance no plans for surgical intervention at this time cont abdominal binder if doing well tomorrow can likely advance to low fiber diet (2) Ventral hernia: Plan: with resulting SBO no plans for re-do of his ventral hernia repair unless he has significant weight loss in the future see #1 above (3) Abdominal pain: Plan: 2nd to #1 - resolved (4) MARICEL (obstructive sleep apnea): Plan: does not use any CPAP/BIPAP or NC O2 at home (5) Diabetes: Plan: a1c 6% loose sliding scale with novolog controlled (6) Chronic diastolic heart failure: Plan: decompensated lasix was resumed today, but likely would benefit from IV lasix will likely give IV lasix in am tomorrow obtain echo - last was 2021 (LV & RV function mildly reduced then) follows with [facility] cont BB cont losartan (7) Paroxysmal A-fib: Plan: stop heparin drip; resume Eliquis tonight cont amiodarone daily cont metoprolol BID (8) CAD (coronary artery disease): Plan: no ischemic sx's at this time (9) Chronic obstructive lung disease: Plan: no exacerbation at this time (10) Chills (without fever): Plan: Resp BioFire neg at admission u/a not suspicious for UTI CXR w/o pneumonia checked anaplasmosis and babesia smears & Lyme screen -- all negative sent anaplasmosis DNA cont empiric doxy - day #4 of such blood cx's remain negative chills resolved no fevers cont to monitor carefully (11) Chronic narcotic dependence: Plan: cont tramadol 100mg BID (12) Morbid obesity: Plan: BMI 49 (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 (14) Hypertension: Plan: still uncontrolled despite adding back losartan & metoprolol no response to amlodipine 5mg daily stop amlodipine start flomax 0.4mg HS hydralazine 10mg IV q8h scheduled lasix added back today Plan son/ updated at bedside again today cont PT/OT Admission and Anticipated Discharge Date Admission Date: January 22, 2024 Subjective tele overnight wnl he is feeling better overall staff have noted some mild, intermittent confusion keeping full liquids down but does not have a big appetite passing copious flatus did have at least 1, if not 2, small soft stools today no abd pain no further N/V c/o edema in arms/legs and did have dyspnea this am Review of Systems Review of Systems: gen - no fevers or chills; weak pulm - dyspnea, SHETTY GI - no further N/V/pain; bloating improved - severe nocturia/frequency Physical Exam Physical Exam: gen - morbidly obese, looks better today mouth - MMM neck - no JVD but very difficult to assess for such due to neck size heart - RRR, s1 s2, no murmur lungs - CTA b/l but decreased BS bases abd - abd binder in place; this was removed; ventral hernia midline present - reducible; distension MUCH improved; BS+; NT - scrotal erythema - minimal today ext - 1+ edema all extremities, pulses 2+ b/l Results & Data Results & Data Vital Signs (Past 12 Hours) Vital Signs Temp Pulse Pulse Resp BP BP Pulse Ox 01/26/24 15:33 36.8 C 56 L 20 192/93 H 97 01/26/24 10:47 36.7 C 57 L 18 184/91 H 96 01/26/24 08:53 189/94 H 01/26/24 08:50 52 L 01/26/24 08:11 160/89 H 01/26/24 07:38 36.8 C 53 L 18 202/97 H 97 01/26/24 07:00 01/26/24 07:00 57 L O2 Del Method O2 Flow Rate 01/26/24 15:33 Room Air 01/26/24 10:47 Nasal Cannula 2 01/26/24 08:53 01/26/24 08:50 01/26/24 08:11 01/26/24 07:38 Nasal Cannula 2 01/26/24 07:00 Nasal Cannula 2 01/26/24 07:00 Laboratory Results Laboratory Results - last 48 hr 01/25/24 01/25/24 01/25/24 11:13 14:59 16:13 WBC RBC Hgb Hct MCV MCH MCHC RDW Std Deviation RDW Coeff of Viupl Plt Count MPV Heparin Anti-Xa, Unfract 0.21 L Sodium Potassium Chloride Carbon Dioxide Anion Gap BUN Creatinine Est Cr Clr Drug Dosing Est GFR ( Amer) Est GFR (Non-Af Amer) BUN/Creatinine Ratio Glucose POC Glucose 91 77 Calcium 01/25/24 01/25/24 01/26/24 20:32 23:17 06:29 WBC RBC Hgb Hct MCV MCH MCHC RDW Std Deviation RDW Coeff of Vipul Plt Count MPV Heparin Anti-Xa, Unfract 0.51 0.23 L Sodium Potassium Chloride Carbon Dioxide Anion Gap BUN Creatinine Est Cr Clr Drug Dosing Est GFR ( Amer) Est GFR (Non-Af Amer) BUN/Creatinine Ratio Glucose POC Glucose 90 Calcium 01/26/24 01/26/24 01/26/24 07:06 07:49 11:20 WBC 5.76 RBC 4.52 L Hgb 14.0 Hct 43.7 MCV 96.7 MCH 31.0 MCHC 32.0 RDW Std Deviation 46.3 RDW Coeff of Vipul 13.0 Plt Count 161 MPV 10.2 Heparin Anti-Xa, Unfract Sodium 133 L Potassium 4.1 Chloride 104 Carbon Dioxide 25 Anion Gap 4 BUN 7 Creatinine 0.64 Est Cr Clr Drug Dosing 141.7 Est GFR ( Amer) 110.2 Est GFR (Non-Af Amer) 95.1 BUN/Creatinine Ratio 10.9 Glucose 120 H POC Glucose 94 97 Calcium 8.7 PG Care Time/CCT Total # of Minutes Spent Total Time Spent with Patient: Total time spent is greater than 50% in coordination of care (as documented) at patient's floor/unit and/or counseling patient: Coding Level of Care Code 90768 SUB INP/OBS CARE 3/50MIN Diagnoses Small bowel obstruction K56.609 Ventral hernia K43.9 Abdominal pain R10.9 MARICEL (obstructive sleep apnea) G47.33 Diabetes E11.9 Chronic diastolic heart failure I50.32 Paroxysmal A-fib I48.0 Coronary artery disease involving [place] coronary artery of [place] heart without angina pectoris I25.10 Associated angina: without angina Coronary Disease-Associated Artery/Lesion type: [place] artery [place] vs. transplanted heart: [place] heart Chronic obstructive lung disease J44.9 Chills (without fever) R68.83 Chronic narcotic dependence F11.20 Morbid obesity E66.01 S/P CABG x 2 Z95.1 Essential hypertension I10 Hypertension type: essential hypertension (8) CAD (coronary artery disease) Associated angina: without angina Coronary Disease-Associated Artery/Lesion type: [place] artery [place] vs. transplanted heart: [place] heart Qualified Code(s): I25.10 - Atherosclerotic heart disease of [place] coronary artery without angina pectoris (14) Hypertension Hypertension type: essential hypertension Qualified Code(s): I10 - Essential (primary) hypertension
[2024-01-26] MEDS: APIXABAN 5 MG TABLET PO SCH (20:08)
[2024-01-26] MEDS: TAMSULOSIN HCL 0.4 MG CAP PO SCH (20:21)
[2024-01-27 08:36] LABS: BUN Creatinine Ratio 11.3 (10-20); Blood Urea Nitrogen 9 mg/dl (6-23); Calcium 8.9 mg/dl (8.6-10.3); Carbon Dioxide 29 mmol/L (21-32); Chloride 99 mmol/L (98-107); Est GFR (African American) 100.6 ml/min; Est GFR (Non-African American) 86.8 ml/min; Glucose 122 mg/dl (70-99(Fasting))
[2024-01-27] MEDS: FUROSEMIDE 40 MG/4 ML VIAL IV ONE (08:49)
--- NOTE | 2024-01-27 08:55 | Surgery Progress Note ---
Date of Service January 27, 2024 Assessment & Plan (1) Small bowel obstruction: Plan: pt here with concern for SBO He is tolerating fulls without worsening abdominal pain/n/v + flatus and says he had a BM yesterday Abdomen appears soft and non tender Will advance to low fiber, if goes well may be discharged to home from our standpoint Recommend weight loss prior to consideration of repeat ventral hernia repair in the future We will follow peripherally, but call if any questions/concerns Admission and Anticipated Discharge Date Admission Date: January 22, 2024 Supervising Physician Co-Signing Physician Notes pnt S&E this AM, agree with above. resolving sbo, passing flatus, hungry, tolerated clears. afvss, abd soft, nt, nd, reducible recurrent incisional hernia. Advance to low fiber, okay for d/c from our standpoint if tolerates. weight loss prior to any intervention on hernia, may need tertiary center. We will follow peripherally Subjective Patient reports feeling fine. + flatus. Said he had a BM yesterday AM. Denies n/v. No abd pain. Tolerating fulls. Physical Exam Physical Exam: awake/alert, no distress Gastrointestinal (Abdomen): Percussion/Palpation: abdomen soft; abdomen nontender Results & Data Vital Signs (Past 12 Hours) Vital Signs Temp Pulse Pulse Resp BP BP Pulse Ox 01/27/24 07:38 98.2 F 54 L 20 149/62 H 97 01/27/24 03:12 98.6 F 59 L 19 149/63 H 91 01/26/24 23:21 98.8 F 58 L 19 145/82 H 90 01/26/24 21:55 62 O2 Del Method O2 Flow Rate 01/27/24 07:38 Nasal Cannula 2.0 01/27/24 03:12 Room Air 01/26/24 23:21 Room Air 01/26/24 21:55 PG Care Time/CCT Total # of Minutes Spent Total Time Spent with Patient: Total time spent is greater than 50% in coordination of care (as documented) at patient's floor/unit and/or counseling patient: Coding Level of Care Code 02720 SUB INP/OBS CARE 1/25MIN Diagnoses Small bowel obstruction K56.609
[2024-01-27 09:29] LABS: Potassium 3.8 mmol/L (3.5-5.1)
--- NOTE | 2024-01-27 13:39 | XCELERA ---
[id number]
--- NOTE | 2024-01-27 20:04 | Hospitalist Progress Note ---
Date of Service January 27, 2024 Assessment & Plan (1) Small bowel obstruction: Plan: resolving was secondary to ventral abdominal hernia/failed anterior hernia mesh (had hernia surgery many years ago) passing flatus +stools tolerating full liquids; diet advanced to low fiber this am by gen surg appreciate gen surg assistance no plans for surgical intervention at this time; patient needs weight loss then surgery will consider elective repair in the future cont abdominal binder (2) Ventral hernia: Plan: with resulting SBO no plans for re-do of his ventral hernia repair unless he has significant weight loss in the future see #1 above (3) Abdominal pain: Plan: 2nd to #1 - resolved (4) MARICEL (obstructive sleep apnea): Plan: does not use any CPAP/BIPAP or NC O2 at home consider overnight oximetry study the day before discharge (5) Diabetes: Plan: a1c 6% loose sliding scale with novolog controlled (6) Chronic diastolic heart failure: Plan: decompensated lasix 40mg IV x 1 this am with good UOP follows with [facility] cont BB cont losartan echo today - preserved RV & LV function (7) Paroxysmal A-fib: Plan: cont Eliquis BID cont amiodarone daily cont metoprolol BID NSR on exam/telemetry (8) CAD (coronary artery disease): Plan: no ischemic sx's at this time (9) Chronic obstructive lung disease: Plan: no exacerbation at this time (10) Chills (without fever): Plan: uncertain etiology but resolved & has not recurred Resp BioFire neg at admission u/a not suspicious for UTI CXR w/o pneumonia checked anaplasmosis and babesia smears & Lyme screen -- all negative sent anaplasmosis DNA cont empiric doxy - day #5 of such blood cx's remain negative cont to monitor carefully (11) Chronic narcotic dependence: Plan: cont tramadol 100mg BID (12) Morbid obesity: Plan: BMI 49 (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 (14) Hypertension: Plan: still uncontrolled despite adding back losartan & metoprolol no response to amlodipine 5mg daily stopped amlodipine started flomax 0.4mg HS hydralazine 10mg IV q8h scheduled but plan to d/c tomorrow am IV lasix Plan updated at bedside again today cont PT/OT home when compensated from volume standpoint, consistently eating well, and able to ambulate normally Admission and Anticipated Discharge Date Admission Date: January 22, 2024 Subjective diet advanced to low fiber this am by surgery he is tolerating this w/o nausea/emesis no abd pain cont to use abd binder passing copious flatus 1 stool today - formed breathing is improved edema improved at bedside only getting out of bed to walk to bathroom Review of Systems Review of Systems: gen - no fevers cv - no chest pain; no orthopnea pulm - no dyspnea or SHETTY today GI - no vomiting Physical Exam Physical Exam: gen - morbidly obese, NAD, looks well today mouth - MMM neck - no JVD heart - RRR, s1 s2, no murmur lungs - CTA b/l; improved airation in bases; no obvious rales abd - abd binder in place; this was removed; ventral hernia midline present - reducible like yesterday; distension resolved; BS+; NT - scrotal erythema resolved; scrotal edema improving ext - <1+ edema shins/feet, pulses 2+ b/l Results & Data Results & Data Vital Signs (Past 12 Hours) Vital Signs Temp Pulse Pulse Pulse Resp BP Pulse Ox 01/27/24 19:13 36.7 C 61 18 150/81 H 97 01/27/24 16:00 55 L 01/27/24 16:00 36.4 C L 53 L 18 120/74 96 01/27/24 14:02 53 L 01/27/24 11:45 36.8 C 63 18 145/84 H 94 O2 Del Method O2 Flow Rate 01/27/24 19:13 Nasal Cannula 2 01/27/24 16:00 01/27/24 16:00 Room Air 01/27/24 14:02 01/27/24 11:45 Room Air Laboratory Results Laboratory Results - last 24 hr 01/26/24 01/27/24 01/27/24 21:01 07:39 07:54 Sodium TNP Potassium TNP Chloride 99 Carbon Dioxide 29 Anion Gap TNP BUN 9 Creatinine 0.80 Est Cr Clr Drug Dosing 112.0 Est GFR ( Amer) 100.6 Est GFR (Non-Af Amer) 86.8 BUN/Creatinine Ratio 11.3 Glucose 122 H POC Glucose 100 H 97 Calcium 8.9 01/27/24 01/27/24 01/27/24 08:46 11:19 16:00 Sodium 131 L Potassium 3.8 Chloride Carbon Dioxide Anion Gap BUN Creatinine Est Cr Clr Drug Dosing Est GFR ( Amer) Est GFR (Non-Af Amer) BUN/Creatinine Ratio Glucose POC Glucose 99 109 H Calcium PG Care Time/CCT Total # of Minutes Spent Total Time Spent with Patient: Total time spent is greater than 50% in coordination of care (as documented) at patient's floor/unit and/or counseling patient: Coding Level of Care Code 13253 SUB INP/OBS CARE 2/35MIN Diagnoses Small bowel obstruction K56.609 Ventral hernia K43.9 Abdominal pain R10.9 MARICEL (obstructive sleep apnea) G47.33 Diabetes E11.9 Chronic diastolic heart failure I50.32 Paroxysmal A-fib I48.0 Coronary artery disease involving [place] coronary artery of [place] heart without angina pectoris I25.10 Associated angina: without angina Coronary Disease-Associated Artery/Lesion type: [place] artery [place] vs. transplanted heart: [place] heart Chronic obstructive lung disease J44.9 Chills (without fever) R68.83 Chronic narcotic dependence F11.20 Morbid obesity E66.01 S/P CABG x 2 Z95.1 Essential hypertension I10 Hypertension type: essential hypertension (8) CAD (coronary artery disease) Associated angina: without angina Coronary Disease-Associated Artery/Lesion type: [place] artery [place] vs. transplanted heart: [place] heart Qualified Code(s): I25.10 - Atherosclerotic heart disease of [place] coronary artery without angina pectoris (14) Hypertension Hypertension type: essential hypertension Qualified Code(s): I10 - Essential (primary) hypertension
[2024-01-28 07:44] LABS: BUN Creatinine Ratio 14.3 (10-20); Calcium 8.7 mg/dl (8.6-10.3); Creatinine Clr Calc Pharmacy 106.3 ml/min; Est GFR (African American) 98.6 ml/min; Est GFR (Non-African American) 85.1 ml/min; Magnesium 1.7 mg/dl (1.7-2.4); Potassium 3.9 mmol/L (3.5-5.1)
[2024-01-28] MEDS: FUROSEMIDE 40 MG/4 ML VIAL IV ONE (10:22)
[2024-01-28] MEDS: MAGNESIUM SULFATE / D5W 1 GM/100 ML BAG IV ONE (10:22)
--- NOTE | 2024-01-28 12:29 | Hospitalist Progress Note ---
Date of Service January 28, 2024 Assessment & Plan (1) Small bowel obstruction: Plan: resolved was secondary to ventral abdominal hernia/failed anterior hernia mesh (had hernia surgery many years ago) passing flatus +stools tolerating low fiber diet appreciate gen surg assistance no plans for surgical intervention at this time; patient needs weight loss then surgery will consider elective repair in the future cont abdominal binder (2) Ventral hernia: Plan: with resulting SBO no plans for re-do of his ventral hernia repair unless he has significant weight loss in the future see #1 above (3) Abdominal pain: Plan: 2nd to #1 - resolved (4) MARICEL (obstructive sleep apnea): Plan: does not use any CPAP/BIPAP or NC O2 at home consider overnight oximetry study the day before discharge (5) Diabetes: Plan: a1c 6% loose sliding scale with novolog controlled (6) Chronic diastolic heart failure: Plan: decompensated lasix 40mg IV x 1 again this am then another dose of lasix (PO) later in the afternoon follows with [facility] cont BB cont losartan echo this admission with preserved RV & LV function (7) Paroxysmal A-fib: Plan: cont Eliquis BID cont amiodarone daily cont metoprolol BID remains in NSR (8) CAD (coronary artery disease): Plan: no ischemic sx's at this time (9) Chronic obstructive lung disease: Plan: no exacerbation at this time (10) Chills (without fever): Plan: uncertain etiology but resolved & has not recurred Resp BioFire neg at admission u/a not suspicious for UTI CXR w/o pneumonia checked anaplasmosis and babesia smears & Lyme screen -- all negative sent anaplasmosis DNA cont empiric doxy - day #6 of such blood cx's remain negative (11) Chronic narcotic dependence: Plan: cont tramadol 100mg BID (12) Morbid obesity: Plan: BMI 49 (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 (14) Hypertension: Plan: cont losartan 100mg daily cont meto tartrate 75mg BID cont flomax 0.4mg HS d/c scheduled hydralazine 10mg IV q8h IV and PO lasix follow BPs Plan updated at bedside again today son updated at bedside cont PT/OT encouraged OOB to chair as much as possible encouraged more walking home when compensated from volume standpoint, consistently eating well, and able to ambulate normally Admission and Anticipated Discharge Date Admission Date: January 22, 2024 Subjective passing copious flatus no stool today but had stool yesterday asks for laxative tolerating solids without nausea/emesis but does get full easily no abd pain having frequency of urination is walking to bathroom with assistance apparently was sitting on the toilet for prolonged period of time for about 1-2 seconds felt lightheaded but he didn't pass out no history of syncope he reports he will not go to rehab post-discharge Review of Systems Review of Systems: cv - no chest pain, no orthopnea; peripheral edema improved pulm - no cough GI - no vomiting Physical Exam Physical Exam: gen - morbidly obese, NAD, looks well; lying in bed comfortably mouth - MMM neck - no JVD heart - RRR, s1 s2, no murmur lungs - CTA b/l abd - abd binder in place; ventral hernia midline present - reducible; no distension; BS+; NT ext - trace edema shins/feet b/l, pulses 2+ b/l; upper extremity edema improved Results & Data Results & Data Vital Signs (Past 12 Hours) Vital Signs Temp Pulse Pulse Resp BP Pulse Ox O2 Del Method 01/28/24 11:23 36.7 C 64 20 153/75 H 95 Room Air 01/28/24 08:00 55 L 01/28/24 07:23 36.7 C 56 L 18 166/85 H 96 Nasal Cannula 01/28/24 07:15 Room Air 01/28/24 03:42 36.8 C 58 L 18 176/90 H 93 Nasal Cannula O2 Flow Rate 01/28/24 11:23 01/28/24 08:00 01/28/24 07:23 2.0 01/28/24 07:15 01/28/24 03:42 2 Laboratory Results Laboratory Results - last 24 hr 01/27/24 01/27/24 01/28/24 16:00 19:59 06:59 Sodium 132 L Potassium 3.9 Chloride 98 Carbon Dioxide 31 Anion Gap 3 BUN 12 Creatinine 0.84 Est Cr Clr Drug Dosing 106.3 Est GFR ( Amer) 98.6 Est GFR (Non-Af Amer) 85.1 BUN/Creatinine Ratio 14.3 Glucose 109 H POC Glucose 109 H 109 H Calcium 8.7 Magnesium 1.7 01/28/24 01/28/24 07:25 11:27 Sodium Potassium Chloride Carbon Dioxide Anion Gap BUN Creatinine Est Cr Clr Drug Dosing Est GFR ( Amer) Est GFR (Non-Af Amer) BUN/Creatinine Ratio Glucose POC Glucose 93 126 H Calcium Magnesium PG Care Time/CCT Total # of Minutes Spent Total Time Spent with Patient: Total time spent is greater than 50% in coordination of care (as documented) at patient's floor/unit and/or counseling patient: Coding Level of Care Code 95815 SUB INP/OBS CARE 2/35MIN Diagnoses Small bowel obstruction K56.609 Ventral hernia K43.9 Abdominal pain R10.9 MARICEL (obstructive sleep apnea) G47.33 Diabetes E11.9 Chronic diastolic heart failure I50.32 Paroxysmal A-fib I48.0 Coronary artery disease involving [place] coronary artery of [place] heart without angina pectoris I25.10 Associated angina: without angina Coronary Disease-Associated Artery/Lesion type: [place] artery [place] vs. transplanted heart: [place] heart Chronic obstructive lung disease J44.9 Chills (without fever) R68.83 Chronic narcotic dependence F11.20 Morbid obesity E66.01 S/P CABG x 2 Z95.1 Essential hypertension I10 Hypertension type: essential hypertension (8) CAD (coronary artery disease) Associated angina: without angina Coronary Disease-Associated Artery/Lesion type: [place] artery [place] vs. transplanted heart: [place] heart Qualified Code(s): I25.10 - Atherosclerotic heart disease of [place] coronary artery without angina pectoris (14) Hypertension Hypertension type: essential hypertension Qualified Code(s): I10 - Essential (primary) hypertension
[2024-01-28] MEDS: FUROSEMIDE 20 MG TAB PO ONE (18:30)
[2024-01-29] MEDS: POLYETHYLENE (MIRALAX) 17 GM PACK PO PRN (01:09)
[2024-01-29 07:40] LABS: BUN Creatinine Ratio 14.1 (10-20); Calcium 8.8 mg/dl (8.6-10.3); Creatinine Clr Calc Pharmacy 104.3 ml/min; Est GFR (African American) 98.1 ml/min; Est GFR (Non-African American) 84.6 ml/min; Potassium 3.9 mmol/L (3.5-5.1)
[2024-01-29] MEDS: FUROSEMIDE 40 MG/4 ML VIAL IV ONE (10:33)
--- NOTE | 2024-01-29 14:40 | Discharge Summary ---
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 Patient underwent hernia repair surgery with mesh in 1970s, however, reports he has had intermittent mild symptoms over the past 10 years. He has had problems with watermelon in the past, but symptoms have resolved relatively quickly and not nearly as intense as on. Patient underwent a CT scan abdomen and pelvis in the emergency department showed a small bowel obstruction secondary to a ventral abdominal wall hernia in the setting of failed anterior hernia mesh. Discharge Exam gen - morbidly obese, NAD, looks well; lying in bed comfortably mouth - MMM neck - no JVD heart - RRR, s1 s2, no murmur lungs - CTA b/l abd - abd binder in place; ventral hernia midline present - reducible; no distension; BS+; NT ext - trace edema shins/feet b/l, pulses 2+ b/l; upper extremity edema improved Discharge Data Allergies Allergy/AdvReac Type Severity Reaction Status Date / Time long Allergy Severe LONG Verified 01/22/24 10:09 TREES "LUNGS TIGHTEN UP" codeine AdvReac Mild NAUSEA Verified 01/22/24 10:09 Consultations 01/22/24 05:31 ED Decision to Admit Stat 01/22/24 06:19 Consult General Surgery Routine Ordered Studies 01/22/24 01:26 CT Abd and Pelvis [CT abd pelvis IV con only] Stat Hospital Course (1) Small bowel obstruction: resolved was secondary to ventral abdominal hernia/failed anterior hernia mesh (had hernia surgery many years ago) passing flatus +stools tolerating low fiber diet appreciate gen surg assistance no plans for surgical intervention at this time; patient needs weight loss then surgery will consider elective repair in the future cont abdominal binder (2) Ventral hernia: with resulting SBO no plans for re-do of his ventral hernia repair unless he has significant weight loss in the future see #1 above (3) Abdominal pain: 2nd to #1 - resolved (4) MARICEL (obstructive sleep apnea): does not use any CPAP/BIPAP or NC O2 at home consider overnight oximetry study the day before discharge (5) Diabetes: a1c 6% loose sliding scale with novolog controlled (6) Chronic diastolic heart failure: decompensated lasix 40mg IV x 1 again this am then another dose of lasix (PO) later in the afternoon follows with [facility] cont BB cont losartan echo this admission with preserved RV & LV function (7) Paroxysmal A-fib: cont Eliquis BID cont amiodarone daily cont metoprolol BID remains in NSR (8) CAD (coronary artery disease): no ischemic sx's at this time (9) Chronic obstructive lung disease: no exacerbation at this time (10) Chills (without fever): uncertain etiology but resolved & has not recurred Resp BioFire neg at admission u/a not suspicious for UTI CXR w/o pneumonia checked anaplasmosis and babesia smears & Lyme screen -- all negative sent anaplasmosis DNA cont empiric doxy - day #6 of such blood cx's remain negative (11) Chronic narcotic dependence: cont tramadol 100mg BID (12) Morbid obesity: BMI 49 (13) S/P CABG x 2: noted (14) Hypertension: cont losartan 100mg daily cont meto tartrate 75mg BID cont flomax 0.4mg HS d/c scheduled hydralazine 10mg IV q8h IV and PO lasix follow BPs Plan updated at bedside again today son updated at bedside cont PT/OT encouraged OOB to chair as much as possible encouraged more walking home when compensated from volume standpoint, consistently eating well, and able to ambulate normally Discharge Plan Discharge Items Patient Disposition: Home - Self-Care Reason For Visit: Small bowel obstruction Discharge Diagnosis: 1. Small bowel obstruction due to ventral hernia 2. Acute on chronic congestive heart failure leading to fluid overload - much improved with diuretics 3. Uncontrolled high blood pressure - improved 4. Chills/shakes - resolved; cause not certain - possibly due to pain, possibly due to infection, possibly due to early narcotic withdrawal 5. History of coronary artery disease needing bypass surgery 6. History of atrial fibrillation Activity: As commented below Activity Comment: increase activities as tolerated over the next week Non-emergency contact: Primary Care Provider and Surgeon Call non-emergency contact if: you have any medication questions, your symptoms worsen and you have a fever Follow-up/Referrals: Matthew Hernandez CRNP [Primary Care Provider] - 02/05/24 (keep previously scheduled appointment ) Edward Barrett DO [Physician] - (You may follow up with us in the office if you wish to consider hernia repair once you have reached a goal weight of around 250lbs) Diet: Heart Healthy and Low Fiber Addtl Attending Provider Instructions: Mr Amezcua, You were hospitalized due to developing a small bowel obstruction (blockage) due to a large hernia on your abdominal wall. This is called a ventral hernia (see handout). The loops of small bowel gut stuck in the hernia which then leads to the bowels getting blocked. You were treated initially with an NG tube, bowel rest, restriction of diet, and IV fluids. [facility] general surgery provided moran recommendations for your care while hospitalized. Your bowel obstruction gradually resolved and you started to pass gas & stool. A diet was resumed and slowly advanced to low fiber (see handout on low fiber diet). You are tolerating this well. In addition, because we had to give you IV fluids for much of your stay, you developed fluid overload. Several days of IV furosemide were given with improvement in your swelling/fluid and your breathing. Finally, during the first 2-3 days of your stay, you were experiencing chills. It was uncertain what was causing the chills. Mild withdrawal from pain medicine can cause chills, pain can cause chills, and infection can also cause chills. You received doxycycline antibiotic in the event you had an infection. Recommendations: 1. you can wear the abdominal binder as much as you would like. Remove for bathing, etc. 2. low-fiber diet - stay on this potentially indefinitely. See handout. 3. for high blood pressure and the possibility of enlarged prostate take - * tamsulosin 0.4mg each night at bedtime * most common side effect is dizziness with standing 4. for the possibility of having a tick-borne infection take - * doxycycline 100mg twice daily x 8 days, first dose TONIGHT * common side effect - heartburn/stomach upset * rare side effect - getting a rash if you go out in the sun while taking the antibiotic; over the next week please use sunscreen liberally and cover up 5. resume your furosemide (lasix) water pill the morning of 01/30/24. DO NOT TAKE ANY furosemide today. 6. for resolving rash in groin/scrotal area take nystatin powder - apply three times daily to the scrotum/groin for 3-4 more days then stop. 7. please use your rolling walker at home and outside the home as needed. Follow-up - see separate section Return to [facility] if - * you have any concerns that you may have a recurrent bowel blockage/obstruction (vomiting, worsening bloating, abdominal pain, nausea, not passing gas or stool, etc) * you have fevers over 100 degrees * you have shortness of breath or chest pain * any other concerns It was our pleasure to care for you! -Dr Crystal Emerytl Director Of Maintenance Provider Instructions: Call 911 and go to the Emergency Room if: * You have tightness or pain in your chest that does not go away with rest or Nitroglycerin * You are very short of breath even with rest Call your doctor if any of the following symptoms or problems start or get worse: * Shortness of breath or difficulty breathing * Wake up at night short of breath * Chest pain * Cough * Swelling of your hands, fee, or legs * More fatigued or tired with your normal activity * Palpitations - sudden fast heart beats WEIGHT * Weigh yourself every morning after using the bathroom. * Use the same scale. * Wear the same amount of clothing. * Write your weight down on your chart. * Call your doctor if you gain more than 2-3 pounds in 1-2 days. This is usually one of the first signs of fluid retention from heart problems. MEDICATIONS * Use this discharge instruction sheet for instructions. * Take your medications at the time your doctor ordered. * Do not skip a dose of your medicines. * If you miss a dose of medicine, take as soon as possible, but DO NOT DOUBLE A DOSE. * Read your medicine information when you get home. * Know all of the side effects of your medicine. * Call your doctor's office if you have any side effects. * Be sure all of your doctors know what medicine and herbs you take (including cold, flu, and herbal medicine). * Pain Medicine: If you do not get relief from your pain, please call your doctor for help. Take the following with you to your follow-up doctor appointments: * Weight Chart * Medication List * List of questions Do not drink excessive alcohol, beer or wine. Pending Studies at Discharge: Yes Studies:: tick-borne labs Stand-Alone Forms: My [facility], Smoking Cessation Medications and DC Order Prescriptions: New doxycycline hyclate 100 mg Capsule 100 mg PO BID 8 Days Qty: 16 0RF tamsulosin 0.4 mg Capsule 0.4 mg PO HS Qty: 30 2RF nystatin [Nystop] 100,000 unit/gram Powder 1 applic EXT TID Qty: 1 0RF Rx Instructions: apply to scrotal region/groin for 3-4 more days then stop. Continued amiodarone 200 mg tablet 200 mg PO DAILY Qty: 90 2RF Eliquis 5 mg tablet 5 mg PO BID Qty: 180 3RF tramadol 50 mg tablet 100 mg PO Q12H PRN (Reason: pain) Qty: 120 0RF clotrimazole-betamethasone 1-0.05 % cream 1 applic TOP BID PRN (Reason: Psoriasis) Qty: 45 3RF aspirin 81 mg tablet,delayed release (DR/EC) 81 mg PO DAILY Qty: 90 3RF Rx Instructions: Unable to verify OTC meds at this date/time. metoprolol tartrate 100 mg tablet See Rx Instructions .ROUTE .COMPLEX Rx Instructions: Per pharmacy: 50mg by mouth once in the morning and 100mg by mouth in the evening diclofenac sodium [Voltaren Arthritis Pain] 1 % gel 4 g topical QID PRN (Reason: Pain) Rx Instructions: apply to single knee. Unable to verify OTC meds at this date/time. atorvastatin 10 mg tablet 10 mg PO Q OTHER DAY Qty: 30 2RF losartan 100 mg tablet 100 mg PO DAILY Qty: 90 3RF furosemide 20 mg tablet 20 mg PO BID Qty: 180 3RF Rx Instructions: take first thing in the am, and each afternoon. Discharge Orders: Discharge Order (Routine); Ordered 01/29/24 Ordered By: Dustin Aleman/Other Patient Handouts: A1C, Small Bowel Obstruction, Low-Fiber Diet, Weight Management: Getting Started, Weight Management: Fact and Fiction, ED Hernia (Adult) Admission Data Admit Date/Time: 01/22/24 06:09 Attending Provider: Dustin Rojas Admit Provider: Frederic Villegas Primary Care Provider: Matthew Hernandez Other Providers: Frederic Villegas; Eliezer Howard. Coding Diagnoses Small bowel obstruction K56.609 Ventral hernia K43.9 Abdominal pain R10.9 MARICEL (obstructive sleep apnea) G47.33 Diabetes E11.9 Chronic diastolic heart failure I50.32 Paroxysmal A-fib I48.0 Coronary artery disease involving [place] coronary artery of [place] heart without angina pectoris I25.10 Coronary Disease-Associated Artery/Lesion type: [place] artery Teller vs. transplanted heart: [place] heart Associated angina: without angina Chronic obstructive lung disease J44.9 Chills (without fever) R68.83 Chronic narcotic dependence F11.20 Morbid obesity E66.01 S/P CABG x 2 Z95.1 Essential hypertension I10 Hypertension type: essential hypertension
== END 2024-01-29 15:56 | disposition home or self-care (01) | DRG 919 ==
LOC: ED 01:20 → SUATTDRO 06:09 → EDINP 06:09 → 2S 06:20

== ENCOUNTER 2024-03-27 15:24 | Inpatient (IN) ==
--- NOTE | 2024-03-27 15:33 | ED Triage Note ---
Date of Service March 27, 2024 Provider in Triage Author: Elsy Love History of Present Illness This patient was briefly evaluated while in triage. An abbreviated physical exam was performed. This patient is a 78-year-old Male who presents to the ED for evaluation Hx CAD s/p CABG, CHF, recent bowel obstruction due to ventral hernia in January abdominal pain started last evening, nausea and vomiting this morning last BM yesterday feels bloated-wearing abdominal binder told to "return to ED for any signs he might have an obstruction" Physical Exam GENERAL: mild distress in wheelchair, holding emesis bag CARDIOVASCULAR: RRR RESPIRATORY: CTA ABDOMEN: BS diminished, abdomen diffusely TTP, wearing binder Initial orders for labs and / or imaging were placed and patient was placed in the waiting area until a bed is available. Please see further documentation for the full ED course.
[2024-03-27] MEDS: ONDANSETRON INJ 2 MG/ML 2 ML VIAL IV STA ×2 (15:53→16:19)
[2024-03-27] MEDS: SODIUM CHLORIDE 0.9% 500 ML IV SCH (15:53)
[2024-03-27 16:04] LABS: Basophils # (auto) 0.03 K/uL (0.00-0.20); Basophils % (auto) 0.5 %; Eosinophils # (auto) 0.07 K/uL (0.00-0.50); Eosinophils % (auto) 1.1 %; Hematocrit (blood only) 47.1 % (42.0-52.0); Hemoglobin 15.8 g/dl (14.0-18.0); Immature Granulocytes # (auto) 0.03 K/uL (0.01-0.20); Immature Granulocytes % (auto) 0.5 %; Lymphocytes % (auto) 22.8 %; Mean Corpuscular Hemoglobin 31.5 pg (25.0-34.0); Mean Corpuscular Hgb Conc 33.5 g/dL (32.0-36.0); Mean Corpuscular Volume 93.8 fL (80.0-100.0); Mean Platelet Volume 9.4 fL (9.4-12.4); Monocytes # (auto) 0.86 K/uL (0.11-0.59); Monocytes % (auto) 13.1 %; Platelet Count 215 K/uL (130-400); RDW Standard Deviation 44.6 fL (36.4-46.3); Red Blood Count 5.02 M/uL (4.70-6.10); White Blood Count 6.59 K/ul (4.8-10.8)
--- NOTE | 2024-03-27 16:14 | Emergency Department Note ---
Impression & Plan SBO (small bowel obstruction) ADMIT ED Provider Note HPI: History obtained from patient. The patient is a 78-year-old gentleman with history of prior small bowel obstruction, ventral hernia, who presents to the emergency department with a chief complaint of mid abdominal pain as well as nausea and vomiting that began at around 8:00 this morning. Patient states his symptoms have been persistent throughout the day. Patient states he does have a ventral hernia and he is wearing a binder. Patient states he does have tenderness over the area of his ventral hernia. On arrival here to the ED the patient is otherwise hypertensive but hemodynamically stable. He appears to be in mild distress on my initial assessment secondary to abdominal pain and nausea. ROS: - Per HPI Differential Diagnosis: Incarcerated ventral hernia, small bowel obstruction, viral gastroenteritis, acute cholecystitis, acute appendicitis, diverticulitis flare, perforated viscus, ischemic bowel, amongst other potential pathologies. *Outpatient medications and allergy history reviewed. PE: General: Alert, obese HEENT: Normocephalic, trachea midline Eyes: Extraocular eye movement is intact, no scleral erythema Pulmonary: Clear to auscultation bilaterally, no wheezing Cardio: Regular rate and rhythm GI: Abdomen is mildly distended, there is a palpable ventral hernia that is tender to palpation however does remains soft to palpation, it is without discoloration : No suprapubic tenderness MSK: No evidence of trauma or malformation of the extremities, no edema Skin: No evidence of rash Neuro: Alert, no focal deficits Psychiatric: Cooperative INDEPENDENT INTERPRETATIONS: conveyor monitor: (As interpreted by myself): - An order was placed for continuous cardiac monitoring - Patient was noted to be in sinus rhythm with a rate of 58 EKG: (As interpreted by myself): Rate: 48 Rhythm: Sinus bradycardia Intervals: Within normal limits ST changes: No ST elevation Time: 1743 Interventions provided in ED: -IV fluid bolus, IV morphine, IV Zofran Medical Decision Making: IV was established and lab work obtained, patient was placed on conveyor monitor. Lab work shows no leukocytosis, hemoglobin is normal, platelet count is normal, CMP shows no critical abnormalities, lactic acid is noted to be within normal limits. CT imaging of the abdomen pelvis shows evidence of small bowel obstruction that is noted to have a transition point within the ventral hernia noted on physical exam. On my reassessment following IV morphine and IV Zofran the patient remains uncomfortable appearing. I was able to reduce the hernia however it felt as if after reduction it again herniated and the patient continued to have pain. At this point, I did discuss the patient's presentation with the on-call general surgeon, Dr. Howard. He did evaluate the patient at the bedside. Recommendation was made for admission to the medicine service given the patient's multiple comorbidities, placement of NG tube, and surgery will follow as a consult. [facility] service was consulted for admission and the patient was placed to admission in stable condition. Consultants/Discussions held with other healthcare providers: -General Surgery, Dr. Howard -Hospitalist, Dr. Patel Disposition discussion held by myself with: -Patient and family at bedside Diagnosis: 1. Ventral hernia with obstruction, acute 2. Nausea and vomiting, acute 3. History of atrial fibrillation, on Eliquis Disposition: Admission John Mcpherson DO Emergency Medicine Past Med/Surg History Problem List (Updated 03/27/24 @ 21:42 by John Mcpherson DO) SBO (small bowel obstruction) (Acute) Small bowel obstruction Incarcerated ventral hernia Chills (without fever) Ventral hernia (Acute) Small bowel obstruction (Acute) Nausea & vomiting (Acute) Abdominal pain (Acute) On amiodarone therapy MARICEL (obstructive sleep apnea) DJD (degenerative joint disease) of knee Knee pain Lightheadedness Diabetes (Unknown) Acute on chronic diastolic heart failure Syncope Chronic diastolic heart failure Lower extremity edema Paroxysmal A-fib DVT prophylaxis Postoperative atrial fibrillation Morbid obesity Fatigue Acute systolic CHF (congestive heart failure) 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) Dyspnea on exertion (Acute) Congestive heart failure (Acute) Fluid overload (Acute) Psoriasis Syncope Cellulitis Non-ST elevation IN (NSTEMI) (Acute) Weakness (Acute) Acute electrocardiogram changes (Acute) Leukocytosis (Acute) Colon polyps Nocturnal hypoxemia Dyslipidemia Type 2 diabetes mellitus (Chronic) Chronic back pain (Chronic) CAD (coronary artery disease) (Chronic) Chronic obstructive lung disease (Chronic) Obstructive sleep apnea syndrome (Chronic) Hypertension (Chronic) Medical History Chronic narcotic dependence Warfarin anticoagulation Unresponsive Sepsis secondary to UTI Hematuria Encephalopathy Surgical History History of tonsillectomy History of appendectomy History of colon surgery Family History Father Myocardial infarction Heart disease Mother Hypertension Other Diabetes Denies family history of Ovarian cancer Prostate cancer Breast cancer Lung cancer Colorectal cancer Stroke Social History Smoking Status: Never smoker Second Hand Exposure: No; Do You Dip or Chew Tobacco: No; Hx Alcohol Use: Yes Alcohol type: hard liquor Alcohol Intake Frequency: 2-4 x/Month Hx Substance Use: No Preferred Language: Guyanese Communication Ability: Effective Visual Impairment: Limited Hearing Ability: Hard of Hearing Robot 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: No Beliefs That Will Affect Care: None marital status: Current Living Situation: Family current occupational status: retired current occupation: Retired How many Children do You have: 3 Feels Safe at Home: Yes Childhood Exposure to Second-Hand Smoke: No Diet: regular caffeine: Yes Dental Care, Regularly: No Physical Activity Frequency: 5-6 Times per Week Seatbelt Use: always Sunscreen Use: No Assistive Devices: None Allergies Allergies Allergy/AdvReac Type Severity Reaction Status Date / Time long Allergy Severe LONG Verified 03/22/24 07:59 TREES "LUNGS TIGHTEN UP" codeine AdvReac Mild NAUSEA Verified 03/22/24 07:59 Home Meds Home Medications Medication Instructions Recorded Confirmed diclofenac sodium 1 % topical gel 4 g topical QID PRN Pain 12/26/23 03/27/24 (Voltaren Arthritis Pain) metoprolol tartrate 100 mg tablet 50 mg PO AMPM 02/05/24 03/27/24 Previous Rx's Medication Instructions Recorded aspirin 81 mg tablet,delayed 81 mg PO DAILY #90 tabs 07/15/22 release losartan 100 mg tablet 100 mg PO DAILY #90 tabs 05/23/23 amiodarone 200 mg tablet 200 mg PO DAILY #90 tabs 10/13/23 apixaban 5 mg tablet (Eliquis) 5 mg PO BID #180 tabs 01/09/24 clotrimazole-betamethasone 1 1 applic topical BID PRN Psoriasis 01/23/24 %-0.05 % topical cream #45 grams furosemide 20 mg tablet 20 mg PO BID #180 tabs 01/29/24 tamsulosin 0.4 mg capsule 0.4 mg PO HS #30 caps 01/29/24 tramadol 50 mg tablet 100 mg (2 x 50 mg) PO Q12H PRN 03/22/24 pain #120 tabs Results & Data (ED) Vital Signs Vital Signs - 24 hr 03/27/24 15:33 03/27/24 15:59 03/27/24 16:31 Temperature 36.0 C L Temperature Source Temporal Artery Scan Pulse Rate 60 50 L Pulse Rate [Apical] Pulse Rhythm Regular Pulse Strength Normal Respiratory Rate 18 Blood Pressure 190/109 H Blood Pressure Mean 136 Blood Pressure Position Sitting Pulse Oximetry 95 96 Oxygen Delivery Method Room Air Sepsis Recent Fever Within 48 Hours No Sepsis New/Unexplained Change in Mental Status No Sepsis Action Taken by Nursing No Action Required 03/27/24 16:57 03/27/24 19:01 Temperature Temperature Source Pulse Rate 53 L Pulse Rate [Apical] 82 Pulse Rhythm Pulse Strength Respiratory Rate 20 18 Blood Pressure 196/91 H Blood Pressure Mean 116 Blood Pressure Position Pulse Oximetry 94 95 Oxygen Delivery Method Room Air Sepsis Recent Fever Within 48 Hours Sepsis New/Unexplained Change in Mental Status Sepsis Action Taken by Nursing Laboratory Data 03/27/24 15:45 03/27/24 15:45 Lab Results 03/27/24 03/27/24 03/27/24 Range/Units 15:45 15:55 16:19 WBC 6.59 (4.8-10.8) K/ul RBC 5.02 (4.70-6.10) M/uL Hgb 15.8 (14.0-18.0) g/dl POC Hgb 15.3 (14.0-18.0) g/dl Hct 47.1 (42.0-52.0) % POC Hct 45 (42-52) % MCV 93.8 (80.0-100.0) fL MCH 31.5 (25.0-34.0) pg MCHC 33.5 (32.0-36.0) g/dL RDW Std Deviation 44.6 (36.4-46.3) fL RDW Coeff of Vipul 13.0 (11.5-14.5) % Plt Count 215 (130-400) K/uL MPV 9.4 (9.4-12.4) fL Immature Gran % (Auto) 0.5 % Neut % (Auto) 62.0 % Lymph % (Auto) 22.8 % Saline % (Auto) 13.1 % Eos % (Auto) 1.1 % Baso % (Auto) 0.5 % Neut # (Auto) 4.10 (1.40-6.50) K/uL Lymph # (Auto) 1.50 (1.20-3.40) K/uL Saline # (Auto) 0.86 H (0.11-0.59) K/uL Eos # (Auto) 0.07 (0.00-0.50) K/uL Baso # (Auto) 0.03 (0.00-0.20) K/uL Immature Gran # (Auto) 0.03 (0.01-0.20) K/uL PT 10.7 (9.0-12.0) Seconds INR 1.0 (0.9-1.1) POC Sodium 137 (135-144) mmol/L Sodium 139 (136-145) mmol/L POC Potassium 5.7 H (3.3-5.0) mmol/L Potassium 3.6 (3.5-5.1) mmol/L POC Chloride 99 L (101-112) mmol/L Chloride 100 (98-107) mmol/L Carbon Dioxide 32 (21-32) mmol/L POC Total CO2 31 (24-31) mmol/L Anion Gap 7 (3-11) POC Anion Gap 13.0 L (16-25) mmol/L POC BUN 12 (7-18) mg/dl BUN 11 (6-23) mg/dl Creatinine 0.99 (0.6-1.4) mg/dl POC Creatinine 1.0 (0.6-1.3) mg/dl Est Cr Clr Drug Dosing 94.4 ml/min Est GFR ( Amer) 85.4 ml/min Est GFR (Non-Af Amer) 73.7 ml/min BUN/Creatinine Ratio 11.1 (10-20) Glucose 112 H (70-99(Fasting)) mg/dl POC Glucose (other) 114 H (70-99) mg/dl Lactate (0.4-2.0) mmol/L Calcium 9.3 (8.6-10.3) mg/dl POC Ioniz Calcium Zita 1.00 L (1.12-1.32) mmol/l Total Bilirubin 0.8 (0.2-1.0) mg/dl AST 32 (13-39) U/L ALT 24 (7-52) U/L Alkaline Phosphatase 107 H (34-104) U/L Total Protein 7.3 (6.0-8.3) gm/dl Albumin 4.2 (3.4-5.0) gm/dl Globulin 3.1 (2.5-4.0) gm/dl Albumin/Globulin Ratio 1.4 (0.9-2) Lipase 11 (11-82) U/L Urine Color Yellow Urine Appearance Clear (Clear) Urine pH 8.0 H (4.5-7.5) Ur Specific [place] 1.008 (1.000-1.030) Urine Protein Negative (Negative) Urine Glucose (UA) Negative (Negative) Urine Ketones Negative (Negative) Urine Blood Negative (Negative) Urine Nitrite Negative (Negative) Urine Bilirubin Negative (Negative) Urine Urobilinogen Negative (Negative) Ur Leukocyte Esterase Negative (Negative) 03/27/24 Range/Units 17:30 WBC (4.8-10.8) K/ul RBC (4.70-6.10) M/uL Hgb (14.0-18.0) g/dl POC Hgb (14.0-18.0) g/dl Hct (42.0-52.0) % POC Hct (42-52) % MCV (80.0-100.0) fL MCH (25.0-34.0) pg MCHC (32.0-36.0) g/dL RDW Std Deviation (36.4-46.3) fL RDW Coeff of Vipul (11.5-14.5) % Plt Count (130-400) K/uL MPV (9.4-12.4) fL Immature Gran % (Auto) % Neut % (Auto) % Lymph % (Auto) % Saline % (Auto) % Eos % (Auto) % Baso % (Auto) % Neut # (Auto) (1.40-6.50) K/uL Lymph # (Auto) (1.20-3.40) K/uL Saline # (Auto) (0.11-0.59) K/uL Eos # (Auto) (0.00-0.50) K/uL Baso # (Auto) (0.00-0.20) K/uL Immature Gran # (Auto) (0.01-0.20) K/uL PT (9.0-12.0) Seconds INR (0.9-1.1) POC Sodium (135-144) mmol/L Sodium (136-145) mmol/L POC Potassium (3.3-5.0) mmol/L Potassium (3.5-5.1) mmol/L POC Chloride (101-112) mmol/L Chloride (98-107) mmol/L Carbon Dioxide (21-32) mmol/L POC Total CO2 (24-31) mmol/L Anion Gap (3-11) POC Anion Gap (16-25) mmol/L POC BUN (7-18) mg/dl BUN (6-23) mg/dl Creatinine (0.6-1.4) mg/dl POC Creatinine (0.6-1.3) mg/dl Est Cr Clr Drug Dosing ml/min Est GFR ( Amer) ml/min Est GFR (Non-Af Amer) ml/min BUN/Creatinine Ratio (10-20) Glucose (70-99(Fasting)) mg/dl POC Glucose (other) (70-99) mg/dl Lactate 2.0 (0.4-2.0) mmol/L Calcium (8.6-10.3) mg/dl POC Ioniz Calcium Zita (1.12-1.32) mmol/l Total Bilirubin (0.2-1.0) mg/dl AST (13-39) U/L ALT (7-52) U/L Alkaline Phosphatase (34-104) U/L Total Protein (6.0-8.3) gm/dl Albumin (3.4-5.0) gm/dl Globulin (2.5-4.0) gm/dl Albumin/Globulin Ratio (0.9-2) Lipase (11-82) U/L Urine Color Urine Appearance (Clear) Urine pH (4.5-7.5) Ur Specific [place] (1.000-1.030) Urine Protein (Negative) Urine Glucose (UA) (Negative) Urine Ketones (Negative) Urine Blood (Negative) Urine Nitrite (Negative) Urine Bilirubin (Negative) Urine Urobilinogen (Negative) Ur Leukocyte Esterase (Negative) Administered Medications Lactated Ringer's (Lr) 1,000 mls @ 80 mls/hr IV .[id number] CYNTHIA Stop: 03/28/24 01:14 Last Admin: 03/27/24 19:19 Dose: 80 mls/hr Documented By: MED Discontinued Medications Sodium Chloride (Nss) 500 mls @ 250 mls/hr IV .Q2H CYNTHIA Stop: 04/26/24 15:44 Last Admin: 03/27/24 19:03 Dose: Not Given Documented By: Infusion: 03/27/24 17:55 Dose: Infused Documented By: Admin: 03/27/24 15:53 Dose: 250 mls/hr Documented By: TNK Prochlorperazine (Compazine) 1 mls @ 1 mls/min IV ONE ONE Stop: 03/27/24 18:51 Last Admin: 03/27/24 18:55 Dose: 1 mls/min Documented By: KONG Ioversol (Optiray 320 125ml) 119 ml IV ONCE ONE Stop: 03/27/24 16:38 Last Admin: 03/27/24 16:37 Dose: 119 ml Documented By: PLW Morphine Sulfate (Morphine Sulfate 4 Mg/Ml 1 Ml Carp\\Vial) 4 mg IV NOW STA Stop: 03/27/24 16:12 Last Admin: 03/27/24 16:15 Dose: 4 mg Documented By: ML Ondansetron HCl (Ondansetron Inj 2 Mg/Ml 2 Ml Vial) 4 mg IV NOW STA Stop: 03/27/24 15:36 Last Admin: 03/27/24 15:53 Dose: 4 mg Documented By: TNK Ondansetron HCl (Ondansetron Inj 2 Mg/Ml 2 Ml Vial) 4 mg IV NOW STA Stop: 03/27/24 16:12 Last Admin: 03/27/24 16:19 Dose: 4 mg Documented By: ML Imaging Data Radiologist's Impression: Chest/Abdomen X-ray 03/27/24 15:35 CHEST AND ABDOMEN 2 VIEWS HISTORY: Small bowel obstruction. Follow-up. COMPARISON: KUB 01/25/2024. Abdomen and pelvis CT 03/27/2024. Chest 01/22/2024. FINDINGS: No pneumothorax. No pleural effusions. The lungs are clear. The heart remains enlarged. No evidence for pulmonary edema. There are poststernotomy changes. Contrast within the urinary system from the recent CT examination. Moderate fecal retention. No pneumoperitoneum. No pneumatosis. A few dilated loops of small bowel are again noted consistent with a small bowel obstruction. These measure up to 5.6 cm in diameter. Suture material again noted within the abdomen. IMPRESSION: Dilated loops of small bowel consistent with a small bowel obstruction. This is better appreciated on the same day abdomen and pelvis CT. ACT 112: Negative or not required by law. Electronically signed by: José Caldwell M.D. 03/27/2024 5:17 PM Abdomen/Pelvis CT 03/27/24 16:12 CT abd pelvis IV con only CLINICAL HISTORY: mid abd pain. N/V, ventral hernia TECHNIQUE: Helical axial images of the abdomen and pelvis were obtained and displayed. Automated dose lowering techniques and/or adjustment according to patient size were utilized for this exam. This exam was performed with intravenous contrast. CT DOSE: 1465.17 mGy.cm COMPARISON: Comparison is made to CT abdomen pelvis 01/22/2024 FINDINGS: Lower chest: Bibasilar atelectasis versus scarring is seen. Liver: Unremarkable. No focal lesions are seen. Gallbladder and biliary tree: Cholelithiasis is seen without evidence of cholecystitis. No intra- or extrahepatic biliary ductal dilation. Pancreas: Unremarkable, no focal lesions. Spleen: Unremarkable. Adrenals: Unremarkable. Kidneys and ureters: Perinephric stranding is noted bilaterally. Bladder: Unremarkable. Reproductive organs: Unremarkable. Bowel: The appendix is normal. There is a small hiatal hernia. Postsurgical changes are seen in the midabdomen. There is dilation of multiple loops of small bowel measuring up to 34 mm with a transition point at the supraumbilical hernia. Lymph nodes Retroperitoneal: Unremarkable. Pelvic: Unremarkable. Mesenteric: Unremarkable. Peritoneum: Normal. Vessels: Atherosclerotic calcifications are seen. Abdominal wall: A supraumbilical hernia contains fat and multiple dilated loops of bowel. Again noted is failure of adjacent hernia mesh. Bones: Degenerative changes in the visualized spine. IMPRESSION: 1. Small bowel obstruction with a transition point at a supraumbilical hernia. 2. Cholelithiasis without cholecystitis. ACT 112: Negative or not required by law. Electronically signed by: Ming Perez M.D. 03/27/2024 5:03 PM KUB X-Ray 03/27/24 18:04 KUB HISTORY: ng tube placement COMPARISON: Chest and abdominal series 03/27/2024. FINDINGS: A nasogastric tube is not well visualized on this study. There is possible visualization of the nasogastric tube within the proximal esophagus. There are poststernotomy changes. The heart remains enlarged. Cardiac monitoring leads are in place. There is mild central pulmonary vascular congestion without overt edema. No renal calculi. No ureteral calculi. No pneumoperitoneum or pneumatosis. IMPRESSION: The nasogastric tube is not well visualized on this study due to the portable technique and patient positioning. Recommend repeat imaging. The nasogastric gastric tube may be identified within the proximal esophagus. ACT 112: Negative or not required by law. Electronically signed by: José Caldwell M.D. 03/27/2024 6:18 PM Discharge Plan Visit Data Chief Complaint: Abdominal Pain Stated Complaint: ABD PAIN ED Provider: John Mcpherson Discharge Problem: SBO (small bowel obstruction) Patient Disposition: Admitted As Inpatient Discharge Instructions Interventions: ED Discharge Assessment Last Done: 03/27/24 20:30
[2024-03-27] MEDS: MoRPHine SULFATE 4 MG/ML 1 ML CARP\\VIAL IV STA (16:15)
[2024-03-27 16:22] LABS: Albumin Globulin Ratio 1.4 (0.9-2); Albumin Level 4.2 gm/dl (3.4-5.0); BUN Creatinine Ratio 11.1 (10-20); Bilirubin,Total 0.8 mg/dl (0.2-1.0); Calcium 9.3 mg/dl (8.6-10.3); Creatinine Clr Calc Pharmacy 94.4 ml/min; Est GFR (African American) 85.4 ml/min; Est GFR (Non-African American) 73.7 ml/min; Globulin 3.1 gm/dl (2.5-4.0); Potassium 3.6 mmol/L (3.5-5.1); Total Protein 7.3 gm/dl (6.0-8.3)
[2024-03-27 16:23] LABS: Appearance Urine Clear (Clear); Bilirubin Urine Negative (Negative); Blood Urine Negative (Negative); Color Urine Yellow; Glucose Urine UA Negative (Negative); Ketones Urine Negative (Negative); Leukocyte Esterase Urine Negative (Negative); Nitrite Urine Negative (Negative); Protein Urine Negative (Negative); Specific Gravity Urine 1.008 (1.000-1.030); Urobilinogen Urine Negative (Negative)
[2024-03-27 16:26] LABS: Prothrombin Time 10.7 Seconds (9.0-12.0)
[2024-03-27 16:32] LABS: iSTAT Hemoglobin 15.3 g/dl (14.0-18.0); iSTAT Potassium 5.7 mmol/L (3.3-5.0)
[2024-03-27] MEDS: OPTIRAY 320 125ml IV ONE (16:37)
--- NOTE | 2024-03-27 17:05 | CT Scan Report ---
CT abd pelvis IV con only CLINICAL HISTORY: mid abd pain. N/V, ventral hernia TECHNIQUE: Helical axial images of the abdomen and pelvis were obtained and displayed. Automated dose lowering techniques and/or adjustment according to patient size were utilized for this exam. This e xam was performed with intravenous contrast. CT DOSE: 1465.17 mGy.cm COMPARISON: Comparison is made to CT abdomen pelvis 01/22/2024 FINDINGS: Lower chest: Bibasilar atelectasis versus scarring is seen. Liver: Unremarkable. No focal lesions are seen. Gallbladder and biliary tree: Cholelithiasis is seen without evidence of cholecystitis. No intra- or extrahepatic biliary ductal dilation. Pancreas: Unremarkable, no focal lesions. Spleen: Unremarkable. Adrenals: Unremarkable. Kidneys and ureters: Perinephric stranding is noted bilaterally. Bladder: Unremarkable. Reproductive organs: Unremarkable. Bowel: The appendix is normal. There is a small hiatal hernia. Postsurgical changes are seen in the m idabdomen. There is dilation of multiple loops of small bowel measuring up to 34 mm with a transition point at the supraumbilical hernia. Lymph nodes Retroperitoneal: Unremarkable. Pelvic: Unremarkable. Mesenteric: Unremarkable. Peritoneum: Normal. Vessels: Atherosclerotic calcifications are seen. Abdominal wall: A supraumbilical hernia contains fat and multiple dilated loops of bowel. Again noted is failure of adjacent hernia mesh. Bones: Degenerative changes in the visualized spine. IMPRESSION: 1. Small bowel obstruction with a transition point at a supraumbilical hernia. 2. Cholelithiasis without cholecystitis. ACT 112: Negative or not required by law. Electronically signed by: Ming Perez M.D. 03/27/2024 5:03 PM
--- NOTE | 2024-03-27 17:20 | XRay Report ---
CHEST AND ABDOMEN 2 VIEWS HISTORY: Small bowel obstruction. Follow-up. COMPARISON: KUB 01/25/2024. Abdomen and pelvis CT 03/27/2024. Chest 01/22/2024. FINDINGS: No pneumothorax. No pleural effusions. The lungs are clear. The heart remains enlarged. No evidence for pulmonary edema. There are poststernotomy changes. Contrast within the urinary system fr om the recent CT examination. Moderate fecal retention. No pneumoperitoneum. No pneumatosis. A few di lated loops of small bowel are again noted consistent with a small bowel obstruction. These measure u p to 5.6 cm in diameter. Suture material again noted within the abdomen. IMPRESSION: Dilated loops of small bowel consistent with a small bowel obstruction. This is better appreciated on the same day abdomen and pelvis CT. ACT 112: Negative or not required by law. Electronically signed by: José Caldwell M.D. 03/27/2024 5:17 PM
--- NOTE | 2024-03-27 18:20 | XRay Report ---
KUB HISTORY: ng tube placement COMPARISON: Chest and abdominal series 03/27/2024. FINDINGS: A nasogastric tube is not well visualized on this study. There is possible visualization of the nasogastric tube within the proximal esophagus. There are poststernotomy changes. The heart jack ins enlarged. Cardiac monitoring leads are in place. There is mild central pulmonary vascular congest ion without overt edema. No renal calculi. No ureteral calculi. No pneumoperitoneum or pneumatosis. IMPRESSION: The nasogastric tube is not well visualized on this study due to the portable technique and patient p ositioning. Recommend repeat imaging. The nasogastric gastric tube may be identified within the proxi mal esophagus. ACT 112: Negative or not required by law. Electronically signed by: José Caldwell M.D. 03/27/2024 6:18 PM
--- NOTE | 2024-03-27 18:42 | History & Physical Report ---
Date of Service March 27, 2024 Assessment & Plan (1) Small bowel obstruction: (2) Paroxysmal A-fib: (3) Ventral hernia: (4) Nausea & vomiting: (5) Abdominal pain: (6) Incarcerated ventral hernia: (7) Chronic diastolic heart failure: (8) Postoperative atrial fibrillation: (9) Morbid obesity: (10) MARICEL (obstructive sleep apnea): Plan Small bowel obstruction secondary to incarcerated ventral hernia/abdominal pain/nausea and vomiting - NPO - NG tube to low intermittent suction - Last SBO was managed conservatively 01/21 - CT AP showed SBO with transition point at supraumbilical hernia containing multiple dilated bowel loops w/ failure of mesh - lactate normal, potential surgical intervention for incarcerated ventral hernia and SBO - patient received 500 ml NS in ED - Zofran 4 mg IV x2 given in ED - Morphine sulfate 4mg IV x1 given for pain in ED - Patient started on LR 1L @ 80 ml/hr - Continue Zofran 4mg IV as needed for nausea - Repeat KUB now? - Started pantoprazole 40 mg IV daily and scheduled Tylenol 1g IV Q8hr for fever/pain - Continue QAM BMP, KUB, IV fluids, and NG tube with low intermittent suction Paroxysmal A-fib/chronic diastolic CHF/hypertension - NPO - Holding amiodarone, apixaban, aspirin, furosemide, losartan, and metoprolol tartrate - Holding heparin for possible surgical intervention - IV amiodarone will be ordered if needed - Lopressor 5mg IV as needed for HR>110 - continue monitoring on telemetry History of Present Illness Primary Care Provider: COSTA Marie Seven is a 78 y/o M with a past medical history of CAD s/p CABG x 08 April 2022, bowel obstruction secondary to ventral hernia in January, MARICEL, DJD, A-fib on amiodarone and metoprolol, chronic diastolic heart failure, NSTEMI, HLD, and HTN arriving to the ED due to abdominal pain, nausea, and vomiting. The patient reports significant pain level of 8/10 after being given morphine sulfate 4mg IV down from a 9/10 on ED arrival. The patient was admitted in January for a similar obstruction and was treated conservatively. In January patient was recommended to lose weight to be a candidate for surgical hernia repair at a target weight of 250 pounds, BMI of 38 unless hernia was non-reducible and obstructing requiring urgent surgery. Patient is currently in a binder, and his ventral hernia was reduced by Dr. Mendoza, but has re-incarcerated. In the ED KUB and CT AP showed a small bowel obstruction with a transition point within the patient's incarcerated ventral hernia. Per surgery patient is recommended po tential operative intervention, although patient is currently refusing surgical treatment. Patient is high surgical risk with multiple comorbidities including morbid obesity. Patient denies fever, headache, chest pain, palpitations, shortness of breath, cough, wheeze. Patient does endorse on going chills, nausea, and abdominal pain. Patient NPO with NG tube receiving IV fluids, will hold patient's apixaban for potential surgical intervention. Allergies Allergy/AdvReac Type Severity Reaction Status Date / Time long Allergy Severe LONG Verified 03/22/24 07:59 TREES "LUNGS TIGHTEN UP" codeine AdvReac Mild NAUSEA Verified 03/22/24 07:59 Home Medications Medication Instructions Recorded Confirmed Type aspirin 81 mg tablet,delayed 81 mg PO DAILY #90 tabs 07/15/22 03/27/24 Rx release losartan 100 mg tablet 100 mg PO DAILY #90 tabs 05/23/23 03/27/24 Rx amiodarone 200 mg tablet 200 mg PO DAILY #90 tabs 10/13/23 03/27/24 Rx diclofenac sodium 1 % topical gel 4 g topical QID PRN Pain 12/26/23 03/27/24 History (Voltaren Arthritis Pain) apixaban 5 mg tablet (Eliquis) 5 mg PO BID #180 tabs 01/09/24 03/27/24 Rx clotrimazole-betamethasone 1 1 applic topical BID PRN Psoriasis 01/23/24 03/27/24 Rx %-0.05 % topical cream #45 grams furosemide 20 mg tablet 20 mg PO BID #180 tabs 01/29/24 03/27/24 Rx tamsulosin 0.4 mg capsule 0.4 mg PO HS #30 caps 01/29/24 03/27/24 Rx metoprolol tartrate 100 mg tablet 50 mg PO AMPM 02/05/24 03/27/24 History tramadol 50 mg tablet 100 mg (2 x 50 mg) PO Q12H PRN 03/22/24 03/27/24 Rx pain #120 tabs Past Med/Surg History Problem List (Updated 03/28/24 @ 00:05 by Regulo Jaramillo) SBO (small bowel obstruction) (Acute) Small bowel obstruction Incarcerated ventral hernia Chills (without fever) Ventral hernia (Acute) Small bowel obstruction (Acute) Nausea & vomiting (Acute) Abdominal pain (Acute) On amiodarone therapy MARICEL (obstructive sleep apnea) DJD (degenerative joint disease) of knee Knee pain Lightheadedness Diabetes (Unknown) Acute on chronic diastolic heart failure Syncope Chronic diastolic heart failure Lower extremity edema Paroxysmal A-fib DVT prophylaxis Postoperative atrial fibrillation Morbid obesity Fatigue Acute systolic CHF (congestive heart failure) 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) Dyspnea on exertion (Acute) Congestive heart failure (Acute) Fluid overload (Acute) Psoriasis Syncope Cellulitis Non-ST elevation [place] (NSTEMI) (Acute) Weakness (Acute) Acute electrocardiogram changes (Acute) Leukocytosis (Acute) Colon polyps Nocturnal hypoxemia Dyslipidemia Type 2 diabetes mellitus (Chronic) Chronic back pain (Chronic) CAD (coronary artery disease) (Chronic) Chronic obstructive lung disease (Chronic) Obstructive sleep apnea syndrome (Chronic) Hypertension (Chronic) Medical History Chronic narcotic dependence Warfarin anticoagulation Unresponsive Sepsis secondary to UTI Hematuria Encephalopathy Surgical History History of tonsillectomy History of appendectomy History of colon surgery Family History Father Myocardial infarction Heart disease Mother Hypertension Other Diabetes Denies family history of Ovarian cancer Prostate cancer Breast cancer Lung cancer Colorectal cancer Stroke Social History Smoking Status: Never smoker Second Hand Exposure: No; Do You Dip or Chew Tobacco: No; Tobacco Cessation Education Requested by Patient: No Hx Alcohol Use: Yes Alcohol type: hard liquor Alcohol Intake Frequency: 2-4 x/Month Hx Substance Use: No Preferred Language: Albanian Communication Ability: Effective Visual Impairment: Limited Hearing Ability: Hard of Hearing Production Trainer Required: No Beliefs That Will Affect Care: Sikh Sikh Beliefs: latter day marital status: Current Living Situation: Spouse current occupational status: retired current occupation: Retired How many Children do You have: 3 Other Information That Helps Us Care for You: No Feels Safe at Home: Yes Safety Concerns: Feels Safe At This Time Childhood Exposure to Second-Hand Smoke: No Diet: regular caffeine: Yes Dental Care, Regularly: No Physical Activity Frequency: 5-6 Times per Week Seatbelt Use: always Sunscreen Use: No Assistive Devices: None Physical Exam Physical Exam: General: patient resting comfortably, NAD, non-toxic in appearance, answers questions appropriately. Skin: warm, dry, intact HEENT: NC/AT, anicteric sclera, conjunctiva without injection, moist mucus membranes. Heart: +S1/S2, regular, no m/r/g Lungs: equal air entry bilaterally, no rales/rhonchi/wheezes Abd: +BS, soft, NT/ND Ext: warm, no clubbing/cyanosis or edema Neuro: nonfocal, speech intact, no facial droop, moving all extremities. Results & Data Results & Data Vital Signs (Past 12 Hours) Vital Signs Temp Pulse Pulse Resp BP Pulse Ox O2 Del Method 03/27/24 16:57 82 20 94 Room Air 03/27/24 16:31 50 L 03/27/24 15:59 96 03/27/24 15:33 36.0 C L 60 18 190/109 H 95 Room Air Diagnostic Findings Laboratory Results WBC 6.59 K/ul (4.8-10.8) 03/27/24 15:45 RBC 5.02 M/uL (4.70-6.10) 03/27/24 15:45 Hgb 15.8 g/dl (14.0-18.0) 03/27/24 15:45 POC Hgb 15.3 g/dl (14.0-18.0) 03/27/24 16:19 Hct 47.1 % (42.0-52.0) 03/27/24 15:45 POC Hct 45 % (42-52) 03/27/24 16:19 MCV 93.8 fL (80.0-100.0) 03/27/24 15:45 MCH 31.5 pg (25.0-34.0) 03/27/24 15:45 MCHC 33.5 g/dL (32.0-36.0) 03/27/24 15:45 RDW Std Deviation 44.6 fL (36.4-46.3) 03/27/24 15:45 RDW Coeff of Vipul 13.0 % (11.5-14.5) 03/27/24 15:45 Plt Count 215 K/uL (130-400) 03/27/24 15:45 MPV 9.4 fL (9.4-12.4) 03/27/24 15:45 Immature Gran % (Auto) 0.5 % 03/27/24 15:45 Neut % (Auto) 62.0 % 03/27/24 15:45 Lymph % (Auto) 22.8 % 03/27/24 15:45 [place] % (Auto) 13.1 % 03/27/24 15:45 Eos % (Auto) 1.1 % 03/27/24 15:45 Baso % (Auto) 0.5 % 03/27/24 15:45 Neut # (Auto) 4.10 K/uL (1.40-6.50) 03/27/24 15:45 Lymph # (Auto) 1.50 K/uL (1.20-3.40) 03/27/24 15:45 [place] # (Auto) 0.86 K/uL (0.11-0.59) H 03/27/24 15:45 Eos # (Auto) 0.07 K/uL (0.00-0.50) 03/27/24 15:45 Baso # (Auto) 0.03 K/uL (0.00-0.20) 03/27/24 15:45 Immature Gran # (Auto) 0.03 K/uL (0.01-0.20) 03/27/24 15:45 PT 10.7 Seconds (9.0-12.0) 03/27/24 15:45 INR 1.0 (0.9-1.1) 03/27/24 15:45 POC Sodium 137 mmol/L (135-144) 03/27/24 16:19 Sodium 139 mmol/L (136-145) 03/27/24 15:45 POC Potassium 5.7 mmol/L (3.3-5.0) H 03/27/24 16:19 Potassium 3.6 mmol/L (3.5-5.1) 03/27/24 15:45 POC Chloride 99 mmol/L (101-112) L 03/27/24 16:19 Chloride 100 mmol/L (98-107) 03/27/24 15:45 Carbon Dioxide 32 mmol/L (21-32) 03/27/24 15:45 POC Total CO2 31 mmol/L (24-31) 03/27/24 16:19 Anion Gap 7 (3-11) 03/27/24 15:45 POC Anion Gap 13.0 mmol/L (16-25) L 03/27/24 16:19 POC BUN 12 mg/dl (7-18) 03/27/24 16:19 BUN 11 mg/dl (6-23) 03/27/24 15:45 Creatinine 0.99 mg/dl (0.6-1.4) 03/27/24 15:45 POC Creatinine 1.0 mg/dl (0.6-1.3) 03/27/24 16:19 Est Cr Clr Drug Dosing 94.4 ml/min 03/27/24 15:45 Est GFR ( Amer) 85.4 ml/min 03/27/24 15:45 Est GFR (Non-Af Amer) 73.7 ml/min 03/27/24 15:45 BUN/Creatinine Ratio 11.1 (10-20) 03/27/24 15:45 Glucose 112 mg/dl (70-99(Fasting)) H 03/27/24 15:45 POC Glucose 106 mg/dl (70-99) H 03/27/24 20:56 POC Glucose (other) 114 mg/dl (70-99) H 03/27/24 16:19 Lactate 2.0 mmol/L (0.4-2.0) 03/27/24 17:30 Calcium 9.3 mg/dl (8.6-10.3) 03/27/24 15:45 POC Ioniz Calcium Zita 1.00 mmol/l (1.12-1.32) L 03/27/24 16:19 Total Bilirubin 0.8 mg/dl (0.2-1.0) 03/27/24 15:45 AST 32 U/L (13-39) 03/27/24 15:45 ALT 24 U/L (7-52) 03/27/24 15:45 Alkaline Phosphatase 107 U/L (34-104) H 03/27/24 15:45 Total Protein 7.3 gm/dl (6.0-8.3) 03/27/24 15:45 Albumin 4.2 gm/dl (3.4-5.0) 03/27/24 15:45 Globulin 3.1 gm/dl (2.5-4.0) 03/27/24 15:45 Albumin/Globulin Ratio 1.4 (0.9-2) 03/27/24 15:45 Lipase 11 U/L (11-82) 03/27/24 15:45 Urine Color Yellow 03/27/24 15:55 Urine Appearance Clear (Clear) 03/27/24 15:55 Urine pH 8.0 (4.5-7.5) H 03/27/24 15:55 Ur Specific [place] 1.008 (1.000-1.030) 03/27/24 15:55 Urine Protein Negative (Negative) 03/27/24 15:55 Urine Glucose (UA) Negative (Negative) 03/27/24 15:55 Urine Ketones Negative (Negative) 03/27/24 15:55 Urine Blood Negative (Negative) 03/27/24 15:55 Urine Nitrite Negative (Negative) 03/27/24 15:55 Urine Bilirubin Negative (Negative) 03/27/24 15:55 Urine Urobilinogen Negative (Negative) 03/27/24 15:55 Ur Leukocyte Esterase Negative (Negative) 03/27/24 15:55 Impressions Chest/Abdomen X-ray 03/27/24 15:35 CHEST AND ABDOMEN 2 VIEWS HISTORY: Small bowel obstruction. Follow-up. COMPARISON: KUB 01/25/2024. Abdomen and pelvis CT 03/27/2024. Chest 01/22/2024. FINDINGS: No pneumothorax. No pleural effusions. The lungs are clear. The heart remains enlarged. No evidence for pulmonary edema. There are poststernotomy changes. Contrast within the urinary system from the recent CT examination. Moderate fecal retention. No pneumoperitoneum. No pneumatosis. A few dilated loops of small bowel are again noted consistent with a small bowel obstruction. These measure up to 5.6 cm in diameter. Suture material again noted within the abdomen. IMPRESSION: Dilated loops of small bowel consistent with a small bowel obstruction. This is better appreciated on the same day abdomen and pelvis CT. ACT 112: Negative or not required by law. Electronically signed by: José Caldwell M.D. 03/27/2024 5:17 PM Abdomen/Pelvis CT 03/27/24 16:12 CT abd pelvis IV con only CLINICAL HISTORY: mid abd pain. N/V, ventral hernia TECHNIQUE: Helical axial images of the abdomen and pelvis were obtained and displayed. Automated dose lowering techniques and/or adjustment according to patient size were utilized for this exam. This exam was performed with intravenous contrast. CT DOSE: 1465.17 mGy.cm COMPARISON: Comparison is made to CT abdomen pelvis 01/22/2024 FINDINGS: Lower chest: Bibasilar atelectasis versus scarring is seen. Liver: Unremarkable. No focal lesions are seen. Gallbladder and biliary tree: Cholelithiasis is seen without evidence of cholecystitis. No intra- or extrahepatic biliary ductal dilation. Pancreas: Unremarkable, no focal lesions. Spleen: Unremarkable. Adrenals: Unremarkable. Kidneys and ureters: Perinephric stranding is noted bilaterally. Bladder: Unremarkable. Reproductive organs: Unremarkable. Bowel: The appendix is normal. There is a small hiatal hernia. Postsurgical changes are seen in the midabdomen. There is dilation of multiple loops of small bowel measuring up to 34 mm with a transition point at the supraumbilical hernia. Lymph nodes Retroperitoneal: Unremarkable. Pelvic: Unremarkable. Mesenteric: Unremarkable. Peritoneum: Normal. Vessels: Atherosclerotic calcifications are seen. Abdominal wall: A supraumbilical hernia contains fat and multiple dilated loops of bowel. Again noted is failure of adjacent hernia mesh. Bones: Degenerative changes in the visualized spine. IMPRESSION: 1. Small bowel obstruction with a transition point at a supraumbilical hernia. 2. Cholelithiasis without cholecystitis. ACT 112: Negative or not required by law. Electronically signed by: Ming Perez M.D. 03/27/2024 5:03 PM KUB X-Ray 03/27/24 18:04 KUB HISTORY: ng tube placement COMPARISON: Chest and abdominal series 03/27/2024. FINDINGS: A nasogastric tube is not well visualized on this study. There is possible visualization of the nasogastric tube within the proximal esophagus. There are poststernotomy changes. The heart remains enlarged. Cardiac monitoring leads are in place. There is mild central pulmonary vascular congestion without overt edema. No renal calculi. No ureteral calculi. No pneumoperitoneum or pneumatosis. IMPRESSION: The nasogastric tube is not well visualized on this study due to the portable technique and patient positioning. Recommend repeat imaging. The nasogastric gastric tube may be identified within the proximal esophagus. ACT 112: Negative or not required by law. Electronically signed by: José Caldwell M.D. 03/27/2024 6:18 PM Code Status & VTE Plan Code Status Full code status SCDs NPO VTE Prophylaxis Plan VTE Prophylaxis will be ordered: Yes Supervising Physician Co-Signing Physician Notes I personally saw and examined the patient. I independently reviewed the labs, EKG, imaging, problem list, medication list, past medical history and family his tory. I verified all moran points and agree with resident physician Dr Eder Foster, with the following exceptions and/or additions: 78 year old male presents with abdominal pain following recent hospitalization for small bowel obstruction in January which resolved with conservative measures. Nausea, vomiting and abdominal pain started today. Current severity 5/10 when seen and much improved since coming to the ER O/E A&Ox3, Chest CTAB, HS RRR, no murmurs, Abdo distended with generalized tenderness but no skin changes A/P SBO - consult general surgery - noted already seen, NPO, IV fluids, NG tube currently malpositioned therefore will advance and retake XR KUB, holding all oral medications at this time therefore will place on telemtry in case need for IV amio +/- metoprolol Resident Activity Tracking Resident Involvement: Resident Care Provided Care Provided: Adult Hospital Medicine (3) Ventral hernia Obstruction and gangrene presence: with obstruction but without gangrene Qualified Code(s): K43.6 - Other and unspecified ventral hernia with obstruction, without gangrene (4) Nausea & vomiting Vomiting type: unspecified Qualified Code(s): R11.2 - Nausea with vomiting, unspecified (5) Abdominal pain Abdominal location: generalized Qualified Code(s): R10.84 - Generalized abdominal pain
--- NOTE | 2024-03-27 18:51 | Surgery Consultation ---
Date of Consultation March 27, 2024 Assessment & Plan (1) Incarcerated ventral hernia: Extremely high risk surgical risk patient secondary to morbid obesity and with multiple comorbidities. Currently with a small bowel obstruction. His lactate was within the normal range and his pain is markedly improved since coming to the emergency room. NG tube in place. He is still nauseated although his abdomen is currently nontender. I did discuss with him potential operative intervention this visit. I would like for his apixaban to washout prior to operative intervention. However he currently is saying he does not want to have surgery and currently would not consent. I do not believe he is currently crenshaw ving ischemic bowel. I did talk to his family and said we could re-discuss surgical option once he is feeling better. Everyone is aware of his extremely high surgical risk. For now the medical team will admit him. I would keep him n.p.o. with the NG tube and IV fluids. Repeat KUB tomorrow. Hold his apixaban until we make a surgical decision. (2) Small bowel obstruction: (3) MARICEL (obstructive sleep apnea): (4) DJD (degenerative joint disease) of knee: (5) Chronic diastolic heart failure: (6) Paroxysmal A-fib: (7) Morbid obesity: (8) S/P CABG x 2: (9) Non-ST elevation [place] (NSTEMI): (10) CAD (coronary artery disease): (11) Type 2 diabetes mellitus: History of Present Illness History of Present Illness Mr. Amezcua is a 78-year-old male known from a previous recent admission for similar problem. He had been fine since discharged in January. Just today started having nausea vomiting and some pain at his known hernia site. Workup today in the emergency room reveals small bowel obstruction with transition point within his known ventral hernia. His prior surgical history includes a colectomy for diverticulitis and appendectomy a long time ago as well as an incisional hernia repair with mesh. He has extensive comorbidities which include obstructive sleep apnea, morbid obesity, degenerative joint disease, diabetes, diastolic heart failure, paroxysmal atrial fibrillation, CHF, history of non-ST elevation [place], history of coronary artery bypass graft, dyslipidemia, and hypertension. He just had an NG tube placed and did have some morphine and is currently saying that his abdominal pain is improved. He is still nauseated. Dr. Mendoza did reduce his hernia although it did re-incarcerated, it appears to be less bothersome at the moment. Allergies Allergy/AdvReac Type Severity Reaction Status Date / Time long Allergy Severe LONG Verified 03/22/24 07:59 TREES "LUNGS TIGHTEN UP" codeine AdvReac Mild NAUSEA Verified 03/22/24 07:59 Home Medications Medication Instructions Recorded Confirmed Type aspirin 81 mg tablet,delayed 81 mg PO DAILY #90 tabs 07/15/22 03/22/24 Rx release losartan 100 mg tablet 100 mg PO DAILY #90 tabs 05/23/23 03/22/24 Rx amiodarone 200 mg tablet 200 mg PO DAILY #90 tabs 10/13/23 03/22/24 Rx diclofenac sodium 1 % topical gel 4 g topical QID PRN Pain 12/26/23 03/22/24 History (Voltaren Arthritis Pain) apixaban 5 mg tablet (Eliquis) 5 mg PO BID #180 tabs 01/09/24 03/22/24 Rx clotrimazole-betamethasone 1 1 applic topical BID PRN Psoriasis 01/23/24 03/22/24 Rx %-0.05 % topical cream #45 grams furosemide 20 mg tablet 20 mg PO BID #180 tabs 01/29/24 03/22/24 Rx tamsulosin 0.4 mg capsule 0.4 mg PO HS #30 caps 01/29/24 03/22/24 Rx metoprolol tartrate 100 mg tablet See Rx Instructions .Route .COMPLEX 02/05/24 03/22/24 History nystatin 100,000 unit/gram topical 1 applic EXT TID PRN 02/05/24 03/22/24 History powder (Nystop) tramadol 50 mg tablet 100 mg (2 x 50 mg) PO Q12H PRN 03/22/24 03/22/24 Rx pain #120 tabs Patient History Medical History Chronic narcotic dependence Warfarin anticoagulation Unresponsive Sepsis secondary to UTI Hematuria Encephalopathy Surgical History History of tonsillectomy History of appendectomy History of colon surgery Family History Father Myocardial infarction Heart disease Mother Hypertension Other Diabetes Denies family history of Ovarian cancer Prostate cancer Breast cancer Lung cancer Colorectal cancer Stroke Social History Smoking Status: Never smoker Second Hand Exposure: No; Do You Dip or Chew Tobacco: No; Hx Alcohol Use: Yes Alcohol type: hard liquor Alcohol Intake Frequency: 2-4 x/Month Hx Substance Use: No Preferred Language: Estonian Communication Ability: Effective Visual Impairment: Limited Hearing Ability: Hard of Hearing [place] Hand Required: No Beliefs That Will Affect Care: None marital status: Current Living Situation: Family current occupational status: retired current occupation: Retired How many Children do You have: 3 Feels Safe at Home: Yes Childhood Exposure to Second-Hand Smoke: No Diet: regular caffeine: Yes Dental Care, Regularly: No Physical Activity Frequency: 5-6 Times per Week Seatbelt Use: always Sunscreen Use: No Assistive Devices: None Review of Systems Review of Systems: All systems reviewed & are unremarkable except as noted in HPI & below Physical Exam Constitutional: Alert. Mild distress secondary to recent NG tube placement as well as nausea. Eyes: PERRL, conjunctivae normal, anicteric sclerae EOM intact bilaterally ENMT: external ear and nose normal, oropharynx normal Ears: no hearing impairment Neck: trachea midline, no thyromegaly Respiratory: normal respiratory effort; no respiratory distress and does not use accessory muscles Cardiovascular: Rate/Rhythm: regular rate and regular rhythm Gastrointestinal (Abdomen): Morbidly obese. Large midline incision with a central supraumbilical hernia. It is incarcerated. Currently nontender and there are no skin color changes. Skin: no rashes, warm and dry Psychiatric: Orientation: alert, oriented x 3 and cooperative Lymphatic: Bilateral lower extremity edema Results & Data Vital Signs (Past 12 Hours) Vital Signs Temp Pulse Pulse Resp BP Pulse Ox O2 Del Method 03/27/24 16:57 82 20 94 Room Air 03/27/24 16:31 50 L 03/27/24 15:59 96 03/27/24 15:33 36.0 C L 60 18 190/109 H 95 Room Air PG Care Time/CCT Total # of Minutes Spent Total Time Spent with Patient: Total time spent is greater than 50% in coordination of care (as documented) at patient's floor/unit and/or counseling patient: Coding Level of Care Code 43483 INT INP/OBS CARE MIN Diagnoses Incarcerated ventral hernia K43.6 Small bowel obstruction K56.609 MARICEL (obstructive sleep apnea) G47.33 DJD (degenerative joint disease) of knee M17.9 Chronic diastolic heart failure I50.32 Paroxysmal A-fib I48.0 Morbid obesity E66.01 S/P CABG x 2 Z95.1 Non-ST elevation [place] (NSTEMI) I21.4 Coronary artery disease involving [place] coronary artery of [place] heart without angina pectoris I25.10 Coronary Disease-Associated Artery/Lesion type: [place] artery [place] vs. transplanted heart: [place] heart Associated angina: without angina Type 2 diabetes mellitus without complication, without long-term current use of insulin E11.9 Diabetes mellitus rn long term care insulin use: without rn long term care use Diabetes mellitus complication status: without complication (10) CAD (coronary artery disease) Coronary Disease-Associated Artery/Lesion type: [place] artery [place] vs. transplanted heart: [place] heart Associated angina: without angina Qualified Code(s): I25.10 - Atherosclerotic heart disease of [place] coronary artery without angina pectoris (11) Type 2 diabetes mellitus Diabetes mellitus rn long term care insulin use: without fpc use Diabetes mellitus complication status: without complication Qualified Code(s): E11.9 - Type 2 diabetes mellitus without complications
[2024-03-27] MEDS: PROCHLORPERAZINE 1 ML IV ONE (18:55)
[2024-03-27] MEDS: LACTATED RINGER'S 1,000 ML IV SCH (19:19)
[2024-03-27] MEDS ORDERED: METOPROLOL TARTRATE 1 MG/ML VIAL IV PRN (21:19)
[2024-03-27] MEDS: HYDROmorphone INJ 0.5 MG/0.5 ML SYR IV PRN (23:05)
[2024-03-27] MEDS: ACETAMINOPHEN 1,000 MG/100 ML VIAL IV SCH (23:05)
[2024-03-28 06:58] LABS: BUN Creatinine Ratio 13.6 (10-20); Calcium 8.8 mg/dl (8.6-10.3); Creatinine Clr Calc Pharmacy 99.2 ml/min; Est GFR (African American) 96.7 ml/min; Est GFR (Non-African American) 83.4 ml/min; Potassium 3.9 mmol/L (3.5-5.1)
--- NOTE | 2024-03-28 07:10 | Billing Data ---
Date of Service March 27, 2024 Coding Level of Care Code 25448 INT INP/OBS CARE
--- NOTE | 2024-03-28 07:40 | XRay Report ---
KUB HISTORY: NG tube adjusted COMPARISON: KUB 03/27/2024. FINDINGS: Nasogastric tube is seen within the distal stomach. Mild gaseous distention of the excised bowel. There are poststernotomy changes. No renal calculi. No ureteral calculi. No pneumoperitoneum or pneumatosis. IMPRESSION: 1. Nasogastric tube seen within the distal stomach. 2. Mild gaseous distention of the visualized bowel within the upper abdomen. ACT 112: Negative or not required by law. Electronically signed by: José Caldwell M.D. 03/28/2024 7:38 AM
--- NOTE | 2024-03-28 08:02 | Electrocardiogram Report ---
Test Reason : Blood Pressure : */* mmHG Vent. Rate : 48 BPM Atrial Rate : 48 BPM P-R Int : 162 ms QRS Dur : 106 ms QT Int : 550 ms P-R-T Axes : 20 69 72 degrees QTcB Int : 491 ms Sinus bradycardia Prolonged QT Abnormal ECG When compared with ECG of 24-Jan-2024 06:19, No significant change Confirmed by Jose Manuel Ahumada ([id number]) on 03/28/2024 8:02:03 AM Referred By: REFERRED SELF Confirmed By: Jose Manuel Ahumada
--- NOTE | 2024-03-28 08:21 | Electrocardiogram Report ---
Test Reason : Blood Pressure : */* mmHG Vent. Rate : 60 BPM Atrial Rate : 241 BPM P-R Int : * ms QRS Dur : 108 ms QT Int : 492 ms P-R-T Axes : 19 57 77 degrees QTcB Int : 492 ms Sinus rhythm Nonspecific T wave abnormality Anterior leads Abnormal ECG When compared with ECG of 27-Mar-2024 17:43, HR has increased 12 bpm Otherwise no significant change Confirmed by Jose Manuel Ahumada ([id number]) on 03/28/2024 8:20:43 AM Referred By: REFERRED SELF Confirmed By: Jose Manuel Ahumada
--- NOTE | 2024-03-28 08:33 | Surgery Progress Note ---
Date of Service March 28, 2024 Assessment & Plan (1) SBO (small bowel obstruction): Plan: Patient here with SBO secondary to incarcerated ventral hernia He reports feeling improvement from admission in regards to his pain/nausea symptoms NGT in place draining small amount On exam obese abdomen, wearing abdominal binder. + tender ventral hernia of which he states is less tender than arrival No recent flatus/BM Continue to hold eliquis. Continue bowel rest and NGT status Will follow up on KUB ordered this AM as above. feeling ok currently. had some nausea and discomfort earlier. did pass a fair amount of flatus today. hernia non-tender currently. we had a long discussion today regarding repair of the hernia vs trying conservative management with hernia truss. discussed pros/cons/risks of each. pt is a moderate to high surgical risk. need to get better control of bp and allow apixaban to wash out. the earliest I could do would be Monday next week. pt unsure if he wants surgery or not. will d/w family. cont ivf/npo/ngt for now. no urgent indication for surgical intervention now. Admission and Anticipated Discharge Date Admission Date: March 27, 2024 Subjective Patient reports feeling better than admission. Pain much improved. Denies nausea. No flatus or BM reported. Physical Exam Physical Exam: awake/alert, no distress Respiratory: normal respiratory effort Gastrointestinal (Abdomen): Percussion/Palpation: + abdomen tender (+ tenderness over ventral hernia (pt says less tender than admission)) obese abdomen, wearing abdominal binder Results & Data Vital Signs (Past 12 Hours) Vital Signs Temp Pulse Pulse Resp BP Pulse Ox Pulse Ox 03/28/24 07:31 97.9 F 59 L 20 175/85 H 95 03/28/24 03:31 98.1 F 63 17 158/79 H 91 03/27/24 21:38 03/27/24 21:15 95 03/27/24 20:58 98.6 F 54 L 21 190/91 H 93 03/27/24 20:30 58 L 18 155/84 H 94 O2 Del Method O2 Del Method 03/28/24 07:31 Room Air 03/28/24 03:31 Room Air 03/27/24 21:38 Room Air 03/27/24 21:15 Room Air 03/27/24 20:58 Room Air 03/27/24 20:30 Room Air PG Care Time/CCT Total # of Minutes Spent Total Time Spent with Patient: Total time spent is greater than 50% in coordination of care (as documented) at patient's floor/unit and/or counseling patient: Coding Level of Care Code 78079 SUB INP/OBS CARE 2/35MIN Diagnoses SBO (small bowel obstruction) K56.609
--- NOTE | 2024-03-28 09:48 | XRay Report ---
XR KUB/Abdomen 1 view CLINICAL HISTORY: sbo TECHNIQUE: 1 view of the abdomen was obtained. Comparison: Comparison is made to abdomen radiograph 03/27/2024 FINDINGS: Nasogastric tube is in satisfactory position. Degenerative changes are seen in the visualized skeleto n. Minimal small bowel loops are seen. Small stool burden is seen. IMPRESSION: Exam is limited by paucity of bowel gas. Small bowel obstruction may be present. If further evaluatio n is desired, CT can be performed. ACT 112: Negative or not required by law. Electronically signed by: Ming Perez M.D. 03/28/2024 9:47 AM
[2024-03-28] MEDS: PANTOprazole 40 MG in SYRINGE 0 ML IV SCH (10:26)
[2024-03-28] MEDS: ONDANSETRON INJ 2 MG/ML 2 ML VIAL IV PRN (11:03)
[2024-03-28] MEDS ORDERED: PROCHLORPERAZINE 5 MG in SYRINGE 4 ML IV PRN (11:41)
[2024-03-28] MEDS: METOPROLOL TARTRATE 1 MG/ML VIAL IV PRN (12:20)
--- NOTE | 2024-03-28 13:08 | Hospitalist Progress Note ---
Date of Service March 28, 2024 Assessment & Plan (1) Small bowel obstruction: Plan: - Secondary to incarcerated ventral hernia with failure of mesh - improving, passed flatulence this morning - N.p.o. with NGT, continuing nausea - Ct showed small bowel obstruction with concern for transition point at umbilical hernia - KUB unimpressive - Surgical team following, conservative management at this time, continued hold on Eliquis - Lactate within normal range - Continue with bowel rest - continue with pantoprazole 40 mg IV daily (2) Hypertension: Plan: - elevated due to hold on furosemide and losartan - as needed hydralazine 10 mg IV (3) Paroxysmal A-fib: Plan: - holding amiodarone, Eliquis, aspirin, and heparin - Metoprolol 5 mg IV as needed - continue to monitor for A-fib on telemetry (4) Chronic diastolic heart failure: Plan: - stable despite med hold - most recent echo on 01/27/2024 revealed mild left ventricular hypertrophy with left ventricular ejection fraction of 55 to 60%. left ventricular systolic function is normal. - continue to monitor I's and O's Plan VTE pp: SCDs Diet: NPO Chronic stable issues: Diabetes: Patient was given insulin during previous hospitalization in January 24. Most recent A1c (01/27/24) stable 6.0. Patient denies having diabetes. CAD: no ischemic symptoms at this time Code status: FULL CODE Admission and Anticipated Discharge Date Admission Date: March 27, 2024 Supervising Physician Co-Signing Physician Notes Patient was seen and examined independently I discussed the case with Solange FOLEY I reviewed pertinent past medical social family history and also the plan of care and agree with the plan of care. Patient is independently seen and examined. His family is in the room. He has had some flatus. He feels his hernia is less uncomfortable. He continues wear abdominal binder and has an NG tube which care is being directed by general surgery. He is awake alert appropriate as mentioned pain controlled he is conversant his abdomen is with hypoactive bowel sounds soft his binder was removed and his hernia was examined and found to be soft did not appear to be incarcerated at this time Small bowel obstruction with conservative treatment managed by general surgery Hypertension has been the challenges to be n.p.o. not taking his typical home medications. Metoprolol has been converted to intravenous we will as needed hydralazine to consider scheduled hydralazine or enalapril AT Paroxysmal atrial fibrillation has been in control if remains n.p.o. for much longer consider instituting intravenous amiodarone is currently p.o. amiodarone is on hold Any exceptions will be noted below Subjective Upon examination patient was lying in bed resting. He had just received his KUB. He stated that he had an episode of nausea this morning but no vomiting. The patient shared that he did pass gas this morning, but no bowel movement. He could not remember the date of his last bowel movement episode was a few days before his admission. Kosta shared that last night he was having significant abdominal pain but that has since subsided. He currently has no abdominal pain. He denies bloating. He stated that he did not want to risk having a surgery due to the risk of complications due to his weight. Patient stated that he is very thirsty and was requesting fluids. Nursing later reported that patient was having worsening of nausea and dry heaving. He was requesting nausea medication. Previous notes suggest that patient has diabetes and MARICEL, but patient stated that he has neither. His confirmed this. He stated he does not take any diabetes medication at home and he does not use any oxygen at nighttime. Review of Systems Constitutional: no chills Respiratory: no cough and no dyspnea Cardiovascular: no chest pain Gastrointestinal: + nausea; no abdominal pain, no bloating and no vomiting Physical Exam Physical Exam: The patient is awake, alert and oriented 3, normocephalic and atraumatic, lying in bed and in no acute distress, with NG tube in place. Obese. HEENT- Hearing grossly intact. Heart- regular. normal S1 and S2. No murmurs, rubs or gallops. Lungs-clear bilaterally, no respiratory distress, no accessory muscle use. Abdomen-normal bowel sounds and soft. Abdominal binder in place. Nontender. Extremities-no cyanosis or edema. Dermatologic-normal skin turgor, normal color. Psychiatric-normal affect. Results & Data Results & Data Vital Signs (Past 12 Hours) Vital Signs Temp Pulse Pulse Resp BP BP Pulse Ox 03/28/24 12:45 58 L 177/102 H 03/28/24 12:20 61 190/102 H 03/28/24 11:40 56 L 20 204/115 H 94 03/28/24 07:31 36.6 C 59 L 20 175/85 H 95 03/28/24 03:31 36.7 C 63 17 158/79 H 91 O2 Del Method 03/28/24 12:45 03/28/24 12:20 03/28/24 11:40 Room Air 03/28/24 07:31 Room Air 03/28/24 03:31 Room Air PG Care Time/CCT Total # of Minutes Spent Total Time Spent with Patient: Total time spent is greater than 50% in coordination of care (as documented) at patient's floor/unit and/or counseling patient: Coding Level of Care Code None Diagnoses Small bowel obstruction K56.609 Essential hypertension I10 Hypertension type: essential hypertension Paroxysmal A-fib I48.0 Chronic diastolic heart failure I50.32 (2) Hypertension Hypertension type: essential hypertension Qualified Code(s): I10 - Essential (primary) hypertension
[2024-03-28] MEDS ORDERED: hydrALAZINE HCL 20 MG/ML VIAL IV PRN (13:42)
[2024-03-28] MEDS: LACTATED RINGER'S 500 ML IV SCH (17:51)
[2024-03-28] MEDS: METOPROLOL TARTRATE 1 MG/ML VIAL IV SCH (19:01)
--- NOTE | 2024-03-29 10:27 | Surgery Progress Note ---
Date of Service March 29, 2024 Assessment & Plan (1) SBO (small bowel obstruction): Plan: seems to be resolving. KUB difficult penetration secondary to body habitus. will perform clamp trial of ngt...if ok will pull and start clears pt believes he wants to proceed with surgery...we discussed risks which are considerable for him ( bleeding/infection/bowel injury/dvt/pe/mi/cva etc...) questions answered. will put on schedule for monday. hold anticoagulation (2) Incarcerated ventral hernia: Admission and Anticipated Discharge Date Admission Date: March 27, 2024 Subjective pt seen. had bm ealier as well as flatus. feeling much better. no pain at hernia site. Physical Exam Constitutional: WD/WN, vitals as above no acute distress and not ill appearing Eyes: PERRL, conjunctivae normal, anicteric sclerae EOM intact bilaterally ENMT: external ear and nose normal, oropharynx normal Ears: no hearing impairment Neck: trachea midline, no thyromegaly Respiratory: normal respiratory effort; no respiratory distress and does not use accessory muscles Cardiovascular: Rate/Rhythm: regular rate and regular rhythm Gastrointestinal (Abdomen): soft. nt. hernia unchanged. Skin: no rashes, warm and dry Psychiatric: Orientation: alert, oriented x 3 and cooperative Results & Data Vital Signs (Past 12 Hours) Vital Signs Temp Pulse Pulse Resp BP BP Pulse Ox 03/29/24 06:00 51 L 151/70 H 03/29/24 04:04 36.7 C 59 L 16 149/72 H 91 03/28/24 22:48 51 L 158/101 H O2 Del Method 03/29/24 06:00 03/29/24 04:04 Room Air 03/28/24 22:48 PG Care Time/CCT Total # of Minutes Spent Total Time Spent with Patient: Total time spent is greater than 50% in coordination of care (as documented) at patient's floor/unit and/or counseling patient: Coding Level of Care Code 38605 SUB INP/OBS CARE 2/35MIN Diagnoses SBO (small bowel obstruction) K56.609 Incarcerated ventral hernia K43.6
--- NOTE | 2024-03-29 22:04 | Hospitalist Progress Note ---
Date of Service March 29, 2024 Assessment & Plan (1) Small bowel obstruction: Plan: - Secondary to incarcerated ventral hernia with failure of mesh - improving, passed flatulence/ had BM on 03/29 - Ct showed small bowel obstruction with concern for transition point at umbilical hernia -NG tube removed on 03/29, started clears. - KUB unimpressive - Surgical team following, conservative management at this time, continued hold on Eliquis - Lactate within normal range - Continue with bowel rest - continue with pantoprazole 40 mg IV daily Surgery planned for Monday (2) Hypertension: Plan: - elevated due to hold on furosemide and losartan - as needed hydralazine 10 mg IV (3) Paroxysmal A-fib: Plan: - holding amiodarone, Eliquis, aspirin, and heparin - Metoprolol 5 mg IV as needed - continue to monitor for A-fib on telemetry (4) Chronic diastolic heart failure: Plan: - stable despite med hold - most recent echo on 01/27/2024 revealed mild left ventricular hypertrophy with left ventricular ejection fraction of 55 to 60%. left ventricular systolic function is normal. - continue to monitor I's and O's Plan VTE pp: SCDs Chronic stable issues: Diabetes: Patient was given insulin during previous hospitalization in January 2024. Most recent A1c (01/27/24) stable 6.0. Patient denies having diabetes. CAD: no ischemic symptoms at this time Code status: FULL CODE Admission and Anticipated Discharge Date Admission Date: March 27, 2024 Subjective 78 yo male states hew wants his NG tube removed. Patient had BM earlier. Review of Systems Review of Systems: All systems reviewed & are unremarkable except as noted in HPI & below Physical Exam Physical Exam: The patient is awake, alert and oriented 3, normocephalic and atraumatic, lying in bed and in no acute distress, with NG tube in place. Obese. HEENT- Hearing grossly intact. Heart- regular. normal S1 and S2. No murmurs, rubs or gallops. Lungs-clear bilaterally, no respiratory distress, no accessory muscle use. Abdomen-normal bowel sounds and soft. Abdominal binder in place. Nontender. Extremities-no cyanosis or edema. Dermatologic-normal skin turgor, normal color. Psychiatric-normal affect. Results & Data Results & Data Vital Signs (Past 12 Hours) Vital Signs Temp Pulse Pulse Resp BP BP Pulse Ox 03/29/24 21:15 03/29/24 20:38 65 03/29/24 20:10 69 164/75 H 03/29/24 19:25 36.9 C 69 15 164/75 H 91 03/29/24 17:16 168/75 H 03/29/24 16:15 36.7 C 58 L 21 204/97 H 91 03/29/24 16:08 62 03/29/24 13:44 57 L 03/29/24 12:35 72 180/89 H 03/29/24 10:58 36.8 C 59 L 21 174/90 H 90 O2 Del Method O2 Flow Rate 03/29/24 21:15 Room Air 03/29/24 20:38 03/29/24 20:10 03/29/24 19:25 Nasal Cannula 2 03/29/24 17:16 03/29/24 16:15 Nasal Cannula 2 03/29/24 16:08 03/29/24 13:44 03/29/24 12:35 03/29/24 10:58 Nasal Cannula 2 PG Care Time/CCT Total # of Minutes Spent Total Time Spent with Patient: Total time spent is greater than 50% in coordination of care (as documented) at patient's floor/unit and/or counseling patient: Coding Level of Care Code 44266 SUB INP/OBS CARE 2/MIN Diagnoses Small bowel obstruction K56.609 Essential hypertension I10 Hypertension type: essential hypertension Paroxysmal A-fib I48.0 Chronic diastolic heart failure I50.32 (2) Hypertension Hypertension type: essential hypertension Qualified Code(s): I10 - Essential (primary) hypertension
[2024-03-30 06:17] LABS: Hematocrit (blood only) 40.1 % (42.0-52.0); Mean Corpuscular Hemoglobin 31.5 pg (25.0-34.0); Mean Corpuscular Hgb Conc 32.4 g/dL (32.0-36.0); Mean Corpuscular Volume 97.1 fL (80.0-100.0); Mean Platelet Volume 10.1 fL (9.4-12.4); Platelet Count 178 K/uL (130-400); RDW Coefficient of Variation 13.2 % (11.5-14.5); RDW Standard Deviation 46.9 fL (36.4-46.3); Red Blood Count 4.13 M/uL (4.70-6.10); White Blood Count 6.25 K/ul (4.8-10.8)
[2024-03-30 06:39] LABS: Calcium 8.6 mg/dl (8.6-10.3); Creatinine Clr Calc Pharmacy 102.8 ml/min; Est GFR (African American) 98.1 ml/min; Est GFR (Non-African American) 84.6 ml/min; Potassium 3.6 mmol/L (3.5-5.1)
--- NOTE | 2024-03-30 14:55 | Discharge Summary ---
Discharge Summary Date of Service March 30, 2024 Principal Dx & Hospital Course #1 = Principal Diagnosis Admission HPI Per Admitting Provider Kosta Amezcua is a 78 y/o M with a past medical history of CAD s/p CABG x 08 April 2022, bowel obstruction secondary to ventral hernia in January, MARICEL, DJD, A-fib on amiodarone and metoprolol, chronic diastolic heart failure, NSTEMI, HLD, and HTN arriving to the ED due to abdominal pain, nausea, and vomiting. The patient reports significant pain level of 8/10 after being given morphine sulfate 4mg IV down from a 9/10 on ED arrival. The patient was admitted in January for a similar obstruction and was treated conservatively. In January patient was recommended to lose weight to be a candidate for surgical hernia repair at a target weight of 250 pounds, BMI of 38 unless hernia was non-reducible and obstructing requiring urgent surgery. Patient is currently in a binder, and his ventral hernia was reduced by Dr. Mendoza, but has re-incarcerated. In the ED KUB and CT AP showed a small bowel obstruction with a transition point within the patient's incarcerated ventral hernia. Per surgery patient is recommended potential operative intervention, although patient is currently refusing surgical treatment. Patient is high surgical risk with multiple comorbidities including morbid obesity. Patient denies fever, headache, chest pain, palpitations, shortness of breath, cough, wheeze. Patient does endorse on going chills, nausea, and abdominal pain. Patient NPO with NG tube receiving IV fluids, will hold patient's apixaban for potential surgical intervention. Discharge Plan Discharge Items Reason For Visit: SMALL BOWEL OBSTRUCTION Follow-up/Referrals: Matthew Hernandez CRNP [Primary Care Provider] - Medications and DC Order Prescriptions: No Action amiodarone 200 mg tablet 200 mg PO DAILY Qty: 90 2RF Eliquis 5 mg tablet 5 mg PO BID Qty: 180 3RF clotrimazole-betamethasone 1-0.05 % cream 1 applic TOP BID PRN (Reason: Psoriasis) Qty: 45 3RF aspirin 81 mg tablet,delayed release (DR/EC) 81 mg PO DAILY Qty: 90 3RF Rx Instructions: Unable to verify OTC meds at this date/time. metoprolol tartrate 100 mg tablet 50 mg PO AMPM Rx Instructions: 50mg by mouth once in the morning and 50 mg in the evening diclofenac sodium [Voltaren Arthritis Pain] 1 % gel 4 g topical QID PRN (Reason: Pain) Rx Instructions: apply to single knee. Unable to verify OTC meds at this date/time. losartan 100 mg tablet 100 mg PO DAILY Qty: 90 3RF tramadol 50 mg tablet 100 mg PO Q12H PRN (Reason: pain) Qty: 120 0RF tamsulosin 0.4 mg Capsule 0.4 mg PO HS Qty: 30 2RF furosemide 20 mg tablet 20 mg PO BID Qty: 180 3RF Rx Instructions: take first thing in the am, and each afternoon. Admission Data Admit Date/Time: 03/27/24 19:37 Attending Provider: Suzan Polanco Admit Provider: Eder Foster Primary Care Provider: Matthew Hernandez Other Providers: Dustin Patel Hospital Stay Data Consultations 03/27/24 17:35 ED Decision to Admit Stat Procedures Performed Operation Date: 04/02/24 13:15 <No data on this case meets the specified criteria> Diagnostic Imagining Performed 03/27/24 16:12 CT Abd and Pelvis [CT abd pelvis IV con only] Stat Coding
--- NOTE | 2024-03-30 14:59 | Hospitalist Progress Note ---
Date of Service March 30, 2024 Assessment & Plan (1) Small bowel obstruction: Plan: - Secondary to incarcerated ventral hernia with failure of mesh - improving, passed flatulence/ had BM on 03/29 - Ct showed small bowel obstruction with concern for transition point at umbilical hernia -NG tube removed on 03/29, started clears. - KUB unimpressive - Surgical team following, conservative management at this time, continued hold on Eliquis - Lactate within normal range - Continue with bowel rest - continue with pantoprazole 40 mg IV daily Surgery planned for Monday (2) Hypertension: Plan: - elevated due to hold on furosemide and losartan - hold scheduled metoprolol in the setting of bradycardia - schedule hydralazine - added IV lasix 20mg daily given slowly worsening b/l LE edema (3) Paroxysmal A-fib: Plan: - holding amiodarone, Eliquis, aspirin, and heparin - Metoprolol 5 mg IV as needed - continue to monitor for A-fib on telemetry (4) Chronic diastolic heart failure: Plan: - stable despite med hold - most recent echo on 01/27/2024 revealed mild left ventricular hypertrophy with left ventricular ejection fraction of 55 to 60%. left ventricular systolic function is normal. - continue to monitor I's and O's Plan VTE pp: SCDs Chronic stable issues: Diabetes: Patient was given insulin during previous hospitalization in January 2024. Most recent A1c (01/27/24) stable 6.0. Patient denies having diabetes. CAD: no ischemic symptoms at this time Code status: FULL CODE Admission and Anticipated Discharge Date Admission Date: March 27, 2024 Subjective NGT removed Currently no new complaints Physical Exam Physical Exam: Gen: in bed comfortable, no acute distress HEENT: NC/AT, perrl, MMM CVS: s1s2 nl, bradycardic Lungs: CTAB Abdomen: pt wearing binder, distended without pain, diminshed bowel sounds Ext: +edema b/l Psych: pleasant, communicating appropriately Results & Data Results & Data Vital Signs (Past 12 Hours) Vital Signs Temp Pulse Pulse Pulse Resp BP BP 03/30/24 14:38 37.0 C 54 L 18 133/70 03/30/24 13:06 50 L 03/30/24 12:58 53 L 164/75 H 03/30/24 12:00 53 L 03/30/24 12:00 03/30/24 11:51 36.9 C 64 20 178/81 H 03/30/24 07:40 36.7 C 66 18 184/83 H 03/30/24 05:22 53 L 03/30/24 05:21 53 L 03/30/24 03:35 36.7 C 67 21 129/69 Pulse Ox O2 Del Method O2 Flow Rate 03/30/24 14:38 94 Room Air 03/30/24 13:06 03/30/24 12:58 03/30/24 12:00 03/30/24 12:00 Room Air 03/30/24 11:51 94 Room Air 03/30/24 07:40 99 Room Air 03/30/24 05:22 03/30/24 05:21 03/30/24 03:35 96 Nasal Cannula 2 PG Care Time/CCT Total # of Minutes Spent Total Time Spent with Patient: Total time spent is greater than 50% in coordination of care (as documented) at patient's floor/unit and/or counseling patient: Coding Level of Care Code 04951 SUB INP/OBS CARE 2/35MIN Diagnoses Small bowel obstruction K56.609 Essential hypertension I10 Hypertension type: essential hypertension Paroxysmal A-fib I48.0 Chronic diastolic heart failure I50.32 (2) Hypertension Hypertension type: essential hypertension Qualified Code(s): I10 - Essential (primary) hypertension
[2024-03-30] MEDS: FUROSEMIDE INJ 20 MG/2 ML VIAL IV SCH (16:12)
--- NOTE | 2024-03-30 19:16 | Surgery Progress Note ---
Date of Service March 30, 2024 Assessment & Plan (1) Incarcerated ventral hernia: Plan: States he is passing flatus, SBO seems resolved On clear liquids Medical team to manage Lasix dosing Awaiting surgery with Dr. Howard next week Continue medical optimization for expected surgery next week Replete electrolytes as needed Will see in the am (2) SBO (small bowel obstruction): Admission and Anticipated Discharge Date Admission Date: March 27, 2024 Subjective Seems resolved. Patient denies N/V, without NGT. Denies abdominal pain. Has a h/o fluid overload typically on Lasix for this. States he feels he is beginning to retain fluid. Physical Exam Gastrointestinal (Abdomen): Inspection/Auscultation: abdomen not distended Results & Data Vital Signs (Past 12 Hours) Vital Signs Temp Pulse Pulse Resp BP BP Pulse Ox 03/30/24 18:54 37.1 C 50 L 19 157/81 H 97 03/30/24 16:39 69 03/30/24 14:38 37.0 C 54 L 18 133/70 94 03/30/24 14:00 54 L 03/30/24 13:06 50 L 03/30/24 12:58 53 L 164/75 H 03/30/24 12:00 53 L 03/30/24 12:00 03/30/24 11:51 36.9 C 64 20 178/81 H 94 03/30/24 07:40 36.7 C 66 18 184/83 H 99 O2 Del Method 03/30/24 18:54 Room Air 03/30/24 16:39 03/30/24 14:38 Room Air 03/30/24 14:00 03/30/24 13:06 03/30/24 12:58 03/30/24 12:00 03/30/24 12:00 Room Air 03/30/24 11:51 Room Air 03/30/24 07:40 Room Air PG Care Time/CCT Total # of Minutes Spent Total Time Spent with Patient: Total time spent is greater than 50% in coordination of care (as documented) at patient's floor/unit and/or counseling patient: Coding Level of Care Code 61119 SUB INP/OBS CARE 08/31MIN Diagnoses Incarcerated ventral hernia K43.6 SBO (small bowel obstruction) K56.609
[2024-03-30] MEDS: hydrALAZINE HCL 20 MG/ML VIAL IV SCH (21:21)
[2024-03-30] MEDS: CHLORASEPTIC (PHENOL) 1.4% SOLN 180 ML BTL MT PRN (23:30)
[2024-03-31] MEDS: LOSARTAN POTASSIUM 50 MG TAB PO SCH (03:55)
[2024-03-31] MEDS: ACETAMINOPHEN 500 MG TAB PO PRN (03:56)
[2024-03-31] MEDS: SODIUM CHLORIDE 0.65% NA SOLN 45 ML (OCEAN) ONE (07:29)
--- NOTE | 2024-03-31 07:50 | Hospitalist Progress Note ---
Date of Service March 31, 2024 Assessment & Plan (1) Small bowel obstruction: (2) Hypertension: (3) Paroxysmal A-fib: (4) Chronic diastolic heart failure: Plan #Small bowel obstruction: - Secondary to incarcerated ventral hernia with failure of mesh - resolving - Ct showed small bowel obstruction with concern for transition point at umbilical hernia -NG tube removed on 03/29, started clears. - KUB unimpressive - Surgical team following, conservative management at this time, continued hold on Eliquis - Lactate within normal range - Continue with bowel rest - continue with pantoprazole 40 mg IV daily - currently Surgery planned for Monday #Chronic diastolic heart failure - dyspneic this AM, lasix dose adjusted , will cont as Lasix 40mg IV BID (home: lasix 40 AM and 20 PM) - most recent echo on 01/27/2024 revealed mild left ventricular hypertrophy with left ventricular ejection fraction of 55 to 60%. left ventricular systolic function is normal. - monitor closely - continue to monitor I's and O's #Hypertension: - elevated due to hold on furosemide and losartan - hold scheduled metoprolol in the setting of bradycardia - schedule hydralazine - per , pt takes Lasix 40mg AM and 20mg PM, will give Lasix 40mg IV in the AM #Paroxysmal A-fib: - will resume amiodarone - hold aspirin / eliquis at this time - Metoprolol 5 mg IV as needed - continue to monitor for A-fib on telemetry VTE pp: SCDs Chronic stable issues: Diabetes: Patient was given insulin during previous hospitalization in January 2024. Most recent A1c (01/27/24) stable 6.0. Patient denies having diabetes. CAD: no ischemic symptoms at this time Code status: FULL CODE Admission and Anticipated Discharge Date Admission Date: March 27, 2024 Subjective No acute events overnight Dyspneic this AM but resolved after Lasix dose Physical Exam Physical Exam: Gen: in bed comfortable, no acute distress HEENT: NC/AT, perrl, MMM CVS: s1s2 nl, bradycardic Lungs: CTAB Abdomen: pt wearing binder, distended without pain, diminshed bowel sounds Ext: +edema b/l Psych: pleasant, communicating appropriately Results & Data Results & Data Vital Signs (Past 12 Hours) Vital Signs Temp Pulse Pulse Pulse Resp BP BP 03/31/24 07:36 36.7 C 59 L 16 177/91 H 03/31/24 05:58 59 L 175/94 H 03/31/24 03:27 36.7 C 52 L 17 190/93 H 03/30/24 23:40 36.7 C 52 L 18 150/77 H 03/30/24 22:09 52 L Pulse Ox O2 Del Method 03/31/24 07:36 95 Room Air 03/31/24 05:58 03/31/24 03:27 95 Room Air 03/30/24 23:40 96 Room Air 03/30/24 22:09 PG Care Time/CCT Total # of Minutes Spent Total Time Spent with Patient: Total time spent is greater than 50% in coordination of care (as documented) at patient's floor/unit and/or counseling patient: Coding Level of Care Code 56343 SUB INP/OBS CARE 2/35MIN Diagnoses Small bowel obstruction K56.609 Essential hypertension I10 Hypertension type: essential hypertension Paroxysmal A-fib I48.0 Chronic diastolic heart failure I50.32 (2) Hypertension Hypertension type: essential hypertension Qualified Code(s): I10 - Essential (primary) hypertension
[2024-03-31] MEDS: FUROSEMIDE INJ 20 MG/2 ML VIAL IV ONE (08:12)
--- NOTE | 2024-03-31 11:12 | Surgery Progress Note ---
<Statement entered by Edward Barrett, - 03/31/24 11:37> I have seen and examined this patient with the surgical PA this am. I agree with this plan. Date of Service March 31, 2024 Assessment & Plan (1) Incarcerated ventral hernia: Plan: Patient seen and examined with Dr. Barrett. Kosta continues to do well. He is passing flatus, denies abdominal pain. Tolerating clear liquids. Medical team to manage Lasix dosing Awaiting surgery with Dr. Howard next week Continue medical optimization for expected surgery next week Replete electrolytes as needed (2) SBO (small bowel obstruction): Admission and Anticipated Discharge Date Admission Date: March 27, 2024 Subjective Kosta states that he is doing well this morning, but states that he did have an eventful morning. He states that when he woke up he felt a lot of chest pressure and had a lot of swelling in his hands. He received dose of Lasix and reports that he is doing much better now. He comments that his abdominal binder is still in place. Review of Systems Review of Systems: All systems reviewed & are unremarkable except as noted in HPI & below Physical Exam Constitutional: WD/WN, vitals as above Respiratory: normal respiratory effort; no respiratory distress and no labored breathing Gastrointestinal (Abdomen): Inspection/Auscultation: abdomen not distended abdominal binder in place - he is not tender with palpation. Results & Data Vital Signs (Past 12 Hours) Vital Signs Temp Pulse Pulse Resp BP BP Pulse Ox 03/31/24 10:53 36.7 C 59 L 16 164/88 H 96 03/31/24 09:05 165/93 H 03/31/24 09:00 150/80 H 03/31/24 07:36 36.7 C 59 L 16 177/91 H 95 03/31/24 05:58 59 L 175/94 H 03/31/24 03:27 36.7 C 52 L 17 190/93 H 95 03/30/24 23:40 36.7 C 52 L 18 150/77 H 96 O2 Del Method 03/31/24 10:53 Room Air 03/31/24 09:05 03/31/24 09:00 03/31/24 07:36 Room Air 03/31/24 05:58 03/31/24 03:27 Room Air 03/30/24 23:40 Room Air PG Care Time/CCT Total # of Minutes Spent Total Time Spent with Patient: Total time spent is greater than 50% in coordination of care (as documented) at patient's floor/unit and/or counseling patient: Coding Level of Care Code 63577 SUB INP/OBS CARE 08/31MIN Diagnoses Incarcerated ventral hernia K43.6 SBO (small bowel obstruction) K56.609
[2024-03-31] MEDS: AMIODARONE 200 MG TAB PO SCH (12:11)
[2024-03-31] MEDS: FUROSEMIDE 40 MG/4 ML VIAL IV SCH (20:15)
[2024-04-01 08:07] LABS: Basophils # (auto) 0.03 K/uL (0.00-0.20); Basophils % (auto) 0.5 %; Eosinophils # (auto) 0.18 K/uL (0.00-0.50); Eosinophils % (auto) 2.9 %; Hematocrit (blood only) 44.1 % (42.0-52.0); Hemoglobin 14.7 g/dl (14.0-18.0); Immature Granulocytes # (auto) 0.02 K/uL (0.01-0.20); Immature Granulocytes % (auto) 0.3 %; Lymphocytes # (auto) 1.74 K/uL (1.20-3.40); Lymphocytes % (auto) 28.2 %; Mean Corpuscular Hemoglobin 31.5 pg (25.0-34.0); Mean Corpuscular Hgb Conc 33.3 g/dL (32.0-36.0); Mean Corpuscular Volume 94.6 fL (80.0-100.0); Mean Platelet Volume 10.5 fL (9.4-12.4); Monocytes # (auto) 1.18 K/uL (0.11-0.59); Monocytes % (auto) 19.1 %; Neutrophils # (auto) 3.03 K/uL (1.40-6.50); Platelet Count 225 K/uL (130-400); RDW Coefficient of Variation 13.3 % (11.5-14.5); RDW Standard Deviation 45.9 fL (36.4-46.3); Red Blood Count 4.66 M/uL (4.70-6.10); White Blood Count 6.18 K/ul (4.8-10.8)
[2024-04-01 08:31] LABS: BUN Creatinine Ratio 10.7 (10-20); Calcium 8.8 mg/dl (8.6-10.3); Creatinine Clr Calc Pharmacy 103.8 ml/min; Est GFR (African American) 98.6 ml/min; Est GFR (Non-African American) 85.1 ml/min; Magnesium 1.8 mg/dl (1.7-2.4); Phosphorus 2.9 mg/dl (2.5-4.9); Potassium 3.2 mmol/L (3.5-5.1)
--- NOTE | 2024-04-01 08:35 | Surgery Progress Note ---
Date of Service April 01, 2024 Assessment & Plan (1) SBO (small bowel obstruction): Plan: The small bowel obstruction clinically has resolved. He would like to have the hernia repaired to prevent this from recurring in the future. He is a high surgical risk but I do believe this is probably our best bet going forward. We discussed the risks. I have answered all of his questions. Will proceed tomorrow with a laparoscopic repair of a recurrent incarcerated ventral hernia with mesh. (2) Incarcerated ventral hernia: Admission and Anticipated Discharge Date Admission Date: March 27, 2024 Subjective Patient seen. Feeling well. No nausea vomiting and no abdominal pain. He is tolerating clear liquids Physical Exam Constitutional: WD/WN, vitals as above no acute distress and not ill appearing Eyes: PERRL, conjunctivae normal, anicteric sclerae EOM intact bilaterally ENMT: external ear and nose normal, oropharynx normal Ears: no hearing impairment Neck: trachea midline, no thyromegaly Respiratory: normal respiratory effort; no respiratory distress and does not use accessory muscles Cardiovascular: Rate/Rhythm: regular rate and regular rhythm Gastrointestinal (Abdomen): Soft. Nontender. Hernia still palpable and nonreducible. Skin: no rashes, warm and dry Psychiatric: Orientation: alert, oriented x 3 and cooperative Results & Data Vital Signs (Past 12 Hours) Vital Signs Temp Pulse Pulse Resp BP Pulse Ox O2 Del Method 04/01/24 08:00 36.8 C 66 18 104/62 93 Room Air 04/01/24 03:10 36.8 C 73 19 111/65 96 Room Air 03/31/24 22:50 36.8 C 77 18 138/70 95 Room Air 03/31/24 21:44 68 PG Care Time/CCT Total # of Minutes Spent Total Time Spent with Patient: Total time spent is greater than 50% in coordination of care (as documented) at patient's floor/unit and/or counseling patient: Coding Level of Care Code 25055 SUB INP/OBS CARE 2/35MIN Diagnoses SBO (small bowel obstruction) K56.609 Incarcerated ventral hernia K43.6
--- NOTE | 2024-04-01 09:04 | Hospitalist Progress Note ---
Date of Service April 01, 2024 Assessment & Plan (1) Small bowel obstruction: (2) Hypertension: (3) Paroxysmal A-fib: (4) Chronic diastolic heart failure: Plan #Small bowel obstruction: - Secondary to incarcerated ventral hernia with failure of mesh - resolving - Ct showed small bowel obstruction with concern for transition point at umbilical hernia -NG tube removed on 03/29, started clears. - KUB unimpressive - Surgical team following, conservative management at this time, continued hold on Eliquis - Lactate within normal range - Continue with bowel rest - continue with pantoprazole 40 mg IV daily - currently Surgery planned for Monday #Chronic diastolic heart failure - dyspneic this AM, lasix dose adjusted , will cont as Lasix 40mg IV BID (home: lasix 40 AM and 20 PM) - most recent echo on 01/27/2024 revealed mild left ventricular hypertrophy with left ventricular ejection fraction of 55 to 60%. left ventricular systolic function is normal. - monitor closely - continue to monitor I's and O's - monitor K/Mg #Hypertension: - elevated due to hold on furosemide and losartan - hold scheduled metoprolol in the setting of bradycardia - schedule hydralazine - per , pt takes Lasix 40mg AM and 20mg PM, will give Lasix 40mg IV in the AM #Paroxysmal A-fib: - cont amiodarone - hold aspirin / eliquis at this time - Metoprolol 5 mg IV as needed - continue to monitor for A-fib on telemetry VTE pp: SCDs Chronic stable issues: Diabetes: Patient was given insulin during previous hospitalization in January 2024. Most recent A1c (01/27/24) stable 6.0. Patient denies having diabetes. CAD: no ischemic symptoms at this time Code status: FULL CODE Admission and Anticipated Discharge Date Admission Date: March 27, 2024 Subjective No acute events overnight Shortness of breath resolved Review of Systems Review of Systems: Comprehensive ROS completed Physical Exam Physical Exam: Gen: in bed comfortable, no acute distress HEENT: NC/AT, perrl, MMM CVS: s1s2 nl, RRR Lungs: mild crackles at the bases Abdomen: pt wearing binder, protuberant, bowel sounds nl Ext: +edema b/l but improved compared to yesterday Psych: pleasant, communicating appropriately Results & Data Results & Data Vital Signs (Past 12 Hours) Vital Signs Temp Pulse Pulse Resp BP Pulse Ox O2 Del Method 04/01/24 08:00 36.8 C 66 18 104/62 93 Room Air 04/01/24 03:10 36.8 C 73 19 111/65 96 Room Air 03/31/24 22:50 36.8 C 77 18 138/70 95 Room Air 03/31/24 21:44 68 PG Care Time/CCT Total # of Minutes Spent Total Time Spent with Patient: Total time spent is greater than 50% in coordination of care (as documented) at patient's floor/unit and/or counseling patient: Coding Level of Care Code 96240 SUB INP/OBS CARE 2/35MIN Diagnoses Small bowel obstruction K56.609 Essential hypertension I10 Hypertension type: essential hypertension Paroxysmal A-fib I48.0 Chronic diastolic heart failure I50.32 (2) Hypertension Hypertension type: essential hypertension Qualified Code(s): I10 - Essential (primary) hypertension
[2024-04-01] MEDS: POTASSIUM CHLORIDE CRTAB 20 MEQ TABCR PO SCH (09:49)
[2024-04-01] MEDS: MAGNESIUM OXIDE 400 MG TAB PO ONE (09:49)
[2024-04-01] MEDS: HYDROmorphone INJ 0.5 MG/0.5 ML SYR IV PRN (09:58)
[2024-04-02 06:52] LABS: Basophils # (auto) 0.03 K/uL (0.00-0.20); Basophils % (auto) 0.6 %; Eosinophils # (auto) 0.19 K/uL (0.00-0.50); Eosinophils % (auto) 3.6 %; Hematocrit (blood only) 42.5 % (42.0-52.0); Hemoglobin 14.1 g/dl (14.0-18.0); Immature Granulocytes # (auto) 0.02 K/uL (0.01-0.20); Immature Granulocytes % (auto) 0.4 %; Lymphocytes # (auto) 1.39 K/uL (1.20-3.40); Lymphocytes % (auto) 26.1 %; Mean Corpuscular Hemoglobin 31.3 pg (25.0-34.0); Mean Corpuscular Hgb Conc 33.2 g/dL (32.0-36.0); Mean Corpuscular Volume 94.4 fL (80.0-100.0); Mean Platelet Volume 10.2 fL (9.4-12.4); Monocytes # (auto) 1.23 K/uL (0.11-0.59); Monocytes % (auto) 23.1 %; Neutrophils # (auto) 2.47 K/uL (1.40-6.50); Neutrophils % (auto) 46.2 %; Platelet Count 219 K/uL (130-400); RDW Coefficient of Variation 13.4 % (11.5-14.5); RDW Standard Deviation 46.5 fL (36.4-46.3); White Blood Count 5.33 K/ul (4.8-10.8)
[2024-04-02 07:23] LABS: Anion Gap 7 (3-11); BUN Creatinine Ratio 10.2 (10-20); Blood Urea Nitrogen 9 mg/dl (6-23); Calcium 8.5 mg/dl (8.6-10.3); Carbon Dioxide 28 mmol/L (21-32); Chloride 102 mmol/L (98-107); Creatinine Clr Calc Pharmacy 99.3 ml/min; Est GFR (African American) 96.7 ml/min; Est GFR (Non-African American) 83.4 ml/min; Glucose 112 mg/dl (70-99(Fasting)); Magnesium 1.8 mg/dl (1.7-2.4); Sodium 137 mmol/L (136-145)
--- NOTE | 2024-04-02 11:29 | Hospitalist Progress Note ---
Date of Service April 02, 2024 Assessment & Plan (1) Incarcerated ventral hernia: Plan: - CT showed small bowel obstruction with concern for transition point at umbilical hernia with failure of mesh - currently NPO awaiting surgery - Surgery planned for today, 04/02 (2) Small bowel obstruction: Plan: - resolved - secondary to incarcerated ventral hernia - NG tube removed 03/29 - bowel movement 04/01 - continue with pantoprazole 40 mg IV daily (3) Hypertension: Plan: - elevated - continue with hydralazine, losartan, metoprolol, and lasix (4) Paroxysmal A-fib: Plan: - stable - continue amiodarone - hold aspirin / eliquis awaiting surgery - Metoprolol 5 mg IV as needed - continue to monitor for A-fib on telemetry (5) Chronic diastolic heart failure: Plan: - dyspneic on 03/31, lasix dose was adjusted, will continue as Lasix 40mg IV BID (home: lasix 40 AM and 20 PM) - most recent echo on 01/27/2024 revealed mild left ventricular hypertrophy with left ventricular ejection fraction of 55 to 60%. left ventricular systolic function is normal. - K+ on 04/01 low at 3.2, patient given 80 meq of potassium PO, since resolved - continue to monitor I's and O's Plan VTE pp: SCDs Chronic stable issues: Diabetes: Patient was given insulin during previous hospitalization in January 2024. Most recent A1c (01/27/24) stable 6.0. Patient denies having diabetes. CAD: no ischemic symptoms at this time Code status: FULL CODE Admission and Anticipated Discharge Date Admission Date: March 27, 2024 Supervising Physician Co-Signing Physician Notes Patient was seen and examined independently I discussed the case with Solange FOLEY I reviewed pertinent past medical social family history and also the plan of care and agree with the plan of care. Patient was admitted March 27 with small bowel obstruction from ventral hernia since resolved. Now the decision to go to the operating room on 04/02/2024 by general surgery. Preoperatively patient was nervous and tearful but without apparent distress. Examination of his abdomen was obese he had a nontender examination he was wearing abdominal binder Plans for laparoscopic repair of a ventral hernia with mesh Other medical problems include hypertension treated with multiple medications which is stable Paroxysmal atrial fibrillation continues to be controlled with amiodarone holding anticoagulation Chronic diastolic heart failure is stable Patient's diabetes is diet controlled at this time Any exceptions will be noted below Subjective Upon examination patient was lying in bed resting with his and son at the bedside. He stated that he is doing well. No acute events overnight. He is scheduled for a hernia repair surgery today with Dr. Howard. He denies nausea, vomiting, and abdominal pain. Patient had a bowel movement yesterday morning; he denies melena, blood in stool, and diarrhea. The patient stated that he has urinated multiples times this morning due to being on a diuretic. His swelling has decreased over the past few days. The patient stated that he had lower left leg pain last night and needed pain medication. He stated that it felt like it was 'in the bone'. He shared that is could have been muscle cramping but he is not sure. The pain has since subsided. Review of Systems Review of Systems: See above Physical Exam Physical Exam: The patient is awake, alert and oriented 3, normocephalic and atraumatic, lying in bed and in no acute distress. Obese. HEENT- Hearing grossly intact. Heart- regular. normal S1 and S2. No murmurs, rubs or gallops. Lungs-clear bilaterally, no respiratory distress, no accessory muscle use. Abdomen-normal bowel sounds and soft. Abdominal binder in place. Nontender. Extremities-no cyanosis. Mild pitting edema noted on bilateral lower extremities, +1. Dermatologic-normal skin turgor, normal color. Psychiatric-normal affect. Results & Data Results & Data Vital Signs (Past 12 Hours) Vital Signs Temp Pulse Resp BP Pulse Ox O2 Del Method 04/02/24 07:46 36.8 C 92 H 20 149/87 H 95 Room Air 04/02/24 07:43 Room Air 04/02/24 03:07 36 C L 82 18 162/75 H 94 Room Air 04/01/24 23:38 36.8 C 76 18 129/76 94 Room Air PG Care Time/CCT Total # of Minutes Spent Total Time Spent with Patient: Total time spent is greater than 50% in coordination of care (as documented) at patient's floor/unit and/or counseling patient: Coding Level of Care Code None Diagnoses Incarcerated ventral hernia K43.6 Small bowel obstruction K56.609 Essential hypertension I10 Hypertension type: essential hypertension Paroxysmal A-fib I48.0 Chronic diastolic heart failure I50.32 (3) Hypertension Hypertension type: essential hypertension Qualified Code(s): I10 - Essential (primary) hypertension
--- NOTE | 2024-04-02 12:22 | History & Physical Bridge Note ---
Date of Service April 02, 2024 History & Physical Bridge Note I have examined the patient, reviewed the History & Physical and in the interval since the performance of the History & Physical I have noted the following changes of clinical significance: pt feeling better in regards to the incarcerated hernia/sbo. discussed options. he would like the hernia repaired to prevent future recurrence of the issue. he is aware of the considerable surgical risk secondary to his comorbidities and prior surgical history. discussed the risks ( bleeding/infection/injury to another organ such as small bowel, dvt/pe/mi/cva etc...). questions answered. he agrees with the plan. will proceed with laparoscopic repair of recurrent ventral/incisional hernia with mesh.
--- NOTE | 2024-04-02 12:46 | Anesthesiology Consultation ---
Date of Service April 02, 2024 Assessment & Plan (1) Encounter for pre-operative examination: Chart Review Chart Review: Acceptable Risk for Surgery History Surgery Operation Date: 04/02/24 14:45 Proposed Procedures p Laparoscopic Ventral Hernia Repair with Mesh - Eliezer Howard DO Height/Weight Height: 5 ft 9 in Weight: 139.6 kg Allergies Allergy/AdvReac Type Severity Reaction Status Date / Time duran Allergy Severe DURAN Verified 03/22/24 07:59 TREES "LUNGS TIGHTEN UP" codeine AdvReac Mild NAUSEA Verified 03/22/24 07:59 Medications Home Medications Medication Instructions Recorded Confirmed Last Taken aspirin 81 mg tablet,delayed 81 mg PO DAILY #90 tabs 07/15/22 03/27/24 Unknown release losartan 100 mg tablet 100 mg PO DAILY #90 tabs 05/23/23 03/27/24 Unknown amiodarone 200 mg tablet 200 mg PO DAILY #90 tabs 10/13/23 03/27/24 Unknown diclofenac sodium 1 % topical gel 4 g topical QID PRN Pain 12/26/23 03/27/24 Unknown (Voltaren Arthritis Pain) apixaban 5 mg tablet (Eliquis) 5 mg PO BID #180 tabs 01/09/24 03/27/24 Unknown clotrimazole-betamethasone 1 1 applic topical BID PRN Psoriasis 01/23/24 03/27/24 Unknown %-0.05 % topical cream #45 grams furosemide 20 mg tablet 20 mg PO BID #180 tabs 01/29/24 03/27/24 Unknown tamsulosin 0.4 mg capsule 0.4 mg PO HS #30 caps 01/29/24 03/27/24 Unknown metoprolol tartrate 100 mg tablet 50 mg PO AMPM 02/05/24 03/27/24 Unknown tramadol 50 mg tablet 100 mg (2 x 50 mg) PO Q12H PRN 03/22/24 03/27/24 Unknown pain #120 tabs furosemide 40 mg tablet (Lasix) 40 mg PO QAM 03/31/24 03/31/24 03/26/24 40 Active Medications Generic Name Dose Route Start Last Admin Trade Name Freq PRN Reason Stop Dose Admin Acetaminophen 1,000 mg 03/31/24 03:46 03/31/24 03:56 Acetaminophen 500 Mg Tab PO 09/24/24 03:45 1,000 mg Q8H PRN Administration Pain or Fever Amiodarone HCl 200 mg 03/31/24 11:30 04/02/24 08:24 Amiodarone 200 Mg Tab PO 04/30/24 11:29 200 mg QAM CYNTHIA Administration Furosemide 40 mg 03/31/24 21:00 04/02/24 08:24 Furosemide 40 Mg/4 Ml Vial IV 04/30/24 20:59 40 mg BID CYNTHIA Administration Hydralazine HCl 10 mg 03/30/24 22:00 04/02/24 06:01 Hydralazine Hcl 20 Mg/Ml Vial IV 04/29/24 21:59 10 mg Q8 CYNTHIA Administration Hydromorphone HCl 0.25 mg 03/27/24 21:29 04/01/24 09:58 Hydromorphone Inj 0.5 Mg/0.5 Ml Syr IV 04/10/24 21:28 0.25 mg Q3H PRN Administration Pain (1,2,3,4,5) & Pre PT Hydromorphone HCl 0.5 mg 03/27/24 21:29 04/01/24 20:18 Hydromorphone Inj 0.5 Mg/0.5 Ml Syr IV 04/10/24 21:28 0.5 mg Q3H PRN Administration Pain (6,7,8,9,10) Pantoprazole Sodium 40 mg/ 10 mls @ 5 mls/min 03/28/24 11:00 04/02/24 12:39 Syringe IV 04/27/24 10:59 5 mls/min DAILY@1100 CYNTHIA Administration Losartan Potassium 100 mg 03/31/24 03:30 04/02/24 08:24 Losartan Potassium 50 Mg Tab PO 04/30/24 03:29 100 mg DAILY CYNTHIA Administration Metoprolol Tartrate 5 mg 03/27/24 22:00 03/30/24 07:38 Metoprolol Tartrate 1 Mg/Ml Vial IV 04/26/24 21:58 5 mg Q2H PRN Administration HR greater than 110 Metoprolol Tartrate 5 mg 03/28/24 18:00 03/30/24 13:06 Metoprolol Tartrate 1 Mg/Ml Vial IV 04/27/24 17:59 Not Given Q6 CYNTHIA Ondansetron HCl 4 mg 03/27/24 21:15 03/28/24 11:03 Ondansetron Inj 2 Mg/Ml 2 Ml Vial IV 04/26/24 21:14 4 mg Q6H PRN Administration Nausea Phenol 1 sprays 03/28/24 10:58 03/31/24 06:00 Chloraseptic (Phenol) 1.4% Soln 180 Ml Btl MT 04/27/24 10:57 1 sprays Q2H PRN Administration Sore Throat Past Medical History Medical History (Updated 04/02/24 @ 12:46 by Oren Lennon MD) SBO (small bowel obstruction) Acute on chronic diastolic heart failure Lower extremity edema Paroxysmal A-fib Type 2 diabetes mellitus CAD (coronary artery disease) Chronic obstructive lung disease Obstructive sleep apnea syndrome Chronic narcotic dependence Warfarin anticoagulation Sepsis secondary to UTI Hematuria Encephalopathy Past Family History Family History Father Myocardial infarction Heart disease Mother Hypertension Other Diabetes Denies family history of Ovarian cancer Prostate cancer Breast cancer Lung cancer Colorectal cancer Stroke Past Surgical History Surgical History History of tonsillectomy History of appendectomy History of colon surgery Social History Smoking Status: Never smoker Do You Dip or Chew Tobacco: No Hx Alcohol Use: Yes Alcohol type: hard liquor alcohol intake frequency: 0-2 drinks per day Alcohol Intake Frequency Comment: per patient has a shot of whiskey at bedtime every night to help him sleep. Hx Substance Use: No substance use type: does not use Physical Exam Vital Signs Last Vital Signs Temp 36.8 C 04/02/24 11:00 Pulse 92 H 04/02/24 11:00 Resp 18 04/02/24 11:00 BP 134/63 04/02/24 11:00 Pulse Ox 95 04/02/24 07:46 O2 Del Method Room Air 04/02/24 11:00 O2 Flow Rate 2 03/30/24 03:35 Testing Laboratory Results 04/02/24 05:42 04/02/24 08:42 PT 10.7 Seconds (9.0-12.0) 03/27/24 15:45 INR 1.0 (0.9-1.1) 03/27/24 15:45 Urine Color Yellow 03/27/24 15:55 Urine Appearance Clear (Clear) 03/27/24 15:55 Urine pH 8.0 (4.5-7.5) H 03/27/24 15:55 Ur Specific [place] 1.008 (1.000-1.030) 03/27/24 15:55 Urine Protein Negative (Negative) 03/27/24 15:55 Urine Glucose (UA) Negative (Negative) 03/27/24 15:55 Urine Ketones Negative (Negative) 03/27/24 15:55 Urine Nitrite Negative (Negative) 03/27/24 15:55 Ur Leukocyte Esterase Negative (Negative) 03/27/24 15:55 Laboratory Tests 04/02/24 05:42 Creatinine 0.88
[2024-04-02] MEDS ORDERED: ONDANSETRON INJ 2 MG/ML 2 ML VIAL ONE (15:09)
[2024-04-02] MEDS ORDERED: GLYCOPYRROLATE 0.2 MG/ML VIAL ONE (15:09)
[2024-04-02] MEDS ORDERED: LIDOCAINE 2% 2 ML VIAL/AMP(20MG/ML) INFIL ONE (15:09)
[2024-04-02] MEDS ORDERED: PROPOFOL IV EMULSION 10 MG/ML 20 ML VIAL IV ONE (15:09)
[2024-04-02] MEDS ORDERED: DEXAMETHASONE SOD INJ 4 MG/ML VIAL ONE (15:09)
[2024-04-02] MEDS ORDERED: ROCURONIUM BROMIDE 10 MG/ML 5 ML VIAL IV ONE (15:09)
[2024-04-02] MEDS ORDERED: fentaNYL citrate PF 100 MCG/2 ML VIAL ONE (15:09)
[2024-04-02] MEDS ORDERED: MIDAZOLAM HCL 1 MG/ML 2ML VIAL ONE (15:09)
[2024-04-02] MEDS ORDERED: SUGAMMADEX SODIUM 200 MG/2 ML VIAL IV ONE (15:12)
[2024-04-02] MEDS ORDERED: ONDANSETRON INJ 2 MG/ML 2 ML VIAL IV PRN (16:06)
[2024-04-02] MEDS ORDERED: ATROPINE SULFATE 0.1 MG/ML 10ML SYR IV PRN (16:06)
[2024-04-02] MEDS: ceFAZolin 3000MG 3,000 MG/72.5 ML BAG IV ONE (16:48)
[2024-04-02] MEDS ORDERED: ceFAZolin 330 MG/ML 1 GM VIAL ONE ×2 (16:52→16:53)
[2024-04-02] MEDS: BUPIVACAINE/EPINEPHRINE 0.5% MPF 1:200,000 30 ML VIAL ONE (17:48)
[2024-04-02] MEDS: HYDROmorphone INJ 1 MG/ML SYRINGE IV PRN (18:21)
--- NOTE | 2024-04-02 18:21 | Billing Data ---
Date of Service April 02, 2024 Coding Level of Care Code 65762 INT INP/OBS CARE
[2024-04-02] MEDS: KETOROLAC 30 MG/ML VIAL IV PRN (18:32)
--- NOTE | 2024-04-02 18:34 | Operative Report ---
PG Post Operative Report Pre & Post Diagnosis Operation Date: 04/02/24 14:45 Pre-Op Diagnosis: Small bowel obstruction, incarcerated ventral hernia Post-Op Diagnosis: Small bowel obstruction, incarcerated ventral hernia; adhesions I identified the patient and participated in the time-out.: Yes Procedure Operation Date: 04/02/24 14:45 Actual Procedures p Laparoscopic Ventral Hernia Repair with Mesh(Not Applicable) - Eliezer Howard DO Surgeon Eliezer Howard DO [employer] damián gracia Estimated Blood Loss 5 Findings Consistent with Post-Op Diagnosis Specimens none Description of Procedure After informed consent was obtained the patient was taken to the operating room and placed in supine position. After successful intubation the arms were tucked. The abdomen was then shaved and sterilely prepped and draped in usual fashion. I began with a left upper quadrant incision with an 11 blade scalpel. This was carried down through the soft tissue using cautery. Anterior fascia was opened using cautery and 2 and #0 Vicryl stay sutures were placed. Peritoneum was elevated with hemostats and incised under direct vision using a Metzenbaum scissor. A finger sweep was performed. A 12 mm Ny trocar was placed and the abdomen was insufflated to 20 mmHg. The camera was inserted and the abdomen examined in 360 degrees. There were some adhesions to the anterior abdominal wall primarily in the midline. I was able to get a left lower quadrant 5 mm trocar a left mid abdominal 5 mm trocar and eventually a right mid abdominal 5 mm trocar. The beginning of the procedure entailed taking down adhesions to the anterior abdominal wall. These included small bowel as well as omentum. Sharp scissor lysis, small amounts of the harmonic scalpel and blunt dissection were used to accomplish this. Once I had the adhesions down I was able to identify the patient's old mesh. It was an old [place] mesh. It was in good position. The new hernia was just on the right lateral side of the old mesh. It measured probably 4 cm. I was able to reduce the omentum which was incarcerated within it. We did have to take down some preperitoneal fat as well as omentum. At the end of the case these pieces would be placed into an Endo Catch bag and removed from the camera port site. Once I had the defect complete ly skeletonized and the hernia sac divided I then placed a 15 cm Surgimesh into the abdominal cavity and unrolled it such that the anti-adhesive barrier was facing the bowel. A small incision was made over the central portion of the fascial defect and a fascial closure device advanced through it. I used this to grasp the central Prolene stitch and pulled the mesh up underneath the hernia. A Protack device was used to secure the mesh in 360 degrees. The medial portion of the mesh did overlap with the previously placed [place] mesh. The new mesh overlapped the hernia defect for at least 4 cm in all directions. The mesh laid nice and flat and tension-free. The central Prolene stitch was tied down as well. There was adequate hemostasis. No other abnormalities were identified. All the trocars were removed and the abdomen desufflated. The fascia of the camera port was closed using 0 Vicryl in simple interrupted fashion. The wounds were all irrigated and closed using 4-0 Monocryl. Marcaine with epinephrine was injected around and for postoperative analgesia and skin glue used as a dressing. An abdominal binder was placed. The patient was awakened extubated and transferred to recovery in stable condition. My nurse practitioner was present for the entire case and was instrumental in obtaining access running the camera, assisting with mesh placement, wound closure and dressing placement. I attest to the content of the Intraoperative Record and any orders documented therein. Any exceptions are noted below.
--- NOTE | 2024-04-02 22:27 | Anesthesiology Progress Note ---
Date of Service April 02, 2024 Anesthesia Post Procedure Vital Signs Vital Signs: Temp Pulse Pulse Resp BP BP Pulse Ox 04/02/24 20:06 97.9 F 83 18 150/88 H 91 04/02/24 19:40 80 15 172/97 H 93 04/02/24 19:10 97.7 F 77 16 181/98 H 94 04/02/24 18:50 77 18 170/94 H 94 04/02/24 18:40 97.5 F L 81 20 157/90 H 94 04/02/24 18:30 83 13 156/83 H 94 04/02/24 18:20 79 17 159/80 H 97 04/02/24 18:10 84 16 186/98 H 97 04/02/24 18:03 97.9 F 86 21 188/93 H 97 04/02/24 16:00 98.8 F 67 18 171/94 H 95 04/02/24 11:00 98.2 F 92 H 18 134/63 04/02/24 07:46 98.2 F 92 H 20 149/87 H 95 04/02/24 07:43 04/02/24 03:07 96.8 F L 82 18 162/75 H 94 04/01/24 23:38 98.2 F 76 18 129/76 94 O2 Del Method O2 Flow Rate 04/02/24 20:06 Nasal Cannula 2 04/02/24 19:40 Room Air 04/02/24 19:10 Room Air 04/02/24 18:50 Room Air 04/02/24 18:40 Room Air 04/02/24 18:30 Room Air 04/02/24 18:20 Oxymask 5 04/02/24 18:10 Oxymask 5 04/02/24 18:03 Oxymask 5 04/02/24 16:00 Room Air 04/02/24 11:00 Room Air 04/02/24 07:46 Room Air 04/02/24 07:43 Room Air 04/02/24 03:07 Room Air 04/01/24 23:38 Room Air Pain Intensity Throat: Pain Intensity: 0 Right Abdomen: Pain Intensity: 5 Transfer of Care Handoff Completed per policy Notes Mental Status: alert / awake / arousable and participated in evaluation Patient Amnestic to Procedure: Yes Nausea / Vomiting: adequately controlled Pain: adequately controlled Airway Patency, RR, SpO2: stable & adequate BP & HR: stable & adequate Hydration State: stable & adequate Anesthetic Complications: no major complications apparent and Pt Satisfied with anesthetic care
[2024-04-03] MEDS ORDERED: hydrALAZINE HCL 20 MG/ML VIAL IV PRN (05:08)
[2024-04-03 06:56] LABS: Hematocrit (blood only) 42.4 % (42.0-52.0); Hemoglobin 14.1 g/dl (14.0-18.0); Mean Corpuscular Hemoglobin 31.9 pg (25.0-34.0); Mean Corpuscular Hgb Conc 33.3 g/dL (32.0-36.0); Mean Corpuscular Volume 95.9 fL (80.0-100.0); Mean Platelet Volume 10.2 fL (9.4-12.4); Platelet Count 232 K/uL (130-400); RDW Coefficient of Variation 13.6 % (11.5-14.5); RDW Standard Deviation 48.1 fL (36.4-46.3); Red Blood Count 4.42 M/uL (4.70-6.10); White Blood Count 10.42 K/ul (4.8-10.8)
[2024-04-03 07:36] LABS: BUN Creatinine Ratio 12.9 (10-20); Calcium 8.7 mg/dl (8.6-10.3); Creatinine Clr Calc Pharmacy 62.7 ml/min; Est GFR (African American) 56.7 ml/min; Est GFR (Non-African American) 48.9 ml/min; Potassium 4.1 mmol/L (3.5-5.1)
[2024-04-03] MEDS: METOPROLOL TARTRATE 25 MG TAB PO SCH (09:16)
--- NOTE | 2024-04-03 09:30 | Hospitalist Progress Note ---
Date of Service April 03, 2024 Assessment & Plan (1) Incarcerated ventral hernia: Plan: - s/p ventral hernia with failure of mesh repair on 04/02, Dr Howard - pain/ bowel management per surgery team, currently full liquid diet - abdominal binder in place - H&H, vital signs, and kidney function stable (2) Small bowel obstruction: Plan: - resolved - secondary to incarcerated ventral hernia - NG tube removed 03/29 - bowel movement 04/01 - discontinued pantoprazole IV, will resume if diet changes or symptoms restart (3) Hypertension: Plan: - Stable - hydralazine and metoprolol prn - continue with losartan, metoprolol, and lasix (4) Paroxysmal A-fib: Plan: - stable - continue amiodarone - Metoprolol 5 mg IV as needed - cleared to restart home Aspirin and Eliquis - Transfer off telemetry due to stability (5) Chronic diastolic heart failure: Plan: - dyspneic on 03/31, lasix dose was adjusted, will continue as Lasix 40mg IV BID (home: lasix 40 AM and 20 PM) - most recent echo on 01/27/2024 revealed mild left ventricular hypertrophy with left ventricular ejection fraction of 55 to 60%. left ventricular systolic function is normal. - K+ on 04/01 low at 3.2, patient given 80 meq of potassium PO, since resolved - continue to monitor I's and O's Plan VTE ppx: SCDs Diet: Full liquid Chronic stable issues: Diabetes: Patient was given insulin during previous hospitalization in January 2024. Most recent A1c (01/27/24) stable 6.0. Patient denies having diabetes. CAD: no ischemic symptoms at this time Code status: FULL CODE Transfer: Med Surg Admission and Anticipated Discharge Date Admission Date: March 27, 2024 Supervising Physician Co-Signing Physician Notes Patient was seen and examined independently I discussed the case with Solange FOLEY I reviewed pertinent past medical social family history and also the plan of care and agree with the plan of care. Patient was seen in the presence of his . He had some abdominal pain after rolling over in bed. This has been persistent but minor it is nowhere near surgical site. He has tolerated diet with expectation of advancement likely to go home in 1 day or 2 so Physical exam he is awake alert appropriate card exam is regular he is not seem to be in atrial fibrillation on examination his lungs are clear Abdomen was examined binder was removed this pain is near his right CVA angle area. His laparoscopic ports have Dermabond in place they are nontender there is no hernia his ventral abdominal scar where his hernia was previously palpated does not show hernia there is no bruising at the site of his pain Continue supportive care postoperatively patient has resumed many of his home medications likely will transition back to his home Lasix dose of 40 the morning and 20 at night and with expectation if he continues to be stable he may be discharged on 04/04 or 04/05 Any exceptions will be noted below Subjective Patient doing well post operatively. Upon examination, patient was sitting on the side of the bed eating his breakfast. He stated that they gave him too small of an abdominal binder this morning, but surgery gave him a new one that fits better. His pain has been well controlled. He did need 2 L of oxygen via nasal cannula overnight but is now stable. He was not using oxygen on exam. The swelling in his lower extremities has improved. He denies dizziness, lightheadness, nausea, vomiting, chest pain, and shortness of breath. Review of Systems Constitutional: See HPI Physical Exam Physical Exam: The patient is awake, alert and oriented 3, normocephalic and atraumatic, sitting in bed and in no acute distress. Obese. HEENT- Hearing grossly intact. Heart- regular. normal S1 and S2. No murmurs, rubs or gallops. Lungs-clear bilaterally, no respiratory distress, no accessory muscle use. Abdomen-normal bowel sounds and soft. Abdominal binder in place, surgical site wounds. Nontender. Extremities-no cyanosis. Mild edema noted on bilateral lower extremities. Dermatologic-normal skin turgor, normal color. Psychiatric-normal affect. Results & Data Results & Data Vital Signs (Past 12 Hours) Vital Signs Temp Pulse Pulse Resp BP BP Pulse Ox 04/03/24 07:41 36.7 C 70 18 128/66 95 04/03/24 03:16 36.6 C 74 18 112/72 94 04/03/24 01:20 77 138/62 04/03/24 00:01 103 H 132/84 04/02/24 23:22 36.6 C 95 H 18 115/73 92 04/02/24 21:49 97 H O2 Del Method O2 Flow Rate 04/03/24 07:41 Nasal Cannula 2 04/03/24 03:16 Nasal Cannula 2 04/03/24 01:20 04/03/24 00:01 04/02/24 23:22 Nasal Cannula 2 04/02/24 21:49 Laboratory Results review cbc review chemistry PG Care Time/CCT Total # of Minutes Spent Total Time Spent with Patient: Total time spent is greater than 50% in coordination of care (as documented) at patient's floor/unit and/or counseling patient: Coding Level of Care Code None Diagnoses Incarcerated ventral hernia K43.6 Small bowel obstruction K56.609 Essential hypertension I10 Hypertension type: essential hypertension Paroxysmal A-fib I48.0 Chronic diastolic heart failure I50.32 (3) Hypertension Hypertension type: essential hypertension Qualified Code(s): I10 - Essential (primary) hypertension
[2024-04-03] MEDS: ASPIRIN 81 MG ECTAB PO SCH (10:48)
--- NOTE | 2024-04-03 12:26 | Surgery Progress Note ---
Date of Service April 03, 2024 Assessment & Plan (1) Ventral hernia: Plan: Postoperative day #1 status post repair. Clinically he is doing well. We will get him a better abdominal binder. We will also advance his diet. Internal medicine can restart his anticoagulation at any time Admission and Anticipated Discharge Date Admission Date: March 27, 2024 Supa Brambila is here postoperative day #1 from a laparoscopic ventral hernia repair with mesh. He is of course quite sore but otherwise doing okay. He is tolerating a liquid diet and denies any nausea Physical Exam Physical Exam: Alert no acute distress His incisions look good and his repair feels solid Results & Data Vital Signs (Past 12 Hours) Vital Signs Temp Pulse Pulse Resp BP BP Pulse Ox 04/03/24 07:41 36.7 C 70 18 128/66 95 04/03/24 03:16 36.6 C 74 18 112/72 94 04/03/24 01:20 77 138/62 O2 Del Method O2 Flow Rate 04/03/24 07:41 Nasal Cannula 2 04/03/24 03:16 Nasal Cannula 2 04/03/24 01:20 PG Care Time/CCT Total # of Minutes Spent Total Time Spent with Patient: Total time spent is greater than 50% in coordination of care (as documented) at patient's floor/unit and/or counseling patient: Coding Level of Care Code 34613 Post Operative Follow-Up Diagnoses Ventral hernia with obstruction and without gangrene K43.6 Obstruction and gangrene presence: with obstruction but without gangrene (1) Ventral hernia Obstruction and gangrene presence: with obstruction but without gangrene Qualified Code(s): K43.6 - Other and unspecified ventral hernia with obstruction, without gangrene
[2024-04-03 12:33] VITALS: RESP 16
[2024-04-03] MEDS: traMADol HCL 50 MG TABLET PO PRN ×2 (13:38→20:33)
--- NOTE | 2024-04-03 17:55 | Billing Data ---
Date of Service April 03, 2024 Coding Level of Care Code 55258 INT INP/OBS CARE
[2024-04-03 19:55] VITALS: TEMP 97.9
[2024-04-03] MEDS: APIXABAN 5 MG TABLET PO SCH (20:32)
[2024-04-04 07:55] VITALS: BP 134/74; O2SAT 96
--- NOTE | 2024-04-04 08:16 | Discharge Summary ---
Discharge Summary Date of Service April 04, 2024 Principal Dx & Hospital Course #1 = Principal Diagnosis (1) Incarcerated ventral hernia: - s/p ventral hernia with failure of mesh repair on 04/[address] Howard - pain/bowel management per surgery team, has tolerated progression of diet since surgery, currently on low fiber diet - pain well controlled, 03/16 pain with movement, to continue pain medications at home - abdominal binder in place - surgical sites healing well - H&H, vital signs, and kidney function stable (2) Small bowel obstruction: - resolved conservatively, secondary to incarcerated ventral hernia - history of SBO in January, secondary to hernia as well, managed conservatively, was recommended to lose weight at that time to be potential surgical candidate - admitted with significant pain, nausea, and vomiting on 03/27 - CT on admission showed small bowel obstruction with concern for transition point at umbilical hernia with failure of mesh - NG tube from 03/27-03/29 - bowel movement 04/01, no BM since, recommend Miralax this evening at home if still no BM (3) Hypertension: - Stable upon discharge - had multiple episodes of elevated blood pressure during early days of hospital stay due to hold on HTN medications - post op resume of HTN medications, since BP has been stable with hydralazine and metoprolol ordered prn - continue with home with losartan, metoprolol, and lasix (4) Paroxysmal A-fib: - stable during admission - continued amiodarone with Metoprolol 5 mg IV as needed - cleared to restart home Aspirin and Eliquis 04/03 (5) Chronic diastolic heart failure: - stable, currently asympomatic - dyspneic on 03/31, lasix dose was adjusted to 40mg IV BID (home: lasix 40 AM and 20 PM) - most recent echo on 01/27/2024 revealed mild left ventricular hypertrophy with left ventricular ejection fraction of 55 to 60%. left ventricular systolic function is normal. - K+ on 04/01 low at 3.2, patient given 80 meq of potassium PO, since resolved - monitored I's and O's - restart home lasix regimen Plan Diet: Low fiber Chronic stable issues: Diabetes: Patient was given insulin during previous hospitalization in January 2024. Most recent A1c (01/27/24) stable 6.0. Patient denies having diabetes. CAD: no ischemic symptoms at this time Code status: FULL CODE Cleared for discharge home today. Admission Exam Per Admitting Provider General: patient resting comfortably, NAD, non-toxic in appearance, answers questions appropriately. Skin: warm, dry, intact HEENT: NC/AT, anicteric sclera, conjunctiva without injection, moist mucus membranes. Heart: +S1/S2, regular, no m/r/g Lungs: equal air entry bilaterally, no rales/rhonchi/wheezes Abd: +BS, soft, NT/ND Ext: warm, no clubbing/cyanosis or edema Neuro: nonfocal, speech intact, no facial droop, moving all extremities. Discharge Exam The patient is awake, alert and oriented 3, normocephalic and atraumatic, sitting in bed and in no acute distress. Obese. HEENT- Hearing grossly intact. Heart- regular. normal S1 and S2. No murmurs, rubs or gallops. Lungs-clear bilaterally, no respiratory distress, no accessory muscle use. Abdomen-normal bowel sounds and soft. Abdominal binder in place, surgical site wounds healing well. Mild tenderness to palpation. Extremities-no cyanosis. No edema noted. Dermatologic-normal skin turgor, normal color. Psychiatric-normal affect. Discharge Plan Discharge Items Patient Disposition: Home - Self-Care Reason For Visit: SMALL BOWEL OBSTRUCTION Discharge Diagnosis: 1. recurrent incarcerated ventral hernia repair 2. History of hypertension 3. Paroxysmal A-fib 4. Chronic diastolic heart failure Condition on Discharge: Good Activity: Per Instructions section Lifting: No more than 10 pounds Bathing Comment: you can shower , no pools or baths for 2 weeks Exercise/Sports: Wait until after follow-up appointment Driving/Machine Use: no driving while taking narcotic pain medication Non-emergency contact: Surgeon Call non-emergency contact if: you have any medication questions, your temperature is above 101.5, your wound has increased redness, your wound has increased drainage and your wound pain has increased Follow-up/Referrals: Matthew Hernandez CRNP [Primary Care Provider] - Eliezer Howard DO [Surgeon] - (call office for follow up in 2 weeks ) Diet: Regular Addtl Attending Provider Instructions: You have surgical glue called dermabond on your surgical site incisions. You may shower with this on. This will tend to come off within a couple of weeks. Do not pick at it. Continue to wear your abdominal binder day and night until your follow up appointment Recommend home stool softener this evening if you do not have a bowel movement upon returning home. Pending Studies at Discharge: No Stand-Alone Forms: My [facility], Smoking Cessation Medications and DC Order Prescriptions: New oxycodone 5 mg tablet 5 - 10 mg PO Q6H PRN (Reason: pain) Qty: 30 0RF Continued amiodarone 200 mg tablet 200 mg PO DAILY Qty: 90 2RF Eliquis 5 mg tablet 5 mg PO BID Qty: 180 3RF clotrimazole-betamethasone 1-0.05 % cream 1 applic TOP BID PRN (Reason: Psoriasis) Qty: 45 3RF aspirin 81 mg tablet,delayed release (DR/EC) 81 mg PO DAILY Qty: 90 3RF Rx Instructions: Unable to verify OTC meds at this date/time. metoprolol tartrate 100 mg tablet 50 mg PO AMPM Rx Instructions: 50mg by mouth once in the morning and 50 mg in the evening diclofenac sodium [Voltaren Arthritis Pain] 1 % gel 4 g topical QID PRN (Reason: Pain) Rx Instructions: apply to single knee. Unable to verify OTC meds at this date/time. losartan 100 mg tablet 100 mg PO DAILY Qty: 90 3RF tramadol 50 mg tablet 100 mg PO Q12H PRN (Reason: pain) Qty: 120 0RF furosemide [Lasix] 40 mg Tablet 40 mg PO QAM tamsulosin 0.4 mg Capsule 0.4 mg PO HS Qty: 30 2RF furosemide 20 mg tablet 20 mg PO BID Qty: 180 3RF Rx Instructions: take first thing in the am, and each afternoon. Discharge Orders: Discharge Order (Routine); Ordered 04/04/24 Ordered By: Toby Pulido Admission Data Admit Date/Time: 03/27/24 19:37 Attending Provider: Toby Pulido Admit Provider: Eder Foster Primary Care Provider: Matthew Hernandez Other Providers: Dustin Patel Other Interventions: Discharge Summary Assessment (RN) Last Done: 04/04/24 10:31 Hospital Stay Data Consultations Hospital medicine and general surgery Procedures Performed Operation Date: 04/02/24 14:45 Actual Procedures p Laparoscopic Ventral Hernia Repair with Mesh(Not Applicable) - Eliezer Howard, Diagnostic Imagining Performed Chest/Abdomen X-ray 03/27/24 15:35 CHEST AND ABDOMEN 2 VIEWS HISTORY: Small bowel obstruction. Follow-up. COMPARISON: KUB 01/25/2024. Abdomen and pelvis CT 03/27/2024. Chest 01/22/2024. FINDINGS: No pneumothorax. No pleural effusions. The lungs are clear. The heart remains enlarged. No evidence for pulmonary edema. There are poststernotomy changes. Contrast within the urinary system from the recent CT examination. Moderate fecal retention. No pneumoperitoneum. No pneumatosis. A few dilated loops of small bowel are again noted consistent with a small bowel obstruction. These measure up to 5.6 cm in diameter. Suture material again noted within the abdomen. IMPRESSION: Dilated loops of small bowel consistent with a small bowel obstruction. This is better appreciated on the same day abdomen and pelvis CT. ACT 112: Negative or not required by law. Electronically signed by: José Caldwell M.D. 03/27/2024 5:17 PM Abdomen/Pelvis CT 03/27/24 16:12 CT abd pelvis IV con only CLINICAL HISTORY: mid abd pain. N/V, ventral hernia TECHNIQUE: Helical axial images of the abdomen and pelvis were obtained and displayed. Automated dose lowering techniques and/or adjustment according to patient size were utilized for this exam. This exam was performed with intravenous contrast. CT DOSE: 1465.17 mGy.cm COMPARISON: Comparison is made to CT abdomen pelvis 01/22/2024 FINDINGS: Lower chest: Bibasilar atelectasis versus scarring is seen. Liver: Unremarkable. No focal lesions are seen. Gallbladder and biliary tree: Cholelithiasis is seen without evidence of cholecystitis. No intra- or extrahepatic biliary ductal dilation. Pancreas: Unremarkable, no focal lesions. Spleen: Unremarkable. Adrenals: Unremarkable. Kidneys and ureters: Perinephric stranding is noted bilaterally. Bladder: Unremarkable. Reproductive organs: Unremarkable. Bowel: The appendix is normal. There is a small hiatal hernia. Postsurgical changes are seen in the midabdomen. There is dilation of multiple loops of small bowel measuring up to 34 mm with a transition point at the supraumbilical hernia. Lymph nodes Retroperitoneal: Unremarkable. Pelvic: Unremarkable. Mesenteric: Unremarkable. Peritoneum: Normal. Vessels: Atherosclerotic calcifications are seen. Abdominal wall: A supraumbilical hernia contains fat and multiple dilated loops of bowel. Again noted is failure of adjacent hernia mesh. Bones: Degenerative changes in the visualized spine. IMPRESSION: 1. Small bowel obstruction with a transition point at a supraumbilical hernia. 2. Cholelithiasis without cholecystitis. ACT 112: Negative or not required by law. Electronically signed by: Ming Perez M.D. 03/27/2024 5:03 PM KUB X-Ray 03/27/24 18:04 KUB HISTORY: ng tube placement COMPARISON: Chest and abdominal series 03/27/2024. FINDINGS: A nasogastric tube is not well visualized on this study. There is possible visualization of the nasogastric tube within the proximal esophagus. There are poststernotomy changes. The heart remains enlarged. Cardiac monitoring leads are in place. There is mild central pulmonary vascular congestion without overt edema. No renal calculi. No ureteral calculi. No pneumoperitoneum or pneumatosis. IMPRESSION: The nasogastric tube is not well visualized on this study due to the portable technique and patient positioning. Recommend repeat imaging. The nasogastric gastric tube may be identified within the proximal esophagus. ACT 112: Negative or not required by law. Electronically signed by: José Caldwell M.D. 03/27/2024 6:18 PM KUB X-Ray 03/27/24 22:13 KUB HISTORY: NG tube adjusted COMPARISON: KUB 03/27/2024. FINDINGS: Nasogastric tube is seen within the distal stomach. Mild gaseous distention of the excised bowel. There are poststernotomy changes. No renal calculi. No ureteral calculi. No pneumoperitoneum or pneumatosis. IMPRESSION: 1. Nasogastric tube seen within the distal stomach. 2. Mild gaseous distention of the visualized bowel within the upper abdomen. ACT 112: Negative or not required by law. Electronically signed by: José Caldwell M.D. 03/28/2024 7:38 AM KUB X-Ray 03/28/24 07:16 XR KUB/Abdomen 1 view CLINICAL HISTORY: sbo TECHNIQUE: 1 view of the abdomen was obtained. Comparison: Comparison is made to abdomen radiograph 03/27/2024 FINDINGS: Nasogastric tube is in satisfactory position. Degenerative changes are seen in the visualized skeleton. Minimal small bowel loops are seen. Small stool burden is seen. IMPRESSION: Exam is limited by paucity of bowel gas. Small bowel obstruction may be present. If further evaluation is desired, CT can be performed. ACT 112: Negative or not required by law. Electronically signed by: Ming Perez M.D. 03/28/2024 9:47 AM Discharge Instructions Given to Patient (Per Discharging Provider) You have surgical glue called dermabond on your surgical site incisions. You may shower with this on. This will tend to come off within a couple of weeks. Do not pick at it. Continue to wear your abdominal binder day and night until your follow up appointment Recommend home stool softener this evening if you do not have a bowel movement upon returning home. Supervising Physician Co-Signing Physician Notes Patient was seen and examined independently I discussed the case with Solange FOLEY I reviewed pertinent past medical social family history and also the plan of care and agree with the plan of care. Patient was seen he was without complaints he is wearing his binder family was present I felt he was stable to go home at this time he was discharged in the care of his family with follow-up with general surgery Any exceptions will be noted below Total Time Total Time Spent Total Time Spent (In Minutes): 60 Coding Level of Care Code None Diagnoses Incarcerated ventral hernia K43.6 Small bowel obstruction K56.609 Essential hypertension I10 Hypertension type: essential hypertension Paroxysmal A-fib I48.0 Chronic diastolic heart failure I50.32
--- NOTE | 2024-04-04 08:45 | Surgery Progress Note ---
Date of Service April 04, 2024 Assessment & Plan (1) Ventral hernia: Plan: Postoperative day #2. He is doing extremely well. I am going to advance his diet. It is okay from my standpoint for him to be discharged. Admission and Anticipated Discharge Date Admission Date: March 27, 2024 Subjective Patient seen. He is doing extremely well. Tolerating the discomfort. He is tolerating full liquid diet. Physical Exam Physical Exam: Alert and oriented no acute distress Abdomen is soft with expected tenderness. The repair feels solid Results & Data Vital Signs (Past 12 Hours) Vital Signs Temp Pulse Resp BP Pulse Ox O2 Del Method O2 Flow Rate 04/04/24 07:54 36.6 C 50 L 16 134/74 96 Room Air 04/03/24 20:55 Room Air, Nasal Cannula 2 PG Care Time/CCT Total # of Minutes Spent Total Time Spent with Patient: Total time spent is greater than 50% in coordination of care (as documented) at patient's floor/unit and/or counseling patient: Coding Level of Care Code 58947 Post Operative Follow-Up Diagnoses Ventral hernia with obstruction and without gangrene K43.6 Obstruction and gangrene presence: with obstruction but without gangrene (1) Ventral hernia Obstruction and gangrene presence: with obstruction but without gangrene Qualified Code(s): K43.6 - Other and unspecified ventral hernia with obstruction, without gangrene
[2024-04-04] MEDS ORDERED: FUROSEMIDE 40 MG/4 ML VIAL IV SCH (09:00)
[2024-04-04 10:34] VITALS: PULSE 77
[2024-04-04] MEDS: FUROSEMIDE 40 MG TAB PO SCH (11:03)
[2024-04-04] MEDS: SENNA 8.6 MG TAB PO SCH (11:03)
[2024-04-04] MEDS ORDERED: FUROSEMIDE 20 MG TAB PO SCH (17:00)
[2024-04-05 05:32] LABS: HSV Type 1 DNA Not Detected (Not Detected); HSV Type 2 DNA Not Detected (Not Detected)
== END 2024-04-04 12:02 | disposition home or self-care (01) | DRG 354 ==
LOC: ED 15:24 → 2S 19:37 → SUATTDRO 19:37 → 2S 20:30 → 3W 04-03 12:23

== ENCOUNTER 2025-03-31 11:59 | Inpatient (IN) ==
[2025-03-31 12:51] LABS: Hematocrit (blood only) 41.9 % (42.0-52.0); Hemoglobin 14.0 g/dl (14.0-18.0); Immature Granulocytes # (auto) 0.04 K/uL (0.01-0.20); Immature Granulocytes % (auto) 0.6 %; Mean Corpuscular Hemoglobin 32.3 pg (25.0-34.0); Mean Corpuscular Volume 96.5 fL (80.0-100.0); Platelet Count 194 K/uL (130-400); RDW Standard Deviation 54.4 fL (36.4-46.3); Red Blood Count 4.34 M/uL (4.70-6.10); White Blood Count 6.29 K/ul (4.8-10.8)
[2025-03-31 13:03] LABS: Alanine Aminotransferase 79.0 U/L (7-52); Albumin Globulin Ratio 1.2 (0.9-2); Alkaline Phosphatase 150.0 U/L (34-104); Anion Gap 5.0 (3-11); Bilirubin,Total 1.4 mg/dl (0.2-1.0); Blood Urea Nitrogen 14.0 mg/dl (6-23); Calcium 8.9 mg/dl (8.6-10.3); Carbon Dioxide 32.0 mmol/L (21-32); Chloride 100.0 mmol/L (98-107); Creatinine Clr Calc Pharmacy 80.7 ml/min; Globulin 2.9 gm/dl (2.5-4.0); Glucose 100.0 mg/dl (70-99(Fasting)); Lipase 14.0 U/L (11-82); Potassium 3.8 mmol/L (3.5-5.1); Sodium 137.0 mmol/L (136-145); Total Protein 6.3 gm/dl (6.0-8.3)
--- NOTE | 2025-03-31 13:05 | XRay Report ---
XR chest 1V portable CLINICAL HISTORY: Chest pain, nonspecific COMPARISON STUDY: Chest radiograph March 27, 2024. Chest CT May 06, 2022. FINDINGS: There are median sternotomy wires. Cardiomegaly is unchanged. There is no consolidation to suggest pneumonia. Linear left basilar densities favor atelectasis. There is no evidence for pulmonar y edema. IMPRESSION: No acute cardiopulmonary findings. No significant change in appearance of the chest. ACT 112: Negative or not required by law. Electronically signed by: Everett Diehl M.D. 03/31/2025 1:03 PM
[2025-03-31] MEDS: FUROSEMIDE 40 MG/4 ML VIAL IV ONE ×2 (14:09→20:34)
--- NOTE | 2025-03-31 14:46 | History & Physical Report ---
Date of Service March 31, 2025 Assessment & Plan (1) Chest pain: (2) Dyspnea on exertion: (3) Atrial fibrillation: (4) Thyrotoxicosis: (5) Lower extremity edema: Plan Pt is a 79 yo male with a past med hx of CAD s/p bypass in 2021, amiodarone- induced hyperthyroidism treated with methimazole and was treated with prednisone also, hx of paroxysmal afib, HTN, HFpEF, and BPH who presents to the hospital on 03/31 for progressive dyspnea on exertion. #Chest pain with SHETTY - started 1 mo ago, hx of bypass, relieved with rest per pt - given prior cardiac hx and symptoms concerning for angina, will consult cardiology - will repeat echo today - NPO pending cardiology - LE bilateral duplex US to evaluate for DVT; notes compliance with eliquis but this is managed by spouse, if becomes hypoxic or US positive would CT chest to evaluate for PE as that could explain symptoms also #Lower extremity swelling - slight asymmetry noted; will do US duplex to evaluate for DVT - suspect some component of venous stasis; recommend elevating as able - not cellulitic on admission exam - got 40 mg IV lasix in the ED, will continue home regime 40 mg in the am and 20 mg in the pm for now as his lungs are clear and labs/imaging not very remarkable for CHF #Afib - rate controlled thus far - continue home medications (hold eliquis for heparin pending cards eval) #Amiodarone induced thyrotoxicosis - pt takes methimazole 10 mg daily (written for BID but spouse only gives it daily) - just finished course of steroids - TSH ordered Diet: NPO pending cards but when able to eat would fluid restrict + low sodium diet DVT ppx: heparin History of Present Illness Chief Complaint: Dyspnea on exertion Primary Care Provider: COSTA Marie Pt is a 79 yo male with a past med hx of CAD s/p bypass in 2021, amiodarone- induced hyperthyroidism treated with methimazole and was treated with prednisone also, hx of paroxysmal afib, HTN, HFpEF, and BPH who presents to the hospital on 03/31 for progressive dyspnea on exertion. Pt states that symptoms started about 1 mo ago. He states he last saw cardiology in January or so and was not having symptoms then. He states that he noticed starting about 1 mo ago that he would get some shortness of breath with activity. He states that initially he could walk a good distance before getting shortness of breath. He states he noticed that this has been worsening. He states that as of the last few days he could only walk a few yards before getting shortness of breath and now with the SOB he also experiences substernal chest discomfort as well. He states that the SOB and chest discomfort go away when he sits for a period of time. He states he has also noticed with these symptoms that when he gets up from sitting for a prolonged period of time he sometimes feels his heart race and that he could pass out, but denies any episodes of passing out so far. He states the other night he got up from his front porch chair and went to walk up the stairs and thought he "wasn't going to make it" and that he was going to pass out but didn't. He states he feels like his heart is racing sometimes. He also states his weight about 1 mo ago was around 312 lbs or so and that today he was told that he was 323lbs and that he has noticed over the last week or so that both of his legs are starting to swell up. He states he does have a prior history of leg swelling and that in the past it was treated with the water pill that he is already taking. He states that he also had a hx of L leg cellulitis before. He states his hx of afib dates back to his bypass in 2021 and that after his bypass he went into afib and that at that time they "shocked him" and that he hasn't had any issues since but has been taking eliquis since "I guess for that." He denies any missed doses of his eliquis but states a family member gives him his meds. Allergies Allergy/AdvReac Type Severity Reaction Status Date / Time amiodarone AdvReac Severe Hyperthyroi Verified 03/31/25 14:57 dism codeine AdvReac Mild NAUSEA Verified 03/31/25 14:57 Home Medications Medication Instructions Recorded Confirmed Type diclofenac sodium 1 % topical gel 4 g topical QID PRN Pain 12/26/23 03/31/25 History (Voltaren Arthritis Pain) apixaban 5 mg tablet (Eliquis) 5 mg PO BID #180 tabs 06/24/24 03/31/25 Rx furosemide 40 mg tablet (Lasix) 40 mg PO QAM 06/25/24 03/31/25 History clotrimazole-betamethasone 1 1 applic topical BID PRN Psoriasis 12/20/24 03/31/25 History %-0.05 % topical cream furosemide 20 mg tablet 20 mg PO QPM #90 tabs 02/24/25 03/31/25 Rx tamsulosin 0.4 mg capsule 0.4 mg PO HS #90 caps 03/10/25 03/31/25 Rx tramadol 50 mg tablet 100 mg (2 x 50 mg) PO Q12H PRN 03/21/25 03/31/25 Rx pain #120 tabs losartan 100 mg tablet 100 mg PO QAM 03/31/25 03/31/25 History methimazole 10 mg tablet 10 mg PO DAILYBB 03/31/25 03/31/25 History metoprolol succinate 50 mg 50 mg PO QAM 03/31/25 03/31/25 History tablet,extended release 24 hr multivitamin 1 tab PO QAM 03/31/25 03/31/25 History Past Med/Surg History Problem List (Updated 03/31/25 @ 16:18 by Luisana Velasquez DO) Thyrotoxicosis Dyspnea on exertion Chest pain Atrial fibrillation (Acute) CHF (congestive heart failure) (Acute) Class 3 obesity Amiodarone-induced hyperthyroidism Statin myopathy Bradycardia H/O ventral hernia repair (04/02/24) Laparoscopic Ventral Hernia Repair with Mesh(Not Applicable) - Eliezer Howard DO (HFpEF) heart failure with preserved ejection fraction Diabetes (Unknown) Knee pain Lightheadedness Syncope Chronic diastolic heart failure DVT prophylaxis Morbid obesity Heart failure with mid-range ejection fraction Psoriasis Cellulitis Leukocytosis (Acute) Colon polyps Nocturnal hypoxemia Dyslipidemia Chronic back pain (Chronic) Hypertension (Chronic) Medical History On amiodarone therapy Small bowel obstruction (03/2024) Incarcerated ventral hernia (03/2024) Small bowel obstruction (01/2024) Abdominal pain DJD (degenerative joint disease) of knee Postoperative atrial fibrillation Syncope (2021) Non-ST elevation GA (NSTEMI) (2021) SBO (small bowel obstruction) Acute on chronic diastolic heart failure Lower extremity edema Paroxysmal A-fib Type 2 diabetes mellitus CAD (coronary artery disease) Chronic obstructive lung disease Obstructive sleep apnea syndrome Chronic narcotic dependence Warfarin anticoagulation Sepsis secondary to UTI Hematuria Encephalopathy Surgical History S/P CABG x 2 (2021) History of tonsillectomy History of appendectomy History of colon surgery Family History Father Myocardial infarction Heart disease Mother Hypertension Other Diabetes Denies family history of Ovarian cancer Prostate cancer Breast cancer Lung cancer Colorectal cancer Stroke Social History Smoking Status: Never smoker Second Hand Exposure: No; Do You Dip or Chew Tobacco: No; Hx Alcohol Use: Yes Alcohol type: hard liquor Alcohol Intake Frequency: 2-4 x/Month Hx Substance Use: No Preferred Language: Marshallese Communication Ability: Effective Visual Impairment: Limited Hearing Ability: Hard of Hearing World Travel Counselor Required: No Beliefs That Will Affect Care: Congregational Congregational Beliefs: presybeterian marital status: Current Living Situation: Spouse current occupational status: retired current occupation: Retired How many Children do You have: 3 Feels Safe at Home: Yes Childhood Exposure to Second-Hand Smoke: No Diet: regular caffeine: Yes Dental Care, Regularly: No Physical Activity Frequency: 5-6 Times per Week Seatbelt Use: always Sunscreen Use: No Assistive Devices: Cane and Walker Review of Systems Review of Systems: Per HPI. Physical Exam Physical Exam: General: Alert and oriented, no acute distress, very pleasant gentleman HEENT: Normocephalic, moist oral mucosa, Cardio: Regular rate and rhythm, Resp: Lungs clear to auscultation b/l, no wheezes or rhonchi, Skin: Warm, pink, dry, large sternal scar noted as well as ventral abdominal scar from prior procedures, no rashes noted on torso or arms Extremities: 3+ pitting edema of bilateral lower extremities, maybe slightly moreso on the L side which does have some increased warmth to the top of foot but no obvious breaks in the skin or erythema noted Results & Data Results & Data Vital Signs (Past 12 Hours) Vital Signs Temp Pulse Pulse Resp BP BP Pulse Ox 03/31/25 14:43 63 16 138/91 97 03/31/25 14:36 82 14 08/25/25 14:27 83 15 03/31/25 14:15 56 L 14 97 03/31/25 14:01 133/86 03/31/25 14:01 133/86 03/31/25 14:00 51 L 13 90 03/31/25 13:51 57 L 14 95 03/31/25 13:42 57 L 15 96 03/31/25 13:36 61 16 95 03/31/25 13:32 122/84 03/31/25 13:22 59 L 16 121/97 95 03/31/25 13:18 57 L 13 94 03/31/25 13:03 62 15 89 L 03/31/25 13:03 56 L 03/31/25 12:11 94 03/31/25 12:09 68 98 03/31/25 12:07 36.6 C 71 20 141/103 H 94 03/31/25 12:00 O2 Del Method 03/31/25 14:43 Room Air 03/31/25 14:36 03/31/25 14:27 03/31/25 14:15 03/31/25 14:01 03/31/25 14:01 03/31/25 14:00 03/31/25 13:51 03/31/25 13:42 03/31/25 13:36 03/31/25 13:32 03/31/25 13:22 03/31/25 13:18 03/31/25 13:03 03/31/25 13:03 03/31/25 12:11 Room Air 03/31/25 12:09 03/31/25 12:07 Room Air 03/31/25 12:00 Room Air Supervising Physician Co-Signing Physician Notes I personally examined the patient and verified all moran points of history and exam, discussed case, and agree with decision making with Dr Velasquez Progressive dyspnea on exertion to where he could only walk a few feet. Now actually feeling better. Vitals noted, in general he is awake and alert pleasant no distress. Cardio is rate controlled but irregularly irregular. Lungs faint rales base left only notable with amplification otherwise clear. We are able to walk probably 40 feet together and he is not limited by dyspnea and he is 9495 on room air afterwards. Labs and diagnostics noted. Dyspnea on exertioninitially with a clear chest x-ray, clear lungs on exam, and a normal pulse ox, CHF was lower on the differential simply due to the lack of lung findings to support it; however, given his progress after giving Lasix in the ER it is now the lead differential. Continue to diurese. Repeat echocardiogram. Still would appreciate cardiology input given that his symptoms could also be compatible with angina and his rhythm issues seem to have been a bit complicated, although I doubt A-fib is causing his symptoms given it is so rate controlled. Educate on sodium restriction. Otherwise as above. Anticoagulated. Resident Activity Tracking Resident Involvement: Resident Care Provided Care Provided: Adult Hospital Medicine
--- NOTE | 2025-03-31 14:56 | Emergency Department Note ---
Impression & Plan CHF (congestive heart failure), Atrial fibrillation ED Provider Note Diagnosis: CHF exacerbation, A-fib Disposition: Admission CHIEF COMPLAINT: Lower extremity edema, A-fib HPI: Patient is a 79-year-old male presenting with complaint of being found to be in atrial fibrillation and his family doctor today. Patient states that he has been told he has had it 1 other time during bypass surgery. Patient states over the past 1 month's time he has noticed his heart rate go between 90 to 150 bpm. Patient has been feeling palpitations and lightheaded with walking short distances. Patient has noted significant increase in edema in his lower extremities bilaterally. Patient has had weeping from his legs. PAST MEDICAL HISTORY: See Below PAST SURGICAL HISTORY: See Below SOCIAL HISTORY: See Below HOME MEDICATIONS: See Below ALLERGIES: See Below VITALS: See Below PHYSICAL EXAMINATION: GENERAL: Well appearing, well nourished, NAD, non-toxic. EYE EXAM: Normal conjunctiva. OROPHARYNX: Moist mucus membranes. Grossly normal dentition. NECK: Supple, LUNGS: Clear to auscultation. Normal chest wall mechanics. HEART: NSR ABDOMEN: Abdomen soft, non-tender, normo-active bowel sounds, no masses, no rebound or guarding BACK: No CVA TTP. SKIN: No rashes and no bruising. UPPER EXTREMITIES: Upper extremities are grossly normal LOWER EXTREMITIES: Grossly normal, no edema. NEURO EXAM: A&O x3,, normal speech, moves all 4 extremities PSYCH: Cooperative MEDICAL DECISION MAKING: History obtained from: Patient ER Course: Patient is a 79-year-old male presenting with complaint of A-fib and lower extremity edema. Patient's A-fib is rate under 100 and continued there throughout his ER course. Patient has not ever had persistent A-fib outside of operating room during bypass surgery. Patient is on blood thinners already at baseline. Patient has been having palpitations and symptoms with small amounts of exertion over the past 1 months time. Patient has had significant lower extremity edema and has been taking his Lasix as prescribed but is not making improvements. Patient found to be in A-fib rate controlled today. Patient found to have significant lower extremity edema bilaterally without signs of cellulitis. Patient's edema is symmetrical in each leg and I do not believe this is being caused by DVT at this time. Patient was given IV Lasix. Patient admitted to the hospital service further treatment and evaluation Labs (independently interpreted) are significant for: Creatinine 1.2 BNP 99 Imaging results (independently interpreted): Chest x-ray no pneumonia EKG interpretation (independently interpreted): Atrial fibrillation no ST segment elevation or depression rate controlled Medications given: Lasix 40 Consultants: Hospitalist Chronic conditions affecting care: Congestive heart failure Triage Nursing notes reviewed and agree them. 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 Bradycardia H/O ventral hernia repair (04/02/24) Laparoscopic Ventral Hernia Repair with Mesh(Not Applicable) - Eliezer Howard DO (HFpEF) heart failure with preserved ejection fraction Diabetes (Unknown) Knee pain Lightheadedness Syncope Chronic diastolic heart failure DVT prophylaxis Morbid obesity Heart failure with mid-range ejection fraction Psoriasis Cellulitis Leukocytosis (Acute) Colon polyps Nocturnal hypoxemia Dyslipidemia Chronic back pain (Chronic) Hypertension (Chronic) Medical History On amiodarone therapy Small bowel obstruction (03/2024) Incarcerated ventral hernia (03/2024) Small bowel obstruction (01/2024) Abdominal pain DJD (degenerative joint disease) of knee Postoperative atrial fibrillation Syncope (2021) Non-ST elevation IA (NSTEMI) (2021) SBO (small bowel obstruction) Acute on chronic diastolic heart failure Lower extremity edema Paroxysmal A-fib Type 2 diabetes mellitus CAD (coronary artery disease) Chronic obstructive lung disease Obstructive sleep apnea syndrome Chronic narcotic dependence Warfarin anticoagulation Sepsis secondary to UTI Hematuria Encephalopathy Surgical History S/P CABG x 2 (2021) History of tonsillectomy History of appendectomy History of colon surgery Family History Father Myocardial infarction Heart disease Mother Hypertension Other Diabetes Denies family history of Ovarian cancer Prostate cancer Breast cancer Lung cancer Colorectal cancer Stroke Social History Smoking Status: Never smoker Second Hand Exposure: No; Do You Dip or Chew Tobacco: No; Hx Alcohol Use: Yes Alcohol type: hard liquor Alcohol Intake Frequency: 2-4 x/Month Hx Substance Use: No Preferred Language: Malawian Communication Ability: Effective Visual Impairment: Limited Hearing Ability: Hard of Hearing 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 Beliefs That Will Affect Care: Latter Day L[employer] Day Beliefs: jain marital status: Current Living Situation: Spouse current occupational status: retired current occupation: Retired How many Children do You have: 3 Feels Safe at Home: Yes Childhood Exposure to Second-Hand Smoke: No Diet: regular caffeine: Yes Dental Care, Regularly: No Physical Activity Frequency: 5-6 Times per Week Seatbelt Use: always Sunscreen Use: No Assistive Devices: Cane and Walker Allergies Allergies Allergy/AdvReac Type Severity Reaction Status Date / Time amiodarone AdvReac Severe Hyperthyroi Verified 03/31/25 14:57 dism codeine AdvReac Mild NAUSEA Verified 03/31/25 14:57 Home Meds Home Medications Medication Instructions Recorded Confirmed diclofenac sodium 1 % topical gel 4 g topical QID PRN Pain 12/26/23 03/31/25 (Voltaren Arthritis Pain) furosemide 40 mg tablet (Lasix) 40 mg PO QAM 06/25/24 03/31/25 clotrimazole-betamethasone 1 1 applic topical BID PRN Psoriasis 12/20/24 03/31/25 %-0.05 % topical cream Previous Rx's Medication Instructions Recorded apixaban 5 mg tablet (Eliquis) 5 mg PO BID #180 tabs 06/24/24 losartan 100 mg tablet 100 mg PO DAILY #90 tabs 06/26/24 metoprolol succinate 50 mg 50 mg PO DAILY #90 tabs 02/03/25 tablet,extended release 24 hr furosemide 20 mg tablet 20 mg PO QPM #90 tabs 02/24/25 methimazole 5 mg tablet 5 mg PO DAILY #30 tabs 02/24/25 tamsulosin 0.4 mg capsule 0.4 mg PO HS #90 caps 03/10/25 tramadol 50 mg tablet 100 mg (2 x 50 mg) PO Q12H PRN 03/21/25 pain #120 tabs Results & Data (ED) Vital Signs Vital Signs - 24 hr 03/31/25 12:00 03/31/25 12:07 03/31/25 12:09 Temperature 36.6 C Temperature Source Oral Pulse Rate 71 68 Pulse Rate [Apical] Pulse Rate from SpO2 Sensor Pulse Rhythm Regular Respiratory Rate 20 Respiratory Effort / Characteristics Non-Labored Spontaneous Respiratory Depth Normal Respiratory Pattern Regular Blood Pressure 141/103 H Blood Pressure [Left Arm] Blood Pressure Mean 115 Blood Pressure Mean [Left Arm] Blood Pressure Position Sitting Pulse Oximetry 94 98 Oxygen Delivery Method Room Air Room Air Sepsis Recent Fever Within 48 Hours No Sepsis New/Unexplained Change in Mental Status No Sepsis Action Taken by Nursing No Action Required 03/31/25 12:11 03/31/25 13:03 03/31/25 13:03 Temperature Temperature Source Pulse Rate 56 L 62 Pulse Rate [Apical] Pulse Rate from SpO2 Sensor 63 Pulse Rhythm Respiratory Rate 15 Respiratory Effort / Characteristics Respiratory Depth Respiratory Pattern Blood Pressure Blood Pressure [Left Arm] Blood Pressure Mean Blood Pressure Mean [Left Arm] Blood Pressure Position Pulse Oximetry 94 89 L Oxygen Delivery Method Room Air Sepsis Recent Fever Within 48 Hours Sepsis New/Unexplained Change in Mental Status Sepsis Action Taken by Nursing 03/31/25 13:18 03/31/25 13:22 03/31/25 13:32 Temperature Temperature Source Pulse Rate 57 L Pulse Rate [Apical] 59 L Pulse Rate from SpO2 Sensor 59 L Pulse Rhythm Respiratory Rate 13 16 Respiratory Effort / Characteristics Respiratory Depth Respiratory Pattern Blood Pressure 122/84 Blood Pressure [Left Arm] 121/97 Blood Pressure Mean 98 Blood Pressure Mean [Left Arm] 105 Blood Pressure Position Pulse Oximetry 94 95 Oxygen Delivery Method Sepsis Recent Fever Within 48 Hours Sepsis New/Unexplained Change in Mental Status Sepsis Action Taken by Nursing 03/31/25 13:36 03/31/25 13:42 03/31/25 13:51 Temperature Temperature Source Pulse Rate 61 57 L 57 L Pulse Rate [Apical] Pulse Rate from SpO2 Sensor 59 L 54 L 59 L Pulse Rhythm Respiratory Rate 16 15 14 Respiratory Effort / Characteristics Respiratory Depth Respiratory Pattern Blood Pressure Blood Pressure [Left Arm] Blood Pressure Mean Blood Pressure Mean [Left Arm] Blood Pressure Position Pulse Oximetry 95 96 95 Oxygen Delivery Method Sepsis Recent Fever Within 48 Hours Sepsis New/Unexplained Change in Mental Status Sepsis Action Taken by Nursing 03/31/25 14:00 03/31/25 14:01 03/31/25 14:01 Temperature Temperature Source Pulse Rate 51 L Pulse Rate [Apical] Pulse Rate from SpO2 Sensor 50 L Pulse Rhythm Respiratory Rate 13 Respiratory Effort / Characteristics Respiratory Depth Respiratory Pattern Blood Pressure 133/86 133/86 Blood Pressure [Left Arm] Blood Pressure Mean 90 90 Blood Pressure Mean [Left Arm] Blood Pressure Position Pulse Oximetry 90 Oxygen Delivery Method Sepsis Recent Fever Within 48 Hours Sepsis New/Unexplained Change in Mental Status Sepsis Action Taken by Nursing 03/31/25 14:15 03/31/25 14:27 03/31/25 14:36 Temperature Temperature Source Pulse Rate 56 L 83 82 Pulse Rate [Apical] Pulse Rate from SpO2 Sensor 61 Pulse Rhythm Respiratory Rate 14 15 14 Respiratory Effort / Characteristics Respiratory Depth Respiratory Pattern Blood Pressure Blood Pressure [Left Arm] Blood Pressure Mean Blood Pressure Mean [Left Arm] Blood Pressure Position Pulse Oximetry 97 Oxygen Delivery Method Sepsis Recent Fever Within 48 Hours Sepsis New/Unexplained Change in Mental Status Sepsis Action Taken by Nursing 03/31/25 14:43 Temperature Temperature Source Pulse Rate Pulse Rate [Apical] 63 Pulse Rate from SpO2 Sensor Pulse Rhythm Respiratory Rate 16 Respiratory Effort / Characteristics Respiratory Depth Respiratory Pattern Blood Pressure Blood Pressure [Left Arm] 138/91 Blood Pressure Mean Blood Pressure Mean [Left Arm] 106 Blood Pressure Position Pulse Oximetry 97 Oxygen Delivery Method Room Air Sepsis Recent Fever Within 48 Hours Sepsis New/Unexplained Change in Mental Status Sepsis Action Taken by Nursing Laboratory Data 03/31/25 12:23 03/31/25 12:23 Lab Results 03/31/25 Range/Units 12:23 WBC 6.29 (4.8-10.8) K/ul RBC 4.34 L (4.70-6.10) M/uL Hgb 14.0 (14.0-18.0) g/dl Hct 41.9 L (42.0-52.0) % MCV 96.5 (80.0-100.0) fL MCH 32.3 (25.0-34.0) pg MCHC 33.4 (32.0-36.0) g/dL RDW Std Deviation 54.4 H (36.4-46.3) fL RDW Coeff of Vipul 15.2 H (11.5-14.5) % Plt Count 194 (130-400) K/uL MPV 10.4 (9.4-12.4) fL Immature Gran % (Auto) 0.6 % Neut % (Auto) 49.9 % Lymph % (Auto) 26.2 % Trigg % (Auto) 19.6 % Eos % (Auto) 2.9 % Baso % (Auto) 0.8 % Neut # (Auto) 3.14 (1.40-6.50) K/uL Lymph # (Auto) 1.65 (1.20-3.40) K/uL Trigg # (Auto) 1.23 H (0.11-0.59) K/uL Eos # (Auto) 0.18 (0.00-0.50) K/uL Baso # (Auto) 0.05 (0.00-0.20) K/uL Immature Gran # (Auto) 0.04 (0.01-0.20) K/uL Sodium 137 (136-145) mmol/L Potassium 3.8 (3.5-5.1) mmol/L Chloride 100 (98-107) mmol/L Carbon Dioxide 32 (21-32) mmol/L Anion Gap 5 (3-11) BUN 14 (6-23) mg/dl Creatinine 1.14 (0.6-1.4) mg/dl Est Cr Clr Drug Dosing 80.7 ml/min eGFR 66.24 BUN/Creatinine Ratio 12.3 (10-20) Glucose 100 H (70-99(Fasting)) mg/dl Calcium 8.9 (8.6-10.3) mg/dl Total Bilirubin 1.4 H (0.2-1.0) mg/dl AST 57 H (13-39) U/L ALT 79 H (7-52) U/L Alkaline Phosphatase 150 H (34-104) U/L Troponin I High Sens 7.8 (0-20) pg/ml B-Natriuretic Peptide 99 (0-100) pg/ml Total Protein 6.3 (6.0-8.3) gm/dl Albumin 3.4 (3.4-5.0) gm/dl Globulin 2.9 (2.5-4.0) gm/dl Albumin/Globulin Ratio 1.2 (0.9-2) Lipase 14 (11-82) U/L Administered Medications Discontinued Medications Furosemide (Furosemide 40 Mg/4 Ml Vial) 40 mg IV ONE ONE Stop: 03/31/25 13:43 Last Admin: 03/31/25 14:09 Dose: 40 mg Documented By: DANIEL Imaging Data Radiologist's Impression: Chest X-Ray 03/31/25 12:09 XR chest 1V portable CLINICAL HISTORY: Chest pain, nonspecific COMPARISON STUDY: Chest radiograph March 27, 2024. Chest CT May 06, 2022. FINDINGS: There are median sternotomy wires. Cardiomegaly is unchanged. There is no consolidation to suggest pneumonia. Linear left basilar densities favor atelectasis. There is no evidence for pulmonary edema. IMPRESSION: No acute cardiopulmonary findings. No significant change in appearance of the chest. ACT 112: Negative or not required by law. Electronically signed by: Everett Diehl M.D. 03/31/2025 1:03 PM Discharge Plan Visit Data Chief Complaint: Cardiac Assessment Stated Complaint: CHEST PAINS ED Provider: Regan Umanzor Discharge Problem: CHF (congestive heart failure), Atrial fibrillation Condition: Fair Forms Stand Alone Forms: [employer] Prescriptions Prescriptions: No Action Eliquis 5 mg tablet 5 mg PO BID Qty: 180 3RF losartan 100 mg tablet 100 mg PO DAILY Qty: 90 3RF metoprolol succinate 50 mg tablet extended release 24 hr 50 mg PO DAILY Qty: 90 3RF furosemide 20 mg tablet 20 mg PO QPM Qty: 90 1RF methimazole 5 mg tablet 5 mg PO DAILY Qty: 30 2RF Rx Instructions: Take one tablet by mouth once daily. tramadol 50 mg tablet 100 mg PO Q12H PRN (Reason: pain) Qty: 120 0RF diclofenac sodium [Voltaren Arthritis Pain] 1 % gel 4 g topical QID PRN (Reason: Pain) Rx Instructions: apply to single knee. Unable to verify OTC meds at this date/time. tamsulosin 0.4 mg capsule 0.4 mg PO HS Qty: 90 3RF furosemide [Lasix] 40 mg tablet 40 mg PO QAM clotrimazole-betamethasone 1-0.05 % cream 1 applic TOP BID PRN (Reason: Psoriasis) Referrals Referrals: Matthew Hernandez CRNP [Primary Care Provider] -
[2025-03-31 16:09] LABS: Thyroid Stimulating Hormone 6.206 uIu/ml (0.300-4.500)
--- NOTE | 2025-03-31 16:31 | Ultrasound Report ---
EXAMINATION: Ultrasound venous Doppler lower extremity bilateral CLINICAL HISTORY: Bilateral swelling PRIORS: 03/10/2025 TECHNIQUE: Ultrasound interrogation of the deep venous structures was performed with grayscale, color Doppler, compression and augmentation. FINDINGS: The bilateral common femoral, superficial femoral, saphenous, popliteal and tibial veins demonstrate normal compressibility, frequency and augmentation. A popliteal cyst is present on the left measuring 3.1 x 5.6 x 1.4 cm. IMPRESSION: 1. No sonographic evidence of deep venous thrombosis in the bilateral lower extremities. 2. Left popliteal cyst measuring up to 5.6 cm. Electronically signed by Roz Ivey 03-31-2025 4:29 PM
[2025-03-31] MEDS ORDERED: MELATONIN 3 MG TAB PO PRN (17:11)
[2025-03-31] MEDS ORDERED: ONDANSETRON INJ 2 MG/ML 2 ML VIAL IV PRN (17:11)
[2025-03-31] MEDS ORDERED: POLYETHYLENE (MIRALAX) 17 GM PACK PO PRN (17:11)
[2025-03-31] MEDS ORDERED: ACETAMINOPHEN 325 MG TAB PO PRN (17:11)
[2025-03-31] MEDS ORDERED: NITROGLYCERIN SL 0.4 MG/TAB TAB SL PRN (17:11)
[2025-03-31] MEDS ORDERED: MoRPHine SULFATE 2 MG/ML CARP IV PRN (17:11)
--- NOTE | 2025-03-31 18:10 | Billing Data ---
Date of Service March 31, 2025 Coding Level of Care Code 80780 INT INP/OBS CARE
[2025-03-31] MEDS: FUROSEMIDE 40 MG TAB PO SCH (18:58)
[2025-03-31] MEDS: FUROSEMIDE 20 MG TAB PO SCH (19:45)
[2025-03-31] MEDS: APIXABAN 5 MG TABLET PO SCH (20:34)
[2025-03-31] MEDS: TAMSULOSIN HCL 0.4 MG CAP PO SCH (20:34)
[2025-03-31] MEDS ORDERED: HEPARIN SOD 5,000 UNIT/0.5 ML VIAL SQ SCH (21:00)
[2025-04-01 03:39] VITALS: TEMP 97.9
[2025-04-01 06:11] LABS: Hematocrit (blood only) 41.4 % (42.0-52.0); Hemoglobin 13.6 g/dl (14.0-18.0); Immature Granulocytes # (auto) 0.03 K/uL (0.01-0.20); Immature Granulocytes % (auto) 0.5 %; Mean Corpuscular Hemoglobin 32.0 pg (25.0-34.0); Mean Corpuscular Volume 97.4 fL (80.0-100.0); Platelet Count 196 K/uL (130-400); RDW Standard Deviation 55.0 fL (36.4-46.3); Red Blood Count 4.25 M/uL (4.70-6.10); White Blood Count 6.50 K/ul (4.8-10.8)
[2025-04-01 06:29] LABS: Alanine Aminotransferase 65.0 U/L (7-52); Albumin Globulin Ratio 1.3 (0.9-2); Alkaline Phosphatase 134.0 U/L (34-104); Anion Gap 7.0 (3-11); Bilirubin,Total 1.9 mg/dl (0.2-1.0); Blood Urea Nitrogen 14.0 mg/dl (6-23); Calcium 8.9 mg/dl (8.6-10.3); Carbon Dioxide 31.0 mmol/L (21-32); Chloride 100.0 mmol/L (98-107); Creatinine Clr Calc Pharmacy 82.8 ml/min; Globulin 2.6 gm/dl (2.5-4.0); Glucose 105.0 mg/dl (70-99(Fasting)); Potassium 3.7 mmol/L (3.5-5.1); Sodium 138.0 mmol/L (136-145); Total Protein 6.0 gm/dl (6.0-8.3)
[2025-04-01 07:36] VITALS: BP 143/80; PULSE 91; RESP 18; O2SAT 93
--- NOTE | 2025-04-01 08:17 | Discharge Summary ---
Date of Service April 01, 2025 Admission HPI Per Admitting Provider Pt is a 79 yo male with a past med hx of CAD s/p bypass in 2021, amiodarone- induced hyperthyroidism treated with methimazole and was treated with prednisone also, hx of paroxysmal afib, HTN, HFpEF, and BPH who presents to the hospital on 03/31 for progressive dyspnea on exertion. Pt states that symptoms started about 1 mo ago. He states he last saw cardiology in January or so and was not having symptoms then. He states that he noticed starting about 1 mo ago that he would get some shortness of breath with activity. He states that initially he could walk a good distance before getting shortness of breath. He states he noticed that this has been worsening. He states that as of the last few days he could only walk a few yards before getting shortness of breath and now with the SOB he also experiences substernal chest discomfort as well. He states that the SOB and chest discomfort go away when he sits for a period of time. He states he has also noticed with these symptoms that when he gets up from sitting for a prolonged period of time he sometimes feels his heart race and that he could pass out, but denies any episodes of passing out so far. He states the other night he got up from his front porch chair and went to walk up the stairs and thought he "wasn't going to make it" and that he was going to pass out but didn't. He states he feels like his heart is racing sometimes. He also states his weight about 1 mo ago was around 312 lbs or so and that today he was told that he was 323lbs and that he has noticed over the last week or so that both of his legs are starting to swell up. He states he does have a prior history of leg swelling and that in the past it was treated with the water pill that he is already taking. He states that he also had a hx of L leg cellulitis before. He states his hx of afib dates back to his bypass in 2021 and that after his bypass he went into afib and that at that time they "shocked him" and that he hasn't had any issues since but has been taking eliquis since "I guess for that." He denies any missed doses of his eliquis but states a family member gives him his meds. Admission Exam Per Admitting Provider General: Alert and oriented, no acute distress, very pleasant gentleman HEENT: Normocephalic, moist oral mucosa, Cardio: Regular rate and rhythm, Resp: Lungs clear to auscultation b/l, no wheezes or rhonchi, Skin: Warm, pink, dry, large sternal scar noted as well as ventral abdominal scar from prior procedures, no rashes noted on torso or arms Extremities: 3+ pitting edema of bilateral lower extremities, maybe slightly moreso on the L side which does have some increased warmth to the top of foot but no obvious breaks in the skin or erythema noted Principal Diagnosis chest pain with dyspnea on exertion Discharge Exam was unable to exam patient this morning, as he left AMA Discharge Data Allergies Allergy/AdvReac Type Severity Reaction Status Date / Time amiodarone AdvReac Severe Hyperthyroi Verified 03/31/25 14:57 dism codeine AdvReac Mild NAUSEA Verified 03/31/25 14:57 Consultations 03/31/25 14:14 ED Decision to Admit Stat 03/31/25 17:11 Consult Cardiology Routine Ordered Studies 03/31/25 15:11 US venous duplex leg [US venous doppler LE BI] Stat Hospital Course (1) Chest pain: (2) Dyspnea on exertion: (3) Atrial fibrillation: (4) Thyrotoxicosis: (5) Lower extremity edema: Plan Pt is a 79 yo male with a past med hx of CAD s/p bypass in 2021, amiodarone- induced hyperthyroidism treated with methimazole and was treated with prednisone also, hx of paroxysmal afib, HTN, HFpEF, and BPH who presents to the hospital on 03/31 for progressive dyspnea on exertion. Was alerted by medical staff this morning that patient wishes to leave AMA. #Chest pain with SHETTY - started 1 mo ago, hx of bypass, relieved with rest per pt - given prior cardiac hx and symptoms concerning for angina, cardiology was consulted. Was also planned for repeat echo today (04/01). Patient left this morning before cardiology could see him and before echo was completed. 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 #Lower extremity swelling - slight asymmetry noted; - patient is on eliquis and notes compliance - LE bilateral duplex US to evaluate for DVT completed yesterday, negative for DVT. Suspect some component of venous stasis. Given 40 mg IV lasix in the ED and home regimen was continued - 40mg in AM and 20 mg in PM. - labs and imaging on admission were no very remarkable for CHF. #Afib - rate controlled thus far. Eliquis was on hold during admission due to pending cardiolgy evaluation. Can continue with home eliquis as prescribed. #Amiodarone induced thyrotoxicosis - pt takes methimazole 10 mg daily (written for BID but spouse only gives it daily) - just finished course of steroids - TSH ordered - elevated 6.2 - encouraged to follow-up with PCP for further management #transaminitis - AST and ALT elevated on admission and now downtrending, however still 45 & 65 respectively - total bilirubin continues to increase 1.4 -> 1.9. No imaging was completed of his abdomen. May need ultrasound outpatient for further evaluation. Patient asymptomatic at the time of admission. Encouraged further workup with PCP. Diet: NPO pending cards but when able to eat would fluid restrict + low sodium diet DVT ppx: heparin Total Time Total Time Spent Total Time Spent (In Minutes): Less than 30 Total Time Includes: Examination of the Patient, Discharge Planning and Medication Reconciliation Discharge Plan Discharge Items Patient Disposition: Against Medical Advice Reason For Visit: AFIB, SHETTY Condition on Discharge: Fair Activity: Per Instructions section Non-emergency contact: Primary Care Provider Follow-up/Referrals: Matthew Hernandez CRNP [Primary Care Provider] - Pending Studies at Discharge: Yes (patient did not see cardiology or get ec hocardiogram) Stand-Alone Forms: My [facility] [employer], Smoking Cessation Medications and DC Order Prescriptions: Continued Eliquis 5 mg tablet 5 mg PO BID Qty: 180 3RF furosemide 20 mg tablet 20 mg PO QPM Qty: 90 1RF tramadol 50 mg tablet 100 mg PO Q12H PRN (Reason: pain) Qty: 120 0RF diclofenac sodium [Voltaren Arthritis Pain] 1 % gel 4 g topical QID PRN (Reason: Pain) tamsulosin 0.4 mg capsule 0.4 mg PO HS Qty: 90 3RF furosemide [Lasix] 40 mg tablet 40 mg PO QAM clotrimazole-betamethasone 1-0.05 % cream 1 applic TOP BID PRN (Reason: Psoriasis) multivitamin Tablet 1 tab PO QAM methimazole 10 mg tablet 10 mg PO DAILYBB Patient Comments: Per spouse, the MD wrote this script incorrectly. Pt is only supposed to take medication once in the morning. Not twice daily. 03/31/25 metoprolol succinate 50 mg tablet extended release 24 hr 50 mg PO QAM losartan 100 mg tablet 100 mg PO QAM Discharge Orders: Left Against Medical Advice (Routine); Ordered 04/01/25 Ordered By: Luisana Velasquez Admission Data Admit Date/Time: 03/31/25 15:38 Attending Provider: Aneesh Bryson Admit Provider: Luisana Velasquez Primary Care Provider: Matthew Hernandez. Other Providers: Aneesh Bryson; Fazal Vallejo Supervising Physician Co-Signing Physician Notes chart reviewed, case discussed with resident physician. Informed by nursing earlier this morning that patient was choosing to leave AMA. Left very quickly. Fortunately vital signs appeared okay and labs appeared okay. Unfortunately I was not able to truly get across to him education about low-sodium diet/etc. Have asked nurse navigator to assist in arranging outpatient follow-up. Dyspnea on exertioninitially with a clear chest x-ray, clear lungs on exam, and a normal pulse ox, CHF was lower on the differential simply due to the lack of lung findings to support it; however, given his progress after getting Lasix in the ER it is now the lead differential. Plan was for ongoing diuresis, awaiting a repeat echocardiogram, and asking for cardiology input given the new onset of his coronary disease as well as rhythm disease in the face of what zak eared to probably, but not completely clearly, be a CHF exacerbation. Unfortunately he chose to leave AMA before we could follow through with any of this. He did have capacity, and therefore well within his right to do so, but unfortunate given that I suspect with further patient education we could have helped more significantly. Outpatient follow-up as best as he will allow. Anticoagulated.
[2025-04-01] MEDS ORDERED: METOPROLOL SUCC 50MG EXT REL TAB PO SCH (09:00)
[2025-04-01] MEDS ORDERED: LOSARTAN POTASSIUM 50 MG TAB PO SCH (09:00)
--- NOTE | 2025-04-01 13:24 | Billing Data ---
Date of Service April 01, 2025 Coding Level of Care Code 88471 IN/OBS DISCH 30 MIN/LESS
== END 2025-04-01 08:05 | disposition left against medical advice (07) | DRG 291 ==
LOC: ED 11:59 → 2W 15:38